=== PATIENT | female | born 1965 | race Caucasian/White ===

== ENCOUNTER 2020-08-03 21:13 | Inpatient (IN) | payer MEDICARE, OTHER, SELFPAY ==
[2020-08-03] VITALS (17 sets, daily range): BP systolic 102–139; BP diastolic 60–80; PULSE 59–75; RESP 12–20; TEMP 36.6; O2SAT 94–100
--- NOTE | ~2020-08-03 | XR_ITS ---
EXAMINATION: XR chest 2V DATE: 08/03/2020 21:33 INDICATION: Chest pain radiating to the left arm. TECHNIQUE: Frontal and lateral views of the chest were obtained. COMPARISON: Chest single view 01/17/2020 FINDINGS: There is mild atelectasis in left lower lung zone. No pleural effusion or pneumothorax. The heart size is normal. There are changes of anterior fusion procedure in cervical spine. IMPRESSION: 1. Mild atelectasis in left lower lung zone. Reviewed, dictated and finalized at location A. HEALTH SPEECH THERAPIST
--- NOTE | 2020-08-03 21:23 | ECG_ITS ---
Measurements Intervals [place] Rate: 73 P: 19 NV: 179 QRS: 40 QRSD: 111 T: 62 QT: 390 QTc: 433 Interpretive Statements SINUS RHYTHM INTRAVENTRICULAR CONDUCTION DELAY EARLY PRECORDIAL R/S TRANSITION NONSPECIFIC T-WAVE ABNORMALITY- ANTERIOR LEADS BASELINE ARTIFACT- I, II, III, AVL, V1, V3 BORDERLINE ECG Electronically Signed On 08-04-2020 12:38:08 FILBERT GROWER by Bon Cabrera D.O.
[2020-08-03 21:41] LABS: Basophils Absolute Auto 0.1 K/mm3 (0.0-0.1); Basophils Percent Auto 0.9 % (0.2-1.2); Eosinophils Absolute Auto 0.3 K/mm3 (0-0.3); Eosinophils Percent Auto 2.9 % (0-4.4); Hematocrit 38.2 % (37.0-47.0); Hemoglobin 12.8 g/dL (12.0-15.0); Immature Granulocyte Absolute 0.03 K/mm3 (0.00-0.031); Immature Granulocyte Percent A 0.3 % (0-0.5); Lymphocytes Absolute Auto 3.61 K/mm3 (0.9-3.2); Lymphocytes Percent Auto 34.3 % (18.3-44.2); Mean Corpuscular HGB Conc 33.5 g/dl (32-36); Mean Corpuscular Hemoglobin 30.1 pg (26-34); Mean Corpuscular Volume 89.9 fl (80-100); Mean Platelet Volume 9.9 fl (7.4-10.4); Monocytes Absolute Auto 0.8 K/mm3 (0.1-0.6); Monocytes Percent Auto 7.5 % (2.6-8.5); Neutrophils Absolute Auto 5.7 K/mm3 (1.3-6.7); Neutrophils Percent Auto 54.1 % (45.5-73.1); Platelet Count Result 279 k/mm3 (150-375); Red Blood Count 4.25 M/mm3 (4.2-5.4); Red Cell Distribution Width 12.7 % (11.5-14.5); White Blood Count 10.5 K/mm3 (4.5-10.0)
[2020-08-03] MEDS: ASPIRIN 81 MG CHEWABLE TABLET 324 MG PO (21:47)
--- NOTE | 2020-08-03 21:50 | ED.CHESTPAIN ---
HPI - Chest Pain General Chief Complaint: Chest Pain Stated Complaint: left arm pain, chest pain Time Seen by Provider: 08/03/20 21:19 History of Present Illness HPI narrative: Patient is a 55-year-old female who presents ER with chest pain. Symptoms began this afternoon at 2 PM. Reports she went out for a walk and she began getting central chest pressure that would go to her left arm and upper left neck. It is an ache. No muscle pain. She was short of breath. She did have to sit and rest until it would go away. Pain would last approximately 15 minutes. This is been reproducible with walking up stairs and other exertional activities throughout the day. No previous history of coronary disease. No family history of coronary disease. Related Data Allergies Allergy/AdvReac Type Severity Reaction Status Date / Time prochlorperazine Allergy Severe tongue and Verified 01/16/20 23:46 throat swelling Review of Systems Review of Systems: All systems reviewed & are unremarkable except as noted in HPI and below Constitutional: Constitutional: Denies chills, Denies fever(s) and Denies weakness ENT: Denies nasal congestion and Denies sore throat Cardiovascular: Cardiovascular: Reports chest pain, Denies rapid heart rate and Reports radiating jaw, neck or arm pain Respiratory: Respiratory: Denies cough, Reports dyspnea and Denies wheezing Gastrointestinal: Gastrointestinal: Denies abdominal pain, Denies diarrhea, Denies nausea and Denies vomiting Musculoskeletal: Musculoskeletal: Denies back pain and Denies muscle cramps Neurologic: Denies focal weakness and Denies numbness PMFSH Past Medical History Medical History (Updated 08/03/20 @ 23:45 by Hi Alexander MD) Bipolar disorder Hypercholesterolemia Surgical History Surgical History (Updated 08/03/20 @ 23:43 by Hi Alexander MD) History of Social History Social History (Updated 08/03/20 @ 23:43 by Hi Alexanedr MD) Smoking status: Never smoker Exam Narrative: Exam Narrative: GENERAL: Well-appearing, well-nourished, and in no acute distress. HEAD: Normocephalic, atraumatic. CHEST: Clear to auscultation. No respiratory distress. HEART: Regular rate and rhythm. No murmur heard. Normal peripheral pulses. ABDOMEN: Soft, nontender, nondistended. EXTREMITIES: Normal range of motion. No edema. SKIN: Warm, dry, no rash. NEURO: Alert and oriented x3. PSYCH: Normal mood and affect. Course Course Emergency Course: Discussed with cardiology. Okay to admit to their service. Patient chest pain-free at this time. Vital Signs Vital signs: Vital Signs Pulse Rate 75 08/03/20 21:18 Respiratory Rate 15 08/03/20 21:18 Blood Pressure 139/80 08/03/20 21:18 Pulse Oximetry 100 08/03/20 21:18 Pulse Rate 61 08/03/20 23:31 Respiratory Rate 14 08/03/20 23:31 Blood Pressure 107/66 08/03/20 23:31 Pulse Oximetry 100 08/03/20 23:31 MDM - Chest Pain Lab Data Result diagrams: 08/03/20 21:35 08/03/20 21:35 Labs: Lab Results 08/03/20 08/03/20 08/03/20 Range/Units 21:35 21:35 21:35 WBC 10.5 H (4.5-10.0) K/mm3 RBC 4.25 (4.2-5.4) M/mm3 Hgb 12.8 (12.0-15.0) g/dL Hct 38.2 (37.0-47.0) % MCV 89.9 (80-100) fl MCH 30.1 (26-34) pg MCHC 33.5 (32-36) g/dl RDW 12.7 (11.5-14.5) % Plt Count 279 (150-375) k/mm3 MPV 9.9 (7.4-10.4) fl Immature Gran % (Auto) 0.3 (0-0.5) % Neut % (Auto) 54.1 (45.5-73.1) % Lymph % (Auto) 34.3 (18.3-44.2) % Schleicher % (Auto) 7.5 (2.6-8.5) % Eos % (Auto) 2.9 (0-4.4) % Baso % (Auto) 0.9 (0.2-1.2) % Lymph # (Auto) 3.61 H (0.9-3.2) K/mm3 Schleicher # (Auto) 0.8 H (0.1-0.6) K/mm3 Eos # (Auto) 0.3 (0-0.3) K/mm3 Baso # (Auto) 0.1 (0.0-0.1) K/mm3 Abs Immat Gran (auto) 0.03 (0.00-0.031) K/mm3 Absolute Neuts (auto) 5.7 (1.3-6.7) K/mm3 Absolute Nucleated RBC 0.0 (
[2020-08-03 21:51] LABS: INR 0.9; Prothrombin Time 13.1 Seconds (11.1-14.7)
[2020-08-03 21:52] LABS: Partial Thromboplastin Time 29.1 SECONDS (22.3-36.8)
[2020-08-03 21:54] LABS: Anion Gap 9 mmol/L (8-16); Blood Urea Nitrogen 11 mg/dL (7-17); Calcium 9.6 mg/dL (8.4-10.2); Carbon Dioxide 28 mmol/L (22-30); Chloride 105 mmol/L (98-107); Estimated CRCL calculation 62 ml/min; Estimated Glomerular Filt Rate > 60; Glucose 104 mg/dL (65-105); Potassium 3.6 mmol/L (3.4-5.0); Sodium 142 mmol/L (137-145)
[2020-08-03 22:06] LABS: Troponin I < 0.012 ng/mL (0.000-0.034)
[2020-08-04] VITALS (10 sets, daily range): BP systolic 101–123; BP diastolic 54–71; PULSE 55–96; RESP 16; TEMP 36.2–36.6; O2SAT 100; BMI 32.4
--- NOTE | 2020-08-04 00:55 | ADMGEN ---
This patient, Prudence Ovalle, was admitted to IMU Room 213-01 on 08/04/20 at 0044. Patient/family oriented to hospital policies and general routines including ID bracelet, bed and alarms, visiting hours, pain management, procedures, bathroom and other care routines, personal items, smoking policy, room service/diet, and visiting hours. Information on how to activate the Rapid Response Team has been discussed. Patient/Family are encouraged to report perceived risks to care and to ask questions if they do not understand what they are told or what they should do.
[2020-08-04 01:02] LABS: Troponin I < 0.012 ng/mL (0.000-0.034)
[2020-08-04 01:18] LABS: Cholesterol 133 mg/dL (0-200); HDL Direct 50 mg/dL; Triglycerides 76 mg/dL (<150)
[2020-08-04 01:29] LABS: LDL Cholesterol Direct 64 mg/dL
[2020-08-04 04:11] LABS: Troponin I < 0.012 ng/mL (0.000-0.034)
[2020-08-04] MEDS: ACETAMINOPHEN 325 MG TABLET 650 MG PO (08:44)
[2020-08-04] MEDS: lamoTRIgine 100 MG TABLET 300 MG PO (08:45)
[2020-08-04] MEDS: ASPIRIN 325 MG TABLET PO (08:45)
[2020-08-04] MEDS: LEVOTHYROXINE SODIUM 50 MCG TABLET PO (08:45)
[2020-08-04] MEDS: LITHIUM CARBONATE 150 MG CAPSULE PO (08:46)
[2020-08-04] MEDS: LITHIUM CARBONATE 300 MG CAPSULE PO (08:46)
--- NOTE | 2020-08-04 08:53 | PM.IMHP ---
H&P: HPI History of Present Illness Date/Time: 08/04/20 08:53 Patient is a 55-year-old white woman with history dyslipidemia, hypothyroidism, bipolar disorder, status post anterior fusion procedure cervical spine (2017), family history of coronary artery disease, who is seen for a chief complaint of chest pain. Patient presented to the emergency department with complaints of chest pain which began on the day of presentation at approximately 1:00 p.m., lasting intermittent to the present time. Patient reports that most of her discomfort was not in the left central chest but actually in the left upper arm below the left shoulder. Patient was out for a walk when she began to get central chest pressure that went to her left arm and left upper neck. She said the discomfort was an ache with some associated dyspnea. Pain has been present on some intermittent level since then, although most of the discomfort is in her left upper arm with much less discomfort in her left chest. Discomfort was reproducible with walking upstairs and other exertional activities throughout the day. Patient denies any history of thromboembolism. She denies any active tobacco dependence. She reports orthopnea and paroxysmal nocturnal dyspnea in the last month, with arrangements having been made for home sleep study per her PCP recently. She denies edema. She denies palpitations, dizziness, or syncope. She denies exertional dyspnea climbing stairs, although reports that she might be mildly dyspneic if she was both talking on the phone and climbing stairs. Patient was previously seen in cardiac consultation at [facility] 11/24/2016 for chest pain. At that time she had a submaximal stress echo 11/25/2016 which was negative for ischemia by EKG and echo criteria although she did develop dizziness, chest pain, dyspnea, and mental fogginess with peak exercise. She has not been seen in the outpatient or inpatient setting since then. Previously, she had left heart catheterization at [facility] in December 2017 which demonstrated some plaque but no percutaneous coronary intervention was needed, per patient report. She reports having seen the survey research associate Dr. Jones Coyne at [facility], although she has not followed up with him for several years. This admission, white blood count was mildly elevated at 10,500 thousand five hundred. Hemoglobin is 12.8. Potassium is 3.6. Creatinine 0.9. LDL 64. Troponin I was negative for injury on 3 occasions. EKG demonstrated normal sinus rhythm, 73 beats per minute, moderate intraventricular conduction delay, nonspecific T-wave abnormality. Chest x-ray demonstrated mild atelectasis in the left lower lung zone, no pleural effusion, normal heart size. Patient was seen and examined, chart reviewed, and case discussed with nurse. Chief Complaint: chest pain Narrative: Prudence Ovalle is a 55 year old female Review of Systems Review of Systems: All systems reviewed & are unremarkable except as noted in HPI and below PMFSH Past Medical History Medical History Bipolar disorder Hypercholesterolemia Surgical History Surgical History History of Family History Family History Mother Coronary artery disease Abdominal aortic aneurysm Depression Diverticulitis Osteoarthritis FHx: coronary artery bypass surgery Chronic obstructive pulmonary disease Father Coronary artery disease Abdominal aortic aneurysm Alzheimer disease FHx: coronary artery bypass surgery Sibling Epilepsy Depression Thyroid goiter Bipolar 1 disorder, depressed Tonsil cancer Alcoholism and drug addiction in family Social History Social History (Updated 08/03/20 @ 23:43 by Hi Alexander MD) Smoking status: Never smoker Second hand tobacco smoke exposure: No Alcohol i
--- NOTE | 2020-08-04 08:56 | PM.DS ---
DS: Admitting Diagnosis Admitting Diagnosis Admitting Diagnosis: chest pain DS: Discharge Diagnosis Discharge Diagnosis (1) Chest pain: Code(s): R07.9 - Chest pain, unspecified Status: Acute Assessment and Plan: chest pain Patient is a 55-year-old white woman with history dyslipidemia, hypothyroidism, bipolar disorder, status post anterior fusion procedure cervical spine, family history of coronary artery disease, who is seen for a chief complaint of chest pain. -her atypical chest pain has improved somewhat, with most of the discomfort in her left upper arm below the left shoulder. On examination, she is tender to palpation of the left central chest, reproducing her presenting chest discomfort. Her left upper arm is also tender. She has a history of C-spine surgery in 2017. -troponin I was negative for injury on 3 occasions. -EKG without evidence of acute injury. -she is not tachycardic, tachypneic, or currently dyspneic, with normal oxygen saturation on room air. -previously, she had a submaximal stress echo 11/25/2016 which was negative for ischemia by EKG and echo criteria although she did develop dizziness, chest pain, dyspnea, and mental fogginess with peak exercise. -previously, she had left heart catheterization at [facility] in December 2017 which demonstrated some plaque but no percutaneous coronary intervention was needed, per patient report. -she will benefit from outpatient exercise nuclear stress testing in the next 1-2 days and is instructed to call the [facility] office 08/05/2020 8:00 a.m. to facilitate scheduling. -she may benefit from an outpatient echocardiogram to evaluate cardiac structure and function. -plans for home sleep study noted per her PCP. -patient appears stable for discharge from cardiac perspective with follow-up in the Cardiology Clinic in 1-2 days. (2) Hypercholesterolemia: Code(s): E78.00 - Pure hypercholesterolemia, unspecified Status: Inactive Assessment and Plan: -LDL 64 this admission. -continue atorvastatin. (3) Bipolar disorder: Code(s): F31.9 - Bipolar disorder, unspecified Status: Inactive Assessment and Plan: -outpatient follow-up needed with PCP and appropriate care team. -consider repeating lithium level as an outpatient. . (4) Hypothyroidism: Code(s): E03.9 - Hypothyroidism, unspecified Status: Acute Assessment and Plan: -consider outpatient reassessment of thyroid status as she is on thyroid hormone supplementation. DS: Summary Hospital Course Hospital Course: Patient is a 55-year-old white woman with history dyslipidemia, hypothyroidism, bipolar disorder, status post anterior fusion procedure cervical spine, family history of coronary artery disease, who is seen for a chief complaint of chest pain. -her atypical chest pain has improved somewhat, with most of the discomfort in her left upper arm below the left shoulder. On examination, she is tender to palpation of the left central chest, reproducing her presenting chest discomfort. Her left upper arm is also tender. She has a history of C-spine surgery in 2017. -troponin I was negative for injury on 3 occasions. -EKG without evidence of acute injury. -she is not tachycardic, tachypneic, or currently dyspneic, with normal oxygen saturation on room air. -previously, she had a submaximal stress echo 11/25/2016 which was negative for ischemia by EKG and echo criteria although she did develop dizziness, chest pain, dyspnea, and mental fogginess with peak exercise. -previously, she had left heart catheterization at [facility] in December 2017 which demonstrated some plaque but no percutaneous coronary intervention was needed, per patient report. -she will benefit from outpatient exercise nuclear stress testing in the next 1-2 days and is instructed to call the [facility] office 08/05/2020 8:00 a.m. to facilitate scheduling. -she may benefit fr
--- NOTE | 2020-08-04 11:16 | PC.NURSE ---
Pt discharged to home/self care on 08/04/20 at 1115. Discharge instructions given to patient. Verbalizes understanding
== END 2020-08-04 11:19 | disposition home or self-care (01) | DRG 313 ==
LOC: ANHED 21:47 → ANHIMU 23:45
PROVIDERS: Admitting Provider Specialist; Emergency Provider Emergency Medicine; PCP Internal Medicine; Visit Provider Internal Medicine Cardiovascular Disease
DX: R07.9 Chest pain, unspecified (principal); E78.00 Pure hypercholesterolemia, unspecified; F31.9 Bipolar disorder, unspecified; E03.9 Hypothyroidism, unspecified
CPT/HCPCS: 36415; 71046; 80048; 80061; 84484; 85025; 85610; 85730; 93005; 99285; A9270

== ENCOUNTER 2021-01-26 01:00 | Emergency (ER) | payer MEDICARE, OTHER, SELFPAY ==
[2021-01-26] VITALS (9 sets, daily range): BP systolic 100–110; BP diastolic 64–72; PULSE 58–80; RESP 15–18; TEMP 36.3; O2SAT 97–100
--- NOTE | ~2021-01-26 | XR_ITS ---
XR chest 2V DATE: 01/26/2021 01:23 INDICATION: Shortness of breath, sternal chest pain TECHNIQUE: PA and lateral views COMPARISON: August 03, 2020 2 view chest FINDINGS: Status post anterior cervical spine surgical fusion. Normal heart size. No hilar or mediastinal enlargement. No pulmonary infiltrate or consolidation, ple ural effusion or pulmonary vascular congestion or pneumothorax. Included skeletal structures are unremarkable. IMPRESSION: No active cardiopulmonary disease Reviewed, dictated and finalized at location A.
--- NOTE | 2021-01-26 01:15 | ECG_ITS ---
Measurements Intervals [place] Rate: 69 P: 9 CA: 162 QRS: 40 QRSD: 88 T: 62 QT: 367 QTc: 396 Interpretive Statements SINUS RHYTHM NONSPECIFIC T-WAVE ABNORMALITY- ANTERIOR LEADS BASELINE WANDER- I, AVR, AVL, AVF, V1-V6 BORDERLINE ECG Electronically Signed On 01-26-2021 6:40:15 CDT by Bon Cabrera D.O.
--- NOTE | 2021-01-26 01:20 | PC.NURSE ---
Patient in xray.
[2021-01-26 01:23] LABS: Basophils Absolute Auto 0.1 K/mm3 (0.0-0.1); Basophils Percent Auto 0.8 % (0.2-1.2); Eosinophils Absolute Auto 0.3 K/mm3 (0-0.3); Eosinophils Percent Auto 2.8 % (0-4.4); Hemoglobin 13.4 g/dL (12.0-15.0); Immature Granulocyte Absolute 0.02 K/mm3 (0.00-0.031); Immature Granulocyte Percent A 0.2 % (0-0.5); Lymphocytes Absolute Auto 3.54 K/mm3 (0.9-3.2); Lymphocytes Percent Auto 37.1 % (18.3-44.2); Mean Corpuscular HGB Conc 32.7 g/dl (32-36); Mean Corpuscular Hemoglobin 30.1 pg (26-34); Mean Corpuscular Volume 92.1 fl (80-100); Mean Platelet Volume 9.9 fl (7.4-10.4); Monocytes Absolute Auto 0.6 K/mm3 (0.1-0.6); Monocytes Percent Auto 5.9 % (2.6-8.5); Neutrophils Absolute Auto 5.1 K/mm3 (1.3-6.7); Neutrophils Percent Auto 53.2 % (45.5-73.1); Platelet Count Result 290 k/mm3 (150-375); Red Blood Count 4.45 M/mm3 (4.2-5.4); Red Cell Distribution Width 12.7 % (11.5-14.5); White Blood Count 9.5 K/mm3 (4.5-10.0)
[2021-01-26 01:33] LABS: Anion Gap 11 mmol/L (8-16); Blood Urea Nitrogen 15 mg/dL (7-17); Calcium 10.3 mg/dL (8.4-10.2); Carbon Dioxide 24 mmol/L (22-30); Chloride 104 mmol/L (98-107); Estimated CRCL calculation 61 ml/min; Estimated Glomerular Filt Rate > 60; Glucose 98 mg/dL (65-110); Potassium 3.9 mmol/L (3.4-5.0); Sodium 139 mmol/L (137-145)
--- NOTE | 2021-01-26 02:48 | ED.SOB ---
HPI - SOB/Dyspnea General Chief Complaint: Shortness of Breath/Dyspnea Stated Complaint: difficulty breathing, stomach pain, dizzy Time Seen by Provider: 01/26/21 01:09 History of Present Illness HPI Narrative: Patient is a 55-year-old female who presents ER with shortness of breath. Began 2 nights ago while wearing her CPAP. She feels like her breathing is out of sync. Occurred this evening as well. She tried increasing her pressure from 4 to 5. Chest pain or chest pressure. No fevers or chills or sweats. Denies orthopnea. Has not had similar issues. No runny nose or sore throat or productive cough. No chest pain or chest pressure. Occasionally feels like she is having issues with reflux. Related Data Home Medications Medication Instructions Recorded Confirmed atorvastatin 20 mg PO HS 08/04/20 08/04/20 lamotrigine 300 mg PO DAILY 08/04/20 08/04/20 levothyroxine 50 mcg PO DAILY 08/04/20 08/04/20 lithium carbonate 450 mg PO BID 08/04/20 08/04/20 quetiapine 300 mg PO HS 08/04/20 08/04/20 Allergies Allergy/AdvReac Type Severity Reaction Status Date / Time prochlorperazine Allergy Severe tongue and Verified 08/04/20 01:25 throat swelling Review of Systems Review of Systems: All systems reviewed & are unremarkable except as noted in HPI and below Constitutional: Constitutional: Denies chills, Denies fever(s) and Denies weakness ENT: Denies nasal congestion and Denies sore throat Respiratory: Respiratory: Denies cough, Reports dyspnea and Denies wheezing Gastrointestinal: Gastrointestinal: Denies abdominal pain, Reports heartburn, Denies nausea and Denies vomiting Musculoskeletal: Musculoskeletal: Denies back pain and Denies muscle cramps [facility] Past Medical History Medical History (Updated 01/26/21 @ 03:33 by Hi Alexander MD) Bipolar disorder Hypercholesterolemia Obstructive sleep apnea Surgical History Surgical History History of Family History Family History Mother Coronary artery disease Abdominal aortic aneurysm Depression Diverticulitis Osteoarthritis FHx: coronary artery bypass surgery Chronic obstructive pulmonary disease Father Coronary artery disease Abdominal aortic aneurysm Alzheimer disease FHx: coronary artery bypass surgery Sibling Epilepsy Depression Thyroid goiter Bipolar 1 disorder, depressed Tonsil cancer Alcoholism and drug addiction in family Social History Social History (Updated 08/03/20 @ 23:43 by Hi Alexander MD) Smoking status: Never smoker Second hand tobacco smoke exposure: No Alcohol intake: never Substance use: never Substance use type: does not use Gender identity (if verbalized by the patient): Female Spiritual care concerns: No Exam Narrative: GENERAL: Well-appearing, well-nourished, and in no acute distress. HEAD: Normocephalic, atraumatic. CHEST: Clear to auscultation. No respiratory distress. HEART: Regular rate and rhythm. Normal peripheral pulses. ABDOMEN: Soft, nontender, nondistended. EXTREMITIES: Normal range of motion. No edema. SKIN: Warm, dry, no rash. NEURO: Alert and oriented x3. PSYCH: Normal mood and affect. Course Course Emergency Course: Unremarkable evaluation. Discharge home. Follow-up with PCP. Vital Signs Vital signs: Vital Signs Temperature 97.4 F L 01/26/21 01:03 Pulse Rate 80 01/26/21 01:03 Respiratory Rate 16 01/26/21 01:03 Blood Pressure 110/64 01/26/21 01:03 Pulse Oximetry 100 01/26/21 01:03 Temperature 97.4 F L 01/26/21 01:03 Pulse Rate 58 L 01/26/21 03:02 Respiratory Rate 17 01/26/21 03:02 Blood Pressure 104/72 01/26/21 03:01 Pulse Oximetry 99 01/26/21 03:02 MDM - SOB/Dyspnea Lab Data Result diagrams: 01/26/21 01:18 01/26/21 01:18 Labs: Lab Results 01/26/21
[2021-01-26 02:59] LABS: NT Pro B Type Natriuretic Pept 33 pg/mL (5-100)
== END 2021-01-26 03:46 | disposition home or self-care (01) ==
PROVIDERS: Emergency Provider Emergency Medicine; PCP Internal Medicine
DX: R06.00 Dyspnea, unspecified (principal)
CPT/HCPCS: 36415; 71046; 80048; 83880; 85025; 93005; 99284

== ENCOUNTER 2021-05-26 17:15 | Emergency (ER) | payer MEDICARE, OTHER, SELFPAY ==
[2021-05-26 17:18] VITALS: BP 134/76; PULSE 67; RESP 17; TEMP 36.6; O2SAT 100
--- NOTE | 2021-05-26 19:05 | PC.NURSE ---
Patient states she is going to follow up with her PCP tomorrow morning and does not wish to be seen tonight. Patient educated to return to ED if symptoms worsen or continue.
== END 2021-05-27 04:12 | disposition left against medical advice (07) ==
PROVIDERS: PCP Internal Medicine
DX: R11.2 Nausea with vomiting, unspecified (principal)
CPT/HCPCS: 99199

== ENCOUNTER 2021-11-20 22:22 | Emergency (ER) | payer MEDICARE, OTHER, SELFPAY ==
--- NOTE | ~2021-11-20 | XR_ITS ---
XR chest 2V DATE: 11/20/2021 22:35 INDICATION: Shortness of breath, palpitations TECHNIQUE: PA and lateral views COMPARISON: 01/26/2021 2 view chest FINDINGS: Again noted is anterior spinal surgical fusion. Normal heart size. No hilar or mediastinal enlargement. No pulmonary infiltrate or consolidation, ple ural effusion or pulmonary vascular congestion or pneumothorax. IMPRESSION: No active cardiopulmonary disease or significant change since 01/26/2021 Reviewed, dictated and finalized at location A. IMPRESSION: No active cardiopulmonary disease or significant change since 2020
[2021-11-20 22:24] VITALS: BP 129/83; PULSE 63; RESP 18; TEMP 35.9; O2SAT 100
--- NOTE | 2021-11-20 22:54 | PC.NURSE ---
patient states that the chairs in the waiting room were too uncomfortable and that she is leaving
== END 2021-11-20 22:55 | disposition left against medical advice (07) ==
PROVIDERS: Emergency Provider Emergency Medicine; PCP Internal Medicine
DX: R00.2 Palpitations (principal)
CPT/HCPCS: 71046; 99199

== ENCOUNTER 2022-03-08 11:20 | Emergency (ER) | payer MEDICARE, SELFPAY ==
--- NOTE | ~2022-03-08 | XR_ITS ---
EXAMINATION: XR abdomen/kub 1V DATE: 03/08/2022 11:54 INDICATION: Months of bilateral flank pain TECHNIQUE: A supine view of the abdomen was obtained. COMPARISON: None. FINDINGS: There are some stool in the ascending and sigmoid colon. No dilated loops of gas-filled bowel to sugg est obstruction. No evident urolithiasis.. Bones are unremarkable. IMPRESSION: 1. Normal bowel gas pattern. Reviewed, dictated and finalized at location A.
--- NOTE | 2022-03-08 11:25 | ED.BACK ---
HPI - Back Pain/Injury General Chief Complaint: Back Pain/Injury Stated Complaint: BACK PAIN Time Seen by Provider: 03/08/22 11:35 Source: patient and RN notes reviewed Mode of arrival: ambulatory Limitations: no limitations History of Present Illness HPI Narrative: 56-year-old female presents concern for back pain. She reports mid back pain that has been intermittent for 4 to 5 months. Reports she was treated for urinary tract infection 1 month ago that did not improve her back pain. She reports the pain radiates on the left side to the abdomen. She reports nausea with the pain. She denies primary care vomiting or other abdominal pain or tenderness. She denies loss of bowel or bladder function, she reports she has occasional urine urgency and has a hard time making to the bathroom that started when this back pain started. She denies weakness in extremity. She reports pain is random and is also exacerbated with certain movements such as bending and twisting MD elicited complaint: back pain Related Data Home Medications Medication Instructions Recorded Confirmed atorvastatin 20 mg tablet 20 mg PO HS 08/04/20 08/04/20 lamotrigine 150 mg tablet 300 mg PO DAILY 08/04/20 08/04/20 levothyroxine 50 mcg tablet 50 mcg PO DAILY 08/04/20 08/04/20 lithium carbonate 450 mg 450 mg PO BID 08/04/20 08/04/20 tablet,extended release quetiapine 300 mg tablet,extended 300 mg PO HS 08/04/20 08/04/20 release 24 hr Allergies Allergy/AdvReac Type Severity Reaction Status Date / Time prochlorperazine Allergy Severe tongue and Verified 08/04/20 01:25 throat swelling Review of Systems Review of Systems: CONSTITUTIONAL: Bite reports. Denies malaise, chills, sweats, or fever. CARDIOVASCULAR: Denies chest pain, palpitations, or edema. RESPIRATORY: Denies cough or dyspnea. GASTROINTESTINAL: Reports left-sided abdominal pain radiating from the back likely Kim the urgent care. Denies nausea, vomiting, diarrhea, loss of bowel function GENITOURINARY: Denies dysuria, hematuria, frequency, loss of bladder function. Reports urinary urgency SKIN: Denies rash or itching. MUSCULOSKELETAL: Reports bilateral mid back pain worse on the left NEUROLOGIC: Denies numbness, weakness, or headache. All systems reviewed & are unremarkable except as noted in HPI and below PMFSH Past Medical History Medical History (Updated 03/08/22 @ 12:16 by Mary Maravilla NP) Bipolar disorder Hypercholesterolemia Obstructive sleep apnea Surgical History Surgical History History of Family History Family History Mother Coronary artery disease Abdominal aortic aneurysm Depression Diverticulitis Osteoarthritis FHx: coronary artery bypass surgery Chronic obstructive pulmonary disease Father Coronary artery disease Abdominal aortic aneurysm Alzheimer disease FHx: coronary artery bypass surgery Sibling Epilepsy Depression Thyroid goiter Bipolar 1 disorder, depressed Tonsil cancer Alcoholism and drug addiction in family Social History Social History (Updated 08/03/20 @ 23:43 by Hi Alexander MD) Smoking status: Never smoker Second hand tobacco smoke exposure: No Alcohol intake: never Substance use: never Substance use type: does not use Gender identity (if verbalized by the patient): Female Sexual Orientation (if Verbalized by the Patient): Straight or Heterosexual Spiritual care concerns: No Comments At time of signature, agree with nursing past medical, surgical, social and family history. There is no relevant family history pertinent to the presenting complaint Exam Narrative: GENERAL: Nontoxic appearing and in no acute distress. HEAD: Normocephalic, atraumatic. EYES: PERRLA and EOMI. NECK: Supple. No lymphadenopathy. CHEST: Clear to auscultation. No respiratory distress. HEART
[2022-03-08 11:29] VITALS: BP 113/70; PULSE 67; RESP 20; TEMP 37.1; O2SAT 100
== END 2022-03-08 12:23 | disposition short-term general hospital (02) ==
PROVIDERS: Emergency Provider Nurse Practitioner; PCP Internal Medicine
DX: M54.50 Low back pain, unspecified (principal); E78.00 Pure hypercholesterolemia, unspecified; G47.33 Obstructive sleep apnea (adult) (pediatric)
CPT/HCPCS: 74018; 81003; 99212; G0463

== ENCOUNTER 2022-03-08 12:33 | Emergency (ER) | payer MEDICARE, SELFPAY ==
--- NOTE | ~2022-03-08 | CT_ITS ---
EXAMINATION: CT abdomen pelvis wo con DATE: 03/08/2022 13:10 INDICATION: Left flank pain radiating to the left lower quadrant TECHNIQUE: Computed tomography (CT) of the abdomen and pelvis was performed without intravenous contr ast. Automated exposure control and iterative reconstruction technique were employed. The dose-length product was 438.79 mGy-cm. COMPARISON: None FINDINGS: Lung bases are clear. Heart size is normal. No pericardial or pleural effusion. Liver, gallbladder, p ancreas, spleen including a couple small splenules, and bilateral adrenal glands are normal. Kidneys and ureters are normal with no urolithiasis, hydroureteronephrosis or perinephric/ureteral stranding. Bladder, uterus and bilateral adnexa are normal. No free intraperitoneal gas or fluid. No pathologic ally enlarged abdominal or pelvic lymphadenopathy. Chronic appearing mild likely physiologic anterior wedging at T12 and L1. IMPRESSION: 1. No acute intra-abdominal/pelvic process. Reviewed, dictated and finalized at location A.
[2022-03-08 12:50] LABS: Appearance Urine Clear (Clear); Bilirubin Urine Negative (Negative); Blood Urine Negative (Negative); Color Urine Yellow (Yellow); Glucose Urine UA Negative (Negative); Ketones Urine Negative (Negative); Leukocyte Esterase Ur Negative LEU/UL (Negative); Nitrate Urine Negative (Negative); Protein Urine Negative (Negative); Urobilinogen Urine 0.2 mg/dL (<2.0)
[2022-03-08 12:51] LABS: Add Urine Microscopic? NO
[2022-03-08 12:54] VITALS: BP 124/70; PULSE 63; RESP 18; TEMP 36.3; O2SAT 95
--- NOTE | 2022-03-08 12:56 | ED.GENADULT ---
HPI - General Adult General Chief complaint: Abdominal Pain Stated complaint: flank pain Time Seen by Provider: 03/08/22 12:36 History of Present Illness HPI narrative: 56-year-old female presenting to the emergency department for evaluation of lower back pain. Patient states she has had minor aching lower back pain bilaterally for the last 4 months. Patient initially attributed this to her uncomfortable mattress but she states she got a new mattress and the mild backache persisted. Patient states this morning while she was at [employer] she had a change in her symptoms which involved left flank pain that radiates around to her left lower quadrant. Patient states the pain started approximately 1030 and was very intense. Patient states she did have some associated nausea with this but denies any vomiting. After arriving to the emergency department patient states that her pain has improved. On initial evaluation patient declined any meds for pain or nausea control. Patient is resting comfortably in the room. Patient denies any prior history of kidney stones. Patient does have a prior history of kidney infections. Patient also has prior surgical history of 3 sections. Patient has also had fusion of her cervical spine C4-C7. Related Data Home Medications Medication Instructions Recorded Confirmed atorvastatin 20 mg tablet 20 mg PO HS 08/04/20 08/04/20 lamotrigine 150 mg tablet 300 mg PO DAILY 08/04/20 08/04/20 levothyroxine 50 mcg tablet 50 mcg PO DAILY 08/04/20 08/04/20 lithium carbonate 450 mg 450 mg PO BID 08/04/20 08/04/20 tablet,extended release quetiapine 300 mg tablet,extended 300 mg PO HS 08/04/20 08/04/20 release 24 hr Allergies Allergy/AdvReac Type Severity Reaction Status Date / Time prochlorperazine Allergy Severe tongue and Verified 08/04/20 01:25 throat swelling Review of Systems Review of Systems: CONSTITUTIONAL: Denies fever, chills, or sweats. EYES: Denies visual changes, redness, or discharge. ENT: Denies rhinorrhea, congestion, sore throat, or otalgia. CARDIOVASCULAR: Denies chest pain, palpitations, or edema. RESPIRATORY: Denies cough or dyspnea. GASTROINTESTINAL: See HPI GENITOURINARY: Denies dysuria or hematuria. SKIN: Denies rash or itching. MUSCULOSKELETAL: See HPI NEUROLOGIC: Denies headache, numbness, or weakness.. PMFSH Past Medical History Medical History (Updated 03/08/22 @ 14:01 by Chris Clark MD) Bipolar disorder Hypercholesterolemia Obstructive sleep apnea Surgical History Surgical History History of Family History Family History Mother Coronary artery disease Abdominal aortic aneurysm Depression Diverticulitis Osteoarthritis FHx: coronary artery bypass surgery Chronic obstructive pulmonary disease Father Coronary artery disease Abdominal aortic aneurysm Alzheimer disease FHx: coronary artery bypass surgery Sibling Epilepsy Depression Thyroid goiter Bipolar 1 disorder, depressed Tonsil cancer Alcoholism and drug addiction in family Social History Social History (Updated 08/03/20 @ 23:43 by Hi Alexander MD) Smoking status: Never smoker Second hand tobacco smoke exposure: No Alcohol intake: never Substance use: never Substance use type: does not use Gender identity (if verbalized by the patient): Female Sexual Orientation (if Verbalized by the Patient): Straight or Heterosexual Spiritual care concerns: No Exam Narrative: APPEARANCE: Well appearing, no pain, no distress, well-nourished. HEAD: normocephalic, atraumatic. EYES: PERRLA/EOMI, conjunctivae clear. NOSE: Normal no drainage NECK: Supple. No adenopathy, no masses. RESPIRATORY: Airway patent, respirations nonlabored. Clear to auscultation bilaterally, no rales, rhonchi, wheezing. CARDIOVASCULAR: Regular rate and rhythm with
[2022-03-08 12:58] LABS: Basophils Absolute Auto 0.1 K/mm3 (0.0-0.1); Basophils Percent Auto 0.8 % (0.2-1.2); Eosinophils Absolute Auto 0.2 K/mm3 (0-0.3); Eosinophils Percent Auto 2.5 % (0-4.4); Hematocrit 38.8 % (37.0-47.0); Immature Granulocyte Absolute 0.03 K/mm3 (0.00-0.031); Immature Granulocyte Percent A 0.3 % (0-0.5); Lymphocytes Absolute Auto 1.92 K/mm3 (0.9-3.2); Lymphocytes Percent Auto 21.7 % (18.3-44.2); Mean Corpuscular HGB Conc 33.5 g/dl (32-36); Mean Corpuscular Hemoglobin 30.5 pg (26-34); Mean Corpuscular Volume 91.1 fl (80-100); Mean Platelet Volume 9.6 fl (7.4-10.4); Monocytes Absolute Auto 0.6 K/mm3 (0.1-0.6); Monocytes Percent Auto 6.5 % (2.6-8.5); Neutrophils Percent Auto 68.2 % (45.5-73.1); Platelet Count Result 247 k/mm3 (150-375); Red Blood Count 4.26 M/mm3 (4.2-5.4); White Blood Count 8.8 K/mm3 (4.5-10.0)
[2022-03-08 13:12] LABS: Alanine Aminotransferase 22 U/L (6-35); Albumin Level 4.9 g/dL (3.5-5.1); Alkaline Phosphatase 123 U/L (38-126); Anion Gap 10 mmol/L (8-16); Aspartate Amino Transferase 24 U/L (14-36); Bilirubin,Total 0.4 mg/dL (0.2-1.3); Blood Urea Nitrogen 11 mg/dL (7-17); Calcium 9.8 mg/dL (8.4-10.2); Carbon Dioxide 24 mmol/L (22-30); Chloride 106 mmol/L (98-107); Estimated CRCL calculation 59 ml/min; Estimated Glomerular Filt Rate > 60; Glucose 100 mg/dL (65-110); Sodium 140 mmol/L (137-145)
[2022-03-08 14:09] VITALS: BP 114/63; PULSE 68; RESP 16; O2SAT 99
== END 2022-03-08 14:10 | disposition home or self-care (01) ==
PROVIDERS: Emergency Provider Emergency Medicine; PCP Internal Medicine
DX: M54.50 Low back pain, unspecified (principal); R10.32 Left lower quadrant pain; F31.9 Bipolar disorder, unspecified; E78.00 Pure hypercholesterolemia, unspecified; G47.33 Obstructive sleep apnea (adult) (pediatric)
CPT/HCPCS: 36415; 74018; 74176; 80053; 81003; 81025; 85025; 99284

== ENCOUNTER → 2022-05-14 12:04 | Outpatient (CLI) | payer MEDICARE, SELFPAY ==
--- NOTE | ~2022-05-14 | MR_ITS ---
EXAMINATION: MR cervical spine wo/w con DATE: 05/14/2022 13:07 INDICATION: Cervical radiculopathy. TECHNIQUE: Magnetic resonance imaging (MRI) of the cervical spine was performed without and with 16 m L MultiHance intravenous contrast. COMPARISON: None FINDINGS: There is 12 degrees levoscoliosis in upper thoracic spine. There is a compression fracture of T1 with less than 1/5 loss of height and edema-like marrow signal intensity. There are changes of anterior fusion procedure from C4 to C7 with anterior plate and screws. There is healed interbody bon e graft at C4-C5 and C5-C6. There is mildly decreased disc height at C3-C4 and severely decreased dis c height at C7-T1. The spinal cord signal intensity is normal. The following disc levels are specific ally discussed: C2-C3: The disc does not extend beyond the endplate margin. There is mild right uncovertebral joint o steoarthritis. There is severe bilateral facet joint osteoarthritis. There is mild bilateral neural f oraminal stenosis. There is no central canal stenosis. C3-C4: The disc is bulging. There is moderate right and mild left uncovertebral joint osteoarthritis. There is moderate and severe left facet joint osteoarthritis. There is mild bilateral neural foramin al stenosis. There is no central canal stenosis. C4-C5: There is no uncovertebral joint hypertrophy. There is there is ankylosis of left facet joint w ith mild hypertrophy. There is mild left neural foraminal stenosis. There is no central canal stenosi s. C5-C6: There is mild right uncovertebral joint hypertrophy. There is mild right facet joint osteoarth ritis. There is ankylosis of left facet joint with mild hypertrophy. There is mild right neural cody inal stenosis. There is no central canal stenosis. C6-C7: There is moderate uncovertebral joint hypertrophy. There is severe bilateral facet joint osteo arthritis. There is mild bilateral neural foraminal stenosis. There is no central canal stenosis. C7-T1: There is a central extrusion. There is moderate bilateral uncovertebral joint hypertrophy. The re is severe bilateral facet joint osteoarthritis. There is mild right neural foraminal stenosis. The re is mild central canal stenosis. IMPRESSION: 1. T1 compression fracture with less than 1/5 loss of height, likely acute or subacute. 2. Moderate cervical spondylosis. 3. Anterior fusion procedure from C4 to C7. Reviewed, dictated and finalized at location E. [employer] IMPRESSION: 1. T1 compression fracture with less than 1/5 loss of height, likely acute or s ubacute. 2. Moderate cervical spondylosis. 3. Anterior fusion procedure from C4 to C7.
== END ==
PROVIDERS: PCP Internal Medicine
DX: M54.12 Radiculopathy, cervical region (principal); M48.54XA Collapsed vertebra, not elsewhere classified, thoracic region, initial encounter for fracture; M43.02 Spondylolysis, cervical region; Z98.1 Arthrodesis status
CPT/HCPCS: 72156; A9577

== ENCOUNTER 2022-11-23 15:11 | Emergency (ER) | payer MEDICARE, SELFPAY ==
--- NOTE | ~2022-11-23 | XR_ITS ---
EXAMINATION: XR chest 2V Exam Date/Time: 11/23/2022 15:45 CDT HISTORY: SHARP chest pain, LEFT SIDE SINCE 11 THIS AM. Comparison: 11/20/2021. RESULT: Lines, tubes, and devices: ACDF hardware. Lungs and pleura: Clear. Cardiomediastinal silhouette: Stable. Other: No acute osseous or upper abdominal finding. IMPRESSION: No acute cardiopulmonary process. Reviewed, dictated and finalized at location K.
[2022-11-23 15:12] VITALS: BP 104/56; PULSE 53; RESP 16; TEMP 36.8; O2SAT 96
--- NOTE | 2022-11-23 15:17 | ECG_ITS ---
Measurements Intervals [place] Rate: 50 P: 51 ID: [id number] QRS: 32 QRSD: 90 T: 46 QT: 451 QTc: 413 Interpretive Statements SINUS BRADYCARDIA OTHERWISE NORMAL ECG COMPARED TO ECG 01/26/2021 01:07:02 HEART RATE REDUCED NO OTHER SIGNIFICANT CHANGE Electronically Signed On 11-23-2022 16:11:52 CDT by Armando Cisneros M.D.
[2022-11-23 15:55] LABS: Basophils Absolute Auto 0.1 K/mm3 (0.0-0.1); Basophils Percent Auto 0.8 % (0.2-1.2); Eosinophils Absolute Auto 0.1 K/mm3 (0-0.3); Eosinophils Percent Auto 1.5 % (0-4.4); Hematocrit 34.1 % (37.0-47.0); Hemoglobin 11.5 g/dL (12.0-15.0); Immature Granulocyte Absolute 0.03 K/mm3 (0.00-0.031); Immature Granulocyte Percent A 0.3 % (0-0.5); Lymphocytes Absolute Auto 1.99 K/mm3 (0.9-3.2); Lymphocytes Percent Auto 21.4 % (18.3-44.2); Mean Corpuscular HGB Conc 33.7 g/dl (32-36); Mean Corpuscular Hemoglobin 29.6 pg (26-34); Mean Corpuscular Volume 87.7 fl (80-100); Mean Platelet Volume 9.1 fl (7.4-10.4); Monocytes Absolute Auto 0.5 K/mm3 (0.1-0.6); Monocytes Percent Auto 5.6 % (2.6-8.5); Neutrophils Absolute Auto 6.6 K/mm3 (1.3-6.7); Neutrophils Percent Auto 70.4 % (45.5-73.1); Platelet Count Result 262 k/mm3 (150-375); Red Blood Count 3.89 M/mm3 (4.2-5.4); Red Cell Distribution Width 12.6 % (11.5-14.5); White Blood Count 9.3 K/mm3 (4.5-10.0)
[2022-11-23 16:05] LABS: Alanine Aminotransferase 17 U/L (6-35); Albumin Level 4.5 g/dL (3.5-5.1); Alkaline Phosphatase 100 U/L (38-126); Anion Gap 6 mmol/L (8-16); Aspartate Amino Transferase 24 U/L (14-36); Bilirubin,Total 0.4 mg/dL (0.2-1.3); Blood Urea Nitrogen 16 mg/dL (7-17); Calcium 9.4 mg/dL (8.4-10.2); Carbon Dioxide 26 mmol/L (22-30); Chloride 106 mmol/L (98-107); Estimated CRCL calculation 54 ml/min; Estimated Glomerular Filt Rate 57; Glucose 101 mg/dL (65-110); Lipase 92 U/L (23-300); Potassium 3.7 mmol/L (3.4-5.0); Sodium 138 mmol/L (137-145)
[2022-11-23 16:06] LABS: Prothrombin Time 13.7 Seconds (11.1-14.7)
[2022-11-23 16:07] LABS: Partial Thromboplastin Time 30.2 SECONDS (22.3-36.8)
[2022-11-23 16:17] LABS: Troponin I < 0.012 ng/mL (0.000-0.034)
--- NOTE | 2022-11-23 16:24 | ED.CHESTPAIN ---
HPI - Chest Pain General Chief Complaint: Chest Pain Stated Complaint: chest pain, abd pain Time Seen by Provider: 11/23/22 15:33 History of Present Illness HPI narrative: 57-year-old female with no prior history of coronary disease but does have a history of high cholesterol presented the emergency department for evaluation of some left-sided chest pain. Patient states she often has the left-sided chest pain but today had some associated diaphoresis with this. Patient states she was working in the heat and reports that she does have a prior history of heat sensitivity due to her psychiatric medications. Patient states she had approximate 1 hour of symptoms that resolved and then she had a recurrence of the symptoms. Patient called EMS and was treated with nitro and aspirin by EMS. Patient states that the nitro did help with some of the chest pain that she was having. Upon arrival to the ED patient states she is having no chest pain but does states she is having some of her chronic intermittent left shoulder pain. Patient denies any diaphoresis or lightheadedness or shortness of breath. Patient states that she did have a plane flight from [place] just last week Related Data Home Medications Medication Instructions Recorded Confirmed atorvastatin 20 mg tablet 20 mg PO HS 08/04/20 08/04/20 lamotrigine 150 mg tablet 300 mg PO DAILY 08/04/20 08/04/20 levothyroxine 50 mcg tablet 50 mcg PO DAILY 08/04/20 08/04/20 lithium carbonate 450 mg 450 mg PO BID 08/04/20 08/04/20 tablet,extended release quetiapine 300 mg tablet,extended 300 mg PO HS 08/04/20 08/04/20 release 24 hr Allergies Allergy/AdvReac Type Severity Reaction Status Date / Time prochlorperazine Allergy Severe tongue and Verified 11/23/22 15:18 throat swelling Review of Systems Review of Systems: All systems reviewed & are unremarkable except as noted in HPI and below PMFSH Past Medical History Medical History (Updated 11/23/22 @ 19:14 by Chris Clark MD) Bipolar disorder Hypercholesterolemia Obstructive sleep apnea Surgical History Surgical History History of Family History Family History Mother Coronary artery disease Abdominal aortic aneurysm Depression Diverticulitis Osteoarthritis FHx: coronary artery bypass surgery Chronic obstructive pulmonary disease Father Coronary artery disease Abdominal aortic aneurysm Alzheimer disease FHx: coronary artery bypass surgery Sibling Epilepsy Depression Thyroid goiter Bipolar 1 disorder, depressed Tonsil cancer Alcoholism and drug addiction in family Social History Social History (Updated 08/03/20 @ 23:43 by Hi Alexander MD) Smoking status: Never smoker Second hand tobacco smoke exposure: No Alcohol intake: never Substance use: never Substance use type: does not use Gender identity (if verbalized by the patient): Female Sexual Orientation (if Verbalized by the Patient): Straight or Heterosexual Spiritual care concerns: No Exam Narrative: APPEARANCE: Well appearing, no pain, no distress, well-nourished. HEAD: normocephalic, atraumatic. EYES: PERRLA/EOMI, conjunctivae clear. NOSE: Normal no drainage NECK: Supple. No adenopathy, no masses. RESPIRATORY: Airway patent, respirations nonlabored. Clear to auscultation bilaterally, no rales, rhonchi, wheezing. CARDIOVASCULAR: Regular rate and rhythm without murmurs rubs or gallops. ABDOMINAL: Soft, nontender, nondistended, normal bowel sounds MUSCULOSKELETAL: Moves all extremities. Strength/ROM intact, No edema, No calf tenderness. NEURO: Alert. Cranial nerves II through XII intact. Grossly intact SKIN: Warm, dry. Normal Color Course Course Emergency Course: 49-year-old female presented the emergency department for evaluation of intermittent chest pain that she attr
[2022-11-23 16:50] LABS: D Dimer 0.33 ug/mL (<0.48)
[2022-11-23 18:58] LABS: Troponin I < 0.012 ng/mL (0.000-0.034)
[2022-11-23 19:25] VITALS: BP 132/82; PULSE 90; RESP 15; O2SAT 100
== END 2022-11-23 19:27 | disposition home or self-care (01) ==
PROVIDERS: Emergency Medicine; Emergency Provider Emergency Medicine; PCP Internal Medicine
DX: R07.9 Chest pain, unspecified (principal); E78.00 Pure hypercholesterolemia, unspecified; G47.33 Obstructive sleep apnea (adult) (pediatric); F31.9 Bipolar disorder, unspecified; R00.1 Bradycardia, unspecified
CPT/HCPCS: 36415; 71046; 80053; 83690; 84443; 84484; 85025; 85380; 85610; 85730; 93005; 99284

== ENCOUNTER → 2023-01-21 14:45 | Outpatient (CLI) | payer MEDICARE, SELFPAY ==
--- NOTE | ~2023-01-21 | MR_ITS ---
EXAMINATION: MR brain/brain stem wo/w con DATE: 01/21/2023 16:04 INDICATION: Headache TECHNIQUE: Magnetic resonance imaging (MRI) of the brain and brainstem was performed without intraven ous contrast. Sequences included sagittal and axial T1-weighted SE, axial diffusion-weighted FS SE, a xial 3D SWAN, axial T2-weighted FLAIR, and axial T2-weighted FSE. Postcontrast axial and coronal T1-w eighted SE was obtained. Apparent diffusion coefficient (ADC) maps were created. COMPARISON: None. FINDINGS: There are no areas of restricted diffusion to suggest acute infarction. No intracranial hemorrhage or abnormal intracranial mass lesion. There are no intraparenchymal signal abnormalities seen on the ot her pulse sequences. The ventricles are symmetric and normal in size. There are no abnormal extra-axi al fluid collections. Flow voids are seen in the cerebral arteries on the T2-weighted sequences consi stent with their expected patency. Visualized orbits and soft tissues are unremarkable. There are no areas of abnormal enhancement on the post contrast images. IMPRESSION: 1. Normal aging brain. No acute intracranial process. Reviewed, dictated and finalized at location A.
== END ==
PROVIDERS: PCP Internal Medicine; Visit Provider Internal Medicine
DX: R51.9 Headache, unspecified (principal)
CPT/HCPCS: 70553; A9577

== ENCOUNTER → 2023-01-22 14:55 | Outpatient (CLI) | payer MEDICARE, SELFPAY ==
--- NOTE | ~2023-01-22 | MR_ITS ---
EXAMINATION: MR cervical spine wo con DATE: 01/22/2023 15:27 INDICATION: Radiculopathy, cervical thoracic region. TECHNIQUE: Magnetic resonance imaging (MRI) of the cervical spine was performed without intravenous c ontrast. Sequences included sagittal T2-weighted FSE, sagittal T2-weighted FS FSE, sagittal T1-weight ed FSE, axial MERGE, and axial T2-weighted FSE. COMPARISON: Cervical spine MRI 05/14/2022 FINDINGS: Bone alignment is normal. There are changes of anterior fusion procedure from C4 to C7 with interbody bone graft and anterior plate and screws. There is mild chronic anterior wedging of T1 samantha tebral body. There is mildly decreased disc height at C3-C4 and severely decreased disc height at C7- T1. There is likely interbody fusion at C7-T1. The spinal cord signal intensity is normal. The follow ing disc levels are specifically discussed: C2-C3: The disc does not extend beyond the endplate margin. There is no uncovertebral joint osteoarth ritis. There is severe bilateral facet joint osteoarthritis. There is mild left neural foraminal sten osis. There is no central canal stenosis. C3-C4: The disc is bulging. There is moderate right and mild left uncovertebral joint osteoarthritis. There is moderate right and severe left facet joint osteoarthritis. There is mild bilateral neural f oraminal stenosis. There is no central canal stenosis. C4-C5: There is no uncovertebral joint hypertrophy. There is no facet joint hypertrophy. There is no neural foraminal stenosis. There is no central canal stenosis. C5-C6: There is no uncovertebral joint osteoarthritis. There is mild bilateral facet joint hypertroph y. There is mild right neural foraminal stenosis. There is no central canal stenosis. C6-C7: There is mild bilateral uncovertebral joint hypertrophy. There is mild bilateral facet joint h ypertrophy. There is mild bilateral neural foraminal stenosis. There is no central canal stenosis. C7-T1: There is a central protrusion. There is mild bilateral uncovertebral joint hypertrophy. There is moderate bilateral facet joint osteoarthritis. There is mild right neural foraminal stenosis. Ther e is no central canal stenosis. IMPRESSION: 1. Moderate cervical spondylosis, stable from 05/14/2022. 2. Anterior fusion procedure from C4 to C7. Reviewed, dictated and finalized at location A.
== END ==
PROVIDERS: PCP Internal Medicine; Visit Provider Internal Medicine
DX: M47.23 Other spondylosis with radiculopathy, cervicothoracic region (principal); Z98.1 Arthrodesis status
CPT/HCPCS: 72141

== ENCOUNTER → 2023-04-20 15:12 | Outpatient (CLI) | payer MEDICARE, SELFPAY ==
--- NOTE | ~2023-04-20 | US_ITS ---
EXAMINATION: US soft tissue head and neck DATE: 04/20/2023 15:32 INDICATION: Neck pain. Dysphagia. TECHNIQUE: Multiple grayscale and Doppler ultrasound images of the head and neck were obtained. COMPARISON: Cervical spine MRI 01/22/2023 FINDINGS: There is no abnormal mass or lymphadenopathy in the patient's area of concern in left neck. The left parotid gland and submandibular gland are normal. IMPRESSION: 1. No abnormal mass or lymphadenopathy in the patient's area of concern in left neck. Reviewed, dictated and finalized at location A. [employer]
== END ==
DX: M54.2 Cervicalgia (principal); R13.10 Dysphagia, unspecified
CPT/HCPCS: 76536

== ENCOUNTER 2023-06-05 10:04 | Emergency (ER) | payer MEDICARE, SELFPAY ==
--- NOTE | ~2023-06-05 | XR_ITS ---
EXAMINATION: XR chest 2V DATE: 06/05/2023 10:34 INDICATION: Cough. Shortness of breath. TECHNIQUE: Frontal and lateral views of the chest were obtained. COMPARISON: Chest 2 views 11/23/2022 FINDINGS: There is no pneumonia, pleural effusion, or pneumothorax. The heart size is normal. There a re changes of anterior fusion procedure in cervical spine. IMPRESSION: 1. No acute cardiopulmonary disease. Reviewed, dictated and finalized at location A. [employer]
--- NOTE | 2023-06-05 10:11 | ED.URI ---
HPI - URI/Sore Throat General Chief Complaint: Upper Respiratory Infection Stated Complaint: extreme fatigue,randolph,couch,muscle pain Time Seen by Provider: 06/05/23 10:11 Source: patient Mode of arrival: ambulatory Limitations: no limitations History of Present Illness HPI Narrative: Prudence is a 58-year-old female patient presenting to clinic today with complaints of fatigue, cough, congestion, sore throat, and body aches times 8 days. She reports she had COVID around . Did see her PCP on May 07 or had blood work completed at that time and they told her she was anemic. Reports 8 days ago she developed extreme fatigue, cough, congestion, and body aches. She denies any known fever or chills. Temperature is 37.2? C in the clinic today. Cough is nonproductive. Does report some mild shortness of breath. MD elicited complaint: sore throat and nasal congestion Related Data Home Medications Medication Instructions Recorded Confirmed atorvastatin 20 mg tablet 20 mg PO HS 08/04/20 06/05/23 lamotrigine 150 mg tablet 300 mg PO DAILY 08/04/20 06/05/23 levothyroxine 50 mcg tablet 50 mcg PO DAILY 08/04/20 06/05/23 lithium carbonate 450 mg 450 mg PO BID 08/04/20 06/05/23 tablet,extended release quetiapine 300 mg tablet,extended 300 mg PO HS 08/04/20 06/05/23 release 24 hr lumateperone 42 mg capsule 42 mg PO DAILY 06/05/23 06/05/23 (Caplyta) Allergies Allergy/AdvReac Type Severity Reaction Status Date / Time prochlorperazine Allergy Severe tongue and Verified 06/05/23 10:16 throat swelling Review of Systems Review of Systems: Pertinent positives per HPI. Patient denies any fever, chills, rash, headache, visual changes, dizziness,shortness of breath, chest pain, palpitations, nausea, vomiting, diarrhea, constipation, abdominal pain, or any urinary issues. [facility] Past Medical History Medical History Bipolar disorder Hypercholesterolemia Obstructive sleep apnea Surgical History Surgical History History of Family History Family History Mother Coronary artery disease Abdominal aortic aneurysm Depression Diverticulitis Osteoarthritis FHx: coronary artery bypass surgery Chronic obstructive pulmonary disease Father Coronary artery disease Abdominal aortic aneurysm Alzheimer disease FHx: coronary artery bypass surgery Sibling Epilepsy Depression Thyroid goiter Bipolar 1 disorder, depressed Tonsil cancer Alcoholism and drug addiction in family Social History Social History Smoking status: Never smoker Second hand tobacco smoke exposure: No Alcohol intake: never Substance use: never Substance use type: does not use Gender identity (if verbalized by the patient): Female Sexual Orientation (if Verbalized by the Patient): Straight or Heterosexual Spiritual care concerns: No Comments At the time of my signature, I reviewed and agree with the nursing past medical, surgical, social, and family history. There is no relevant family history pertinent to the patient complaint. Exam Narrative: General: Well-developed, well nourished, in no apparent distress Head: Normocephalic, atraumatic Eyes: Pupils equally round and reactive to light bilaterally, EOM intact, sclera and conjunctive clear, no discharge, lids normal Ears: TMs intact and clear, ear canals clear, no drainage, grossly hearing normal. Nose: Nares patent, clear nasal discharge, no inflammation, no sinus tenderness. Mouth: Oral pharynx red without lesions or masses, good dentition, MMM. Neck: Supple, trachea midline, no enlargement of anterior or posterior cervical nodes, no thyroid masses or goiter palpable. Cardio: Regular rate and rhythm, s1
[2023-06-05 10:16] VITALS: BP 111/62; PULSE 67; RESP 16; TEMP 37.2; O2SAT 100
[2023-06-05 10:18] VITALS: BP 111/62; PULSE 67; RESP 16; TEMP 37.2; O2SAT 100
== END 2023-06-05 10:48 | disposition home or self-care (01) ==
PROVIDERS: Emergency Provider Nurse Practitioner Family; PCP Internal Medicine
DX: J40 Bronchitis, not specified as acute or chronic (principal); U09.9 Post COVID-19 condition, unspecified; E78.00 Pure hypercholesterolemia, unspecified; G47.33 Obstructive sleep apnea (adult) (pediatric); F31.9 Bipolar disorder, unspecified
CPT/HCPCS: 71046; 87081; 87880; 99213; G0463

== ENCOUNTER 2024-03-28 19:11 | Emergency (ER) | payer MEDICARE, SELFPAY ==
--- NOTE | ~2024-03-28 | XR_ITS ---
CHEST RADIOGRAPH, PA AND LATERAL CLINICAL HISTORY: chest pain . COMPARISON: 06/05/2023 TECHNIQUE: PA and lateral views of the chest. FINDINGS The cardiomediastinal silhouette is unremarkable. The lungs are clear. Fixation hardware within the cervical spine. Remaining visualized osseous structures and soft tissues are otherwise unremarkable. IMPRESSION: No focal infiltrate or effusion. Reviewed, dictated and finalized at location A.
--- NOTE | 2024-03-28 19:15 | ECG_ITS ---
Test Date: 2024-03-28 19:21:54 Measurements Intervals [place] [facility] Rate: 51 P: 24 NC: 162 QRS: 38 QRSD: 89 T: 44 QT: 448 QTc: 414 Interpretive Statements SINUS BRADYCARDIA OTHERWISE NORMAL ECG No previous ECG available for comparison Electronically Signed On 03-29-2024 10:17:58 CDT by Stanford Hopson M.D.
[2024-03-28 19:29] VITALS: BP 130/68; PULSE 57; RESP 14; TEMP 36.2; O2SAT 98
[2024-03-28 19:45] LABS: Basophils Absolute Auto 0.1 K/mm3 (0.0-0.1); Basophils Percent Auto 0.7 % (0.2-1.2); Eosinophils Absolute Auto 0.2 K/mm3 (0-0.3); Hematocrit 34.1 % (37.0-47.0); Hemoglobin 11.5 g/dL (12.0-15.0); Immature Granulocyte Absolute 0.03 K/mm3 (0.00-0.031); Immature Granulocyte Percent A 0.3 % (0-0.5); Lymphocytes Absolute Auto 3.09 K/mm3 (0.9-3.2); Lymphocytes Percent Auto 33.5 % (18.3-44.2); Mean Corpuscular HGB Conc 33.7 g/dl (32-36); Mean Corpuscular Hemoglobin 30.6 pg (26-34); Mean Corpuscular Volume 90.7 fl (80-100); Mean Platelet Volume 9.7 fl (7.4-10.4); Monocytes Absolute Auto 0.5 K/mm3 (0.1-0.6); Monocytes Percent Auto 5.7 % (2.6-8.5); Neutrophils Absolute Auto 5.3 K/mm3 (1.3-6.7); Neutrophils Percent Auto 57.8 % (45.5-73.1); Platelet Count Result 249 k/mm3 (150-375); Red Blood Count 3.76 M/mm3 (4.2-5.4); White Blood Count 9.2 K/mm3 (4.5-10.0)
[2024-03-28 19:56] LABS: INR 0.9
[2024-03-28 20:03] VITALS: PULSE 47
[2024-03-28 20:04] VITALS: BP 124/67; PULSE 46; RESP 12; O2SAT 100
[2024-03-28 20:06] LABS: Alanine Aminotransferase 19 U/L (6-35); Albumin Level 4.6 g/dL (3.5-5.1); Alkaline Phosphatase 104 U/L (38-126); Anion Gap 9 mmol/L (4-12); Aspartate Amino Transferase 22 U/L (14-36); Bilirubin,Total 0.4 mg/dL (0.2-1.3); Blood Urea Nitrogen 18 mg/dL (7-17); Calcium 9.8 mg/dL (8.4-10.2); Carbon Dioxide 23 mmol/L (22-30); Chloride 105 mmol/L (98-107); Estimated CRCL calculation 59 ml/min; Estimated Glomerular Filt Rate > 60; Glucose 94 mg/dL (65-110); Lipase 149 U/L (23-300); Potassium 3.8 mmol/L (3.4-5.0); Sodium 137 mmol/L (137-145)
[2024-03-28 20:17] LABS: Troponin I < 0.012 ng/mL (0.000-0.034)
--- NOTE | 2024-03-28 21:01 | ED.CHESTPAIN ---
HPI - Chest Pain General Chief Complaint: Chest Pain Stated Complaint: chest pain Time Seen by Provider: 03/28/24 20:08 History of Present Illness HPI narrative: Patient is 58-year-old female who presents to the emergency department this evening complaining of chest pain for the past 10 days. Patient states that the pain is intermittent and comes and goes and initially she thought it was due to her anxiety as she does suffer from severe anxiety. Patient states that she took an extra anxiety pill today and felt as though it did not help with her pain so she called EMS. Upon their arrival they did fully evaluate the patient and inform her that they do not believe that her symptoms are cardiac in nature in patient felt as though hearing that would help, her but states that even after that she still was concerned so she decided to come in for further evaluation. Patient denies any history of cardiovascular disease and denies any family history of cardiovascular disease, denies any smoking history, denies any history of diabetes, hypertension, or hyperlipidemia. Patient admits that she used to be on a statin bed after losing 30 lb her PCP took her off of the statin as she no longer needed. She denies any nausea, vomiting or abdominal pain, denies any dysuria or hematuria, any constipation, melena, fevers, chills, headaches, dizziness, blurry vision, focal weakness, numbness and tingling. There are no other modifying, alleviating, or precipitating factors at this time. Related Data Home Medications Medication Instructions Recorded Confirmed atorvastatin 20 mg tablet 20 mg PO HS 08/04/20 06/05/23 lamotrigine 150 mg tablet 300 mg PO DAILY 08/04/20 06/05/23 levothyroxine 50 mcg tablet 50 mcg PO DAILY 08/04/20 06/05/23 lithium carbonate 450 mg 450 mg PO BID 08/04/20 06/05/23 tablet,extended release quetiapine 300 mg tablet,extended 300 mg PO HS 08/04/20 06/05/23 release 24 hr lumateperone 42 mg capsule 42 mg PO DAILY 06/05/23 06/05/23 (Caplyta) Allergies Allergy/AdvReac Type Severity Reaction Status Date / Time prochlorperazine Allergy Severe tongue and Verified 03/28/24 20:05 throat swelling Review of Systems Review of Systems: All systems are reviewed and are negative unless stated otherwise in the [facility]. [facility] Past Medical History Medical History Bipolar disorder Hypercholesterolemia Obstructive sleep apnea Surgical History Surgical History History of Family History Family History Mother Coronary artery disease Abdominal aortic aneurysm Depression Diverticulitis Osteoarthritis FHx: coronary artery bypass surgery Chronic obstructive pulmonary disease Father Coronary artery disease Abdominal aortic aneurysm Alzheimer disease FHx: coronary artery bypass surgery Sibling Epilepsy Depression Thyroid goiter Bipolar 1 disorder, depressed Tonsil cancer Alcoholism and drug addiction in family Social History Social History Smoking status: Never smoker Second hand tobacco smoke exposure: No Alcohol intake: never Substance use: never Substance use type: does not use Gender identity (if verbalized by the patient): Female Sexual Orientation (if Verbalized by the Patient): Straight or Heterosexual Spiritual care concerns: No Exam Narrative: General: Alert, awake, afebrile, in no acute distress. HEENT: PERRL, no rhinorrhea, no post nasal drip, oropharynx clear. Neck: Trachea midline, no JVD, no lymphadenopathy. Cardiovascular: Bradycardic with regular rhythm, no murmurs, rubs or gallops, no peripheral edema. Respiratory: Clear to auscultation bilaterally, no tachypnea, no wheezing, no rhonchi, no rubs, no respiratory distress. Abdomen: Sof
== END 2024-03-28 22:05 | disposition home or self-care (01) ==
LOC: ANHED 21:26
PROVIDERS: Emergency Provider Emergency Medicine
DX: R07.9 Chest pain, unspecified (principal); F41.9 Anxiety disorder, unspecified; E78.00 Pure hypercholesterolemia, unspecified; G47.33 Obstructive sleep apnea (adult) (pediatric); F31.9 Bipolar disorder, unspecified; R00.1 Bradycardia, unspecified; Z79.899 Other long term (current) drug therapy
CPT/HCPCS: 36415; 71046; 80053; 83690; 84484; 85025; 85610; 85730; 93005; 99284

== ENCOUNTER 2024-11-26 02:41 | Inpatient (IN) | payer MEDICARE, SELFPAY ==
[2024-11-26] VITALS (34 sets, daily range): BP systolic 65–115; BP diastolic 26–72; PULSE 39–68; RESP 12–22; TEMP 36.4–36.8; O2SAT 94–100; BMI 28.8
--- NOTE | ~2024-11-26 | CT_ITS ---
Clinical Indication: Chest pain, hypotension CT Scan of the Chest, Abdomen, and Pelvis with Contrast: Technique: Contiguous sections were acquired throughout the chest, abdomen, and pelvis after intraven ous administration of 100 cc of Omnipaque 350. Dose reduction technique was used on this scan by uti marleneing automated exposure control and iterative reconstruction technique. The dose-length product (DL P) was 840.14 mGy-cm. Comparison: 03/08/2022 Findings: There is no evidence of any significant mediastinal, hilar or axillary lymphadenopathy. Main pulmonar y artery is dilated to 4.1 cm. No aortic aneurysm or dissection seen. No pulmonary embolus identified .. There is no evidence of pleural or pericardial effusion. The lungs are clear, aside from mild dependent atelectatic changes. The liver, spleen, pancreas, gallbladder, adrenals and kidneys are within normal limits. No evidence of aortic aneurysm or dissection. No lymphadenopathy. No bowel obstruction or bowel wall thickening. There is no evidence to suggest acute appendicitis. Urinary bladder is unremarkable. No pelvic mass seen. No ascites. Impression: Dilated main pulmonary artery suggests pulmonary artery hypertension. No other significant findings. Reviewed, dictated and finalized at [facility]. Impression: Dilated main pulmonary artery suggests pulmonary artery hypertension. No other significant findings.
--- NOTE | ~2024-11-26 | XR_ITS ---
Portable chest x-ray Comparison: 03/28/2024 Clinical History: Dizziness Findings: Lungs are clear, without focal consolidation or pleural effusion. Cardiomediastinal silho uette is stable. Stable cervical spine fixation hardware. Impression: Clear lungs. Reviewed, dictated and finalized at location . Impression: Clear lungs.
--- NOTE | ~2024-11-26 | XR_ITS ---
EXAMINATION: XR chest 1V portable DATE: 11/28/2024 13:24 INDICATION: Congestion and chest discomfort TECHNIQUE: frontal view of the chest was obtained. COMPARISON: Chest radiograph and CT dated 11/26/2024 FINDINGS: The lungs are clear with no focal airspace opacities, pulmonary edema, pleural effusion or pneumothor ax. The cardiomediastinal silhouette is normal. Incompletely visualized multilevel mid to lower cervi jewels anterior spinal fusion with anterior plate and screw fixation IMPRESSION: 1. No acute cardiopulmonary disease. Reviewed, dictated and finalized at location A.
--- NOTE | 2024-11-26 02:47 | ECG_ITS ---
Test Date: 2024-11-26 02:52:02 Measurements Intervals [place] Rate: 39 P: 76 NH: 159 QRS: 65 QRSD: 85 T: 63 QT: 479 QTc: 387 Interpretive Statements SLOW SINUS BRADYCARDIA POSSIBLE RIGHT VENTRICULAR CONDUCTION DELAY MINIMAL Q WAVES- HIGH LATERAL LEADS ABNORMAL ECG Compared to ECG 03/28/2024 19:21:54 HEART RATE HAS DECREASED Electronically Signed On 11-26-2024 07:10:04 CDT by Bon Cabrera D.O.
[2024-11-26] MEDS: SODIUM CHLORIDE 0.9% IV 1,000 ML 999 ML IV CONT ×2 (03:08→03:10)
[2024-11-26 03:10] LABS: Basophils Percent Auto 0.4 % (0.2-1.2); Eosinophils Absolute Auto 0.1 K/mm3 (0-0.3); Eosinophils Percent Auto 1.3 % (0-4.4); Hematocrit 30.9 % (37.0-47.0); Immature Granulocyte Absolute 0.03 K/mm3 (0.00-0.031); Immature Granulocyte Percent A 0.3 % (0-0.5); Lymphocytes Absolute Auto 2.06 K/mm3 (0.9-3.2); Lymphocytes Percent Auto 19.8 % (18.3-44.2); Mean Corpuscular HGB Conc 32.4 g/dl (32-36); Mean Corpuscular Hemoglobin 28.8 pg (26-34); Mean Platelet Volume 8.8 fl (7.4-10.4); Monocytes Absolute Auto 0.6 K/mm3 (0.1-0.6); Neutrophils Absolute Auto 7.5 K/mm3 (1.3-6.7); Neutrophils Percent Auto 72.2 % (45.5-73.1); Platelet Count Result 278 k/mm3 (150-375); Red Blood Count 3.47 M/mm3 (4.2-5.4); Red Cell Distribution Width 13.2 % (11.5-14.5); White Blood Count 10.4 K/mm3 (4.5-10.0)
[2024-11-26] MEDS: fentaNYL CITRATE INJ (*CRX) 100 MCG/2 ML VIAL 50 MCG IV PUSH (03:10)
[2024-11-26 03:21] LABS: INR 1.1; Prothrombin Time 13.9 Seconds (11.1-14.7)
[2024-11-26 03:22] LABS: Partial Thromboplastin Time 25.3 Seconds (22.3-36.8)
[2024-11-26 03:24] LABS: Lactic Acid Reflex 1.1 mmol/L (0.7-2.0)
[2024-11-26 03:25] LABS: Alanine Aminotransferase 13 U/L (6-35); Albumin Level 4.1 g/dL (3.5-5.1); Alkaline Phosphatase 84 U/L (38-126); Anion Gap 10 mmol/L (4-12); Aspartate Amino Transferase 19 U/L (14-36); Bilirubin,Total 0.4 mg/dL (0.2-1.3); Blood Urea Nitrogen 13 mg/dL (7-17); Calcium 9.9 mg/dL (8.4-10.2); Carbon Dioxide 22 mmol/L (22-30); Chloride 106 mmol/L (98-107); Estimated CRCL calculation 44 ml/min; Estimated Glomerular Filt Rate 51; Glucose 161 mg/dL (65-110); Lipase 102 U/L (23-300); Magnesium 2.2 mg/dL (1.6-2.3); Potassium 3.7 mmol/L (3.4-5.0); Sodium 138 mmol/L (137-145); Total Protein 7.1 g/dL (6.3-8.2)
[2024-11-26 03:26] LABS: Ethanol < 10 mg/dL (<10)
--- NOTE | 2024-11-26 03:32 | PC.NURSE ---
Patient taken to CT via stretcher while on transport monitor.
[2024-11-26 03:37] LABS: NT Pro B Type Natriuretic Pept 70 pg/mL (19.9-100); Troponin I < 0.012 ng/mL (0.000-0.034)
[2024-11-26 03:42] LABS: Procalcitonin. 0.1 ng/mL
[2024-11-26 03:47] LABS: Influenza A QL RT-PCR Negative (Negative); Influenza B QL RT-PCR Negative (Negative); RSV RNA, RT-PCR. Negative (Negative); SARS-CoV-2 RNA PCR Positive (Negative)
--- NOTE | 2024-11-26 04:05 | ED_ITS ---
HPI - General Adult General Chief complaint: Dizziness Stated complaint: shoulder pain, dizzy Time Seen by Provider: 11/26/24 02:58 History of Present Illness HPI narrative: Patient is 59-year-old female who presents emergency department with chief complaint of chest pain dizziness and left shoulder pain. The patient states that she has prior history of sleep apnea bipolar and hypercholesterolemia and reports that she takes lithium the patient states that she feels lightheaded and reports that she did a 15 hour [address] ride today. Related Data Home Medications ?Medication ?Instructions ?Recorded ?Confirmed ?Last Taken ?Type atorvastatin 20 mg tablet 20 mg PO HS 08/04/20 11/26/24 07/20/20 21:00 History lamotrigine 150 mg tablet 300 mg PO DAILY 08/04/20 11/26/24 08/03/20 09:00 History levothyroxine 50 mcg tablet 50 mcg PO DAILY 08/04/20 11/26/24 08/03/20 09:00 History lithium carbonate 450 mg 450 mg PO BID 08/04/20 11/26/24 08/03/20 21:00 History tablet,extended release quetiapine 300 mg tablet,extended 300 mg PO HS 08/04/20 11/26/24 08/03/20 21:00 History release 24 hr lumateperone 42 mg capsule 42 mg PO DAILY 06/05/23 11/26/24 Unknown History (Caplyta) Allergies Allergy/AdvReac Type Severity Reaction Status Date / Time prochlorperazine Allergy Severe tongue and Verified 11/26/24 02:59 throat swelling Review of Systems 2 Review of Systems: A 10 system review of systems was completed on the patient and is negative except for what is stated in the HPI. Nursing and ancillary documentation was reviewed. [facility] Past Medical History Medical History Obstructive sleep apnea Hypercholesterolemia Bipolar disorder Surgical History Surgical History History of Family History Family History Mother Coronary artery disease Abdominal aortic aneurysm Depression Diverticulitis Osteoarthritis FHx: coronary artery bypass surgery Chronic obstructive pulmonary disease Father Coronary artery disease Abdominal aortic aneurysm Alzheimer disease FHx: coronary artery bypass surgery Sibling Epilepsy Depression Thyroid goiter Bipolar 1 disorder, depressed Tonsil cancer Alcoholism and drug addiction in family Social History Social History Smoking status: Never smoker Second hand tobacco smoke exposure: No Alcohol intake: never Substance use: never Substance use type: does not use Gender identity (if verbalized by the patient): Female Sexual Orientation (if Verbalized by the Patient): Straight or Heterosexual Spiritual care concerns: No Exam 2 Narrative: GENERAL: Well-appearing, well-nourished, and in no acute distress. HEAD: Normocephalic, atraumatic. EYES: PERRLA and EOMI. ENT: Nares clear, no rhinorrhea or epistaxis. Mucous membranes moist. NECK: Supple. CHEST: Clear to auscultation. No respiratory distress. HEART: Regular rate and rhythm. No murmur heard. Normal peripheral pulses. ABDOMEN: Soft, nontender, nondistended, normal active bowel sounds. EXTREMITIES: Normal range of motion. No edema. SKIN: Warm, dry, no rash. NEURO: No focal deficits. Alert and oriented x3. PSYCH: Normal mood and affect. Course Vital Signs Vital signs: Vital Signs Temperature 36.8 C 11/26/24 02:51 Pulse Rate 39 L 11/26/24 02:51 Respiratory Rate 13 11/26/24 02:51 Blood Pressure 102/50 L 11/26/24 02:51 Pulse Oximetry 100 11/26/24 02:51 Temperature 36.8 C 11/26/24 02:51 Pulse Rate 55 L 11/26/24 04:30 Respiratory Rate 17 11/26/24 04:30 Blood Pressure 115/69 11/26/24 04:30 Pulse Oximetry 100 11/26/24 04:30 Medical Decision Making Vital Signs Vital Signs: Vital Signs Temperature 36.8 C 11/26/24 02:51 Pulse Rate 39 L 11/26/24 02:51 Respiratory Rate 13 11/26/24 02:51 Blood Pressure 102/50 L 11/26/24 02:51 Pulse Oximetry 100 11/26/24 02:51 Temperature 36.8 C 11/26/24 02:51 Pulse Rate 55 L 11/26/24 04:30 Respiratory Rate 17 11/26/24 04:30 Blood Pressure 115/69 11/26/24 04:30 Pulse Oximetry 100 11/26/24 04:30 Lab Data 11/26/24 03:01 11/26/24 03:01 Labs: Lab Results 11/26/24 11/26/24 Range/Units 03:01 04:29 WBC 10.4 H (4.5-10.0) K/mm3 RBC 3.47 L (4.2-5.4) M/mm3 Hgb 10.0 L (12.0-15.0) g/dL Hct 30.9 L (37.0-47.0) % MCV 89.0 (80-100) fl MCH 28.8 (26-34) pg MCHC 32.4 (32-36) g/dl RDW 13.2 (11.5-14.5) % Plt Count 278 (150-375) k/mm3 MPV 8.8 (7.4-10.4) fl Immature Gran % (Auto) 0.3 (0-0.5) % Neut % (Auto) 72.2 (45.5-73.1) % Lymph % (Auto) 19.8 (18.3-44.2) % [place] % (Auto) 6.0 (2.6-8.5) % Eos % (Auto) 1.3 (0-4.4) % Baso % (Auto) 0.4 (0.2-1.2) % Lymph # (Auto) 2.06 (0.9-3.2) K/mm3 [place] # (Auto) 0.6 (0.1-0.6) K/mm3 Eos # (Auto) 0.1 (0-0.3) K/mm3 Baso # (Auto) 0.0 (0.0-0.1) K/mm3 Abs Immat Gran (auto) 0.03 (0.00-0.031) K/mm3 Absolute Neuts (auto) 7.5 H (1.3-6.7) K/mm3 Absolute Nucleated RBC 0.000 (0.0-0.012) K/mm3 Nucleated RBC % 0.0 (0.0-0.2) % PT 13.9 (11.1-14.7) Seconds INR 1.1 APTT 25.3 (22.3-36.8) Seconds Sodium 138 (137-145) mmol/L Potassium 3.7 (3.4-5.0) mmol/L Chloride 106 (98-107) mmol/L Carbon Dioxide 22 (22-30) mmol/L Anion Gap 10 (4-12) mmol/L BUN 13 D (7-17) mg/dL Creatinine 1.09 H (0.7-1.0) mg/dL Estim Creat Clear Calc 44 ml/min Estimated GFR 51 L (59 - ) Glucose 161 H (65-110) mg/dL Lactic Acid 1.1 (0.7-2.0) mmol/L Calcium 9.9 (8.4-10.2) mg/dL Magnesium 2.2 (1.6-2.3) mg/dL Total Bilirubin 0.4 (0.2-1.3) mg/dL AST 19 (14-36) U/L ALT 13 (6-35) U/L Alkaline Phosphatase 84 (38-126) U/L Troponin I < 0.012 (0.000-0.034) ng/mL NT-Pro-B Natriuret Pep 70 (19.9-100) pg/mL Total Protein 7.1 (6.3-8.2) g/dL Albumin 4.1 (3.5-5.1) g/dL Lipase 102 (23-300) U/L Procalcitonin 0.1 ng/mL TSH (Reflex) 3.210 (0.465-4.68) uIU/mL Urine Color Yellow (Yellow) Urine Appearance Clear (Clear) Urine pH 7.0 (5.0-9.0) Ur Specific [place] 1.024 (1.001-1.035) Urine Protein Trace (Negative) mg/dL Urine Glucose (UA) Negative (Negative) mg/dL Urine Ketones Negative (Negative) mg/dL Ur Blood (Man) Negative (Negative) Urine Nitrate Negative (Negative) Urine Bilirubin Negative (Negative) Urine Urobilinogen 0.2 (<2.0) mg/dL Leukocyte Esterase Rfl Negative (Negative) CASEY/UL Urine RBC 0-2 (0-2) /hpf Urine WBC 0-5 (0-3) /hpf Ur Squamous Epith Cells None seen (Few) /hpf Urine Bacteria None seen /hpf Urine Casts 0-2 Urine Opiates Screen Negative (Negative) Urine Methadone Screen Negative (Negative) Ur Barbiturates Screen Negative (Negative) Ur Phencyclidine Scrn Negative (Negative) Ur Amphetamine Screen Negative (Negative) U Benzodiazepines Scrn Negative (Negative) [place] 2.0 H* (0.6-1.2) mmol/L Urine Cocaine Screen Negative (Negative) U Cannabinoids Screen Negative (Negative) Ethyl Alcohol < 10 (<10) mg/dL Influenza A (RT-PCR) Negative (Negative) Influenza B (RT-PCR) Negative (Negative) RSV (RT-PCR) Negative (Negative) SARS-CoV-2 RNA (RT-PCR) Positive A (Negative) Discharge Plan Discharge Clinical Impression: COVID-19, Elevated lithium level, Acute dehydration Patient Disposition: Still a Patient Condition: Stable Patient Language: Arabic Prescriptions: No Action Caplyta 42 mg capsule 42 mg PO DAILY albuterol sulfate 90 mcg/actuation HFA aerosol inhaler 2 puff inhalation Q4-6H PRN (Reason: shortness of breath or wheezing) 30 Days Qty: 8.5 0RF atorvastatin 20 mg tablet 20 mg PO HS lamotrigine 150 mg tablet 300 mg PO DAILY levothyroxine 50 mcg tablet 50 mcg PO DAILY lithium carbonate 450 mg tablet extended release 450 mg PO BID quetiapine 300 mg tablet extended release 24 hr 300 mg PO HS Follow-up/Referrals: UNKNOWN,DOCTOR [Primary Care Provider] - Time of Disposition: 04:57
[2024-11-26 04:41] LABS: Add Urine Microscopic? YES; Appearance Urine Clear (Clear); Bacteria Urine None Seen /hpf; Bilirubin Urine Negative (Negative); Blood Urine Negative (Negative); Color Urine Yellow (Yellow); Glucose Urine UA Negative (Negative); Ketones Urine Negative (Negative); Leukocyte Esterase Ur Negative LEU/UL (Negative); Nitrate Urine Negative (Negative); Non Pathogenic Casts 0-2; Protein Urine Trace mg/dL (Negative); RBC Urine 0-2 /hpf (0-2); Specific Grav Ur 1.024 (1.001-1.035); Squamous Epithelial Cell Urine None Seen /hpf (Few); Urobilinogen Urine 0.2 mg/dL (<2.0); WBC Urine 0-5 /hpf (0-3)
[2024-11-26 04:51] LABS: Amphetamine Screen Urine Negative (Negative); Barbiturate Screen Urine Negative (Negative); Benzodiazepines Screen Urine Negative (Negative); Cannabinoid Screen Urine Negative (Negative); Cocaine Screen Urine Negative (Negative); Methadone Screen Urine Negative (Negative); Opiate Screen Urine Negative (Negative); Phencyclidine Screen Urine Negative (Negative)
[2024-11-26] MEDS: SODIUM CHLORIDE 0.9% IV 1,000 ML 125 ML IV CONT ×3 (06:39→20:37)
[2024-11-26] MEDS: ACETAMINOPHEN 325 MG TABLET 650 MG PO ×3 (06:40→17:23)
--- NOTE | 2024-11-26 07:25 | ADMGEN ---
This patient, Prudence Ovalle, was admitted to 3 Med Surg Room 326-01 at 0620. Patient/family oriented to hospital policies and general routines including ID bracelet, bed and alarms, visiting hours, pain management, procedures, bathroom and other care routines, personal items, smoking policy, room service/diet, and visiting hours. Information on how to activate the Rapid Response Team has been discussed. Patient/Family are encouraged to report perceived risks to care and to ask questions if they do not understand what they are told or what they should do.
--- NOTE | 2024-11-26 11:17 | PM.IMHP ---
H&P: HPI History of Present Illness Date/Time: 11/26/24 11:17 Chief Complaint: lightheadedness Narrative: 59-year-old female past medical history of bipolar disorder presented to the ER on account of lightheadedness. Patient reported she has been having upper respiratory tract symptoms including coughing nasal congestion sore throat and fever for about a days, symptoms have improved markedly however yesterday about 11:30 p.m. she started having lightheadedness which prompted her to present to the ER for proper evaluation and care Patient suspects this is might be related to her psych medication and she has been noticing lower heart rates recently. Denies any chest pain, no vomiting, no diarrhea, no abdominal pain no chest pain no loss of consciousness no dysuria no focal symptoms. ER evaluation notable forVitals signs Pulse rate 89, blood pressure 102/50, labs notable for hemoglobin 10.0, lithium level 2.[address] chest abdomen and pelvis showed dilated main pulmonary artery suggests pulmonary artery hypertension. Review of Systems Review of Systems: All other systems were reviewed and negative except as noted in the HPI above [facility] Past Medical History Medical History Obstructive sleep apnea Hypercholesterolemia Bipolar disorder Surgical History Surgical History History of Family History Family History Mother Coronary artery disease Abdominal aortic aneurysm Depression Diverticulitis Osteoarthritis FHx: coronary artery bypass surgery Chronic obstructive pulmonary disease Father Coronary artery disease Abdominal aortic aneurysm Alzheimer disease FHx: coronary artery bypass surgery Sibling Epilepsy Depression Thyroid goiter Bipolar 1 disorder, depressed Tonsil cancer Alcoholism and drug addiction in family Social History Social History Smoking status: Never smoker Second hand tobacco smoke exposure: No Alcohol intake: never Substance use: never Substance use type: does not use Do You Feel Safe in your Home?: Yes Lack of Transportation: No Lack of Food: Never True Current Housing: I Have Housing Concerned About Future Housing: No Difficulty Paying Gas/Electric Bills: No Difficulty Paying for Meds: No Currently Unemployed: No Education: Decline to Answer Difficulty w/ Childcare or Family Care: No Gender identity (if verbalized by the patient): Female Sexual Orientation (if Verbalized by the Patient): Straight or Heterosexual Spiritual care concerns: No Meds Home Medications and Allergies Home Medications ?Medication ?Instructions ?Recorded ?Confirmed ?Type atorvastatin 20 mg tablet 20 mg PO HS 08/04/20 11/26/24 History lamotrigine 150 mg tablet 300 mg PO DAILY 08/04/20 11/26/24 History levothyroxine 50 mcg tablet 50 mcg PO DAILY 08/04/20 11/26/24 History lithium carbonate 450 mg 450 mg PO BID 08/04/20 11/26/24 History tablet,extended release quetiapine 300 mg tablet,extended 300 mg PO HS 08/04/20 11/26/24 History release 24 hr albuterol sulfate 90 mcg/actuation 2 puff inhalation Q4-6H PRN 06/05/23 11/26/24 Rx aerosol inhaler shortness of breath or wheezing 30 days #8.5 grams lumateperone 42 mg capsule 42 mg PO DAILY 06/05/23 11/26/24 History (Caplyta) hydroxyzine pamoate 25 mg capsule 25 mg PO QHS 11/26/24 11/26/24 History melatonin 10 mg capsule 10 mg PO QHS 11/26/24 11/26/24 History trazodone 100 mg tablet 200 mg PO QHS 11/26/24 11/26/24 History Allergies Allergy/AdvReac Type Severity Reaction Status Date / Time prochlorperazine Allergy Severe tongue and Verified 11/26/24 07:23 throat swelling Vital Signs Vital Signs - 24 hr 11/26/24 02:51 11/26/24 02:57 11/26/24 02:58 Temperature 98.2 F Pulse Rate 39 L 41 L 44 L Respiratory Rate 13 22 H Blood Pressure 102/50 L Pulse Oximetry 100 100 11/26/24 02:59 11/26/24 03:00 11/26/24 03:01 Temperature Pulse Rate 47 L 44 L 41 L Respiratory Rate 15 12 14 Blood Pressure 87/72 L 72/62 L Pulse Oximetry 100 98 100 11/26/24 03:05 11/26/24 03:07 11/26/24 03:12 Temperature Pulse Rate 43 L 46 L 47 L Respiratory Rate 14 13 13 Blood Pressure 65/45 L 79/26 L 94/52 L Pulse Oximetry 100 99 100 11/26/24 03:15 11/26/24 03:30 11/26/24 03:48 Temperature Pulse Rate 45 L 50 L 58 L Respiratory Rate 17 19 18 Blood Pressure Pulse Oximetry 95 97 11/26/24 03:49 11/26/24 03:51 11/26/24 04:00 Temperature Pulse Rate 54 L 56 L 60 Respiratory Rate 15 16 16 Blood Pressure 107/58 L 103/58 L Pulse Oximetry 96 97 98 11/26/24 04:01 11/26/24 04:02 11/26/24 04:11 Temperature Pulse Rate 58 L 57 L 55 L Respiratory Rate 19 20 18 Blood Pressure 99/49 L 99/50 L Pulse Oximetry 96 96 97 11/26/24 04:15 11/26/24 04:24 11/26/24 04:30 Temperature Pulse Rate 52 L 61 55 L Respiratory Rate 17 18 17 Blood Pressure 115/69 115/69 Pulse Oximetry 100 99 100 11/26/24 04:30 11/26/24 04:32 11/26/24 04:45 Temperature Pulse Rate 57 L 56 L 55 L Respiratory Rate 18 16 19 Blood Pressure 115/64 Pulse Oximetry 98 96 11/26/24 04:51 11/26/24 05:01 11/26/24 05:02 Temperature Pulse Rate 61 68 66 Respiratory Rate 19 19 22 H Blood Pressure 98/52 L 99/53 L Pulse Oximetry 97 95 94 11/26/24 05:45 Temperature Pulse Rate 57 L Respiratory Rate 17 Blood Pressure 99/57 L Pulse Oximetry 97 Exam Narrative: General: alert and comfortable Eyes: EOMI, PERRLA ENNT External ears normal, Neck is supple, no masses, Respiratory systems: Clear to auscultation Cardiovascular S1, S2, normal rhythm, no murmur, rub, or gallop; no thrill or palpable murmurs on palpation. Gastrointestinal: soft, non-tender, and non-distended abdomen with no masses; BS present Skin: no rash, lesions, ulcerations, subcutaneous nodules or induration Musculoskeletal: no abnormality and no tenderness, normal ROM Neurologic: Alert and oriented x3, non focal Mental Status Exam: normal affect H&P: Results Labs Labs: Short CBC 11/26/24 Range/Units 03:01 WBC 10.4 H (4.5-10.0) K/mm3 Hgb 10.0 L (12.0-15.0) g/dL Hct 30.9 L (37.0-47.0) % Plt Count 278 (150-375) k/mm3 BMP 11/26/24 03:01 Sodium 138 Potassium 3.7 Chloride 106 Carbon Dioxide 22 BUN 13 D Creatinine 1.09 H Glucose 161 H Calcium 9.9 Cardiac Enzymes 11/26/24 Range/Units 03:01 Troponin I < 0.012 (0.000-0.034) ng/mL Liver Function 11/26/24 Range/Units 03:01 Total Bilirubin 0.4 (0.2-1.3) mg/dL AST 19 (14-36) U/L ALT 13 (6-35) U/L Alkaline Phosphatase 84 (38-126) U/L Albumin 4.1 (3.5-5.1) g/dL Urine 11/26/24 Range/Units 04:29 Urine Color Yellow (Yellow) Urine Appearance Clear (Clear) Urine pH 7.0 (5.0-9.0) Ur Specific [place] 1.024 (1.001-1.035) Urine Protein Trace (Negative) mg/dL Urine Glucose (UA) Negative (Negative) mg/dL Assessment and Plan Assessment and plan (1) Elevated lithium level: Code(s): R79.89 - Other specified abnormal findings of blood chemistry Status: Acute (2) COVID-19: Code(s): U07.1 - COVID-19 Status: Acute (3) Bradycardia: Code(s): R00.1 - Bradycardia, unspecified Status: Acute Plan Symptomatic Bradycardia likely from [place] toxicity TSH wnl, ECHO pending, [place] on hold Psychiatry consulted for meds adjustment Monitor [place] toxicity [place] 2.0 Continue above care monitor daily lithium level Covid infection Chest imaging no acute changes Noted sore throat is resolving monitor Hypothyroidism TSH wnl Levothyroxine DVT prophylaxis on Sq Lovenox FUll code SDM David Ovalle [place] [facility] Advance Care Plan I have confirmed that the patient's Advanced Care Plan is present, code status is documented, or surrogate decision maker is listed in patient medical record.: Yes Medication Reconciliation I have utilized all available resources to obtain, update and review the patients current medications (includes all prescriptions, OTC, herbals, cannabis, and nutritional supplements).: Yes
[2024-11-26] MEDS: HYDROcodone/acetaminophen (*CRX) 5-325 MG TABLET 1 TAB PO ×2 (13:19→20:34)
--- NOTE | 2024-11-26 15:59 | P.PSYCH_ITS ---
Assessment and Plan Assessment and plan (1) Elevated lithium level: Code(s): R79.89 - Other specified abnormal findings of blood chemistry Status: Acute Assessment and Plan: Assessment: Patient presented with lithium level of 2.0, indicating toxicity. This is likely contributing to the patient's presenting symptoms of lightheadedness. The patient's current lithium dose is 450 mg twice daily. [place] toxicity is a serious condition that requires immediate management to prevent further complications. Plan: - Discontinue lithium- do not restart. patient will need to follow up with primary psychiatric care provider before restarting this medication. - Continue normal saline - Monitor kidney function - Repeat lithium levels Q4 hours until below 1.0 - Follow up with primary psychiatric care provider after discharge for further management of bipolar disorder - Discontinue lithium lab work once lithium reaches therapeutic levels below 1.0 (2) Bradycardia: Code(s): R00.1 - Bradycardia, unspecified Status: Acute Assessment and Plan: Bradycardia Assessment: Patient's EKG shows slow sinus bradycardia with a current heart rate of 53 bpm. This bradycardia may be related to lithium toxicity and/or other medications. There is also a possible right ventricular conduction delay noted on EKG. Plan: - Hold quetiapine, hydroxyzine, and trazodone to prevent further bradycardia until stabilized - Monitor for worsening bradycardia - Provide continuous supportive care - if bradycardia worsens may need to be transferred to higher level of care. (3) Bipolar disorder: Code(s): F31.9 - Bipolar disorder, unspecified Status: Inactive Assessment and Plan: Bradycardia Assessment: Patient's EKG shows slow sinus bradycardia with a current heart rate of 53 bpm. This bradycardia may be related to lithium toxicity and/or other medications. There is also a possible right ventricular conduction delay noted on EKG. Plan: - Hold quetiapine, hydroxyzine, and trazodone to prevent further bradycardia until stabilized - Monitor for worsening bradycardia - Provide continuous supportive care - if bradycardia worsens may need to be transferred to higher level of care. Plan - stop lithium (until patient follows up with Thuy) - continue Lamictal 300 mg daily - continue supportive care - hold trazodone, hydroxyzine, quetiapine until bradycardia resolved - once bradycardia resolved restart quetiapine at 150 mg po HS - follow up with [facility] after discharge. - monitor [place] levels Q4H until lithium level is <1.0 HPI Data of Consult Date/Time: 11/26/24 15:59 Requesting Physician: Daniella Wells DO Primary Care Provider: UNKNOWN,DOCTOR Consult Narrative Narrative: Prudence Ovalle is a 59 year old female with bipolar disorder, presented to the ED with lightheadedness and upper respiratory symptoms. She tested positive for COVID-19 and had lithium toxicity (level 2.0) with bradycardia. Her psyhiatric medications included lamotrigine, lithium, quetiapine, hydroxyzine, and trazodone. Management included discontinuing lithium, holding quetiapine, hydroxyzine, and trazodone due to bradycardia, continuing lamotrigine 300mg daily, administering normal saline, and monitoring lithium levels until below 1.0. Follow-up with her psychiatric provider recommended after discharge. History of Present Illness Prudence, a 59-year-old female with a history of bipolar disorder, presented to the Emergency Department with lightheadedness and upper respiratory tract symptoms. She tested positive for COVID-19 and was found to have lithium toxicity with a level of 2.0. The patient's current presentation is complicated by slow sinus bradycardia, with a heart rate of 53 beats per minute. She has been experiencing lightheadedness with position changes. Prudence's medical history is significant for bipolar disorder, for which she has been taking multiple psychiatric medications. Her current regimen includes lamotrigine 300 mg daily, lithium 450 mg twice daily, quetiapine 300 mg at night, hydroxyzine 25 mg as needed, and trazodone 200 mg at bedtime. The patient's family history is notable for Alzheimer's disease in her father, depression and bipolar I disorder in a sibling, and alcohol and drug addiction in the family. Prudence is a nonsmoker. Medications and Supplements - Lamotrigine 300 mg daily - [place] 450 mg twice a day - Level: 2.0 - Discontinued due to toxicity - Quetiapine 300 mg at night - patient non-compliant - Held due to bradycardia - restart at 150 mg HS once bradycardia resolved - Hydroxyzine 25 mg PO HS PRN - Held due to bradycardia - can restart once bradycardia resolved - Trazodone 200 mg HS - Held due to bradycardia - can restart once bradycardia resolved Review of Systems 2 Constitutional: Constitutional: Reports daytime sleepiness Comments: patient reports she feels, absolutely exhausted Psychiatric: Psychiatric: Reports no additional psychiatric complaints PMFSH Past Medical History Medical History (Updated 11/26/24 @ 16:12 by Jeanmarie Willis APRN) Bipolar 1 disorder Obstructive sleep apnea Hypercholesterolemia Bipolar disorder Surgical History Surgical History History of Family History Family History Mother Coronary artery disease Abdominal aortic aneurysm Depression Diverticulitis Osteoarthritis FHx: coronary artery bypass surgery Chronic obstructive pulmonary disease Father Coronary artery disease Abdominal aortic aneurysm Alzheimer disease FHx: coronary artery bypass surgery Sibling Epilepsy Depression Thyroid goiter Bipolar 1 disorder, depressed Tonsil cancer Alcoholism and drug addiction in family Social History Social History Smoking status: Never smoker Second hand tobacco smoke exposure: No Alcohol intake: never Substance use: never Substance use type: does not use Do You Feel Safe in your Home?: Yes Lack of Transportation: No Lack of Food: Never True Current Housing: I Have Housing Concerned About Future Housing: No Difficulty Paying Gas/Electric Bills: No Difficulty Paying for Meds: No Currently Unemployed: No Education: Decline to Answer Difficulty w/ Childcare or Family Care: No Gender identity (if verbalized by the patient): Female Sexual Orientation (if Verbalized by the Patient): Straight or Heterosexual Spiritual care concerns: No Meds Home Medications and Allergies Home Medications ?Medication ?Instructions ?Recorded ?Confirmed ?Type atorvastatin 20 mg tablet 20 mg PO HS 08/04/20 11/26/24 History lamotrigine 150 mg tablet 300 mg PO DAILY 08/04/20 11/26/24 History levothyroxine 50 mcg tablet 50 mcg PO DAILY 08/04/20 11/26/24 History lithium carbonate 450 mg 450 mg PO BID 08/04/20 11/26/24 History tablet,extended release quetiapine 300 mg tablet,extended 300 mg PO HS 08/04/20 11/26/24 History release 24 hr albuterol sulfate 90 mcg/actuation 2 puff inhalation Q4-6H PRN 06/05/23 11/26/24 Rx aerosol inhaler shortness of breath or wheezing 30 days #8.5 grams lumateperone 42 mg capsule 42 mg PO DAILY 06/05/23 11/26/24 History (Caplyta) hydroxyzine pamoate 25 mg capsule 25 mg PO QHS 11/26/24 11/26/24 History melatonin 10 mg capsule 10 mg PO QHS 11/26/24 11/26/24 History trazodone 100 mg tablet 200 mg PO QHS 11/26/24 11/26/24 History Allergies Allergy/AdvReac Type Severity Reaction Status Date / Time prochlorperazine Allergy Severe tongue and Verified 11/26/24 07:23 throat swelling Vital Signs Vital Signs - 24 hr 11/26/24 02:51 11/26/24 02:57 11/26/24 02:58 Temperature 98.2 F Pulse Rate 39 L 41 L 44 L Respiratory Rate 13 22 H Blood Pressure 102/50 L Pulse Oximetry 100 100 Oxygen Delivery 11/26/24 02:59 11/26/24 03:00 11/26/24 03:01 Temperature Pulse Rate 47 L 44 L 41 L Respiratory Rate 15 12 14 Blood Pressure 87/72 L 72/62 L Pulse Oximetry 100 98 100 Oxygen Delivery 11/26/24 03:05 11/26/24 03:07 11/26/24 03:12 Temperature Pulse Rate 43 L 46 L 47 L Respiratory Rate 14 13 13 Blood Pressure 65/45 L 79/26 L 94/52 L Pulse Oximetry 100 99 100 Oxygen Delivery 11/26/24 03:15 11/26/24 03:30 11/26/24 03:48 Temperature Pulse Rate 45 L 50 L 58 L Respiratory Rate 17 19 18 Blood Pressure Pulse Oximetry 95 97 Oxygen Delivery 11/26/24 03:49 11/26/24 03:51 11/26/24 04:00 Temperature Pulse Rate 54 L 56 L 60 Respiratory Rate 15 16 16 Blood Pressure 107/58 L 103/58 L Pulse Oximetry 96 97 98 Oxygen Delivery 11/26/24 04:01 11/26/24 04:02 11/26/24 04:11 Temperature Pulse Rate 58 L 57 L 55 L Respiratory Rate 19 20 18 Blood Pressure 99/49 L 99/50 L Pulse Oximetry 96 96 97 Oxygen Delivery 11/26/24 04:15 11/26/24 04:24 11/26/24 04:30 Temperature Pulse Rate 52 L 61 55 L Respiratory Rate 17 18 17 Blood Pressure 115/69 115/69 Pulse Oximetry 100 99 100 Oxygen Delivery 11/26/24 04:30 11/26/24 04:32 11/26/24 04:45 Temperature Pulse Rate 57 L 56 L 55 L Respiratory Rate 18 16 19 Blood Pressure 115/64 Pulse Oximetry 98 96 Oxygen Delivery 11/26/24 04:51 11/26/24 05:01 11/26/24 05:02 Temperature Pulse Rate 61 68 66 Respiratory Rate 19 19 22 H Blood Pressure 98/52 L 99/53 L Pulse Oximetry 97 95 94 Oxygen Delivery 11/26/24 05:45 11/26/24 08:00 11/26/24 08:00 Temperature Pulse Rate 57 L 45 L Respiratory Rate 17 Blood Pressure 99/57 L Pulse Oximetry 97 97 Oxygen Delivery Room Air 11/26/24 12:00 11/26/24 14:00 Temperature 98.2 F Pulse Rate 52 L 54 L Respiratory Rate 16 Blood Pressure 104/60 Pulse Oximetry 98 Oxygen Delivery Exam 2 Cardio: Rate: bradycardic Psych: Appearance: grossly normal and well kempt Mental Status: mental status grossly normal Speech and movement: Normal speech and movement present Affect: normal affect Attitude: cooperative Thought process: Normal thought process present Thought content: Yes Normal thought content present Insight: Good insight present (Psych) Judgement: Good judgement present (Psych) Results Labs 11/26/24 03:01 11/26/24 03:01 Labs: Short CBC 11/26/24 Range/Units 03:01 WBC 10.4 H (4.5-10.0) K/mm3 Hgb 10.0 L (12.0-15.0) g/dL Hct 30.9 L (37.0-47.0) % Plt Count 278 (150-375) k/mm3 BMP 11/26/24 03:01 Sodium 138 Potassium 3.7 Chloride 106 Carbon Dioxide 22 BUN 13 D Creatinine 1.09 H Glucose 161 H Calcium 9.9 Cardiac Enzymes 11/26/24 Range/Units 03:01 Troponin I < 0.012 (0.000-0.034) ng/mL Liver Function 11/26/24 Range/Units 03:01 Total Bilirubin 0.4 (0.2-1.3) mg/dL AST 19 (14-36) U/L ALT 13 (6-35) U/L Alkaline Phosphatase 84 (38-126) U/L Albumin 4.1 (3.5-5.1) g/dL Urine 11/26/24 Range/Units 04:29 Urine Color Yellow (Yellow) Urine Appearance Clear (Clear) Urine pH 7.0 (5.0-9.0) Ur Specific [place] 1.024 (1.001-1.035) Urine Protein Trace (Negative) mg/dL Urine Glucose (UA) Negative (Negative) mg/dL
[2024-11-26 16:31] LABS: Lithium 0.6 mmol/L (0.6-1.2)
[2024-11-26] MEDS: ONDANSETRON INJ 4 MG/2 ML VIAL IV PUSH (18:19)
[2024-11-26] MEDS: ATORVASTATIN 20 MG TABLET PO (20:35)
[2024-11-27] VITALS (10 sets, daily range): BP systolic 114–149; BP diastolic 63–66; PULSE 38–86; RESP 16–20; TEMP 36–37.4; O2SAT 99–100
--- NOTE | 2024-11-27 | ECHO_ITS ---
Patient Info Name: Prudence Ovalle Age: 59 years : 1965 Gender: Female Ht: 62 in Wt: 157 lbs BSA: 1.79 m2 HR: 51 bpm BP: 149 / 66 mmHg Heart Rhythm: Sinus Rhythm, Bradycardia Technical Quality: Good Exam Date: 11/27/2024 2:01 PM Patient Status: I Admit Date: 11/27/2024 Exam Type: CA echo doppler color flow Complete two-dimensional, color flow and Doppler transthoracic echocardiogram is performed. Staff Referring Physician: Marky Christie MD Claims Counsel: Stephanie Hawkins Attending Provider: Daniella Wells DO Summary 1. Left ventricular chamber dimension is normal. 2. Left ventricular systolic function is normal, estimated at 60-65. 3. The left ventricular diastolic function is grade I diastolic dysfunction. 4. Right ventricular systolic function is normal. 5. There is mild mitral valve regurgitation. 6. There is mild to moderate tricuspid valve regurgitation. 7. There is mild pulmonic regurgitation. Left Ventricle Left ventricular chamber dimension is normal. Left ventricular systolic function is normal, estimated at 60-65. There is no increased left ventricular wall thickness. The left ventricular diastolic function is grade I diastolic dysfunction. Right Ventricle Right ventricular chamber dimension is normal. Right ventricular systolic function is normal. Left Atria Left atrial chamber dimension is normal. Right Atria Right atrial chamber dimension is normal. Atrial Septum Intact interatrial septum visualized by color flow imaging. Aortic Valve The aortic valve is trileaflet. There is no aortic valve stenosis. There is no aortic valve regurgitation. Pulmonic Valve The pulmonic valve is not well visualized. There is mild pulmonic regurgitation. Mitral Valve There is mild mitral valve regurgitation. Tricuspid Valve There is mild to moderate tricuspid valve regurgitation. Pericardium/Pleural There is no pericardial effusion. Inferior Vena Cava Dilated inferior vena cava with >50% collapse upon inspiration consistent with elevated right atrial pressure, 8 mmHg. Aorta The aortic root size at the sinus of Valsalva is normal. Left Ventricular Outflow Tract Name Value Normal LVOT 2D LVOT Diameter 1.8 cm LVOT Doppler LVOT Peak Velocity 129 cm/s LVOT Peak Gradient 7 mmHg LVOT Mean Gradient 4 mmHg LVOT VTI 34 cm LVOT VTI/AV VTI Ratio 0.7 LVOT Stroke Volume 86 ml LVOT CO 4.1 l/min LVOT CI 2.3 l/min/m2 Pulmonic Valve Name Value Normal PV Doppler PV Peak Velocity 181 cm/s PV Peak Gradient 13 mmHg Mitral Valve Name Value Normal MV Regurgitation Doppler MR Peak Gradient 128 mmHg MV Diastolic Function MV E Peak Velocity 113 cm/s MV A Peak Velocity 101 cm/s MV E/A 1.1 MV Decel Time (PW) 227 ms MV Annular TDI MV E/e' (Septal) 10.3 MV E/e' (Lateral) 10.9 MV E/e' (Average) 10.6 Tricuspid Valve Name Value Normal TV Regurgitation Doppler TR Peak Velocity 333 cm/s TR Peak Gradient 41 mmHg Estimated PAP/RSVP RA Pressure 8 mmHg <=5 PA Systolic Pressure 52 mmHg <36 RV Systolic Pressure 52 mmHg <36 TV Annular TDI TV Lateral Rosa s' Velocity 12.3 cm/s >=9.5 Aortic Valve Name Value Normal AV Doppler AV Peak Velocity 191 cm/s AV Peak Gradient 15 mmHg AV Mean Gradient 8 mmHg AV VTI 46 cm AV Area (Cont Eq VTI) 1.9 cm2 >=3.0 AV Area (Cont Eq Channing) 1.7 cm2 AV DI (Channing) 0.68 AV Regurgitation 2D LVOT Area 2.5 cm2 Ventricles Name Value Normal LV Dimensions 2D/MM IVS Diastolic Thickness (2D) 0.7 cm 0.6-1.0 LVID Diastole (2D) 5.0 cm 3.8-5.2 LVIW Diastolic Thickness (2D) 0.7 cm 0.6-0.9 LVID Systole (2D) 3.2 cm 2.2-3.5 LVOT Diameter 1.8 cm LV Mass (2D Cubed) 111.45 g 67.00-162.00 LV Mass Index (2D Cubed) 62 g/m2 43-95 Relative Wall Thickness (2D) 0.28 <=0.42 LV Fractional Shortening/Ejection Fraction 2D/MM LV Fractional Shortening (2D) 36 % 27-45 LV EF (2D Teichholz) 65 % LV Diastolic Volume (4C MOD) 99 ml LV EF (4C MOD) 67 % LV Diastolic Volume (2C MOD) 92 ml LV EF (2C MOD) 61 % LV Diastolic Volume (BP MOD) 97 ml 46-106 LV Diastolic Volume Index (BP MOD) 54 ml/m2 29-61 LV Systolic Volume (BP MOD) 34 ml 14-42 LV Systolic Volume Index (BP MOD) 19 ml/m2 8-24 LV EF (BP MOD) 65 % 54-74 LV Diastolic Length (4C) 8.6 cm LV Systolic Length (4C) 6.9 cm LV Stroke Volume (4C MOD) 67 ml Atria Name Value Normal LA Dimensions LA Volume (4C A-L) 55 ml LA Volume (BP A-L) 54 ml RA Dimensions RA Systolic Major Seltzer Length (4C) 4.9 cm 2.2-2.8 RA Area (4C) 17.2 cm2 <=18.0 Report Signatures
[2024-11-27] MEDS: ACETAMINOPHEN 325 MG TABLET 650 MG PO ×2 (00:46→08:49)
[2024-11-27] MEDS: HYDROcodone/acetaminophen (*CRX) 5-325 MG TABLET 1 TAB PO ×3 (04:33→20:44)
[2024-11-27] MEDS: LEVOTHYROXINE SODIUM 50 MCG TABLET PO (06:20)
[2024-11-27 06:23] LABS: Basophils Percent Auto 0.4 % (0.2-1.2); Eosinophils Absolute Auto 0.1 K/mm3 (0-0.3); Eosinophils Percent Auto 1.4 % (0-4.4); Hematocrit 29.8 % (37.0-47.0); Hemoglobin 9.4 g/dL (12.0-15.0); Immature Granulocyte Absolute 0.04 K/mm3 (0.00-0.031); Immature Granulocyte Percent A 0.5 % (0-0.5); Lymphocytes Absolute Auto 1.83 K/mm3 (0.9-3.2); Lymphocytes Percent Auto 21.6 % (18.3-44.2); Mean Corpuscular HGB Conc 31.5 g/dl (32-36); Mean Corpuscular Hemoglobin 28.5 pg (26-34); Mean Corpuscular Volume 90.3 fl (80-100); Monocytes Absolute Auto 0.7 K/mm3 (0.1-0.6); Monocytes Percent Auto 7.8 % (2.6-8.5); Neutrophils Absolute Auto 5.8 K/mm3 (1.3-6.7); Neutrophils Percent Auto 68.3 % (45.5-73.1); Platelet Count Result 220 k/mm3 (150-375); Red Cell Distribution Width 13.2 % (11.5-14.5); White Blood Count 8.5 K/mm3 (4.5-10.0)
[2024-11-27 06:35] LABS: Alanine Aminotransferase 25 U/L (6-35); Albumin Level 3.6 g/dL (3.5-5.1); Alkaline Phosphatase 82 U/L (38-126); Anion Gap 6 mmol/L (4-12); Aspartate Amino Transferase 26 U/L (14-36); Bilirubin,Total 0.5 mg/dL (0.2-1.3); Blood Urea Nitrogen 9 mg/dL (7-17); Calcium 9.5 mg/dL (8.4-10.2); Carbon Dioxide 21 mmol/L (22-30); Chloride 112 mmol/L (98-107); Estimated CRCL calculation 64 ml/min; Estimated Glomerular Filt Rate > 60; Glucose 98 mg/dL (65-110); Potassium 4.2 mmol/L (3.4-5.0); Sodium 139 mmol/L (137-145); Total Protein 6.4 g/dL (6.3-8.2)
[2024-11-27 06:41] LABS: Lactic Acid Reflex < 0.5 mmol/L (0.7-2.0)
[2024-11-27] MEDS: lamoTRIgine 100 MG TABLET 300 MG PO (08:49)
[2024-11-27] MEDS: ONDANSETRON INJ 4 MG/2 ML VIAL IV PUSH ×2 (09:39→15:24)
--- NOTE | 2024-11-27 12:26 | PM.IMPN ---
Progress Note: A&P Assessment and Plan (1) Elevated lithium level: Code(s): R79.89 - Other specified abnormal findings of blood chemistry Status: Acute (2) COVID-19: Code(s): U07.1 - COVID-19 Status: Acute (3) Bradycardia: Code(s): R00.1 - Bradycardia, unspecified Status: Acute Plan Symptomatic Bradycardia likely from [place] toxicity Psychiatry consulted for meds adjustment hold lithium and several psych medications seroquel trazadone watch on tele await ECHO Cardiology on board mg and bmp is nl in the room updated about pt continue NS at 75cc per hour [place] toxicity [place] 2.0 Continue above care monitor daily lithium level Covid infection add steroids tessalon perles Inhaler for chest congestion Hypothyroidism TSH wnl conbtinue Levothyroxine Subjective Date/time seen: 11/27/24 12:26 Interval history: 59-year-old female past medical history of bipolar disorder presented to the ER on account of lightheadedness. Patient reported she has been having upper respiratory tract symptoms including coughing nasal congestion sore throat and fever for about a days, symptoms have improved markedly however yesterday about 11:30 p.m. she started having lightheadedness which prompted her to present to the ER for proper evaluation and care Patient suspects this is might be related to her psych medication and she has been noticing lower heart rates recently. Denies any chest pain, no vomiting, no diarrhea, no abdominal pain no chest pain no loss of consciousness no dysuria no focal symptoms. ER evaluation notable forVitals signs Pulse rate 89, blood pressure 102/50, labs notable for hemoglobin 10.0, lithium level 2.[address] chest abdomen and pelvis showed dilated main pulmonary artery suggests pulmonary artery hypertension. Pt admitted for COVID infection, elevated lithium level and bradycardia Pt having heart rates of 40s today and strip shows beats of [place] Cardiology consulted Review of Systems Review of Systems: asymptomatic no chest pain or SOB Exam Narrative: General: alert and comfortable pleasant lady thin appears resting in bed Respiratory systems: Clear to auscultation Cardiovascular sinus ramesh , no murmur, rub, or gallop; no thrill or palpable murmurs on palpation. Gastrointestinal: soft, non-tender, and non-distended abdomen with no masses; BS present Skin: no rash, lesions, ulcerations, subcutaneous nodules or induration Musculoskeletal: no abnormality and no tenderness, normal ROM Neurologic: Alert and oriented x3, non focal Mental Status Exam: normal affect Objective Data Vital Signs Vital Signs: Vital Signs - 24 hr 11/26/24 14:00 11/26/24 16:00 11/26/24 20:00 Temperature 36.8 C Pulse Rate 54 L 43 L 40 L Respiratory Rate 16 Blood Pressure 104/60 Pulse Oximetry 98 Oxygen Delivery 11/26/24 22:00 11/26/24 23:41 11/27/24 03:23 Temperature 36.4 C Pulse Rate 52 L 45 L 38 L Respiratory Rate 18 Blood Pressure 110/56 L Pulse Oximetry 97 Oxygen Delivery 11/27/24 05:53 11/27/24 08:00 11/27/24 08:00 Temperature 36.0 C L Pulse Rate 51 L 51 L Respiratory Rate 18 Blood Pressure 149/66 H Pulse Oximetry 100 100 Oxygen Delivery Room Air Intake/Output Intake/Output: Intake & Output 11/24/24 11/25/24 11/26/24 11/27/24 23:59 23:59 23:59 23:59 Intake Total 4127.9 Output Total 300 Balance 3827.9 Meds/Results Medications: Active Medications Generic Name Dose Route Start Last Admin Trade Name Freq PRN Reason Stop Dose Admin Acetaminophen 650 mg 11/26/24 04:57 11/27/24 08:49 Acetaminophen 325 Mg Tablet PO 650 mg Q4H PRN Administration Mild Pain (1-3) or Fever Hydrocodone Bitart/Acetaminophen 1 tab 11/26/24 13:05 11/27/24 04:33 Hydrocodone/Acetaminophen (*Crx) 5-325 Mg Tablet PO 1 tab Q6H PRN Administration Pain Rated 4-6 Atorvastatin Calcium 20 mg 11/26/24 21:00 11/26/24 20:35 Atorvastatin 20 Mg Tablet PO 20 mg QHS LEVI Administration Home Med 1 each 11/27/24 10:05 11/27/24 10:08 Home Medication-Caplyta 42 Mg PO 12/27/24 10:04 1 each DAILY LEVI Administration Hydroxyzine Pamoate 25 mg 11/26/24 21:00 Hydroxyzine Pamoate 25 Mg Capsule PO QHS LEVI Sodium Chloride 1,000 mls @ 75 mls/hr 11/26/24 05:00 11/26/24 20:38 Normal Saline Iv IV CONT 75 mls/hr .[id number] LEVI Infusion Lamotrigine 300 mg 11/27/24 09:00 11/27/24 08:49 Lamotrigine 100 Mg Tablet PO 300 mg DAILY LEVI Administration Levothyroxine Sodium 50 mcg 11/27/24 06:30 11/27/24 06:20 Levothyroxine Sodium 50 Mcg Tablet PO 50 mcg DAILY@0630 LEVI Administration Ondansetron HCl 4 mg 11/26/24 04:57 11/27/24 09:39 Ondansetron Inj 4 Mg/2 Ml Vial IV PUSH 4 mg Q4H PRN Administration Nausea Perflutren Lipid Microsphere 0 ml 11/26/24 11:17 Perflutren Lipid Microspheres 1.5 Ml Vial Diluted To 10 Ml Total Volume IV PUSH 11/29/24 11:17 ONCE PRN adequate visualization Protocol Quetiapine Fumarate 150 mg 11/26/24 21:00 Quetiapine Fumarate Xr 50 Mg Tab.Er.24h PO HS LEVI Trazodone HCl 100 mg 11/26/24 21:00 Trazodone Hcl 50 Mg Tablet PO HS [facility] Radiology Results: ITS Impressions Chest X-Ray 11/26/24 06:23 Impression: Clear lungs. Chest/Abdomen/Pelvis CTA 11/26/24 06:23 Impression: Dilated main pulmonary artery suggests pulmonary artery hypertension. No other significant findings. Labs Labs: Laboratory Results - last 24 hr 11/26/24 11/27/24 15:59 06:13 WBC 8.5 RBC 3.30 L Hgb 9.4 L Hct 29.8 L MCV 90.3 MCH 28.5 MCHC 31.5 L RDW 13.2 Plt Count 220 MPV 9.0 Immature Gran % (Auto) 0.5 Neut % (Auto) 68.3 Lymph % (Auto) 21.6 [place] % (Auto) 7.8 Eos % (Auto) 1.4 Baso % (Auto) 0.4 Lymph # (Auto) 1.83 [place] # (Auto) 0.7 H Eos # (Auto) 0.1 Baso # (Auto) 0.0 Abs Immat Gran (auto) 0.04 H Absolute Neuts (auto) 5.8 Absolute Nucleated RBC 0.000 Nucleated RBC % 0.0 Sodium 139 Potassium 4.2 Chloride 112 H Carbon Dioxide 21 L Anion Gap 6 BUN 9 Creatinine 0.75 Estim Creat Clear Calc 64 Estimated GFR > 60 Glucose 98 Lactic Acid < 0.5 L Calcium 9.5 Magnesium 2.0 Total Bilirubin 0.5 AST 26 ALT 25 Alkaline Phosphatase 82 Total Protein 6.4 Albumin 3.6 [place] 0.6
[2024-11-27 13:35] LABS: Anion Gap 10 mmol/L (4-12); Blood Urea Nitrogen 9 mg/dL (7-17); Calcium 9.5 mg/dL (8.4-10.2); Carbon Dioxide 18 mmol/L (22-30); Chloride 112 mmol/L (98-107); Estimated CRCL calculation 66 ml/min; Estimated Glomerular Filt Rate > 60; Glucose 110 mg/dL (65-110); Potassium 4.1 mmol/L (3.4-5.0); Sodium 140 mmol/L (137-145)
[2024-11-27] MEDS: SODIUM CHLORIDE 0.9% IV 1,000 ML 75 ML IV CONT (15:31)
--- NOTE | 2024-11-27 15:41 | P.CONCA_ITS ---
Assessment and Plan Assessment and plan (1) Chest pain: Code(s): R07.9 - Chest pain, unspecified Status: Acute Assessment and Plan: Atypical chest pain that comes on off and on without any relation to activity; she denies chest pain with exertion Troponin negative EKG shows sinus bradycardia Aspirin 81 mg daily Atorvastatin TTE (2) Bradycardia: Code(s): R00.1 - Bradycardia, unspecified Status: Acute Assessment and Plan: She is normally very active at baseline and her heart rates are in the 40s range. However she is now lightheaded since 2 days. She also has some runs of nonsustained VT and 1 run long run of VT. She will need workup for tachy-ramesh syndrome It is possible that the elevated lithium is causing the bradycardia. The team levels have now normalized and will monitor to see if her heart rates improve or not Monitor on telemetry Check TSH, free T4 TTE Suggest ischemia evaluation. A stress test may not be an ideal choice given nonsustained VT at rest. A cardiac catheterization would be better suited in this situation Unable to add beta-pierce or amiodarone given the bradycardia due to risk of worsening She will need EP consult to evaluate need for pacemaker and origin of VT. Thus I recommend transfer to a facility with EP service if she continues to have episodes of VT 30 day event monitor at discharge (3) Elevated lithium level: Code(s): R79.89 - Other specified abnormal findings of blood chemistry Status: Acute Assessment and Plan: Discussed with psychiatry day regarding dosing of lithium to avoid lithium toxicity (4) Hypothyroidism: Code(s): E03.9 - Hypothyroidism, unspecified Status: Acute Assessment and Plan: Continue home medication History of Present Illness History of Present Illness Consult date/time: 11/27/24 15:41 Reason For Visit: COVID-19, Bradycardia, Elevated lithium level Narrative: 59-year-old female with hyperlipidemia, bipolar disorder, obstructive sleep apnea presented with chief complaints of fever, cough, nasal congestion, sore throat for few days, and lightheadedness since yesterday. Her respiratory symptoms improved after the initial 2 days but add the night before admission she started having lightheadedness due to which he presented to the ER. She was noted to be bradycardic with heart rates in the 30s and 40s (lowest heart rate was 38). She states that she is very active at baseline and a bicycle 7 miles every day along with walking about 3 miles daily. Her baseline heart rates are in the 40s and sometimes dip into the 30s. She denies any chest pain with exercise or exertion. She however reports off and on chest pain unrelated to exertion. She denies any shortness of breath, presyncope, syncope, leg swelling, recent weight gain, diarrhea, constipation, heat or cold intolerance, headache, abdominal pain, nausea, emesis, weakness of any part of the body. Workup here showed elevated lithium level of 2, hemoglobin of 10, COVID test was positive. Telemetry showed multiple runs of nonsustained VT and 1 run of VT which subsided spontaneously. Patient denies feeling this. Cardiology is consulted for further recommendations given bradycardia. Workup: Hemoglobin: 9.4 NT proBNP: 70 Troponin: <0.012 EKG: Sinus bradycardia with rate of 39, possible right ventricular conduction delay, minimal Q-wave in high lateral leads Chest x-ray: Clear lungs CT chest: No PE. Dilated pulmonary artery suggestive of pulmonary artery hypertension. Review of Systems 2 Review of Systems: A complete review of systems was performed and negative other those mentioned in HPI. [facility] Past Medical History Medical History (Updated 11/26/24 @ 16:12 by Jeanmarie Willis, VETO) Bipolar 1 disorder Obstructive sleep apnea Hypercholesterolemia Bipolar disorder Surgical History Surgical History History of Family History Family History Mother Coronary artery disease Abdominal aortic aneurysm Depression Diverticulitis Osteoarthritis FHx: coronary artery bypass surgery Chronic obstructive pulmonary disease Father Coronary artery disease Abdominal aortic aneurysm Alzheimer disease FHx: coronary artery bypass surgery Sibling Epilepsy Depression Thyroid goiter Bipolar 1 disorder, depressed Tonsil cancer Alcoholism and drug addiction in family Social History Social History Smoking status: Never smoker Second hand tobacco smoke exposure: No Alcohol intake: never Substance use: never Substance use type: does not use Do You Feel Safe in your Home?: Yes Lack of Transportation: No Lack of Food: Never True Current Housing: I Have Housing Concerned About Future Housing: No Difficulty Paying Gas/Electric Bills: No Difficulty Paying for Meds: No Currently Unemployed: No Education: Decline to Answer Difficulty w/ Childcare or Family Care: No Gender identity (if verbalized by the patient): Female Sexual Orientation (if Verbalized by the Patient): Straight or Heterosexual Spiritual care concerns: No Meds Home Medications and Allergies Home Medications ?Medication ?Instructions ?Recorded ?Confirmed ?Type atorvastatin 20 mg tablet 20 mg PO HS 08/04/20 11/26/24 History lamotrigine 150 mg tablet 300 mg PO DAILY 08/04/20 11/26/24 History levothyroxine 50 mcg tablet 50 mcg PO DAILY 08/04/20 11/26/24 History lithium carbonate 450 mg 450 mg PO BID 08/04/20 11/26/24 History tablet,extended release quetiapine 300 mg tablet,extended 300 mg PO HS 08/04/20 11/26/24 History release 24 hr albuterol sulfate 90 mcg/actuation 2 puff inhalation Q4-6H PRN 06/05/23 11/26/24 Rx aerosol inhaler shortness of breath or wheezing 30 days #8.5 grams lumateperone 42 mg capsule 42 mg PO DAILY 06/05/23 11/26/24 History (Caplyta) hydroxyzine pamoate 25 mg capsule 25 mg PO QHS 11/26/24 11/26/24 History melatonin 10 mg capsule 10 mg PO QHS 11/26/24 11/26/24 History trazodone 100 mg tablet 200 mg PO QHS 11/26/24 11/26/24 History Allergies Allergy/AdvReac Type Severity Reaction Status Date / Time prochlorperazine Allergy Severe tongue and Verified 11/26/24 07:23 throat swelling Vital Signs Vital Signs - 24 hr 11/26/24 16:00 11/26/24 20:00 11/26/24 22:00 Temperature 36.4 C Pulse Rate 43 L 40 L 52 L Respiratory Rate 18 Blood Pressure 110/56 L Pulse Oximetry 97 Oxygen Delivery 11/26/24 23:41 11/27/24 03:23 11/27/24 05:53 Temperature 36.0 C L Pulse Rate 45 L 38 L 51 L Respiratory Rate 18 Blood Pressure 149/66 H Pulse Oximetry 100 Oxygen Delivery 11/27/24 08:00 11/27/24 08:00 11/27/24 13:55 Temperature 37.4 C Pulse Rate 51 L 46 L Respiratory Rate 16 Blood Pressure 114/65 Pulse Oximetry 100 99 Oxygen Delivery Room Air Exam 2 Narrative: General: Alert oriented x3, no acute distress Neck: Supple, no JVD Chest: Bilaterally clear to auscultation, no rales or rhonchi Cardiac: S1, S2 +, regular rate, regular rhythm, no murmurs or rubs Extremities: No pedal edema, no skin rash Neurologic: Alert and oriented x3, no focal neurological deficits Results Labs and Meds 11/27/24 06:13 11/27/24 13:09 Lab results: Cardiac Enzymes 11/27/24 Range/Units 06:13 AST 26 (14-36) U/L CBC 11/27/24 Range/Units 06:13 WBC 8.5 (4.5-10.0) K/mm3 RBC 3.30 L (4.2-5.4) M/mm3 Hgb 9.4 L (12.0-15.0) g/dL Hct 29.8 L (37.0-47.0) % Plt Count 220 (150-375) k/mm3 Lymph # (Auto) 1.83 (0.9-3.2) K/mm3 [place] # (Auto) 0.7 H (0.1-0.6) K/mm3 Eos # (Auto) 0.1 (0-0.3) K/mm3 Baso # (Auto) 0.0 (0.0-0.1) K/mm3 Comprehensive Metabolic Panel 11/27/24 11/27/24 Range/Units 06:13 13:09 Sodium 139 140 (137-145) mmol/L Potassium 4.2 4.1 (3.4-5.0) mmol/L Chloride 112 H 112 H (98-107) mmol/L Carbon Dioxide 21 L 18 L (22-30) mmol/L BUN 9 9 (7-17) mg/dL Creatinine 0.75 0.72 (0.7-1.0) mg/dL Glucose 98 110 (65-110) mg/dL Calcium 9.5 9.5 (8.4-10.2) mg/dL AST 26 (14-36) U/L ALT 25 (6-35) U/L Alkaline Phosphatase 82 (38-126) U/L Total Protein 6.4 (6.3-8.2) g/dL Albumin 3.6 (3.5-5.1) g/dL Intake and Output 11/26/24 11/27/24 11/27/24 23:59 07:59 15:59 Intake Total 1342.5 997.9 Balance 1342.5 997.9 Intake: IV 962.5 997.9 Sodium Chloride 0.9% IV 1,000 962.5 997.9 ml @ 75 mls/hr IV CONT .[id number] [facility] Rx#:[id number] Oral 380 0 Other: # Unmeasured Voids 3 1 Number of Bowel Movements Today 1
[2024-11-27] MEDS: ATORVASTATIN 20 MG TABLET PO (20:45)
[2024-11-28] MEDS: ACETAMINOPHEN 325 MG TABLET 650 MG PO ×3 (02:12→15:10)
[2024-11-28 04:00] VITALS: PULSE 46
[2024-11-28] MEDS: LEVOTHYROXINE SODIUM 50 MCG TABLET PO (05:49)
[2024-11-28] MEDS: SODIUM CHLORIDE 0.9% IV 1,000 ML 75 ML IV CONT (05:49)
[2024-11-28 06:00] VITALS: BP 133/71; PULSE 66; RESP 18; TEMP 36.4; O2SAT 98
[2024-11-28 08:00] VITALS: PULSE 64; O2SAT 98
[2024-11-28] MEDS: lamoTRIgine 100 MG TABLET 300 MG PO (08:16)
--- NOTE | 2024-11-28 09:45 | PM.PNCARD ---
Progress Note: A&P Assessment and Plan (1) Bradycardia: Code(s): R00.1 - Bradycardia, unspecified Status: Acute Assessment and Plan: She is normally very active at baseline and her heart rates are in the 40s range. It is possible that the elevated lithium is contributing to the bradycardia. Echocardiogram with normal LVEF. Given baseline bradycardia, would avoid AV lake blocking agents. Telemetry since normalization of lithium levels show stable sinus bradycardia during sleeping hours, no other significant arrhythmias noted. Telemetry personally reviewed of the possible VT. This is all artifact. No true VT noted. 30 day event monitor at discharge. 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 Has follow up appointment with them on December. Okay to discharge home from a cardiac standpoint. Cardiology will sign off at this time. Please call us back if needed. (2) COVID-19: Code(s): U07.1 - COVID-19 Status: Acute Assessment and Plan: Management as per Hospitalist. (3) Elevated lithium level: Code(s): R79.89 - Other specified abnormal findings of blood chemistry Status: Acute Assessment and Plan: Management per Psychiatry (4) Chest pain: Code(s): R07.9 - Chest pain, unspecified Status: Acute Assessment and Plan: Atypical. Cardiac catheterization in 2017 showed normal coronary arteries with slow flow. Per primary cardiology notes, has endothelial dysfunction +/- microvascular dysfunction. No additional cardiac workup in the hospital at this time. Subjective Date/time seen: 11/28/24 09:45 Interval history: Reason for visit: Possible VT HPI: 59-year-old female with hyperlipidemia, bipolar disorder, obstructive sleep apnea presented with chief complaints of fever, cough, nasal congestion, sore throat for few days, and lightheadedness since yesterday. Her respiratory symptoms improved after the initial 2 days but add the night before admission she started having lightheadedness due to which he presented to the ER. She was noted to be bradycardic with heart rates in the 30s and 40s (lowest heart rate was 38). She states that she is very active at baseline and a bicycle 7 miles every day along with walking about 3 miles daily. Her baseline heart rates are in the 40s and sometimes dip into the 30s. She denies any chest pain with exercise or exertion. She however reports off and on chest pain unrelated to exertion. She denies any shortness of breath, presyncope, syncope, leg swelling, recent weight gain, diarrhea, constipation, heat or cold intolerance, headache, abdominal pain, nausea, emesis, weakness of any part of the body. Workup here showed elevated lithium level of 2, hemoglobin of 10, COVID test was positive. Telemetry showed multiple runs of nonsustained VT and 1 run of VT which subsided spontaneously. Patient denies feeling this. Cardiology is consulted for further recommendations given bradycardia. Date of service 11/28: Patient reports she is feeling better today. Has a little bit more appetite. Tele stable. Sinus bradycardia noted overnight during sleeping hours. No other significant arrhythmias. Telemetry personally reviewed of the possible VT. This is all artifact. No true VT noted. Review of Systems Cardiovascular: Cardiovascular: Reports as per HPI Exam Const: General: no acute distress HENMT: Mouth: Yes moist mucous membranes Eyes: General: appearance normal, both eyes and all related structures Sclera: sclerae normal Resp: Effort & Inspection: normal respiratory effort Cardio: Rate: regular rate Rhythm: regular rhythm Skin: General skin exam: normal color Neuro: Speech: normal speech Psych: Mental Status: mental status grossly normal Affect: normal affect Objective Data Vital Signs Vital Signs: Vital Signs - 24 hr 11/27/24 12:00 11/27/24 13:55 11/27/24 16:00 Temperature 37.4 C Pulse Rate 39 L 46 L 57 L Respiratory Rate 16 Blood Pressure 114/65 Pulse Oximetry 99 Oxygen Delivery Fraction of Inspired Oxygen 11/27/24 20:00 11/27/24 21:30 11/27/24 22:00 Temperature 36.3 C L Pulse Rate 62 86 65 Respiratory Rate 20 18 Blood Pressure 136/63 Pulse Oximetry 99 99 Oxygen Delivery Room Air Fraction of Inspired Oxygen 21 11/27/24 23:40 11/28/24 04:00 11/28/24 06:00 Temperature 36.4 C Pulse Rate 59 L 46 L 66 Respiratory Rate 18 Blood Pressure 133/71 Pulse Oximetry 98 Oxygen Delivery Fraction of Inspired Oxygen Intake/Output Intake/Output: Intake & Output 11/25/24 11/26/24 11/27/24 11/28/24 23:59 23:59 23:59 23:59 Intake Total 4127.9 1237.9 1000 Output Total 300 Balance 3827.9 1237.9 1000 Meds/Results Medications: Active Medications Generic Name Dose Route Start Last Admin Trade Name Freq PRN Reason Stop Dose Admin Acetaminophen 650 mg 11/26/24 04:57 11/28/24 08:17 Acetaminophen 325 Mg Tablet PO 650 mg Q4H PRN Administration Mild Pain (1-3) or Fever Hydrocodone Bitart/Acetaminophen 1 tab 11/26/24 13:05 11/27/24 20:44 Hydrocodone/Acetaminophen (*Crx) 5-325 Mg Tablet PO 1 tab Q6H PRN Administration Pain Rated 4-6 Albuterol 2 puff 11/27/24 12:40 Albuterol Sulfate (*Sp) Aerosol 1 Puff INHALATION Q4-6H PRN shortness of breath or wheezing Atorvastatin Calcium 20 mg 11/27/24 21:00 11/27/24 20:45 Atorvastatin 20 Mg Tablet PO 20 mg HS LEVI Administration Home Med 1 each 11/27/24 10:05 11/28/24 08:16 Home Medication-Caplyta 42 Mg PO 12/27/24 10:04 1 each DAILY LVEI Administration Hydroxyzine Pamoate 25 mg 11/26/24 21:00 Hydroxyzine Pamoate 25 Mg Capsule PO QHS LEVI Sodium Chloride 1,000 mls @ 75 mls/hr 11/26/24 05:00 11/28/24 05:49 Normal Saline Iv IV CONT 75 mls/hr .[id number] LEVI Administration Lamotrigine 300 mg 11/27/24 09:00 11/28/24 08:16 Lamotrigine 100 Mg Tablet PO 300 mg DAILY LEVI Administration Levothyroxine Sodium 50 mcg 11/28/24 06:30 11/28/24 05:49 Levothyroxine Sodium 50 Mcg Tablet PO 50 mcg DAILY@0630 LEVI Administration Ondansetron HCl 4 mg 11/26/24 04:57 11/27/24 15:24 Ondansetron Inj 4 Mg/2 Ml Vial IV PUSH 4 mg Q4H PRN Administration Nausea Perflutren Lipid Microsphere 0 ml 11/26/24 11:17 Perflutren Lipid Microspheres 1.5 Ml Vial Diluted To 10 Ml Total Volume IV PUSH 11/29/24 11:17 ONCE PRN adequate visualization Protocol Quetiapine Fumarate 150 mg 11/26/24 21:00 Quetiapine Fumarate Xr 50 Mg Tab.Er.24h PO HS LEVI Trazodone HCl 100 mg 11/26/24 21:00 Trazodone Hcl 50 Mg Tablet PO HS PENDING SALE TO [facility] Radiology Results: ITS Impressions Chest X-Ray 11/26/24 06:23 Impression: Clear lungs. Chest/Abdomen/Pelvis CTA 11/26/24 06:23 Impression: Dilated main pulmonary artery suggests pulmonary artery hypertension. No other significant findings. Labs Labs: Laboratory Results - last 24 hr 11/27/24 13:09 Sodium 140 Potassium 4.1 Chloride 112 H Carbon Dioxide 18 L Anion Gap 10 BUN 9 Creatinine 0.72 Estim Creat Clear Calc 66 Estimated GFR > 60 Glucose 110 Calcium 9.5 Magnesium 2.0
[2024-11-28 12:00] VITALS: PULSE 59
[2024-11-28] MEDS: polyethylene glycoL 3350 17 GM POWD.PACK PO (12:09)
[2024-11-28 13:55] VITALS: BP 116/56; PULSE 58; RESP 16; TEMP 36.2; O2SAT 100
--- NOTE | 2024-11-28 14:14 | PM.DS ---
DS: Admitting Diagnosis Discharge Date 11/28/24 Admitting Diagnosis lightheadedness DS: Discharge Diagnosis Discharge Diagnosis (1) Elevated lithium level: Code(s): R79.89 - Other specified abnormal findings of blood chemistry Status: Acute (2) Bradycardia: Code(s): R00.1 - Bradycardia, unspecified Status: Acute DS: Summary Hospital Course Hospital Course: 59-year-old female past medical history of bipolar disorder presented to the ER on account of lightheadedness. Patient reported she has been having upper respiratory tract symptoms including coughing nasal congestion sore throat and fever for about a days, symptoms have improved markedly however yesterday about 11:30 p.m. she started having lightheadedness which prompted her to present to the ER for proper evaluation and care Patient suspects this is might be related to her psych medication and she has been noticing lower heart rates recently. Denies any chest pain, no vomiting, no diarrhea, no abdominal pain no chest pain no loss of consciousness no dysuria no focal symptoms. ER evaluation notable forVitals signs Pulse rate 89, blood pressure 102/50, labs notable for hemoglobin 10.0, lithium level 2.[address] chest abdomen and pelvis showed dilated main pulmonary artery suggests pulmonary artery hypertension. Patient was managed for lithium toxicity with lithium level of 2.0 whcih is why she has bradycardia. She wa ssymptomatic too. Psych as consutld adn patient [place] was discontinued, monitored and lithium level returned to normal. Psych recommended discontinueing Trazodone, hydroxyzine, to decreased Quetiapine to 150mg from 300mg qhs. contineu lamictal as is per psych. cardiology was consultd and followed patinet and recommended 30 day event monitor. patient will conitnue with cardiology as instructed F/u with PCP in 3-5 days F/u with psych adn cardiology as instructed Time Spent with Patient Time attestation: Total time spent providing and/or coordinating discharge services: Discharge Plan Discharge Attending physician on discharge: Hillary Engle Consulting providers: Nessa Pulido; Norm Hair Discharging Clinician: Hillary Engle Anticipated Discharge Date/Time: 11/28/24 14:02 Patient Disposition: Home Activity: as tolerated Diet: as tolerated and heart healthy Patient Instructions: Antibiotic Form Patient Language: Japanese Stand Alone Forms: General Discharge Information Follow-up/Referrals: Nessa Pulido APN-C [Advanced Practice Nurse] - (F/u with Cardiology as instructed ) Norm Hair MD [Physician] - (F/u with Psych as instructed ) UNKNOWN,DOCTOR [Primary Care Provider] - (F/u with PCP in 3-5 days ) Discharge Medications: New hydrocodone-acetaminophen 5-325 mg Tablet 1 tablet PO Q6H PRN (Reason: Pain Rated 4-6) 5 Days Qty: 10 0RF senna 8.6 mg capsule 8.6 mg PO DAILY Qty: 10 0RF Continued Caplyta 42 mg capsule 42 mg PO DAILY albuterol sulfate 90 mcg/actuation HFA aerosol inhaler 2 puff inhalation Q4-6H PRN (Reason: shortness of breath or wheezing) 30 Days Qty: 8.5 0RF atorvastatin 20 mg tablet 20 mg PO HS lamotrigine 150 mg tablet 300 mg PO DAILY levothyroxine 50 mcg tablet 50 mcg PO DAILY melatonin 10 mg capsule 10 mg PO QHS Changed quetiapine 300 mg tablet extended release 24 hr 150 mg PO HS 30 Days Qty: 30 0RF Discontinued lithium carbonate 450 mg tablet extended release 450 mg PO BID trazodone 100 mg tablet 200 mg PO QHS hydroxyzine pamoate 25 mg capsule 25 mg PO QHS Date of admission: 11/27/24 10:38 Primary Care Provider: UNKNOWN,DOCTOR Admitting Provider: Daniella Wells Attending physician on admission: Daniella Wells Condition: Stable
[2024-11-28 16:00] VITALS: PULSE 58
== END 2024-11-28 16:45 | disposition home or self-care (01) | DRG 308 ==
LOC: ANHED 04:57 → ANH3MEDSUR 05:22
PROVIDERS: Family Medicine; Registered Nurse; Admitting Provider Internal Medicine; Emergency Provider Emergency Medicine; Visit Provider Internal Medicine
DX: R00.1 Bradycardia, unspecified (principal); U07.1 COVID-19; T43.595A Adverse effect of other antipsychotics and neuroleptics, initial encounter; E86.0 Dehydration; G47.33 Obstructive sleep apnea (adult) (pediatric); E78.00 Pure hypercholesterolemia, unspecified; F31.9 Bipolar disorder, unspecified; E03.9 Hypothyroidism, unspecified
CPT/HCPCS: 36415; 71045; 71275; 74174; 80048; 80053; 80178; 80307; 81001; 82077; 83605; 83690; 83735; 83880; 84145; 84443; 84484; 85025; 85610; 85730; 87637; 93005; 93306; 96361; 96374; 96375; 96376; 99285; A9270; G0378; J2405; J3010; J7030; Q9967

== ENCOUNTER 2024-12-07 16:54 | Emergency (ER) | payer MEDICARE, SELFPAY ==
[2024-12-07] VITALS (7 sets, daily range): BP systolic 141–168; BP diastolic 74–90; PULSE 47–56; RESP 10–19; TEMP 36.8; O2SAT 99–100
--- NOTE | ~2024-12-07 | XR_ITS ---
XR chest 2V Ordering provider: Pratibha Schwartz MD History: 59 years Female with . chest pain . Comparison: None. FINDINGS: MEDIASTINUM: The cardiac silhouette is not enlarged. LUNGS: No infiltrates, effusions or pneumothorax. OTHER: No free air under the diaphragm. IMPRESSION: No acute cardiopulmonary pathology. Reviewed, dictated and finalized at location A.
--- NOTE | 2024-12-07 17:10 | ECG_ITS ---
Test Date: 2024-12-07 17:16:11 Measurements Intervals [place] Rate: 56 P: 26 CO: 183 QRS: 45 QRSD: 92 T: 41 QT: 462 QTc: 446 Interpretive Statements SINUS BRADYCARDIA WITH SINUS ARRHYTHMIA Compared to ECG 11/26/2024 02:52:02 No significant changes Electronically Signed On 12-08-2024 12:42:59 CDT by Vishnu Tomlinson M.D.
[2024-12-07 17:49] LABS: Hematocrit 36.2 % (37.0-47.0); Hemoglobin 11.9 g/dL (12.0-15.0); Immature Granulocyte Percent A 0.3 % (0-0.5); Lymphocytes Absolute Auto 2.22 K/mm3 (0.9-3.2); Mean Corpuscular HGB Conc 32.9 g/dl (32-36); Mean Corpuscular Hemoglobin 28.6 pg (26-34); Mean Corpuscular Volume 87.0 fl (80-100); Nucleated Red Blood Cells Absolute Auto 0.000 K/mm3 (0.0-0.012); Nucleated Red Blood Cells Perc 0.0 % (0.0-0.2); Platelet Count Result 428 k/mm3 (150-375); Red Blood Count 4.16 M/mm3 (4.2-5.4); White Blood Count 9.6 K/mm3 (4.5-10.0)
[2024-12-07 17:59] LABS: Alanine Aminotransferase 21 U/L (6-35); Albumin Level 4.5 g/dL (3.5-5.1); Alkaline Phosphatase 128 U/L (38-126); Anion Gap 15 mmol/L (4-12); Aspartate Amino Transferase 27 U/L (14-36); Bilirubin,Total 0.5 mg/dL (0.2-1.3); Blood Urea Nitrogen 12 mg/dL (7-17); Calcium 10.8 mg/dL (8.4-10.2); Carbon Dioxide 21 mmol/L (22-30); Chloride 109 mmol/L (98-107); Estimated CRCL calculation 46 ml/min; Estimated Glomerular Filt Rate 55; Glucose 101 mg/dL (65-110); Lipase 111 U/L (23-300); Potassium 3.1 mmol/L (3.4-5.0); Sodium 145 mmol/L (137-145); Total Protein 8.6 g/dL (6.3-8.2)
[2024-12-07 18:11] LABS: Troponin I < 0.012 ng/mL (0.000-0.034)
[2024-12-07 18:22] LABS: INR 1.0; Prothrombin Time 13.6 Seconds (11.1-14.7)
[2024-12-07 18:23] LABS: Partial Thromboplastin Time 28.2 Seconds (22.3-36.8)
[2024-12-07 20:47] LABS: Troponin I < 0.012 ng/mL (0.000-0.034)
--- OUTSIDE RECORDS SUMMARY | 2024-12-07 21:13 | XMS_ITS | Patient Health Record ---
Author Organization [facility] Address [address] [place] [place] [address] Care Team Providers [employer] Consultant Name Role Phone Steve Zhou Unavailable [phone] Allergies No Known Allergies Reason For Referral No Information Medications Medication SIG (Take, Route, Frequency, Duration) Notes Start Date End Date Status Levothyroxine Sodium 50 MCG TAKE 1 TABLE T BY MOUTH EVERY DAY Oral; Duration: 90 Active Atorvastatin Calcium 20 MG TAKE 1 TABLET BY MOUTH DAILY Oral; Duration: 90 Active Gabapentin 300 MG Oral; Duration: 14 Active Cyclobenzaprine HCl 5 MG TAKE 1 TABLET B Y MOUTH THREE TIMES DAILY Oral; Duration: 14 Active lamoTRIgine 150 MG Oral; Duration: 30 Active QUEtiapine Fumarate 100 MG TAKE 1 TABLET BY MOUTH AT BEDTIME Oral; Duration: 30 Active Caplyta 42 MG Oral; Duration: 30 Active traZODone HCl 50 MG TAKE 1/2 TABLET BY M OUTH THREE TIMES DAILY NEEDED Diagnosis Unavailable Oral; Duration: 30 Active Delphi Carbonate ER 450 MG Oral; Duration: 30 Active Social History Tobacco Use: Social History Observation Description Date Details (start date - stop date) Never Smoker NA - NA Tobacco Use/Smoking Question Answer Notes Are you a nonsmoker Alcohol Screen (Audit-C) Question Answer Notes Did you have a drink containing alcohol in the p ast year? No Points 0 Interpretation Negative Problems Problem Type SNOMED Code ICD Code Onset Dates Problem Status W/U Status Risk Notes Problem Cervical spondylosis without myelopathy (705388377) Spondylosis without myelopathy or radiculopathy, cervical region (M47.812) Active confirmed Problem Cervical radiculopathy (71668830) Cervical radiculopathy (M54.12) Active confirmed Problem Lumbosacral spondylosis without myelopathy (89180994) Facet arthritis of lumbosacral region (M47.817) Active confirmed Problem Cervical post-laminectomy syndrome (893264940) Cervical postlaminectomy syndrome (M96.1) Active confirmed Problem Displacement of cervical intervertebral disc without myelopathy (28381084) Bulging of cervical intervertebral disc (M50.20) Active confirmed Problem Cervical spondylosis without myelopathy (497115665) Spondylosis of cervicothoracic region w/o myelopathy or radiculopathy (M47.813) Active confirmed Plan Of Treatment Pending Test Test Name Order Date MRI : Cervical with and without Contrast 05/12/2022 Insurance Providers Payer Name Payer Address Payer Phone Subscriber Number Group Number Insured Name Patient Relationship to Insured Coverage Start Date Coverage End Date MEDICARE SERVICES [address] [address] [place], [place] [id number] null, null Self - patient is the insured Medications Administered Medication Instructions Date of Administration Dosage Notes Bilateral C7, T1, T2 Medial Branch Block 06/09/2022 Medical (General) History Medical History History ICD Code urinary incontinence esophageal reflux depression anxiety Surgical History Surgery Date(Month/Year) section x3 cervical fusion
--- OUTSIDE RECORDS SUMMARY | 2024-12-07 21:13 | XMS_ITS | Clinical Summary ---
Author Organization [facility] Address [address] [place] [address] Care Team Providers Care Customer Retention Representative Name Role Phone Claudy Vickers MD Primary Care Provider [phone] Source Comments [facility] [employer],non-owned Affiliates and Associated Physician Practices is amultiple site organization consisting of ambulatory clinics and hospital sitesin [place], [place], [place] and [place]. This disclosure is being madepursuant to the Care Everywhere program and may not contain all information available regarding this patient. Last updated 18.[facility] [employer] Allergies Active Allergy Reactions Criticality Noted Date Comments Codeine Nausea and/or Vomiting,Rash,Other,Vom iting Medium 10/20/2021 Reaction: GI UPSET, , Reaction: Nausea, Vomiting, , Hydromorphone Other,Rash Medium 02/26/2017 Tachy, felt like on fire Tachy, felt like on fire Lorazepam Other,Rash,Unknown Medium 02/26/2017 difficulty with vision and couldn't walk Reaction: MUSCLE WEAKNESS, difficulty with vision and couldn't walk Morphine Rash,Unknown Medium 02/26/2017 Reaction: RASH, Reaction: Rash, , Penicillins Rash Medium 02/26/2017 Reaction: RASH, Reaction: Rash, , Prochlorperazine Anaphylaxis,Swelling High 7 Reaction: SWELLING, , , , Medications * Be aware that medications may not be up to date on this document. Alwaysverify current medications with the patient. atorvastatin (Lipitor) 20 MG tablet Take 1 (one) tablet by mouth once daily Active LITHIUM CITRATE PO Take 300 mg by mouth 2 times daily Active lumateperone (Caplyta) 42 MG capsule Take 1 (one) capsule by mouth once daily Active lamoTRIgine (LaMICtal) 150 MG tablet Take 2 (two) tablets by mouth once daily Active traZODone (Desyrel) 100 MG tablet Take 1 (one) tablet by mouth at bedtime 12/25/2022 Active QUEtiapine (SEROquel) 100 MG tablet Take 1.5 (one and one-half) tablets by mouth at bedtime 02/12/2022 Active levothyroxine (Synthroid) 50 MCG tablet Take 1 (one) tablet by mouth once daily Active vitamin D3 (Cholecaciferol ) 125 MCG (5000 UT) Take 1 (one) tablet by mouth once daily Active melatonin 3 MG tablet Take 1 (one) tablet by mouth at bedtime Active hydrOXYzine pamoate (Vistaril) 25 MG capsule TAKE 1 CAPSULE BY MOUTH EVERY DAY NEEDED 02/18/2023 Active lithium CR (Lithobid) 300 MG tablet Take 1 (one) tablet by mouth 2 times daily 03/24/2023 Active Social History Tobacco Use Types Packs/Day Years Used Date Smoking Tobacco: Never Assessed Comments No Sex and Gender Information Value Date Recorded Sex Assigned at Not on file Legal Sex Female 6:02 AM [employer] Gender Identity Not on file Sexual Orientation Not on file Last Filed Vital Signs Vital Sign Reading Time Taken Comments Blood Pressure 144/79 04/05/2023 8:33 AM CDT Pulse 58 04/05/2023 8:33 AM CDT Temperature - - Respiratory Rate - - Oxygen Saturation - - Inhaled Oxygen Concentration - - Weight 79.4 kg (175 lb) 04/05/2023 8:33 AM CDT Height 158.8 cm (5' 2.5) 04/05/2023 8:33 AM CDT Body Mass Index 31.5 04/05/2023 8:33 AM CDT Plan of Treatment Health Maintenance Due Date Last Done Comments COLOGUARD (AGES 45-75) - COLON CA SCREENING 1964 COLON MONITORING 1964 COLONOSCOPY - COLON CA SCREENING 1964 CT COLONOGRAPHY - COLON CA SCREENING 1964 Colorectal Cancer Screening 1964 FIT - COLON CA SCREENING 1964 FLEX SIG - COLON CA SCREENING 1964 MAMMOGRAM 1964 HIV SCREENING 1979 HEPATITIS C SCREENING 05/03/1982 DTAP/TDAP/TD VACCINES (1 - Tdap) 1983 PAP SMEAR 1985 PNEUMOCOCCAL VACCINE 50+ (1 of 1 - PCV) 2014 ZOSTER VACCINE (1 of 2) 2014 SCREENING FOR DIABETES 02/16/2023 COVID-19 VACCINE ( season) 2024 03/20/2022, 09/16/2021, 09/16/2021, Additional history exists DEPRESSION SCREENING 06/07/2024 MEDICARE AWV CALENDAR YEAR 2024 INFLUENZA VACCINE (Season Ended) 2025 04/04/2020, 03/20/2018 Respiratory Syncytial Virus (RSV) Vaccine Pt: or over 60 yrs (1 - 1-dose 75+ series) 2039 HEPATITIS B VACCINE Aged Out No longe r eligible based on patient's age to complete this topic HIB VACCINE Aged Out No longer eligi ble based on patient's age to complete this topic HPV VACCINE Aged Out No longer eligi ble based on patient's age to complete this topic MENINGOCOCCAL (Group B) VACCINE SHARED DECISION-MAKING Aged Out No longer eligible based on patient's age to complete this topic MENINGOCOCCAL GROUPS A/C/Y/W VACCINE Aged Out No longer eligible based on patient's age to complete this topic Insurance [employer] MEDICARE ADV Care Teams Customer Retention Representative Relationship Specialty Start Date End Date Claudy Vickers MD [address] [place] [id number] PCP - General Internal Medicine 01/15/23
--- OUTSIDE RECORDS SUMMARY | 2024-12-07 21:13 | XMS_ITS | Continuity of Care Document ---
Author Organization [facility] Address [address] [place] [phone] Care Team Providers Care Biometric Fingerprinting Technician Name Role Phone Gabriela Pinon Primary Care Physician Encounter [facility] Financial Number [id number] Date(s): 12/05/24 - 12/06/[address] [id number] Encounter Diagnosis Headache(Discharge Diagnosis) - 12/06/24 Nausea(Discharge Diagnosis) - 12/06/24 Anemia(Discharge Diagnosis) - 12/06/24 Headache, unspecified(Final) - Nausea(Final) - Weakness(Final) - Anemia, unspecified(Final) - Personal history of COVID-19(Final) - Personal history of other diseases of the circulatory system(Final) - Discharge Disposition: Home with Physician Follow-up Attending Physician: Brenden Ma MD Referring Physician: Self, Referred Encounter Type: Emergency Allergies, Adverse Reactions, Alerts Substance Criticality Severity Reaction Reaction Severity Status Compazine Unable to assess criticality Severe Anaphylaxis Active Assessment and Plan Future Appointments Appointment Date:12/22/2024 12:45:00 PM Scheduled Provider:Kailash Cleary MD Location:[facility] Appointment Type:[facility] EP Established Patient Appointment Date:02/07/2025 02:30:00 PM Scheduled Provider:Kailash Cleary MD Location:[facility] Appointment Type:[facility] EP Established Patient Functional Status Medications atorvastatin 20 mg oral tablet 20 mg, 1 tablet(s), Oral, daily, Tablet(s), 0 Start Date: 07/17/24 Status: Ordered Repeat number: 1 Caplyta 42 mg oral capsule 42 mg, 1 capsule(s), Oral, qhs, 0 Start Date: 07/17/24 Status: Ordered Repeat number: 1 hydrOXYzine pamoate 25 mg oral capsule 25 mg, 1 capsule(s), Oral, qid, PRN, Capsule(s), for anxiety Start Date: 11/30/24 Status: Ordered Repeat number: 1 lamoTRIgine 200 mg oral tablet 200 mg, 1 tablet(s), Oral, bid, Tablet(s), 0 Start Date: 07/17/24 Status: Ordered Repeat number: 1 levothyroxine 50 mcg (0.05 mg) oral tablet 50 mcg, 1 tablet(s), Oral, daily before breakfast, Tablet(s), 0 Start Date: 07/17/24 Status: Ordered Repeat number: 1 magnesium glycinate 1 tablet(s), Oral, qhs, 0 Start Date: 07/17/24 Status: Ordered Repeat number: 1 melatonin 10 mg oral tablet 10 mg, 1 tablet(s), Oral, qhs Start Date: 11/30/24 Status: Ordered Repeat number: 1 nitroglycerin 0.4 mg sublingual tablet 0.4 mg, 1 tablet(s), Sublingual, as needed, PRN, 0, chest pain Start Date: 07/17/24 Status: Ordered Repeat number: 1 pantoprazole 40 mg oral delayed release tablet 40 mg, 1 tablet(s), Oral, daily before breakfast Start Date: 11/30/24 Status: Ordered Repeat number: 1 Tylenol 325 mg oral tablet 650 mg, 2 tablet(s), Oral, [id number], PRN, Tablet(s), 0, pain, mild Start Date: 11/30/24 Status: Ordered Repeat number: 1 Vitamin D3 5000 intl units oral capsule 125 mcg, 1 capsule(s), Oral, daily, Capsule(s), 0 Start Date: 02/12/22 Status: Ordered Repeat number: 1 Zofran 4 mg oral tablet 4 mg, 1 tablet(s), Oral, [id number], PRN, 20 tablet(s), Tablet(s), 0, 0, nausea, Print Requisition Start Date: 12/06/24 Status: Ordered Quantity: 20.0 Unit: Repeat number: 1 Problem List Condition Confirmation Course Effective Dates Status Health St atus Informant Angina at rest Confirmed Active Anxiety Confirmed Active Bradycardia Confirmed Active 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 Bulging lumbar disc Confirmed Active Family history of heart disease Confirmed Active HLD (hyperlipidemia) Confirmed Active Hypothyroid Confirmed Active Depression Confirmed Active Obstructive sleep apnea Confirmed Active COVID-19 CONFIRMED 1 Confirmed Active Episode of syncope Confirmed Active 4plex COVID-19+ Procedures Procedure Date Related Diagnosis Body Site Status section Complete d Spinal fusion Completed Results Laboratory List Name Date Drug Screen Abuse 12/06/24 Urinalysis w/ Reflex to Culture 12/06/24 TSH with Reflex (ADD ON - TSH w/ Reflex) 12/06/24 CBC with Differential 12/05/24 Comprehensive Metabolic Profile 12/05/24 Differential, Automated 12/05/24 Troponin-I 12/05/24 Most recent to oldest [Reference Range]: 1 Albumin [3.5-5.0 g/dL] 4.0 g/dL (12/05/24 10:19 PM) Alk Phos [38-126 U/L] 88 U/L (12/05/24 10:19 PM) BUN [7-17 mg/dL] 15 mg/dL (12/05/24 10:19 PM) Calcium [8.4-10.2 mg/dL] 9.3 mg/dL (12/05/24 10:19 PM) Chloride [98-107 mmol/L] 104 mmol/L (12/05/24 10:19 PM) CO2 [22-30 mmol/L] 24 mmol/L (12/05/24 10:19 PM) Glucose [74-106 mg/dL] 101 mg/dL (12/05/24 10:19 PM) Potassium [3.4-5.1 mmol/L] 3.5 mmol/L (12/05/24 10:19 PM) Sodium [137-145 mmol/L] 137 mmol/L (12/05/24 10:19 PM) Protein, Total [6.5-8.6 g/dL] 7.0 g/dL (12/05/24 10:19 PM) Troponin I <0.01 ng/mL 1 (12/05/24 10:19 PM) TSH, Highly Sensitive [0.47-4.68 uIU/mL] 2.01 uIU/mL (12/06/24 12:06 AM) Baso # [0.0-0.2 K/uL] 0.1 K/uL (12/05/24 10:19 PM) Eos # [0.0-0.7 K/uL] 0.2 K/uL (12/05/24 10:19 PM) Hematocrit [35.5-44.0 %] 29.4 % *L* (12/05/24 10:19 PM) Lymph % 28 % (12/05/24 10:19 PM) Lymph # [0.7-4.5 K/uL] 2.9 K/uL (12/05/24 10:19 PM) MCHC [31.5-35.5 g/dL] 32.3 g/dL (12/05/24 10:19 PM) MCH [27.2-32.6 pg] 29.1 pg (12/05/24 10:19 PM) MCV [82.0-99.0 fL] 90.2 fL (12/05/24 10:19 PM) [place] # [0.1-1.3 K/uL] 0.8 K/uL (12/05/24 10:19 PM) MPV [9.3-12.4 fL] 8.9 fL *L* (12/05/24 10:19 PM) Neutro # [1.9-7.0 K/uL] 6.2 K/uL (12/05/24 10:19 PM) Platelet [140-350 K/uL] 368 K/uL *H* (12/05/24 10:19 PM) RBC [3.90-4.90 M/uL] 3.26 M/uL *L* (12/05/24 10:19 PM) RDW [11.5-14.5 %] 12.8 % (12/05/24 10:19 PM) WBC [4.3-10.0 K/uL] 10.3 K/uL *H* (12/05/24 10:19 PM) Neutro % 60 % (12/05/24 10:19 PM) [place] % 8 % (12/05/24 10:19 PM) Eos % 2 % (12/05/24 10:19 PM) Baso % 1 % (12/05/24 10:19 PM) Nucleated RBCs [0-0 %] 0 % (12/05/24 10:19 PM) UA Blood [Negative] Negative (12/06/24 12:37 AM) AST [14-42 U/L] 28 U/L (12/05/24 10:19 PM) Bilirubin, Total [0.2-1.3 mg/dL] 0.3 mg/ dL (12/05/24 10:19 PM) Methamphetamines, Urine [Negative] Negat tatum (12/06/24 12:37 AM) Creatinine [0.50-1.00 mg/dL] 0.96 mg/dL (12/05/24 10:19 PM) Amphetamines, Urine [Negative] Negative (12/06/24 12:37 AM) Hemoglobin [11.8-14.8 g/dL] 9.5 g/dL *L* (12/05/24 10:19 PM) eGFR(CKD-EPI) [>=90 mL/min/1.73m2] 68 mL /min/1.73m2 2 *L* (12/05/24 10:19 PM) eCrCl(C-Gault) 1.0 mL/min/kg 3 (12/05/24 10:19 PM) Immature Gran % [0.0-0.5 %] 0.5 % (12/05/24 10:19 PM) Barbiturates, Urine [Negative] Negative (12/06/24 12:37 AM) UA Bilirubin [Negative] Negative (12/06/24 12:37 AM) Cannabinoids (THC), Urine [Negative] Neg ative (12/06/24 12:37 AM) UA Clarity [Clear] Clear (12/06/24 12:37 AM) Cocaine, Urine [Negative] Negative (12/06/24 12:37 AM) UA Color [Straw] Colorless *(A)* (12/06/24 12:37 AM) Differential Type Automated (12/05/24 10: PM) UA Glucose (Qual) [Negative] Negative (12/06/24 12:37 AM) UA Ketones [Negative] Negative (12/06/24 12:37 AM) UA Leukocyte Esterase [Negative] Negativ e (12/06/24 12:37 AM) UA Nitrite [Negative] Negative (12/06/24 12:37 AM) Phencyclidine (PCP), Urine [Negative] Ne gative (12/06/24 12:37 AM) UA Specific [place] [1.005-1.030] 1.003 *L* (12/06/24 12:37 AM) Urine Tox Comment THIS IS A SCREENING TEST ONLY. Positive results may be confirmed by an alternative method at physician's request. Specimens retained 1 week. Specimen was received without Chain of Custody. Results should be used for medical purposes only and not for any legal or employment evaluation purposes. Please contact the chemistry lab for the thresholds at which the compounds are detected. (12/06/24 12:37 AM) Opiates, Urine [Negative] Negative (12/06/24 12:37 AM) UA pH [5.0-8.0] 6.0 (12/06/24 12:37 AM) UA Protein (Qual) [Negative] Negative (12/06/24 12:37 AM) UA Urobilinogen [Negative] Negative (12/06/24 12:37 AM) Tricyclics, Urine [Negative] Negative (12/06/24 12:37 AM) Methadone, Urine [Negative] Negative (12/06/24 12:37 AM) Oxycodone, Urine [Negative] Negative (12/06/24 12:37 AM) Anion Gap [7-16 mmol/L] 9 mmol/L (12/05/24 10:19 PM) ALT [<=35 U/L] 19 U/L (12/05/24 10:19 PM) Benzodiazepines, Urine [Negative] Negati ve (12/06/24 12:37 AM) 1Interpretive Data: Negative: <0.03 ng/mL Indeterminate: 0.03 - 0.12 ng/mL Positive: >0.12 ng/mL This troponin result is from the main lab Ortho analyzer. Numeric results should not be trended or quantitatively compared to results from any other methodology. Troponin results should be interpreted in the context of other clinical findings. Serial time points are more informative than a single result. Misleading results - and in particular, false positive results - are known to occur; positiveresults may be repeated on the same specimen, if specifically requested. 2Interpretive Data: eGFR (CKD-EPI) is an estimate of the glomerular filtration rate using the race-free 2020 Chronic Kidney Disease Epidemiology Collaboration equation. The calculation utilizes the patient???s recorded sex and age and the measured serum creatinine. Ggr-EFO-xhzstor factors that may affect serum creatinine include altered generation (muscle wasting, amputees, body builders, vegan diet), drugs affecting tubular secretion (cimetidine and many others), and extra-renal elimination (gastrointestinal and ???third-space?? losses). Interpretive guidelines are based on steady-state renal function. 3Interpretive Data: When multiplied by the patient's body weight (in kg), eCrCl(C-Gault) is an estimate of the creatinine clearance using the Cockroft- Gault formula. It is widely used for adjusting drug dosages. Since the result is shown per kg, there is no established reference range. Radiology Reports * Exam Date Time Procedure Performing Provider Status 12/06/24 12:[address] HEAD W/O CONTRAST Eugene fied Notes: (CT HEAD W/O CONTRAST) Reason For Exam: Headache CT HEAD W/O CONTRAST PROCEDURE INFORMATION: Exam: CT Head Without Contrast Exam date and time: 12/06/2024 12:23 AM Age: 59 years old Clinical indication: Pain; Headache; Additional info: Headache, weakness, and fatigue. Recently treated for dehydration TECHNIQUE: Imaging protocol: Computed tomography of the head without contrast. Radiation optimization: All CT scans at this facility use at least one of these dose optimization techniques: automated exposure control; mA and/or kV adjustment per patient size (includes targeted exams where dose is matched to clinical indication); or iterative reconstruction. COMPARISON: No relevant prior studies available. FINDINGS: Brain: The visualized basilar cisterns are patent. The cortical/white matter interfaces are preserved throughout the brain. There is no evidence of mass, mass effect or midline shift. There is no evidence of acute hemorrhage within the brain parenchyma or the subarachnoid space. The craniocervical junction is within range of normal. No significant white matter lucencies. Cerebral ventricles: The ventricular system is normal in size and distribution. Paranasal sinuses: There is mild mucoperiosteal thickening involving the left maxillary sinus. The visualized portions of the sinuses are normal. Mastoid air cells: The mastoid sinuses are normal. Orbital cavities: The orbits are normal. Bones: There is no evidence of acute fracture. Soft tissues: No soft tissue swelling is identified. IMPRESSION: No acute intracranial abnormality. Dictating Provider: Kristin Liz DO (Jennifer) Releasing Physician: Kristin Liz DO (Jennifer) Signature Electronically Authorized Authorized Date/Time: 06-DEC-2024 01:26 am * Exam Date Time Procedure Performing Provider Status 12/05/24 11:55 PM CHEST SINGLE VIEW Auth (V erified) Notes: (CHEST SINGLE VIEW) Reason For Exam: Weakness CHEST SINGLE VIEW EXAMINATION: AP PORTABLE CHEST RADIOGRAPH Date: 12/05/2024 History: Weakness Comparison: Comparison is made to the radiographic examination dated 11/29/2024. Findings: The lungs are free of acute peripheral opacities. There is no pneumothorax or pleural effusion. The heart size is normal. The visualized osseous structures appear intact. Cervicothoracic spinal fusion hardware is noted. IMPRESSION: No acute cardiopulmonary abnormality. Dictating Provider: Suki Christine MD Releasing Physician: Suki Christine MD Signature Electronically Authorized Authorized Date/Time: 06-DEC-2024 07:26 am Vital Signs Most recent to oldest [Reference Range]: 1 2 3 Temperature Temporal Artery [35.8-38 DegC] 35.9 DegC (12/05/24 10:10 PM) Peripheral Pulse Rate [60-100 bpm] 50 bpm *L* (12/05/24 11:15 PM) 50 bpm *L* (12/05/24 10:10 PM) Respiratory Rate [14-22 br/min] 15 br/min (12/06/24 1:30 AM) 12 br/min *L* (12/06/24 1:00 AM) 19 br/min (12/06/24 12:15 AM) Blood Pressure [89-139/60-90 mm Hg] 120/66mm Hg (12/06/24 1:30 AM) 121/62mm Hg (12/06/24 1:00 AM) 119/59mm Hg (12/06/24 12:15 AM) Height 158 cm (12/05/24 10:10 PM) Weight 69.5 kg (12/05/24 10:10 PM) Social History Social History Type Response Alcohol Never alcohol user Substance Abuse Never drug user Smoking Status Never smoker;Never; Tobacco Cessation Counseling Requested N/A entered on: 03/30/23 Sex Sex Representation Female (finding) Status N/A Hospital Discharge Instructions Patient Education 12/06/2024 01:52:19 WEAKNESS, Unknown Cause Weakness or Fatigue with Uncertain Cause Weakness and fatigue are different conditions. Sometimes, people think they're weak, when in reality, they are fatigued. It's important to understand the difference between weakness and fatigue, so that you can get the right help for how you're feeling. ???Weakness. This is when your muscles aren't as strong as they should be. It can develop quickly or slowly over time. It may affect all of the muscles in the body (generalized weakness) or only one part of the body. Some causes of generalized weakness include a decrease in physical fitness, loss of muscle tissue from long periods of inactivity, abnormal electrolyte levels, and use of certain medicines, such as corticosteroids. Some causes of weakness in specific muscles include strokes, nerve damage, an injured disk in the spine, and neurological disorders, such as multiple sclerosis. Symptoms of weakness depend on which muscles are affected. ???Fatigue. This is when you feel really tired, worn out, or low on energy. It's when you feel a strong need to rest or have so little energy that doing any activity is difficult. It can happen if you're too active or not active enough, stressed, don't get enough good quality sleep, or have an unhealthy diet. Other causes of fatigue include viral infections, emotional problems, especially depression, and severe illnesses, such as heart failure and cancer. Side effects from medicine may also cause fatigue. Fatigue is usually a sign that something else might be going on. Based on your exam today, the exact cause of your symptoms is not clear. But your symptoms do not seem to be a sign of a serious illness at this time. Keep an eye on your symptoms and get medical advice as directed below. Home care ???Rest at home today. Don't overexert yourself. ???Take any medicine as prescribed. ???For the??next few days, drink extra fluids unless your healthcare provider wants you to restrictfluids for other reasons. Don't skip meals. ???Unless otherwise directed, continue to take any prescription medicines. ???Contact your healthcare provider if you have any questions or concerns. Follow-up care Follow up with your healthcare provider, or as advised. When to get medical advice Call your healthcare provider right away??if any of the following occur: ???Symptoms get worse or new symptoms develop ???Symptoms don't start getting better within 2 days ???You have night sweats ???You have swollen lymph nodes ???You have pain ???Fever of 100.4?? F (38?? C) or higher, or as directed by your healthcare provider Call 911 Call 911 if any of the following occur: ???Pain in the chest, arm, neck, jaw, or upper back ???Trouble breathing ???Numbness or weakness of the face, one arm, or one leg ???Slurred speech, confusion, or??trouble speaking, walking, or seeing ???Blood in vomit or stool (black or red color) ???Severe headache ???Loss of consciousness, such as fainting ???Loss of the ability to walk ???Weakness that becomes severe over a few days or less ???Difficulty raising the head while lying down ?? [id number] [employer]. All rights reserved. This information is not intended as a substitute for professional medical care. Always follow your healthcare professional's instructions. 12/06/2024 01:52:19 Headache, Unspecified Headache, Unspecified A number of things can cause headaches. The cause of your headache isn???t clear. But it doesn???t seem to be a sign of any serious illness. Headache affects almost everyone at some time. It's the most common reason people miss days from work or school. A physical and nervous system exam can help rule out any serious causes of headache. Sometimes you may need more testing. This could include blood work or imaging tests of the head, such as a CAT scan or MRI. You could have a tension headache or a migraine headache. Stress can cause a tension headache. This can happen if you tense the muscles of your shoulders, neck, and scalp without knowing it. If this stress lasts long enough, you may develop a tension headache. It's not clear why migraines occur, but certain things called triggers can raise the risk of havinga migraine attack. Migraine triggers may include emotional stress or depression, or by hormone changes during the menstrual cycle. Other triggers include control pills and other medicines, alcohol or caffeine, foods with tyramine, such as aged cheese or wine, eyestrain, weather changes, missed meals, and lack of sleep or oversleeping. Other causes of headache include: ???Viral illness with high fever ???Head injury with concussion ???Sinus, ear, or throat infection ???Dental pain and jaw joint (TMJ) pain More serious but less common causes of headache include stroke, brain hemorrhage, brain tumor, meningitis, and encephalitis. Home care Follow these tips when taking care of yourself at home: ???Don???t drive yourself home if you were given pain medicine for your headache. Instead, have someone else drive you home. Try to sleep when you get home. You should feel much better when you wake up. ???Apply heat to the back of your neck to ease a neck muscle spasm. Take care of a migraine headache by putting an ice pack on your forehead or at the base of your skull. ???If you have nausea or vomiting, eat a light diet until your headache eases. ???If you have a migraine headache, use sunglasses when in the daylight or around bright indoor lighting until your symptoms get better. Bright glaring light can make this type of headache worse. Follow-up care Follow up with your healthcare provider, or as advised. Talk with your provider if you have frequent headaches. They can help figure out a treatment plan. By knowing the earliest signs of headache, and starting treatment right away, you may be able to stop the pain yourself. When to get medical advice Call your healthcare provider right away??if any of the following occur: ???Your head pain suddenly gets worse after sexual intercourse or strenuous activity ???Your head pain doesn???t get better within 24 hours ???You have new symptoms ???You aren???t able to keep liquids down (repeated vomiting) ???Fever of 100.4??F (38??C) or higher, or as directed by your healthcare provider ???Stiff neck ???Extreme drowsiness, confusion, or fainting ???Dizziness or dizziness with spinning sensation (vertigo) ???Weakness in an arm or leg or one side of your face ???You have trouble talking or seeing ?? [id number] [employer]. All rights reserved. This information is not intended as a substitute for professional medical care. Always follow your healthcare professional's instructions. Note * Event Display: Coding Summary CODING SUMMARY Coding Date: 12/06/2024 Coding Status: Final Patient Name: Date: Age: Sex: Patient Type: BALTAZAR TORRES 1965 59 Years Female Emergency Physician Name: FIN: MRN: Payer: Brenden Ma MD [id number] Managed Medicare Facility: Discharge Disposition: Admit Date: Discharge Date: [facility] Home with Physician Follow-up 12/05/2024 12/06/2024 ?? GROUPER APC Description 5024 Level 4 Type A ED Visits 5025 Level 5 Type A ED Visits 5521 Level 1 Imaging without Contrast 5693 Level 3 Drug Administration 5522 Level 2 Imaging without Contrast ?? DIAGNOSIS Code POA Description Admitting R51.9 Headache, unspecified Reason for Visit R51.9 Headache, unspecified R11.0 Nausea R53.1 Weakness Principal R51.9 Headache, unspecified Secondary R11.0 Nausea R53.1 Weakness D64.9 Anemia, unspecified Z86.16 Personal history of COVID-19 Z86.79 Personal history of other diseases of the circulatory system ?? PROCEDURE Code APC Payment Status Description Physician Date 5023 V EMERGENCY DEPARTMENT VISIT MODERATE [facility] Brenden Ma MD 12/05/2024 26 Professional Component 19851 5025 V EMERGENCY DEPARTMENT VISIT HIGH [facility] Brenden Ma MD 12/05/2024 TC Technical component 25 Significant, Separately Identifiable Evaluation and Management Service by the Same Physician or Other Qualified Health Route Sales Trainee on the Same Day of the Procedure or Other Service 73914 5693 S THER PROPH/DX NJX IV PUSH SINGLE/1ST SBST/DRUG Brenden Ma MD 12/06/2024 TC Technical component ?? NOTE: The code number assigned matches the documented diagnosis and/or procedure in the patient's chart. However, the narrative phrase printed from the coding software may appear abbreviated, or result in slightly different terminology. ?? Coded By: Lizette Moss Hand Former II Date Saved: 12/06/2024 09:49 am ?? * Katelin Mccoy RN: PERFORM Event Display: Health History/Procedures - Text Authored Date: [id number] ED Health History/Procedures Entered On: 12/05/2024 23:37 CDT Performed On: 12/05/2024 23:37 CDT by Katelin Mccoy RN Problem List Adult (As Of: 12/05/2024 23:37 CDT) Problems(Active) Angina at rest (SNOMED CT :642643436 ) Name of Problem: Angina at rest ; Recorder: Sheridan Cameron; Confirmation: Confirmed ; Classification: Medical ; Code: [id number] ; Contributor System: PowerChart ; Last Updated: 04/12/2023 16:52 [facility] ; Life Cycle Date: 04/12/2023 ; Life Cycle Status: Active ; Responsible Provider: Dakota Cameron; Vocabulary: SNOMED CT Anxiety (SNOMED CT :5551058057 ) Name of Problem: Anxiety ; Recorder: Katelin Saavedra RN; Confirmation: Confirmed ; Classification: Medical ; Code: [id number] ; Contributor System: PowerChart ; Last Updated: 11/25/2016 14:56 CDT ; Life Cycle Date: 11/25/2016 ; Life Cycle Status: Active ; Vocabulary: SNOMED CT Bipolar disorder (SNOMED CT :24491455 ) Name of Problem: Bipolar disorder ; Recorder: Karen Cordero; Confirmation: Confirmed ; Classification: Patient Stated ; Code: [id number] ; Contributor System: PowerChart ; Last Updated: 08/08/2020 14:39 SILVER [facility]ER ; Life Cycle Date: 08/08/2020 ; Life Cycle Status: Active ; Vocabulary: SNOMED CT Bradycardia (SNOMED CT :65812305 ) Name of Problem: Bradycardia ; Recorder: Marleny Santos MD; Confirmation: Confirmed ; Classification: Medical ; Code: [id number] ; Contributor System: PowerChart ; Last Updated: 07/17/2024 18:06 [facility]; Life Cycle Status: Active ; Responsible Provider: Marleny Santos MD; Vocabulary: SNOMED CT Bulging lumbar disc (SNOMED CT :0760191818 ) Name of Problem: Bulging lumbar disc ; Recorder: Katelin Saavedra RN; Confirmation: Confirmed ; Classification: Medical ; Code: [id number] ; Contributor System: PowerChart ; Last Updated: 11/25/2016 14:57 CDT ; Life Cycle Date: 11/25/2016 ; Life Cycle Status: Active ; Vocabulary: SNOMED CT COVID-19 CONFIRMED (SNOMED CT :977851477 ) Name of Problem: COVID-19 CONFIRMED ; Recorder: Lorenza Penn Spare Person; Confirmation: Confirmed ; Classification: Medical ; Code: [id number] ; Contributor System: PowerChart ; Last Updated: 11/30/2024 09:59 CDT ; Life Cycle Date: 11/30/2024 ; Life Cycle Status: Active ; Vocabulary: SNOMED CT ; Comments: 11/30/2024 09:59 - Lorenza Penn Spare Person 11/30/2024 4plex COVID-19+ Depression (SNOMED CT :9382394653 ) Name of Problem: Depression ; Recorder: Katelin Saavedra RN; Confirmation: Confirmed ; Classification: Medical ; Code: [id number] ; Contributor System: PowerChart ; Last Updated: 11/25/2016 14:55 CDT ; Life Cycle Date: 11/25/2016 ; Life Cycle Status: Active ; Vocabulary: SNOMED CT Endothelial dysfunction of coronary artery (SNOMED CT :7306200769 ) Name of Problem: Endothelial dysfunction of coronary artery ; Recorder: Sheridan Cameron; Confirmation: Confirmed ; Classification: Medical ; Code: [id number] ; Contributor System: PowerChart ;Last Updated: 08/10/2024 13:39 SILVER BRAZER ; Life Cycle Date: 08/10/2024 ; Life Cycle Status: Active ; Responsible Provider: Sheridan Cameron; Vocabulary: SNOMED CT Episode of syncope (SNOMED CT :479177235 ) Name of Problem: Episode of syncope ; Recorder: Marleny Santos MD; Confirmation: Confirmed ; Classification: Medical ; Code: [id number] ; Contributor System: PowerChart ; Last Updated: 07/17/2024 18:06 SILVER BRAZER ; Life Cycle Status: Active ; Responsible Provider: Marleny Santos MD; Vocabulary: SNOMED CT Family history of heart disease (SNOMED CT :0351203068 ) Name of Problem: Family history of heart disease ; Recorder: Sheridan Cameron; Confirmation: Confirmed ; Classification: Medical ; Code: [id number] ; Contributor System: ZappyLabChart ; Last Updated: 04/12/2023 16:52 SILVER BRAZER ; Life Cycle Date: 04/12/2023 ; Life Cycle Status: Active ; Responsible Provider: Sheridan Cameron; Vocabulary: SNOMED CT HLD (hyperlipidemia) (SNOMED CT :47035554 ) Name of Problem: HLD (hyperlipidemia) ; Recorder: Katelin Saavedra RN; Confirmation: Confirmed ;Classification: Medical ; Code: [id number] ; Contributor System: ZappyLabChart ; Last Updated: 11/25/201614:56 CDT ; Life Cycle Date: 11/25/2016 ; Life Cycle Status: Active ; Vocabulary: SNOMED CT Hypothyroid (SNOMED CT :641935182 ) Name of Problem: Hypothyroid ; Recorder: Katelin Saavedra RN; Confirmation: Confirmed ; Classification: Medical ; Code: [id number] ; Contributor System: ZappyLabChart ; Last Updated: 11/25/2016 14:56 CDT ; Life Cycle Date: 11/25/2016 ; Life Cycle Status: Active ; Vocabulary: SNOMED CT Obstructive sleep apnea (SNOMED CT :190008248 ) Name of Problem: Obstructive sleep apnea ; Recorder: Brett Stinson MD; Confirmation: Confirmed ; Classification: Medical ; Code: [id number] ; Contributor System: ZappyLabChart ; Last Updated: 09/30/2020 14:53 CDT ; Life Cycle Date: 09/30/2020 ; Life Cycle Status: Active ; Responsible Provider: Brett Stinson MD; Vocabulary: SNOMED CT Diagnoses(Active) Weakness or fatigue Date: 12/05/2024 ; Diagnosis Type: Reason For Visit ; Confirmation: Confirmed ; Clinical Dx: Weaknessor fatigue ; Classification: Medical ; Clinical Service: Emergency medicine ; Code: PNED ; Probability: 0 ; Diagnosis Code: [id number] Family Health History Family History Reviewed : Yes Katelin Mccoy RN - 12/05/2024 23:37 CDT Family History (As Of: 12/05/2024 23:37 CDT) Mother: Relation: Mother ; Gender: Female ; Nomenclature: Snoring ; Value: Positive Nomenclature: Insomnia ; Value: Positive Nomenclature: Mental illness ; Value: Positive Father: Relation: Father ; Gender: Male ; Nomenclature: Snoring ; Value: Positive Daughter: Relation: Daughter ; Gender: Female ; Nomenclature: Snoring ; Value: Positive Son: Relation: Son ; Gender: Male ; Nomenclature: Snoring ; Value: Positive Procedure History Procedure History Reviewed : Yes Katelin Mccoy Marline RN - 12/05/2024 23:37 CDT - Procedure History (As Of: 12/05/2024 23:37 CDT) Anesthesia Minutes: 0 ; Procedure Name: section ; Procedure Minutes: 0 Anesthesia Minutes: 0 ; Procedure Name: Spinal fusion ; Procedure Minutes: 0 Social Habits Flu Vaccine This Season? : Not Flu Season Novel Coronavirus Current Fever : No Novel Coronavirus Exposed COVID 14 days : No Darius Katelin Horan RN - 12/05/2024 23:37 CDT Social History (As Of: 12/05/2024 23:37 CDT) Tobacco: Never smoker, Smokeless Tobacco use: Never. N/A Cessation Counseling. (Last Updated: 03/30/2023 20:55 CDT by Monisha Storm RN) Alcohol: Never alcohol user (Last Updated: 03/30/2023 20:55 CDT by Monisha Storm RN) Substance Abuse: Never drug user (Last Updated: 03/30/2023 20:55 CDT by Monisha Storm RN) Medical Devices Medical Devices : None Radiology Testing Barriers/Precautions : Metal plates, pins, rods or screws Darius Katelin Horan RN - 12/05/2024 23:37 CDT * Event Display: Authorization to Treat Authored Date: * Event Display: Authorization to Treat Authored Date: * Event Display: ROI_Correspondence Authored Date: * [facility] Delivery Driver: PERFORM Event Display: ROI_Correspondence Authored Date: [id number] * HPF, Image_Migration: VERIFY, PERFORM Event Display: ROI_Correspondence Authored Date: Physician Emergency department Note * Brenden Ma MD: MODIFY, SIGN, VERIFY, MODIFY, PERFORM Event Display: ED Note-Physician Authored Date: Patient: BALTAZAR TORRES Age: 59 years Sex: Female : 1965 Associated Diagnoses: None Author: Brenden Ma MD Vital Signs Height: 158 cm Height Source: Actual Weight: 69.5 kg Weight Source: Actual Body Mass Index: 27.84 kg/m2 Temperature Temporal Artery: 35.9 DegC Systolic Blood Pressure: 120 mm Hg Diastolic Blood Pressure: 66 mm Hg Peripheral Pulse Rate: 50 bpm Low Heart Rate Monitored: 59 bpm Low Respiratory Rate: 15 br/min Oxygen Saturation: 99 % Outside Record Review: Recent DC summary: Abnormal EKG/Acute Chest Pain probably secondary to unstable angina versus pericarditis versus muscular versus GERD - patient began experiencing upper chest pressure earlier today, no radiation - EKG sinus ramesh, T wave inversions V2, V3 not present on previous - HEART score 4 - Initial and delta troponin negative, CXR no acute findings, no electrolyte imbalance - patient recently inpatient, [facility] diagnosed with lithium toxicity, COVID 19 and dehydration - monitor telemetry - serial troponin were negative ESR was elevated - cardiology consulted, Dr. Cleary Cardiac CT showed mild obstructive disease Echocardiogram Complete Study 11/30/24 15:10:04 CONCLUSIONS: 1. The left ventricular ejection fraction is measured by Simpsons biplane method at 63 %. Normal geometry. 2. There are no regional wall motion abnormalities. 3. Diastolic function is normal. 4. Normal right ventricular size. Normal right ventricular systolic function. 5. The left atrium is normal in size. 6. Mild mitral regurgitation. No mitral stenosis. 7. Normal appearance of the tricuspid valve. There is mild tricuspid regurgitation. The estimated Peak RVSP is 32 mmHg. 8. Normal aortic root. Normal ascending aorta size. 9. Pulmonary artery is not well visualized although qualitatively appears enlarged. There is a possible PDA. Consider additional, dedicated imaging if clinically indicated. 10. Compared with prior study of 07/18/24, an enlarged PA and possible PDA are appreciated. Patient was told to get a sleep study or use a different CPAP for her probable pulmonary hypertension mild in nature She also was recommended to use ibuprofen 200 to 400 mg p.o. 3 times daily for possible pericarditis versus pleurisy as her ESR was elevated to [address] Nagel and his team Patient is stable to be discharged to home with follow-up with Dr. Mundo SEVILLA 19 - patient diagnosed with COVID 19 11/19/24 recent inpatient stay for COVID, lithium toxicity, dehydration - patient denies cough, fever - isolation precautions Anemia - hemoglobin 10.2 - most likely secondary to medications - monitor H&H Bipolar Disorder - recent history of lithium toxicity, patient has been taken off this medication - continue lamotrigine, hydroxyzine, Cap[place] Hyperlipidemia - continue statin Hypothyroid - continue levothyroxine ROXANNE - states unable to tolerate CPAP Basic Information Time seen: Date & time 12/05/2024 23:51:00. History source: Patient, significant other. Additional information:: Chief Complaint from Nursing Triage Note : Chief Complaint Description 12/05/2024 22:10 CDT Chief Complaint Description seen recently dx dehydration and feels similiar to that+headache/nausea/aweakness in arms\legs/lightheaded denies CP/SOB/thinners took 4 baby [employer] . History of Present Illness: This is a very pleasant 59-year-old female with medical history as summarized above who presents with weakness, headache, nausea. Patient has recent notable medical history of initial admission with COVID infection and dehydration causing lithium toxicity at [facility]. Subsequently had chest pain and pressure and was admitted at [facility] more recently had negative cardiac workup including reassuring coronary CT angiogram with only mild obstructive disease at that time. Discharged from this admission on Wednesday. Patient says since discharge she was feeling relatively better but still somewhat fatigued, intermittent headache, intermittent nausea and weakness however this evening starting around 5 or 6 PM all of the symptoms have gradually worsened over several hours. She has a headache throughout her whole head. She feels nauseous but has not vomited. She feels like her arms and legs are weak. She denies fevers, chills, chest pain, shortness of breath, abdominal pain. 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 Her call to arrange this is scheduled for this . Physical Exam: Vitals reviewed. Constitutional: Appearance: Normal appearance HENT: Head: Normocephalic and atraumatic. Nose: Nose normal. Mouth/Throat: Mouth: Mucous membranes are moist. Eyes: Conjunctiva/sclera: Conjunctivae normal. Cardiovascular: Rate and Rhythm: Normal rate and regular rhythm. Heart sounds: No murmur heard. Pulmonary: Effort: Pulmonary effort is normal. Breath sounds: Normal breath sounds. Abdominal: Palpations: Abdomen is soft. Tenderness: There is no abdominal tenderness. Musculoskeletal: Right lower leg: No edema. Left lower leg: No edema. Neurological: General: No focal deficit present. Mental Status: Alert. Except as otherwise noted above neurological exam revealed the following: The patient was alert and oriented Visual Veronica were full to confrontation Cranial nerves 2, 3, 4, 5, 6, 7, 8, 11, and 12 were intact to gross testing Strength was 5/5 in all extremities Sensation was intact to light touch in all extremities No ataxia on [id number]-[id number]-rjealb testing Normal Gait Psychiatric: Mood and Affect: Mood normal EKG: EKG shows sinus bradycardia with a rate of 48 normal axes normal intervals no significant ST-Tchanges possible minimal right ventricular conduction delay that may be just artifact of the rate borderline EKG. Initial Assessment: This is a very pleasant 59-year-old female who is presenting with nonspecific symptoms after multiple recent hospitalizations for both chest pain rule out that was ultimately negative as well as moderately severe lithium toxicity necessity. Here her exam is overall reassuring. She does have marked bradycardia during our interview. Otherwise her vitals are reasonable low normal blood pressure. I reviewed her med list I do not see any beta-blockers or other agents that would be responsible for this. Certainly I want to check her thyroid function given the prolonged lithium use and the symptoms. I think basic labs looking for ischemia, electrolyte abnormality all reasonable. Given her recurrent headache I think a CT scan is reasonable. If this is all reassuring I really think with her recent extensive cardiac workup and follow-up coordinated and in process there is no emergent indication for admission today. Right now we will provide a fluid bolus some symptomatic treatment for her nausea and initiate this workup and likely home with close follow-up if this is reassuring. Medical Decision Making Rationale Patient's evaluation overall reassuring. Moderate anemia slightly decreased from recent prior patient aware of need for close follow-up with PCP for anemia workup as this may be contributing to her symptoms. Her thyroid function is within normal limits. Her head CT is within normal limits. Notably I did consider subarachnoid hemorrhage in this patient with a headache but given that the headache was gradual onset not maximal at onset not a thunderclap headache no neurodeficits no history of aneurysms and head CT was performed very nearly within 6 hours of headache onset I do not feela CTA was warranted. No evidence of UTI. Patient with mild improvement with symptoms nausea significantly improved. Planning for discharge at this point with close PCP, cardiology, [facility] surgery follow-up.. Orders Encounter Orders CBC with Differential Comprehensive Metabolic Profile ADD ON - TSH w/ Reflex Troponin-I Differential, Automated Drug Screen Abuse Urinalysis w/ Reflex to Culture Benadryl Zofran ondansetron Zofran 4 mg oral tablet Compazine NS (BOLUS DOSE) CT HEAD W/O CONTRAST CHEST SINGLE VIEW . Results review: ED Labs Labs Albumin: 4 g/dL [3.5 g/dL - 5 g/dL] (12/05/24 22:19:00) Alk Phos: 88 U/L [38 U/L - 126 U/L] (12/05/24 22:19:00) ALT: 19 U/L (12/05/24 22:19:00) Amphetamines, Urine: Negative (12/06/24 00:37:00) Anion Gap: 9 mmol/L [7 mmol/L - 16 mmol/L] (12/05/24 22:19:00) AST: 28 U/L [14 U/L - 42 U/L] (12/05/24 22:19:00) Barbiturates, Urine: Negative (12/06/24 00:37:00) Baso #: 0.1 K/uL [0 K/uL - 0.2 K/uL] (12/05/24 22:19:00) Baso %: 1 % (12/05/24 22:19:00) Benzodiazepines, Urine: Negative (12/06/24 00:37:00) Bilirubin, Total: 0.3 mg/dL [0.2 mg/dL - 1.3 mg/dL] (12/05/24 22:19:00) BUN: 15 mg/dL [7 mg/dL - 17 mg/dL] (12/05/24 22:19:00) Calcium: 9.3 mg/dL [8.4 mg/dL - 10.2 mg/dL] (12/05/24 22:19:00) Cannabinoids (THC), Urine: Negative (12/06/24 00:37:00) Chloride: 104 mmol/L [98 mmol/L - 107 mmol/L] (12/05/24:19:00) CO2: 24 mmol/L [22 mmol/L - 30 mmol/L] (12/05/24 22:19:00) Cocaine, Urine: Negative (12/06/24 00:37:00) Creatinine: 0.96 mg/dL [0.5 mg/dL - 1 mg/dL] (12/05/24:19:00) Differential Type: Automated (12/05/24::) eCrCl(C-Gault): 1 mL/min/kg (12/05/24::) eGFR(CKD-EPI): 68 mL/min/1.73m2 Low (12/05/24:19:) Eos #: 0.2 K/uL [0 K/uL - 0.7 K/uL] (12/05/24:19:) Eos %: 2 % (12/05/24::) Glucose: 101 mg/dL [74 mg/dL - 106 mg/dL] (12/05/24::) Hematocrit: 29.4 % Low [35.5 % - 44 %] (12/05/24::00) Hemoglobin: 9.5 g/dL Low [11.8 g/dL - 14.8 g/dL] (12/05/24:19:) Immature Gran %: 0.5 % [0 % - 0.5 %] (12/05/24::) Lymph #: 2.9 K/uL [0.7 K/uL - 4.5 K/uL] (12/05/24:19:) Lymph %: 28 % (12/05/24:19:) MCH: 29.1 pg [27.2 pg - 32.6 pg] (12/05/24:19:00) MCHC: 32.3 g/dL [31.5 g/dL - 35.5 g/dL] (07/01/25 22:19:00) MCV: 90.2 fL [82 fL - 99 fL] (12/05/24 22:19:00) Methadone, Urine: Negative (12/06/24 00:37:00) Methamphetamines, Urine: Negative (12/06/24 00:37:00) Liberty #: 0.8 K/uL [0.1 K/uL - 1.3 K/uL] (12/05/24 22:19:00) Liberty %: 8 % (12/05/24 22:19:) MPV: 8.9 fL Low [9.3 fL - 12.4 fL] (12/05/24 22:19:00) Neutro #: 6.2 K/uL [1.9 K/uL - 7 K/uL] (12/05/24:19:) Neutro %: 60 % (12/05/24:19:) Nucleated RBCs: 0 % [0 % - 0 %] (12/05/24 22:19:) Opiates, Urine: Negative (12/06/24 00:37:00) Oxycodone, Urine: Negative (12/06/24 00:37:00) Phencyclidine (PCP), Urine: Negative (12/06/24 00:37:00) Platelet: 368 K/uL High [140 K/uL - 350 K/uL] (12/05/24 22:19:00) Potassium: 3.5 mmol/L [3.4 mmol/L - 5.1 mmol/L] (12/05/24 22:19:00) Protein, Total: 7 g/dL [6.5 g/dL - 8.6 g/dL] (12/05/24 22:19:00) RBC: 3.26 M/uL Low [3.9 M/uL - 4.9 M/uL] (12/05/24 22:19:00) RDW: 12.8 % [11.5 % - 14.5 %] (12/05/24 22:19:00) Sodium: 137 mmol/L [137 mmol/L - 145 mmol/L] (12/05/24 22:19:00) Tricyclics, Urine: Negative (12/06/24 00:37:00) Troponin I: <0.01 (12/05/24 22:19:00) TSH, Highly Sensitive: 2.01 uIU/mL [0.47 uIU/mL - 4.68 uIU/mL] (12/06/24 00:06:00) UA Bilirubin: NEG (12/06/24 00:37:00) UA Blood: NEG (12/06/24 00:37:00) UA Clarity: Clear (12/06/24 00:37:00) UA Color: Colorless Abnormal (12/06/24 00:37:00) UA Glucose (Qual): NEG (12/06/24 00:37:00) UA Ketones: NEG (12/06/24 00:37:00) UA Leukocyte Esterase: NEG (12/06/24 00:37:00) UA Nitrite: NEG (12/06/24 00:37:00) UA pH: 6 [5 - 8] (12/06/24 00:37:00) UA Protein (Qual): NEG (12/06/24 00:37:00) UA Specific [place]: 1.003 Low [1.005 - 1.03] (12/06/24 00:37:00) UA Urobilinogen: NEG (12/06/24 00:37:00) Urine Tox Comment: Urine Tox Comment (12/06/24 00:37:00) WBC: 10.3 K/uL High [4.3 K/uL - 10 K/uL] (12/05/24 22:19:00) . Radiology results: Completed Radiology Imaging Studies: ?? CT HEAD W/O CONTRAST ?? 12/06/24 01:14:53 PROCEDURE INFORMATION: Exam: CT Head Without Contrast Exam date and time: 12/06/2024 12:23 AM Age: 59 years old Clinical indication: Pain; Headache; Additional info: Headache, weakness, and fatigue. Recently treated for dehydration TECHNIQUE: Imaging protocol: Computed tomography of the head without contrast. Radiation optimization: All CT scans at this facility use at least one of these dose optimization techniques: automated exposure control; mA and/or kV adjustment per patient size (includes targeted exams where dose is matched to clinical indication); or iterative reconstruction. COMPARISON: No relevant prior studies available. FINDINGS: Brain: The visualized basilar cisterns are patent. The cortical/white matter interfaces are preserved throughout the brain. There is no evidence of mass, mass effect or midline shift. There is no evidence of acute hemorrhage within the brain parenchyma or the subarachnoid space. The craniocervical junction is within range of normal. No significant white matter lucencies. Cerebral ventricles: The ventricular system is normal in size and distribution. Paranasal sinuses: There is mild mucoperiosteal thickening involving the left maxillary sinus. The visualized portions of the sinuses are normal. Mastoid air cells: The mastoid sinuses are normal. Orbital cavities: The orbits are normal. Bones: There is no evidence of acute fracture. Soft tissues: No soft tissue swelling is identified. IMPRESSION: No acute intracranial abnormality. ?? Signed By: Kristin Liz DO ([employer]) . Procedure Critical care services delivered? No Procedure notes: Impression and Plan Diagnosis Weakness or fatigue : PNED [id number], Reason For Visit, Emergency medicine, Medical Nausea : RNY81-GH R11.0, Discharge, Emergency medicine, Medical Headache : ZRD23-OS R51.9, Discharge, Emergency medicine, Medical Anemia : KUM89-BG D64.9, Discharge, Emergency medicine, Medical Discharge plan Dispositioned: Time 12/06/2024 01:50:00. Prescriptions: Discharge Medications Pharmacy: Zofran 4 mg oral tablet (Prescribe): 4 mg, 1 tablet(s), Oral, [id number], PRN: nausea, 20 tablet(s), 0Refill(s). Patient was given the following educational materials: Headache, Unspecified, WEAKNESS, Unknown Cause, WEAKNESS, Unknown Cause, Headache, Unspecified. Follow up with: Gabriela Pinon Within 5 to 7 days Overall, your evaluation in the emergency department was reassuring. It does look like you have chronic anemia which is slightly worse than the last time it was checked so I will need to discuss this with your primary care doctor and see what can be done to improve it because it certainly may be part what is causing your symptoms. For anyrecurrent nausea you can take the Zofran I prescribed. If at any point, you feel you are going to pass out, develop new chest pain or difficulty breathing, develop severe abdominal pain, or have severe worsening of your current symptoms I would want you to return to the nearest emergency department immediately for reevaluation.. Counseled: Patient. Condition Limitations Past Medical/ Family/ Social History Medical history Problem List from Nurse's Notes All Problems Angina at rest / [id number] / Confirmed Anxiety / 4526449015 / Confirmed Bipolar disorder / 95698548 / Confirmed Bradycardia / 86545462 / Confirmed Endothelial dysfunction of coronary artery / 7180334133 / Confirmed Bulging lumbar disc / 1125936286 / Confirmed Family history of heart disease / 1447194571 / Confirmed HLD (hyperlipidemia) / 30775365 / Confirmed Hypothyroid / 913820719 / Confirmed Depression / 6822286758 / Confirmed Obstructive sleep apnea / 407937851 / Confirmed COVID-19 CONFIRMED / 277688577 / Confirmed Episode of syncope / 544663178 / Confirmed. Surgical history: Procedure History from Nurses Notes section (01698557). Spinal fusion (24749746).. Family history: Family History from Nurse's Notes Insomnia Mother Mental illness Mother Snoring Mother Father Son Daughter . Social history: Social History from Nurses Notes Alcohol Details: Never alcohol user Substance Abuse Details: Never drug user Tobacco Details: Never smoker, Smokeless Tobacco use: Never. N/A Cessation Counseling. . Health Status Allergies: Allergic Reactions (Selected) Severe Compazine- Anaphylaxis.. Review of Systems Additional review of systems information: See history of present illness (HPI) above for full review of systems if able to be performed. [Electronically Signed on 12/06/2024 06:36 AM CDT] Brenden Ma MD Nurse Emergency department Note * Katelin Mccoy RN: PERFORM Event Display: ED Note-Nursing Authored Date: [id number] patient declined wheelchair assistance to vehicle. * Katelin Mccoy RN: PERFORM Event Display: ED Note-Nursing Authored Date: [id number] ED Patient Rounds Entered On: 12/06/2024 01:26 CDT Performed On: 12/06/2024 01:26 CDT by Katelin Mccoy RN Visual Check Visual Check Performed : Yes Interventions Offered : Other: updated on wait for CT Katelin Mccoy RN - 12/06/2024 01:26 CDT * Katelin Mccoy RN: PERFORM Event Display: ED Note-Nursing Authored Date: [id number] ED Patient Rounds Entered On: 12/06/2024 00:56 CDT Performed On: 12/06/2024 00:55 CDT by Katelin Mccoy RN Visual Check Visual Check Performed : Yes Interventions Offered : Other: call light in reach, denies needs Katelin Mccoy RN - 12/06/2024 00:55 CDT Emergency department Discharge summary * Katelin Mccoy RN: PERFORM Event Display: ED Patient Summary Authored Date: [id number] BALTAZAR TORRES :1965 Visit Date:12/05/2024 [facility] Emergency Department Discharge Instructions Patient Information Name:BALTAZAR TORRES Address: [address] [place] [address] [phone] Sex:Female Date of :1965 Emergency Contact:KYRIE TORRES Location:[facility] Registration Date and Time:12/05/2024 22:07 CDT Primary Care Physician: Gabriela Pinon MD, Attending Physician: Brenden Ma MD, Location Information ?[address] ?[facility] Emergency Department ([place])?[address] ?? Your Diagnosis Diagnosis ?Anemia?Discharge ?Headache?Discharge ?Nausea?Discharge ?? Your Care Team Attending Physician - Brenden Ma MD Primary Care Physician - Gabriela Pinon MD Referring Physician - Self, Referred Discharge Vitals Vital Signs Height: 158 cm Height Source: Actual Weight: 69.5 kg Weight Source: Actual Body Mass Index: 27.84 kg/m2 Temperature Temporal Artery: 35.9 DegC Systolic Blood Pressure: 121 mm Hg Systolic Blood Pressure: 119 mm Hg Systolic Blood Pressure: 99 mm Hg Diastolic Blood Pressure: 62 mm Hg Diastolic Blood Pressure:??59 mm Hg??Low Diastolic Blood Pressure: 69 mm Hg Peripheral Pulse Rate:??50 bpm??Low Peripheral Pulse Rate:??50 bpm??Low Heart Rate Monitored:??56 bpm??Low Heart Rate Monitored:??54 bpm??Low Respiratory Rate:??12 br/min??Low Respiratory Rate: 19 br/min Respiratory Rate: 18 br/min Oxygen Saturation: 99 % Oxygen Saturation: 100 % Oxygen Saturation: 100 % What to do next Scheduled Follow-Up Appointments Wednesday 12:45 PM CDT ?? With: Kailash Cleary MD Where: [facility] [address] [phone] Wednesday 2:30 PM CDT ?? With: Kailash Cleary MD Where: [facility] [address] [phone] You Need to Schedule the Following Appointments Follow Up with??Gabriela Pinon When??Within 5 to 7 days Why: Overall, your evaluation in the emergency department was reassuring. ??It does look like you have chronic anemia which is slightly worse than the last time it was checked so I will need to discuss this with your primary care doctor and see what can be done to improve it because it certainly may be part what is causing your symptoms. ??For any recurrent nausea you can take the Zofran I prescribed. ?? If at any point, you feel you are going to pass out, develop new chest pain or difficulty breathing, develop severe abdominal pain, or have severe worsening of your current symptoms I would want you to return to the nearest emergency department immediately for reevaluation. Where: [address] [place] [phone] (1) Medications [facility] has provided you with a complete list of medications post discharge, if you have been instructed to stop taking a medication please ensure you also follow up with this information to your Primary Care Physician. Unless otherwise noted, patient will continue to take medications as prescribed prior to the Emergency Department visit. Any specific questions regardingyour chronic medications and dosages should be discussed with your physician(s) and pharmacist. What How Much When Instructions New ondansetron (Zofran 4 mg oral tablet) 1 tablet(s) By mouth Every 6 hours as needed for nausea Printed Prescription Unchanged acetaminophen (Tylenol 325 mg oral tablet) 2 tablet(s) By mouth Every 6 hours as needed for pain, mild Unchanged atorvastatin (atorvastatin 20 mg oral tablet) 1 tablet(s) By mouth Daily Unchanged cholecalciferol (Vitamin D3 5000 intl units oral capsule) 1 capsule(s) By mouth Daily Unchanged hydrOXYzine (hydrOXYzine pamoate 25 mg oral capsule) 1 capsule(s) By mouth 4 times a day as needed for for anxiety Unchanged lamoTRIgine (lamoTRIgine 200 mg oral tablet) 1 tablet(s) By mouth 2 times a day Unchanged levothyroxine (levothyroxine 50 mcg (0.05 mg) oral tablet) 1 tablet(s) By mouth Daily before breakfast Unchanged lumateperone (Caplyta 42 mg oral capsule) 1 capsule(s) By mouth Every evening at bedtime Unchanged magnesium glycinate 1 tablet(s) By mouth Every evening at bedtime Unchanged melatonin (melatonin 10 mg oral tablet) 1 tablet(s) By mouth Every evening at bedtime Unchanged nitroglycerin (nitroglycerin 0.4 mg sublingual tablet) 1 tablet(s) Sublingual As needed as needed for chest pain Unchanged pantoprazole (pantoprazole 40 mg oral delayed release tablet) 1 tablet(s) By mouth Daily before breakfast Medications and Immunizations Administered Medication Administrations ?12/06/24?Benadryl?25?mg?IV SLOW Push?Administered ?12/06/24?Zofran?4?mg?IV SLOW Push?Administered ?12/06/24?NS (BOLUS DOSE)?500?mL?IV Piggyback?Left Arm??Administered ?? Allergies Compazine??(Anaphylaxis) Labs Test Name Test Result Date/TimeWBC 10.3 K/uL (High) 12/05/2024 22:19 CDT Nucleated RBCs 0 % 12/05/2024 22:19 CDT RBC 3.26 M/uL (Low) 12/05/2024 22:19 CDT Hemoglobin 9.5 g/dL (Low) 12/05/2024 22:19 CDT Hematocrit 29.4 % (Low) 12/05/2024 22:19 CDT MCV 90.2 fL 12/05/2024 22:19 CDT MCH 29.1 pg 12/05/2024 22:19 CDT MCHC 32.3 g/dL 12/05/2024 22:19 CDT RDW 12.8 % 12/05/2024 22:19 CDT MPV 8.9 fL (Low) 12/05/2024 22:19 CDT Platelet 368 K/uL (High) 12/05/2024 22:19 CDT Differential Type Automated 12/05/2024 22:19 CDT Immature Gran % 0.5 % 12/05/2024 22:19 CDT Neutro % 60 % 12/05/2024 22:19 CDT Lymph % 28 % 12/05/2024 22:19 CDT Liberty % 8 % 12/05/2024 22:19 CDT Eos % 2 % 12/05/2024 22:19 CDT Baso % 1 % 12/05/2024 22:19 CDT Neutro # 6.2 K/uL 12/05/2024 22:19 CDT Lymph # 2.9 K/uL 12/05/2024 22:19 CDT Liberty # 0.8 K/uL 12/05/2024 22:19 CDT Eos # 0.2 K/uL 12/05/2024 22:19 CDT Baso # 0.1 K/uL 12/05/2024 22:19 CDT Sodium 137 mmol/L 12/05/2024 22:19 CDT Potassium 3.5 mmol/L 12/05/2024 22:19 CDT Chloride 104 mmol/L 12/05/2024 22:19 CDT CO2 24 mmol/L 12/05/2024 22:19 CDT Anion Gap 9 mmol/L 12/05/2024 22:19 CDT BUN 15 mg/dL 12/05/2024 22:19 CDT Creatinine 0.96 mg/dL 12/05/2024 22:19 CDT Glucose 101 mg/dL 12/05/2024 22:19 CDT Calcium 9.3 mg/dL 12/05/2024 22:19 CDT Protein, Total 7.0 g/dL 12/05/2024 22:19 CDT Albumin 4.0 g/dL 12/05/2024 22:19 CDT ALT 19 U/L 12/05/2024 22:19 CDT AST 28 U/L 12/05/2024 22:19 CDT Alk Phos 88 U/L 12/05/2024 22:19 CDT Bilirubin, Total 0.3 mg/dL 12/05/2024 22:19 CDT eGFR(CKD-EPI) 68 mL/min/1.73m2 (Low) 12/05/2024 22:19 CDT eCrCl(C-Gault) 1.0 mL/min/kg 12/05/2024 22:19 CDT Troponin I <0.01 ng/mL 12/05/2024 22:19 CDT TSH, Highly Sensitive 2.01 uIU/mL 12/06/2024 00:06 CDT UA Color Colorless (Abnormal) 12/06/2024 00:37 CDT UA Clarity Clear 12/06/2024 00:37 CDT UA Specific [place] 1.003 (Low) 12/06/2024 00:37 CDT UA pH 6.0 12/06/2024 00:37 CDT UA Leukocyte Esterase NEG 12/06/2024 00:37 CDT UA Nitrite NEG 12/06/2024 00:37 CDT UA Protein (Qual) NEG 12/06/2024 00:37 CDT UA Glucose (Qual) NEG 12/06/2024 00:37 CDT UA Ketones NEG 12/06/2024 00:37 CDT UA Urobilinogen NEG 12/06/2024 00:37 CDT UA Bilirubin NEG 12/06/2024 00:37 CDT UA Blood NEG 12/06/2024 00:37 CDT Urine Tox Comment THIS IS A SCREENING TEST ONLY. Positive results may be confirmed by an alternative method at physician's request. Specimens retained 1 week. ?? Specimen was received without Chain of Custody. Results should be used for medical purposes only and not for any legal or employment evaluation purposes. ?? Please contact the chemistry lab for the thresholds at which the compounds are detected. 12/06/2024 00:37 CDT Amphetamines, Urine Negative 12/06/2024 00:37 CDT Barbiturates, Urine Negative 12/06/2024 00:37 CDT Benzodiazepines, Urine Negative 12/06/2024 00:37 CDT Cannabinoids (THC), Urine Negative 12/06/2024 00:37 CDT Cocaine, Urine Negative 12/06/2024 00:37 CDT Methamphetamines, Urine Negative 12/06/2024 00:37 CDT Methadone, Urine Negative 12/06/2024 00:37 CDT Opiates, Urine Negative 12/06/2024 00:37 CDT Oxycodone, Urine Negative 12/06/2024 00:37 CDT Phencyclidine (PCP), Urine Negative 12/06/2024 00:37 CDT Tricyclics, Urine Negative 12/06/2024 00:[address] HEAD W/O CONTRAST 12/06/2024 01:27 CDT ? COMPLETED RADIOLOGY IMAGING STUDIES: ? CT HEAD W/O CONTRAST [Auth (Verified)] (12/06 125): FINAL IMPRESSION: No acute intracranial abnormality. Education Materials Weakness or Fatigue with Uncertain Cause Weakness and fatigue are different conditions. Sometimes, people think they're weak, when in reality, they are fatigued. It's important to understand the difference between weakness and fatigue, so that you can get the right help for how you're feeling. ???Weakness. This is when your muscles aren't as strong as they should be. It can develop quickly or slowly over time. It may affect all of the muscles in the body (generalized weakness) or only one part of the body. Some causes of generalized weakness include a decrease in physical fitness, loss of muscle tissue from long periods of inactivity, abnormal electrolyte levels, and use of certain medicines, such as corticosteroids. Some causes of weakness in specific muscles include strokes, nerve damage, an injured disk in the spine, and neurological disorders, such as multiple sclerosis. Symptoms of weakness depend on which muscles are affected. ???Fatigue. This is when you feel really tired, worn out, or low on energy. It's when you feel a strong need to rest or have so little energy that doing any activity is difficult. It can happen if you're too active or not active enough, stressed, don't get enough good quality sleep, or have an unhealthy diet. Other causes of fatigue include viral infections, emotional problems, especially depression, and severe illnesses, such as heart failure and cancer. Side effects from medicine may also cause fatigue. Fatigue is usually a sign that something else might be going on. Based on your exam today, the exact cause of your symptoms is not clear. But your symptoms do not seem to be a sign of a serious illness at this time. Keep an eye on your symptoms and get medical advice as directed below. Home care ???Rest at home today. Don't overexert yourself. ???Take any medicine as prescribed. ???For the??next few days, drink extra fluids unless your healthcare provider wants you to restrictfluids for other reasons. Don't skip meals. ???Unless otherwise directed, continue to take any prescription medicines. ???Contact your healthcare provider if you have any questions or concerns. Follow-up care Follow up with your healthcare provider, or as advised. When to get medical advice Call your healthcare provider right away??if any of the following occur: ???Symptoms get worse or new symptoms develop ???Symptoms don't start getting better within 2 days ???You have night sweats ???You have swollen lymph nodes ???You have pain ???Fever of 100.4?? F (38?? C) or higher, or as directed by your healthcare provider Call 911 Call 911 if any of the following occur: ???Pain in the chest, arm, neck, jaw, or upper back ???Trouble breathing ???Numbness or weakness of the face, one arm, or one leg ???Slurred speech, confusion, or??trouble speaking, walking, or seeing ???Blood in vomit or stool (black or red color) ???Severe headache ???Loss of consciousness, such as fainting ???Loss of the ability to walk ???Weakness that becomes severe over a few days or less ???Difficulty raising the head while lying down ? [employer] All rights reserved. This information is not intended as a substitute for professional medical care. Always follow your healthcare professional's instructions. Headache, Unspecified ?? A number of things can cause headaches. The cause of your headache isn???t clear. But it doesn???t seem to be a sign of any serious illness. Headache affects almost everyone at some time. It's the most common reason people miss days from work or school. A physical and nervous system exam can help rule out any serious causes of headache. Sometimes you may need more testing. This could include blood work or imaging tests of the head, such as a CAT scan or MRI. You could have a tension headache or a migraine headache. Stress can cause a tension headache. This can happen if you tense the muscles of your shoulders, neck, and scalp without knowing it. If this stress lasts long enough, you may develop a tension headache. It's not clear why migraines occur, but certain things called triggers can raise the risk of havinga migraine attack. Migraine triggers may include emotional stress or depression, or by hormone changes during the menstrual cycle. Other triggers include control pills and other medicines, alcohol or caffeine, foods with tyramine, such as aged cheese or wine, eyestrain, weather changes, missed meals, and lack of sleep or oversleeping. Other causes of headache include: ???Viral illness with high fever ???Head injury with concussion ???Sinus, ear, or throat infection ???Dental pain and jaw joint (TMJ) pain More serious but less common causes of headache include stroke, brain hemorrhage, brain tumor, meningitis, and encephalitis. Home care Follow these tips when taking care of yourself at home: ???Don???t drive yourself home if you were given pain medicine for your headache. Instead, have someone else drive you home. Try to sleep when you get home. You should feel much better when you wake up. ???Apply heat to the back of your neck to ease a neck muscle spasm. Take care of a migraine headache by putting an ice pack on your forehead or at the base of your skull. ???If you have nausea or vomiting, eat a light diet until your headache eases. ???If you have a migraine headache, use sunglasses when in the daylight or around bright indoor lighting until your symptoms get better. Bright glaring light can make this type of headache worse. Follow-up care Follow up with your healthcare provider, or as advised. Talk with your provider if you have frequent headaches. They can help figure out a treatment plan. By knowing the earliest signs of headache, and starting treatment right away, you may be able to stop the pain yourself. When to get medical advice Call your healthcare provider right away??if any of the following occur: ???Your head pain suddenly gets worse after sexual intercourse or strenuous activity ???Your head pain doesn???t get better within 24 hours ???You have new symptoms ???You aren???t able to keep liquids down (repeated vomiting) ???Fever of 100.4??F (38??C) or higher, or as directed by your healthcare provider ???Stiff neck ???Extreme drowsiness, confusion, or fainting ???Dizziness or dizziness with spinning sensation (vertigo) ???Weakness in an arm or leg or one side of your face ???You have trouble talking or seeing ? 3512-9547 [employer] All rights reserved. This information is not intended as a substitute for professional medical care. Always follow your healthcare professional's instructions. In need of a Physician? Call [facility] [phone]. Thank you for choosing [facility] Emergency Department for your care. The examination and treatment you have received in the Emergency Department today have been rendered on an emergency basis onlyand is not intended to be a substitute for complete medical care. You should contact your follow-upphysician as it is important that he or she exam you for any new or remaining problems. If your problem worsens or new symptoms appear and you are unable to arrange prompt follow-up care, call or return to this emergency department. Patient Information Name:BALTAZAR TORRES Address: [address] [place] [phone] Sex:Female Date of :1965 Emergency Contact:KYRIE TORRES Location:[facility] Registration Date and Time:12/05/2024 22:07 CDT Primary Care Physician: Gabriela Pinon MD, Attending Physician: Brenden Ma MD, I have been given the following list of patient education materials, prescriptions, and follow up instructions and have verbalized understanding. Provider Signature: Patient/Resolution Agent Signature: Relationship to Patient: Date/Time:12/06/2024 01:53:02 EKG study * Event Display: EKG-ED * Event Display: EKG-ED Authored Date: Vent Rate: 48 bpm RR Interval: 1247 msec CO Interval: 177 msec QRS Duration: 82 msec QT Interval: 434 msec QTC Interval: 399 msec P-R-T [place]: 15 - 57 - 50 degrees IMPRESSION: SINUS BRADYCARDIA POSSIBLE RIGHT VENTRICULAR CONDUCTION DELAY No significant change. 11/30/2024 Electronically Signed By: Tayo Flanagan MD FACC * Event Display: EKG Report Patient Care team information Care Team Personnel Name: Gabriela Pinon MD Position: [facility] FAX ONLY - MD NOT ON STAFF Member Role: Primary Care Physician Address: [address] [facility] [address] [place] [address] Telecom: Name: Brett Stinson MD Position: Physician - Sleep Medicine Member Role: Specialist Physician Address: [address] [facility] [place] [address] [place] Telecom: Name: Kailash Cleary MD Position: Physician - Cardiology Member Role: Specialist Physician Address: [address] [facility] [address] Telecom: Name: Kiley Acevedo ROBOTICS TECHNICIAN Position: AMB ROBOTICS TECHNICIAN/PA Member Role: Nurse Practitioner Address: [address] [facility] [facility] [address] [place] [address] [place] Telecom: Name: Keila Garcia MD Position: Physician - Cardiology Member Role: Secure Software Assessor Address: [address] [place] [address] Telecom: Name: Kathryn Arias CNP Position: AMB ROBOTICS TECHNICIAN/PA Member Role: Nurse Practitioner Address: [address] [facility] [address] [place] [address] [place] Telecom: Care Team Related Persons Name: KYRIE TORRES Name: KYRIE TORRES Insurance Providers Guarantor name: BALTAZAR Tejeda BRIAN [employer] Plan Information #: 1 Payer: [employer] Payer Identifier: [id number] Member Number: [id number] Group Number: [id number] Subscriber Identifier: [id number] Relationship to Subscriber: self Coverage Type: Medicare Managed Care (Includes Medicare Advantage Plans) Coverage Verification Date: 24 Telecom: Address: [facility] [id number] [place] [phone]
--- OUTSIDE RECORDS SUMMARY | 2024-12-07 21:13 | XMS_ITS | Patient Health Record ---
Author Organization [facility] Address [address] [place] [address] Care Team Providers Care Road Supervisor Of Engines Name Role Phone Gabriela Pinon Primary Care Provider U Paulo Watts Unavailable [phone] Miesha Bryant Unavailable [phone] Allergies Allergen (clinical drug ingredient) Drug/Non Drug Allergy documented on EMR Reaction Allergy Type Onset Date Status Compazine Unknown Drug Allergy Active codeine Codeine Unknown Drug Allergy Active lorazepam Lorazepam Unknown Drug Allergy Active morphine Morphine Unknown Drug Allergy Active Penicillin anaphylaxis Drug Allergy inac tive Reason For Referral No Information Medications Medication SIG (Take, Route, Frequency, Duration) Notes Start Date End Date Status OTC/Vitamins Melatonin, Vit D Active Atorvastatin Calcium Active Synthroid Active Loami Citrate Acti ve lamoTRIgine Active Caplyta Active traZODone HCl Active Pepcid AC Active Pantoprazole Sodium 40 MG 1 tablet 1/2 to 1 hour before morning meal Orally Once a day for 30 day(s) 11/10/2024 Active Immunizations Vaccine Route Administration Date Status Comme nts Influenza Vaccination Unknown 05/11/2022 Administered Influenza Vaccination Unknown 09/20/2023 Administered Social History Tobacco Use: Social History Observation Description Date Details (start date - stop date) Never Smoker NA - NA Tobacco Use/Smoking Question Answer Notes Are you a nonsmoker Problems Problem Type SNOMED Code ICD Code Onset Dates Problem Status W/U Status Risk Notes Problem 33202774 Slow transit constipation (K59.01) Active confirmed Prudence reports more constipation and gas, along with left sided pain. It has been more than 5 years since her last exam. Repeat colonoscopy would indeed be reasonable to evalute. She has also complained of vaginal prolapse from straining during defecation. Problem 03354357 Epigastric pain (R10.13) Active confirmed Two episodes o f abdominal pain with the last episode occurred lasting for 10 days with associated nausea. Certainly a gastroenteritis is a possibility however given her family history of gallbladder disease, would like to evaluate for cholelithiasis and biliary dyskinesia. Other considerations include food intolerances, SIBO, and other. Problem Heartburn (62052978) Heartburn (R12) Active confirmed Prudence is experiencing heartburn a couple times per week. Upper endoscopy performed in May 2022 revealed a normal esophagus with erythema in the gastric antrum and normal duodenum. She has taken a PPI in the past. Problem Reflux esophagitis (904421966) Reflux esophagitis (K21.0) Active confirmed All of her symptoms have resolved. Problem 78526936 Dysphagia (R13.10) Active confirmed No abnormality was seen at the time of her upper endoscopy of the esophagus. Differential diagnosis includes cricopharyngeal web, Zenker's diverticulum, globus sensation, esophageal motility abnormality, or other. Problem 65525318 Constipation (K59.00) Active confirmed Chronic constipation which is likely secondary to irritable bowel syndrome. Colonoscopy performed in November 2021 was normal however she was noted to have a long redundant colon. Problem Chronic cough (68657259) Chronic cough (R05.3) Active confirmed Problem Chronic throat clearing (R09.89) Active confirmed Vital Signs Height 62 in 11/10/2024 Weight 153 lbs 11/10/2024 BMI 27.98 kg/m2 11/10/2024 Encounters Encounter Location Date Provider Diagnosis [facility], [address] [place] [address] 11/10/2024 Miesha Bryant Dysphagia R13.10 ; Chronic throat clearing R09.89 ; Chronic cough R05.3 ; Heartburn R12 and Constipation K59.00 [facility], [address] [place] [address] 11/09/2024 Paulo Ceron Assessments Encounter Date Diagnosis (ICD Code) Assessment Notes Treatment Notes Treatment Clinical Notes Section Notes 11/10/2024 Dysphagia (ICD-10 - R13.10) DYSPHAGIA: Chronic dysphagia that started in 2017 after undergoing neck surgery. Upper endoscopy in 2021 was normal. She also had a barium swallow in 2022, which was only notable for prominent cricopharyngeus muscle. She was evaluated by the ENT a year ago, which according to her was unremarkable. Differential diagnosis includes association with cricopharyngeal hypertrophy, adhesions, transfer dysphagia, or others. CHRONIC THROAT CLEARING/COUGH/HEA RTBURN: Over the last 4 months she has had increased throat clearing and cough. She is taking Pepcid 20 mg at bedtime. I question whether her symptoms are related to silent reflux. CONSTIPATION: Chronic constipation which is likely secondary to irritable bowel syndrome. Using MiraLAX as needed. Colonoscopy performed in November 2021 was normal however she was noted to have a long redundant colon. 11/10/2024 Chronic throat clearing (ICD-10 - R09.89) DYSPHAGIA: Chronic dysphagia that started in 2017 after undergoing neck surgery. Upper endoscopy in 2021 was normal. She also had a barium swallow in 2022, which was only notable for prominent cricopharyngeus muscle. She was evaluated by the ENT a year ago, which according to her was unremarkable. Differential diagnosis includes association with cricopharyngeal hypertrophy, adhesions, transfer dysphagia, or others. CHRONIC THROAT CLEARING/COUGH/HEA RTBURN: Over the last 4 months she has had increased throat clearing and cough. She is taking Pepcid 20 mg at bedtime. I question whether her symptoms are related to silent reflux. CONSTIPATION: Chronic constipation which is likely secondary to irritable bowel syndrome. Using MiraLAX as needed. Colonoscopy performed in November 2021 was normal however she was noted to have a long redundant colon. 11/10/2024 Chronic cough (ICD-10 - R05.3) DYSPHAGIA: Chronic dysphagia that started in 2017 after undergoing neck surgery. Upper endoscopy in 2021 was normal. She also had a barium swallow in 2022, which was only notable for prominent cricopharyngeus muscle. She was evaluated by the ENT a year ago, which according to her was unremarkable. Differential diagnosis includes association with cricopharyngeal hypertrophy, adhesions, transfer dysphagia, or others. CHRONIC THROAT CLEARING/COUGH/HEA RTBURN: Over the last 4 months she has had increased throat clearing and cough. She is taking Pepcid 20 mg at bedtime. I question whether her symptoms are related to silent reflux. CONSTIPATION: Chronic constipation which is likely secondary to irritable bowel syndrome. Using MiraLAX as needed. Colonoscopy performed in November 2021 was normal however she was noted to have a long redundant colon. 11/10/2024 Heartburn (ICD-10 - R12) DYSPHAGIA: Chronic dysphagia that started in 2016 after undergoing neck surgery. Upper endoscopy in 2021 was normal. She also had a barium swallow in 2022, which was only notable for prominent cricopharyngeus muscle. She was evaluated by the ENT a year ago, which according to her was unremarkable. Differential diagnosis includes association with cricopharyngeal hypertrophy, adhesions, transfer dysphagia, or others. CHRONIC THROAT CLEARING/COUGH/HEA RTBURN: Over the last 4 months she has had increased throat clearing and cough. She is taking Pepcid 20 mg at bedtime. I question whether her symptoms are related to silent reflux. CONSTIPATION: Chronic constipation which is likely secondary to irritable bowel syndrome. Using MiraLAX as needed. Colonoscopy performed in November 2021 was normal however she was noted to have a long redundant colon. 11/10/2024 Constipation (ICD-10 - K59.00) DYSPHAGIA: Chronic dysphagia that started in 2017 after undergoing neck surgery. Upper endoscopy in 2021 was normal. She also had a barium swallow in 2022, which was only notable for prominent cricopharyngeus muscle. She was evaluated by the ENT a year ago, which according to her was unremarkable. Differential diagnosis includes association with cricopharyngeal hypertrophy, adhesions, transfer dysphagia, or others. CHRONIC THROAT CLEARING/COUGH/HEA RTBURN: Over the last 4 months she has had increased throat clearing and cough. She is taking Pepcid 20 mg at bedtime. I question whether her symptoms are related to silent reflux. CONSTIPATION: Chronic constipation which is likely secondary to irritable bowel syndrome. Using MiraLAX as needed. Colonoscopy performed in November 2021 was normal however she was noted to have a long redundant colon. 11/10/2024 Other After my visit with Ms. Ovalle, I recommend the followin. She will begin taking pantoprazole 40 mg daily for 8 weeks for suspicions of silent reflux. She may continue to supplement with Pepcid at bedtime. 2. She will sign a release form to have a copy of her cookie function study/esophagra m and recent neck CT sent for my review. 3. Pending review of records, we will determine if she may benefit from another upper endoscopy. 4. She will continue MiraLAX as needed for constipation. 5. Further thoughts to follow. DYSPHAGIA: Chronic dysphagia that started in 2016 after undergoing neck surgery. Upper endoscopy in 2021 was normal. She also had a barium swallow in 2022, which was only notable for prominent cricopharyngeus muscle. She was evaluated by the ENT a year ago, which according to her was unremarkable. Differential diagnosis includes association with cricopharyngeal hypertrophy, adhesions, transfer dysphagia, or others. CHRONIC THROAT CLEARING/COUGH/HEA RTBURN: Over the last 4 months she has had increased throat clearing and cough. She is taking Pepcid 20 mg at bedtime. I question whether her symptoms are related to silent reflux. CONSTIPATION: Chronic constipation which is likely secondary to irritable bowel syndrome. Using MiraLAX as needed. Colonoscopy performed in November 2021 was normal however she was noted to have a long redundant colon. Plan Of Treatment Pending Test Test Name Order Date Colonoscopy 10/21/2021 Insurance Providers Payer Name Payer Address Payer Phone Subscriber Number Group Number Insured Name Patient Relationship to Insured Coverage Start Date Coverage End Date [employer] [place] PPO [address] [place] [address] [id number] Prudence Ovalle Self - patient is the insured Medical (General) History Medical History History ICD Code GERD Hemorrhoids Hypothyroidism Bipolar Disorder Sleep Apnea Surgical History Surgery Date(Month/Year) Upper Endoscopy: Normal esop hagus. Erythematous mucosa in the antrum. Normal examined duodenum. 05/2022 Colonoscopy: Normal examined ileum. Redu ndant colon. Hemorrhoids. 11/2021 C Section x3 Uterine Ablation Cervical Fusion C5-C6 x2 Breast Biopsy Tubal Ligation Joint Replacement Hospitalization History Reason Date(Month/Year) [facility]: Anxiety/Depressi on
--- OUTSIDE RECORDS SUMMARY | 2024-12-07 21:13 | XMS_ITS | Clinical Summary ---
Author Organization [facility] Address [address] [facility] [place] [address] Phone Care Team Providers Care End Worker Name Role Phone Claudy Vickers MD Primary Care Provider [phone] Allergies Active Allergy Reactions Criticality Noted Date Comments Hydromorphone (Bulk) Other (See Comments) 02/26 Tachy, felt like on fire Lorazepam Other (See Comments) 02/26/2017 difficulty with vision and couldn't walk Morphine Rash Low 02/26/2017 Penicillins Rash Low 02/26/2017 Prochlorperazine Edisylate Anaphylaxis High 02/26/2017 Medications desvenlafaxine (PRISTIQ) 100 mg Extended Release 24 hour tablet Take by mouth daily with breakfast. Active lurasidone (LATUDA) 80 mg Tablet tablet Take by mouth daily after lunch . Active traZODone (DESYREL) 300 mg tablet Take 100 mg by mouth daily at bedtime. Active levothyroxine 50 mcg tablet Take 50 mcg by mouth daily dial painter. Active OXcarbazepine (TRILEPTAL) 300 mg tablet Take 300 mg by mouth 2 times daily 1 tab in a.m., 2 tabs at bedtime . Active lamoTRIgine (LaMICtal) 200 mg tablet Take 150 mg by mouth 2 times daily. Active acetaminophen (TYLENOL) 500 mg tablet Take 500 mg by mouth every 6 hours as needed. Active rizatriptan (MAXALT) 5 mg Tablet Take 5 mg by mouth every 2 hours as needed for Migraine may repeat in 2 hours; max dose 30mg in 24 hours . Active oxyCODONE (ROXICODONE) 5 mg tablet Take 1-2 Tablets (5-10 mg) by mouth every 4 hours as needed for Pain. Max Daily Amount: 60 mg 60 Tablet 03/03/2017 Active diazePAM (VALIUM) 5 mg tablet Take 1 Tablet (5 mg) by mouth 3 times daily as needed for Anxiety. 60 Tablet 03/03/2017 Active mupirocin (BACTROBAN) 2 % Ointment Apply to affected area daily. 5 Gram None 03/13/2017 Active aspirin (ECOTRIN EC) 81 mg Tablet, Delayed Release (E.C.) 81 mg. 02/12/2022 Active atorvastatin (LIPITOR) 20 mg tablet Take 20 mg by mouth daily. Active cholecalciferol , vitamin D3, 5,000 unit Take 5,000 Units by mouth daily. Active hydrOXYzine pamoate (VISTARIL) 25 mg capsule Take 25 mg by mouth every 6 hours as needed. 02/18/2023 Active lithium carbonate (ESKALITH IR) 300 mg Capsule Take 300 mg by mouth 2 times daily. 02/18/2023 Active Caplyta 42 mg Capsule Take 42 mg by mouth daily. 02/12/2022 Active melatonin 3 mg Tablet Take 3 mg by mouth daily at bedtime. 08/08/2020 Active QUEtiapine (SEROquel) 100 mg tablet Take 50 mg by mouth daily at bedtime. 02/12/2022 Active Active Problems Problem Noted Date Diagnosed Date Neck pain 04/22/2023 DDD (degenerative disc disease), cervical 2022 Hx of fusion of cervical spine 04/22/2023 Encounters Date Type Department Care Team Description 11/28/2024 External Device Data [facility] ABSTRACTION Provider, Abstract 10/31/2024 External Device Data [facility] ABSTRACTION Provider, Abstract 10/26/2024 External Device Data [facility] ABSTRACTION Provider, Abstract 10/25/2024 External Device Data [facility] ABSTRACTION Provider, Abstract from Last 3 Months Family History Medical History Relation Name Comments Heart Disease Father High Cholesterol Father Breast Cancer Maternal Aunt Heart Disease Maternal Grandfather Heart Disease Maternal Grandmother Cancer Maternal Uncle Heart Disease Mother Heart Disease Paternal Grandfather Cancer Sister High Cholesterol Sister Relation Name Status Comments Father Maternal Aunt Alive Maternal Grandfather Maternal Grandmother Maternal Uncle Alive Mother Paternal Grandfather Sister Social History Tobacco Use Types Packs/Day Years Used Date Smoking Tobacco: Never Smokeless Tobacco: Never Tobacco Cessation:Counseling Given: Not Answered Alcohol Use Standard Drinks/Week Comments Yes 0 (1 standard drink = 0.6 oz pur e alcohol) rarely Comments No Sex and Gender Information Value Date Recorded Sex Assigned at Not on file Legal Sex Female 3:44 AM BUSINESS SERVICES INTERN Gender Identity Not on file Sexual Orientation Not on file Last Filed Vital Signs Vital Sign Reading Time Taken Comments Blood Pressure 138/82 04/22/2023 1:08 PM BUSINESS SERVICES INTERN Pulse 55 04/22/2023 1:08 PM BUSINESS SERVICES INTERN Temperature 36.9 C (98.4 F) 04/22/2023 1:08 PM BUSINESS SERVICES INTERN Respiratory Rate 16 03/13/2017 11:00 PM CDT Oxygen Saturation 99% 03/13/2017 11:00 PM CDT Inhaled Oxygen Concentration - - Weight 79.8 kg (176 lb) 04/22/2023 1:08 PM BUSINESS SERVICES INTERN Height 157.5 cm (5' 2) 04/22/2023 1:08 PM BUSINESS SERVICES INTERN Body Mass Index 32.19 04/22/2023 1:08 PM BUSINESS SERVICES INTERN Plan of Treatment Health Maintenance Due Date Last Done Comments Pre-Diabetes and Diabetes Screening 1964 HPV/Cotest (21-29) 1985 HPV/Cotest (30-65) 1994 FIT-DNA Q 3 years 2009 FIT/FOBT Q 1 year 2009 Flex Sig/CT Colonography Q 5 years 2009 ZOSTER VACCINE (1 of 2) 2014 DTAP/TDAP/TD VACCINES (2 - Td or Tdap) 07/12/2019 07/12/2009 INFLUENZA VACCINE (#1) 2024 4, 04/04/2020, 03/21/2018, Additional history exists CERVICAL CANCER SCREENING 04/09/2024 PAP SMEAR 04/09/2024 04/09/2021 COLORECTAL SCREENING 07/04/2024 07/04/2014, 07/04/19 15 Colorectal Cancer Screening 07/04/2024 BREAST CANCER SCREENING 08/10/2024 08/11/19 24, 08/11/2023, 04/13/2022, Additional history exists RSV VACCINE (60+ or ) (1 - 1-dose 75+ series) 2039 HEPATITIS B VACCINES Aged Out No long er eligible based on patient's age to complete this topic Medical Devices Implanted Type Area Distribution Collection Operator Device Identifier Shelf Expiration Date Model / Serial / Lot Allgrft Triad Cr [id number] - [id number] Implanted:Qty : 1 on 03/02/2017 by Dontae Huerta MD at [facility] N/A: Spine Cervical Anterior [employer] 07/01/2021 [id number] / [id number] / Description:ALL 3 TRIAD CRISTINA TS PROCESSED ON REQ# [id number] Allgrft Triad Cr [id number] - [id number] Implanted:Qty : 1 on 03/02/2017 by Dontae Huerta MD at [facility] N/A: Spine Cervical Anterior [employer] 03/09/2021 [id number] / [id number] / Allgrft Triad Cr [id number] - [id number] Implanted:Qty : 1 on 03/02/2017 by Dontae Huerta MD at [facility] N/A: Spine Cervical Anterior [employer] 03/01/2021 [id number] / [id number] / Screw [address] 4.0x17mm [id number] - Sload 38, Sterilize 03/01/17 Implanted:Qty : 6 on 03/02/2017 by Dontae Huerta MD at [facility] Screw N/A: Spine Cervical Anterior [employer] [id number] / LOAD 38, STERILIZE 03/01/17 / Sealant Floseal 10ml [id number] - [id number] Implanted:Qty : 1 on 03/02/2017 by Dontae Huerta MD at [facility] Sealant N/A: Spine Cervical Anterior [employer] [id number] 04/16/2018 [id number] / / [id number] Attrax Putty Implanted:Qty : 2 on 03/02/2017 by Dontae Huerta MD at [facility] N/A: Spine Cervical Anterior [employer] 08/10/2020 [id number] / / [id number] Archon Plate 56mm 3 Level [id number] Implanted:Qty : 1 on 03/02/2017 by Dontae Huerta MD at [facility] N/A: Spine Cervical Anterior [employer] [id number] / / LOAD 38 STERILIZED 03/01/17 Archon Screw , 4.0x17mm Self-Tap Fixed [id number] Implanted:Qty : 2 on 03/02/2017 by Dontae Huerta MD at [facility] N/A: Spine Cervical Anterior [employer] [id number] / / LOAD 38 STERILIZED 03/01/17 Description:All Nuv[employer] spi nal components are processed on requisition,[id number] Explanted Type Area Distribution Collection Operator Device Identifier Shelf Expiration Date Model / Serial / Lot Cervical Plate Screws Explanted:Qty: 1 on 03/02/2017 by Dontae Huerta MD at [facility] Description:1 plate 4 screws 2 set screws [address] [address] [place] [address] Advance Directives For more information, please contact: [phone] * Full Code (Latest Code Status on File) Date Activated Date Inactivated Comments 03/02/2017 8:47 PM 03/03/2017 8:12 PM * Full Code Date Activated Date Inactivated Comments 03/02/2017 6:17 PM 03/02/2017 8:47 PM * Full Code Date Activated Date Inactivated Comments 03/02/2017 11:48 AM 03/02/2017 6:17 PM Care Teams End Worker Relationship Specialty Start Date End Date Claudy Vickers MD PCP - General Internal Medicine 02/22/17
--- OUTSIDE RECORDS SUMMARY | 2024-12-07 21:14 | XMS_ITS | Encounter Summary ---
Author Organization [facility] Address [address] [place] [address] Care Team Providers Care Psychiatric Rn Name Role Phone Claudy Vickers MD Primary Care Provider [phone] Encounter Details Date Type Department Care Team (Late st Contact Info) Description 07/12/2004 Outpatient Historical [facility] [address] [place] [address] Lauri Richardson MD Social History Tobacco Use Types Packs/Day Years Used Date Smoking Tobacco: Never Assessed Comments Unknown Sex and Gender Information Value Date Recorded Sex Assigned at Not on file Legal Sex Female 3:44 AM PUBLIC ACCOUNTANT Gender Identity Not on file Sexual Orientation Not on file documented as of this encounter Plan of Treatment Not on file documented as of this encounter Visit Diagnoses Not on filedocumented in this encounter Care Teams Psychiatric Rn Relationship Specialty Start Date End Date Claudy Vickers MD PCP - General Internal Medicine 02/22/17 documented as of this encounter
--- OUTSIDE RECORDS SUMMARY | 2024-12-07 21:14 | XMS_ITS | Encounter Summary ---
Author Organization [facility] Healthcare Address [address] [place] [address] Care Team Providers Care Real Estate Listing Consultant Name Role Phone Gabriela Pinon MD Primary Care Provide r Roxy Dave POULTRY VACCINATOR Unavailable [phone] Dontae Huerta MD Unavailable [phone] Araceli White JAPANESE TUTOR Unavailable Reason for Visit * Reason Onset Date Comments Diarrhea 09/26/2024 Neck Pain 09/26/2024 Encounter Details Date Type Department Care Team (Late st Contact Info) Description 09/26/2024 Nurse Triage [facility] Primary Care at [address] [address] Gabriela Pinon MD [address] [place] [address] Social History Tobacco Use Types Packs/Day Years Used Date Smoking Tobacco: Never Passive Smoke Exposure: Never Smokeless Tobacco: Never Alcohol Use Standard Drinks/Week Comments No 0 (1 standard drink = 0.6 oz pur e alcohol) Humiliation, Afraid, Rape, and Kick questionnair e Answer Date Recorded Fear of Current or Ex-Partner No Emotionally Abused No 02/26/2020 Physically Abused No 02/26/2020 Sexually Abused No 02/26/2020 AUDIT-C Answer Date Recorded Q1: How often do you have a drink containing alcohol? Never 07/27/2024 Q2: How many drinks containi ng alcohol do you have on a typical day when you are drinking? Patient does not drink Q3: How often do you have si x or more drinks on one occasion? 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 Above and below clavicle hurting couple of months and nowgetting worse. Details: pain shoots into arms at times. Left side of neck swelling in one area. Swelling below left ear and tender to touch. Moderate sore throat, red. Diarrhea and nausea since 09/21/24 has had howie in past 24 hours. Intermittent pain in above navel in center. Describes pain as moderate dull and achy with nausea. Hearing a lot of gurgling. Stools are watery brown. Denies H/A, difficulty breathing, chest pain, vomiting, fever, antibiotics in past 2 months, OR blood in stool. Nurse Triage Protocol Disposition: See Today in Office. No appointment availability today or tomorrow. Offered for plan of care. Prudence Ovalle verbalizes understanding and knows one to go to. FYI Home care reviewed. Advised Prudence Ovalle to call back if symptoms worsen or with any other concerns/questions. Prudence Ovalle verbalized understanding. Reason for Disposition Lymph node in the neck is swollen or painful to the touch Sore throat is main symptom and has swollen node in the neck that is < 1 inch (2.5 cm) in size Patient wants to be seen Protocols used: Neck Pain or [id number], Lymph Nodes - Ijminqn-Kjiuu-PI, Sore Pmevph-Ihykl-AL * Telephone Encounter - Caty Chapin RN - 09/26/2024 2:32 PM CDT Regarding: Diarrhea and nausea.Mild pain in side of neck, shoulders and upper back ----- Message from Marleny Glynn sent at 09/26/2024 2:32 PM CDT ----- Symptom Based Call Chief Complaint(s): Diarrhea and nausea.Mild pain in side of neck, shoulders and upper back Duration: Diarhhea and nausea since last ; other symptoms a couple of months. What type of symptom(s) is the patient experiencing? Non-Emergent. Is this a new or reoccurring symptom(s)? New for nausea and diarrhea, others are reoccurring. What have you tried to help your symptom(s)? No, patient stated she has issues typically with constipation. Why was appointment not scheduled? Appointment availability did not meet the patient's need. Additional Comments: None. Does message need to be routed? Yes-Action Needed documented in this encounter Plan of Treatment Not on file documented as of this encounter Visit Diagnoses Not on filedocumented in this encounter Care Teams Real Estate Listing Consultant Relationship Specialty Start Date End Date Gabriela Pinon MD [address] [place] [address] [address] [place] [address] PCP - General Family Medicine 07/15/23 Roxy Dave NP [address] [facility] [facility] [address] [place] [phone] Nurse Practitioner Obstetrics and Gynecology 10/08/23 Dontae Huerta MD [address] [facility] [address] [place] [address] Referring Physician Neurology 10/08/23 Araceli White LPN [address] [place] [address] [address] [place] [address] ACO Care Patient Accounts Specialist 11/30/24 12/03/24 documented as of this encounter
--- OUTSIDE RECORDS SUMMARY | 2024-12-07 21:14 | XMS_ITS | Encounter Summary ---
Author Organization [facility] Healthcare Address [address] [place] [address] Care Team Providers Care Legal Activity Adjudicator Name Role Phone Gabriela Pinon MD Primary Care Provide r Roxy Dave GROUTMAN Unavailable [phone] Dontae Huerta MD Unavailable [phone] Reason for Visit * Reason Onset Date Comments Elevated Blood Pressure 12/07/2024 Encounter Details Date Type Department Care Team (Late st Contact Info) Description 12/07/[address] [facility] Primary Care at [address] [place] [address] Gabriela Pinon MD [address] [place] [address] [address] [place] [address] Social History Tobacco Use Types Packs/Day [...] you have a drink containing alcohol? Never 10/10/2024 Q2: How many drinks containi ng alcohol do you have on a typical day when you are drinking? Patient does not drink Q3: How often do you have si x or more drinks on one occasion? 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 Patient doesn't have a history of high blood pressure and had and anxiety attack. Hx of Covid, lithium toxicity, and a panic attack.Back pain, where bra strap is and also chest pain. Call became disconnected when pt attempted to check her blood pressure. Called back. Denied sob, headache, dizziness, or vision problems. Pt stated she is caller 911 as her blood pressure is up to 181. Routed FYI to PCP's clinical group. * Telephone Encounter - Caron Lizama RN - 12/07/2024 3:56 PM CDT Regarding: mild lightheadedness, chest pain, elevated blood pressure, anxiety attack ----- Message from Yasmin Alvarez sent at 12/07/2024 3:55 PM CDT ----- Symptom Based Call Chief Complaint(s): mild lightheadedness, chest pain, elevated blood pressure, anxiety attack Duration: started today What type of symptom(s) is the patient experiencing? Red Flag. Is the patient concerned they are experiencing a medical emergency requiring an ambulance? No Additional Comments: BP readings 150/85, 170/90, 162/90. Patient doesn't have a history of high blood pressure. No previous heart attacks Does message need to be routed? Yes-Action Needed documented in this encounter Plan of Treatment Not on file documented as of this encounter Visit Diagnoses Not on filedocumented in this encounter Care Teams Legal Activity Adjudicator Relationship Specialty Start Date End Date Gabriela Pinon MD [address] [facility] [address] [place] [address] PCP - General Family Medicine 07/15/23 Roxy Dave NP [address] [place] [address] Nurse Practitioner Obstetrics and Gynecology 10/08/23 Dontae Huerta MD [address] [place] [address] Referring Physician Neurology 10/08/23 documented as of this encounter
--- OUTSIDE RECORDS SUMMARY | 2024-12-07 21:14 | XMS_ITS | Encounter Summary ---
Author Organization [facility] Address 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
--- OUTSIDE RECORDS SUMMARY | 2024-12-07 21:14 | XMS_ITS | Patient Health Record ---
Author Organization [facility] As [employer] Address [address] [place] [address] Care Team Providers Care Cnc Lathe Machinist Name Role Phone Kathrin GILBERT, [facility] Primary Care Provide r Unavailable Thuy Mora Unavailable [phone] Norm Hair Unavailable [phone] Jeanmarie Willis Unavailable [phone] Allergies Allergen (clinical drug ingredient) Drug/Non Drug Allergy documented on EMR Reaction Allergy Type Onset Date Status Compazine anaphylaxis Drug Allergy Activ e Results Component Value Reference Range Notes LITHIUM (613) Reviewed date:09/27/2024 01:48:29 PM Interpretation: Performing Lab:Long KNOTT-Bmudeo98603Nikkie HigginbothamaKS[address] Dion Galo MD Notes/Report: NON-FASTING; NON-FASTING; NON-FASTING; NON-FASTING; NON-FAST FASTING:NO FASTING: NO LITHIUM 0.8 0.6-1.2 mmol/L VITAMIN D,25-OH,TOTAL,IA (17 306) Reviewed date:09/27/2024 01:48:29 PM Interpretation: Performing Lab:Long KNOTT-Qokimu33126Nikkie HigginbothamaKS[address] Dion Galo MD Notes/Report: NON-FASTING; NON-FASTING; NON-FASTING; NON-FASTING; NON-FAST FASTING:NO FASTING: NO VITAMIN D,25-OH,TOTAL,IA 80 30-100 ng/mL Vitamin D Status 25-OH Vitamin D: Deficiency: <20 ng/mL Insufficiency: 20 - 29 ng/mL Optimal: > or = 30 ng/mL For 25-OH Vitamin D testing on patients on D2-supplementation and patients for whom quantitation of D2 and D3 fractions is required, the QuestAssureD(TM) 25-OH VIT D, (D2,D3), LC/MS/MS is recommended: order code 42175 (patients >2yrs). See Note 1 Note 1 For additional information, please refer to http://education.ConnectSolutions.[employer]/faq/XNH137 (This link is being provided for informational/ educational purposes only.) TSH W/REFLEX TO FT4 (49604) Reviewed date:09/27/2024 01:48:29 PM Interpretation: Performing Lab:EZEQUIEL Hua[employer] Information Digital[place] [address] [address] NuhpfnbHW[address] Dion Galo Notes/Report: NON-FASTING; NON-FASTING; NON-FASTING; NON-FASTING; NON-FAST FASTING:NO FASTING: NO TSH W/REFLEX TO FT4 2.46 0.40-4.50 mIU/L VITAMIN B12/FOLATE, SERUM MD OTONIEL (7065) Reviewed date:09/27/2024 01:48:29 PM Interpretation: Performing Lab:HEDY INFUSD Corbin-Zinafc77919 Tracy Terrazas, HmpimoNL[address] Dion Galo MD Notes/Report: NON-FASTING; NON-FASTING; NON-FASTING; NON-FASTING; NON-FAST FASTING:NO FASTING: NO VITAMIN B12 [phone] pg/mL Please Note: Although the reference range for vitamin B12 is 200-1100 pg/mL, it has been reported that between 5 and 10% of patients with values between 200 and 400 pg/mL may experience neuropsychiatric and hematologic abnormalities due to occult B12 deficiency; less than 1% of patients with values above 400 pg/mL will have symptoms. FOLATE, SERUM 4.8 Reference Range Low: <3.4 Borderline: 3.4-5.4 Normal: >5.4 CBC (H/H, RBC, INDICES, WBC, PLT) (2057) Reviewed date:09/27/2024 01:48:29 PM Interpretation: Performing Lab:Long NIEVES [facility]Fort [facility] Vcbeb36079 Administration Rudy Charlton YniztzlMD[address] Dion Galo Notes/Report: NON-FASTING; NON-FASTING; NON-FASTING; NON-FASTING; NON-FAST FASTING:NO FASTING: NO WHITE BLOOD CELL COUNT 7.2 3.8-10.8 Thousand/ uL RED BLOOD CELL COUNT 3.73 3.80-5.10 Million/uL HEMOGLOBIN 11.3 11.7-15.5 g/dL HEMATOCRIT 33.9 35.0-45.0 % MCV 90.9 80.0-100.0 fL MCH 30.3 27.0-33.0 pg MCHC 33.3 32.0-36.0 g/dL For adults, a slight decrease in the calculated MCHC value (in the range of 30 to 32 g/dL) is most likely not clinically significant; however, it should be interpreted with caution in correlation with other red cell parameters and the patient's clinical condition. RDW 11.9 11.0-15.0 % PLATELET COUNT 325 140-400 Thousand/uL MPV 9.6 7.5-12.5 fL COMPREHENSIVE METABOLIC PANE L (73119) Reviewed date:09/27/2024 01:48:29 PM Interpretation: Performing Lab:EZEQUIEL, Huaqi Information DigitalSaint Mary'S Health CenterBcasw[address] [place] [address] [facility] Notes/Report: NON-FASTING; NON-FASTING; NON-FASTING; NON-FASTING; NON-FAST FASTING:NO FASTING: NO GLUCOSE 84 65-139 mg/dL Non-fasting reference interval UREA NITROGEN (BUN) 10 7-25 mg/dL CREATININE 1.17 0.50-1.05 mg/dL EGFR 53 > OR = 60 mL/min/1.73m2 BUN/CREATININE RATIO 9 6-22 (calc) SODIUM 136 135-146 mmol/L POTASSIUM 4.0 3.5-5.3 mmol/L CHLORIDE 104 98-110 mmol/L CARBON DIOXIDE 25 20-32 mmol/L CALCIUM 10.0 8.6-10.4 mg/dL PROTEIN, TOTAL 6.9 6.1-8.1 g/dL ALBUMIN 4.4 3.6-5.1 g/dL GLOBULIN 2.5 1.9-3.7 g/dL (calc) ALBUMIN/GLOBULIN RATIO 1.8 1.0-2.5 (calc) BILIRUBIN, TOTAL 0.5 0.2-1.2 mg/dL ALKALINE PHOSPHATASE 77 37-153 U/L AST 15 10-35 U/L ALT 9 6-29 U/L LITHIUM (613) Reviewed date:07/14/2024 10:28:41 AM Interpretation: Performing Lab:Long KNOTTa10101 Nikkie MonzonaKS[address] Dion Galo MD Notes/Report: NON-FASTING LITHIUM 0.6 0.6-1.2 mmol/L LITHIUM (613) Reviewed date:03/29/2024 10:22:37 AM Interpretation: Performing Lab:Long KNOTTa1Nikkie PereaaKS[address] Dion Galo MD Notes/Report: NON-FASTING; NON-FASTING; NON-FASTING; NON-FASTING; NON-FAST FASTING:NO FASTING: NO LITHIUM 0.3 0.6-1.2 mmol/L VITAMIN D,25-OH,TOTAL,IA (17 306) Reviewed date:03/29/2024 10:22:37 AM Interpretation: Performing Lab:Long KNOTTa101Nikkie HigginbothamaKS[address] Dion Galo MD Notes/Report: NON-FASTING; NON-FASTING; NON-FASTING; NON-FASTING; NON-FAST FASTING:NO FASTING: NO VITAMIN D,25-OH,TOTAL,IA 77 30-100 ng/mL Vitamin D Status 25-OH Vitamin D: Deficiency: <20 ng/mL Insufficiency: 20 - 29 ng/mL Optimal: > or = 30 ng/mL For 25-OH Vitamin D testing on patients on D2-supplementation and patients for whom quantitation of D2 and D3 fractions is required, the QuestAssureD(TM) 25-OH VIT D, (D2,D3), LC/MS/MS is recommended: order code 40638 (patients >2yrs). See Note 1 Note 1 For additional information, please refer to http://education.ConnectSolutions.com/faq/CDL678 (This link is being provided for informational/ educational purposes only.) TSH (899) Reviewed date:03/29/2024 10:22:37 AM Interpretation: Performing Lab:Long NIEVESSaint Mary'S Health CenterSgkwb[address] Dion Galo Notes/Report: NON-FASTING; NON-FASTING; NON-FASTING; NON-FASTING; NON-FAST FASTING:NO FASTING: NO TSH 1.56 0.40-4.50 mIU/L VITAMIN B12/FOLATE, SERUM PA OTONIEL (7065) Reviewed date:03/29/2024 10:22:37 AM Interpretation: Performing Lab:Long KNOTT-Ztaklx19882 Tracy Goncalves, YdraryDZ[address] Dion Galo MD Notes/Report: NON-FASTING; NON-FASTING; NON-FASTING; NON-FASTING; NON-FAST FASTING:NO FASTING: NO VITAMIN B12 [phone] pg/mL Please Note: Although the reference range for vitamin B12 is 200-1100 pg/mL, it has been reported that between 5 and 10% of patients with values between 200 and 400 pg/mL may experience neuropsychiatric and hematologic abnormalities due to occult B12 deficiency; less than 1% of patients with values above 400 pg/mL will have symptoms. FOLATE, SERUM 7.5 Reference Range Low: <3.4 Borderline: 3.4-5.4 Normal: >5.4 HEMOGLOBIN A1c (496) Reviewed date:03/29/2024 10:22:37 AM Interpretation: Performing Lab:Long NIEVES-[facility] HospitalYqxep26267 Administration Rudy Charlton VefpzopOS[address] Dion Galo Notes/Report: NON-FASTING; NON-FASTING; NON-FASTING; NON-FASTING; NON-FAST FASTING:NO FASTING: NO HEMOGLOBIN A1c 5.0 <5.7 % of total Hgb For the purpose of screening for the presence of diabetes: <5.7% Consistent with the absence of diabetes 5.7-6.4% Consistent with increased risk for diabetes (prediabetes) > or =6.5% Consistent with diabetes This assay result is consistent with a decreased risk of diabetes. Currently, no consensus exists regarding use of hemoglobin A1c for diagnosis of diabetes in children. According to [place] Diabetes Association (ADA) guidelines, hemoglobin A1c <7.0% represents optimal control in non- diabetic patients. Different metrics may apply to specific patient populations. Standards of Medical Care in Diabetes(ADA). CBC (INCLUDES DIFF/PLT) (639 9) Reviewed date:03/29/2024 10:22:37 AM Interpretation: Performing Lab:Long NIEVESSaint Mary'S Health CenterMqjcv23511 Administration Rudy Charlton VulsuzxBU[address] [facility] Notes/Report: NON-FASTING; NON-FASTING; NON-FASTING; NON-FASTING; NON-FAST FASTING:NO FASTING: NO WHITE BLOOD CELL COUNT 7.1 3.8-10.8 Thousand/ uL RED BLOOD CELL COUNT 3.79 3.80-5.10 Million/uL HEMOGLOBIN 11.4 11.7-15.5 g/dL HEMATOCRIT 35.8 35.0-45.0 % MCV 94.5 80.0-100.0 fL MCH 30.1 27.0-33.0 pg MCHC 31.8 32.0-36.0 g/dL For adults, a slight decrease in the calculated MCHC value (in the range of 30 to 32 g/dL) is most likely not clinically significant; however, it should be interpreted with caution in correlation with other red cell parameters and the patient's clinical condition. RDW 13.2 11.0-15.0 % PLATELET COUNT 255 140-400 Thousand/uL MPV 10.3 7.5-12.5 fL ABSOLUTE NEUTROPHILS 4679 6519-7447 cells/uL ABSOLUTE LYMPHOCYTES 7552 275-5634 cells/uL ABSOLUTE MONOCYTES 426 200-950 cells/uL ABSOLUTE EOSINOPHILS 107 15-500 cells/uL ABSOLUTE BASOPHILS 78 0-200 cells/uL NEUTROPHILS 65.9 LYMPHOCYTES 25.5 MONOCYTES 6.0 EOSINOPHILS 1.5 BASOPHILS 1.1 COMPREHENSIVE METABOLIC PANE L (23844) Reviewed date:03/29/2024 10:22:37 AM Interpretation: Performing Lab:EZEQUIEL Huaqi Information DigitalSaint Mary'S Health CenterTokmh03826 Administration Rudy Charlton OmknbeaBM[address] [facility] Notes/Report: NON-FASTING; NON-FASTING; NON-FASTING; NON-FASTING; NON-FAST FASTING:NO FASTING: NO GLUCOSE 88 65-139 mg/dL Non-fasting reference interval UREA NITROGEN (BUN) 17 7-25 mg/dL CREATININE 0.98 0.50-1.03 mg/dL EGFR 66 > OR = 60 mL/min/1.73m2 BUN/CREATININE RATIO SEE NOTE: 6-22 (calc) Not Reported: BUN and Creatinine are within reference range. SODIUM 141 135-146 mmol/L POTASSIUM 4.4 3.5-5.3 mmol/L CHLORIDE 107 98-110 mmol/L CARBON DIOXIDE 25 20-32 mmol/L CALCIUM 9.3 8.6-10.4 mg/dL PROTEIN, TOTAL 6.7 6.1-8.1 g/dL ALBUMIN 4.3 3.6-5.1 g/dL GLOBULIN 2.4 1.9-3.7 g/dL (calc) ALBUMIN/GLOBULIN RATIO 1.8 1.0-2.5 (calc) BILIRUBIN, TOTAL 0.3 0.2-1.2 mg/dL ALKALINE PHOSPHATASE 87 37-153 U/L AST 14 10-35 U/L ALT 16 6-29 U/L Reason For Referral No Information Medications Medication SIG (Take, Route, Frequency, Duration) Notes Start Date End Date Status hydrOXYzine Pamoate 25 MG 1 capsule at bedtime as needed Oral 3 times a day; Duration: 90 days As needed Active busPIRone HCl 5 MG 1 tablet Oral Twice a day; Duration: 30 days 12/01/2024 12/31/2024 Active Caplyta 42 MG 1 capsule Oral Once a day; Duration: 90 days Active lamoTRIgine 200 MG 1 tablet Oral twice a day; Duration: 90 days Active Social History Tobacco Use: Social History Observation Description Date Details (start date - stop date) Never Smoker NA - NA Sex Assigned At : Social History Observation Description Sex Assigned At Female Tobacco Control (Standard) Question Answer Notes Tobacco use: Nonsmoker AUDIT-C (Standard) Question Answer Notes Did you have a drink containing alcohol in the p ast year? No Problems Problem Type SNOMED Code ICD Code Onset Dates Problem Status W/U Status Risk Notes Problem Primary insomnia (8202364) Primary insomnia (F51.01) Active confirmed Problem Patent ductus arteriosus (06494573) Patent ductus arteriosus (Q25.0) Active confirmed Problem Generalized anxiety disorder (42947185) DENISE (generalized anxiety disorder) (F41.1) Active confirmed Problem Vitamin D deficiency (54783419) Vitamin D deficiency (E55.9) 2013 Active confirmed Problem Hypercholesterolemia (43480115) Hypercholesterolemia (E78.00) 2013 Active confirmed Problem Depressed bipolar I disorder in remission (12027936) Bipolar 1 disorder, depressed, partial remission (F31.75) Active confirmed Problem AJ - Nonalcoholic steatohepatitis (474662413) Nonalcoholic steatohepatitis (AJ) (K75.81) 2015 Active confirmed Problem Obstructive sleep apnea (09744202) Obstructive sleep apnea (G47.33) 2022 Active confirmed Problem Hypothyroidism (95981635) Hypothyroidism (E03.9) 2015 Active confirmed Problem Lumbosacral spondylosis without myelopathy (70939829) Lumbosacral spondylosis without myelopathy (M47.817) 2022 Active confirmed Problem Cervical post-laminectomy syndrome (801433778) Cervical post-laminectomy syndrome (M96.1) 2022 Active confirmed Vital Signs Heart Rate 66 /min 12/01/2024 Height-cm 157.48 cm 12/01/2024 Blood pressure diastolic 57 mm Hg 12/01/2024 Weight-kg 72.58 kg 12/01/2024 Height 62 in 12/01/2024 Blood pressure systolic 85 mm Hg 12/01/2024 Weight 160 lbs 12/01/2024 BMI 29.26 kg/m2 12/01/2024 Encounters Encounter Location Date Provider Diagnosis [facility] [employer] [address] [address] 12/22/2023 Thuyjaelyn Mora Bipolar 1 disorder, depressed, partial remission F31.75 and DENISE (generalized anxiety disorder) F41.1 [facility] [employer] [place] [address] [facility] [address] [address] 03/23/2024 Thuyjaelyn Mora Bipolar 1 disorder, depressed, partial remission F31.75 ; DENISE (generalized anxiety disorder) F41.1 and Other press tender long goods (current) drug therapy Z79.899 [facility] [employer] [place] [address] [facility] [address] [address] 05/12/2024 Normanastasiya Quintanaam Bipolar 1 disorder, depressed, partial remission F31.75 ; DENISE (generalized anxiety disorder) F41.1 ; Other press tender long goods (current) drug therapy Z79.899 and Primary insomnia F51.01 [facility] [employer] [place] [address] [facility] [address] [address] 05/16/2024 Thuy Kurilla Bipolar 1 disorder, depressed, partial remission F31.75 ; DENISE (generalized anxiety disorder) F41.1 and Other assisted (current) drug therapy Z79.899 [facility] [address] [place] [address] 05/24/2024 Thuy Mora Bipolar 1 disorder, depressed, partial remission F31.75 ; DENISE (generalized anxiety disorder) F41.1 and Other press tender long goods (current) drug therapy Z79.899 [facility] [address] [place] [address] 06/23/2024 Thuy Mora Bipolar 1 disorder, depressed, partial remission F31.75 ; DENISE (generalized anxiety disorder) F41.1 and Other assisted (current) drug therapy Z79.899 [facility] [address] [place] [address] 07/06/2024 Jeanmarierickey Marquezb Bipolar 1 disorder, depressed, partial remission F31.75 and DENISE (generalized anxiety disorder) F41.1 [facility] [address] [place] [address] 09/15/2024 Thuy Mora Encounter for screen ing for depression Z13.31 ; Bipolar 1 disorder, depressed, partial remission F31.75 ; DENISE (generalized anxiety disorder) F41.1 and Other assisted (current) drug therapy Z79.899 [facility] [address] [place] [address] 12/01/2024 Norm Reginaldo Bipolar 1 disorder, depressed, partial remission F31.75 ; DENISE (generalized anxiety disorder) F41.1 ; Encounter for screening for cardiovascular disorders Z13.6 ; Encounter for screening for depression Z13.31 ; Hannah toxicity, accidental or unintentional, subsequent encounter T56.891D ; Patent ductus arteriosus Q25.0 and Primary insomnia F51.01 [facility] [address] [place] [address] 12/22/2023 Thuy Mora [facility], [facility] [address] [place] [address] 12/22/2023 Thuy Mora [facility], [facility] [address] [place] [address] 01/04/2024 Thuy Mora [facility], [facility] [address] [place] [address] 03/23/2024 Thuyjaelyn Mora Bipolar 1 disorder, depressed, partial remission F31.75 and DENISE (generalized anxiety disorder) F41.1 [facility], [facility] [address] [place] [address] 03/23/2024 Thuy Mora [facility] [address] [place] [address] 07/06/2024 Thuy Mora [facility], [facility] [address] [place] [address] 11/26/2024 Thuyjaelyn Mora [facility], [facility] [address] [place] [address] 12/07/2024 Thuy Mora [facility], [facility] [address] [place] [address] 06/08/2024 Thuy Mora [facility], [facility] [address] [place] [address] 06/09/2024 Thuy Mora [facility], [facility] [address] [place] [address] 06/10/2024 Thuy Mora [facility], [facility] [address] [place] [address] 06/12/2024 Thuy Mora [facility], [facility] [address] [place] [address] 06/12/2024 Thuy Mora [facility], [facility] [address] [place] [address] 06/12/2024 Thuy Mora [facility], [facility] [address] [place] [address] 07/06/2024 Thuyjaelyn Mora [facility], [facility] [address] [place] [address] 07/06/2024 Thuy Mora [facility], [facility] [address] [place] [address] 07/26/2024 Thuy Mora [facility], [facility] [address] [place] [address] 07/27/2024 Thuy Mora [facility], [facility] [address] [place] [address] 08/24/2024 Thuy Mora Bipolar 1 disorder, depressed, partial remission F31.75 and DENISE (generalized anxiety disorder) F41.1 [place] [address] [facility] [address] [place] [address] 08/24/2024 Thuy Mora [facility], [place] [address] [place] [address] 08/24/2024 Thuy Mora Bipolar 1 disorder, depressed, partial remission F31.75 [place] [address] [facility] [address] [place] [address] 08/24/2024 Thuyjaelyn Mora [facility], [place] [address] [facility] [address] [place] [address] 09/27/2024 Thuy Mora Other press tender long goods (current) drug therapy Z79.899 [place] [address] [facility] [address] [place] [address] 10/04/2024 Thuy Mora [facility], [place] [address] [facility] [address] [place] [address] 10/04/2024 Thuy Mora [place] [address] [facility] [address] [place] [address] 10/04/2024 Thuy Mora [facility], [place] [address] [facility] [address] [place] [address] 11/29/2024 Thuy Mora [facility], [place] [address] [address] 12/04/2024 Thuy Mora [facility], [place] [address] [facility] [address] [place] [address] 12/04/2024 Thuy Mora [facility], [place] [address] [facility] [address] [place] [address] 12/04/2024 Thuy Mora Assessments Encounter Date Diagnosis (ICD Code) Assessment Notes Treatment Notes Treatment Clinical Notes Section Notes 09/27/2024 Other press tender long goods (current) drug therapy (ICD-10 - Z79.899) 08/24/2024 Bipolar 1 disorder, depressed, partial remission (ICD-10 - F31.75) 09/15/2024 Encounter for screening for depression (ICD-10 - Z13.31) LABS 03/202412/01/2024 DENISE (generalized anxiety disorder) (ICD-10 - F41.1) Patient reports significant anxiety related to health concerns. Considering Buspar for anxiety management. - Start Buspar 5 mg twice a day for anxiety management. - Monitor for any side effects or worsening of symptoms. LABS 03/202412/01/2024 Bipolar 1 disorder, depressed, partial remission (ICD-10 - F31.75) History of bipolar disorder with episodes of depression and macario. Currently in partial remission with therapy. - Continue therapy with Gloria Aly at [facility]. - Monitor mood symptoms and adjust medications as needed. LABS 03/202408/24/2024 Bipolar 1 disorder, depressed, partial remission (ICD-10 - F31.75) 05/24/2024 Bipolar 1 disorder, depressed, partial remission (ICD-10 - F31.75) LABS 03/202412/22/2023 DENISE (generalized anxiety disorder) (ICD-10 - F41.1) 12/22/2023 Bipolar 1 disorder, depressed, partial remission (ICD-10 - F31.75) 03/23/2024 Bipolar 1 disorder, depressed, partial remission (ICD-10 - F31.75) 05/12/2024 Bipolar 1 disorder, depressed, partial remission (ICD-10 - F31.75) Emotional Well-being and Family Dynamics - Assessment: Patient recently turned 59 and experienced disappointment and anger due to her 's lack of celebration, leading to an uncharacteristic rage episode. Patient has been seeing Thuy (therapist) since December, which is relatively recent. Patient has a good relationship with her son but strained relationships with her two daughters. - Plan: - Continue therapy sessions with Thuy to address family dynamics and emotional responses. - Explore strategies for improving communication with and daughters. Mental Health History - Assessment: Patient has a history of hospitalizations, with the most recent one in 2021. Patient has previously received treatment from Dr. Poncho Morgan and Stanford Cuello. Patient expresses frustration with previous care providers due to lack of availability and support during crises. - Plan: - Review past treatment history to identify effective strategies and areas for improvement. - Ensure current treatment plan addresses patient's concerns about provider availability and crisis support. Coping Mechanisms - Assessment: Patient attends spiritism, listens to audio Bible, and uses prayer as coping mechanisms. - Plan: - Encourage continued use of these positive coping strategies. - Explore additional coping mechanisms that align with patient's values and beliefs. Treatment Facilities - Assessment: Patient mentions [facility] as focusing more on addiction than mental illness. - Plan: - Discuss patient's experiences with different treatment facilities. - Consider alternative options for mental health-focused care if needed. FOR DENISE and depression add Vilazodone 10 mg po qd with food and take hydroxyzine 25 mg 1/12 tab in evening and 1/2 tab before bed time. can take up to 1 tab po bid a rx for qid was send by mistake, it was canceled and new rx send for hydroxyzine. 05/16/2024 Bipolar 1 disorder, depressed, partial remission (ICD-10 - F31.75) LABS 03/202406/23/2024 Bipolar 1 disorder, depressed, partial remission (ICD-10 - F31.75) LABS 03/202407/06/2024 Bipolar 1 disorder, depressed, partial remission (ICD-10 - F31.75) If an overdose occurs call your doctor or 911. You may need urgent medical care. You may also contact the poison control center at . A specific treatment to reverse the effects of lithium does not exist, but there are treatments to decrease the effects of the medication. Only a doctor can determine if you require treatment. Avoid drinking alcohol or using illegal drugs while you are taking lithium. They may decrease the benefits (e.g., worsen your condition) and increase adverse effects (e.g., sedation) of the medication. Avoid low sodium diets and dehydration because this can increase the risk of lithium toxicity. Avoid over the counter and prescription pain medications that contain nonsteroidal anti-inflammato ry medications (NSAIDS) such as ibuprofen (Motrin, Advil) or naproxen (Aleve, Naprosyn) because these medications can increase the risk of toxicity from lithium. Avoid excessive intake of caffeinated beverages, such as coffee, tea, cola or energy drinks, since these may decrease levels of lithium and decrease effectiveness of the medication. Discontinuing caffeine use may increase lithium levels. Consult your health care provider before reducing or stopping caffeine use. What are the possible side effects of lithium? Common side effects Headache Nausea or vomiting Diarrhea Dizziness or drowsiness Changes in appetite Hand tremors Dry mouth Increased thirst Increased urination Thinning of hair or hair loss Acne-like rash Rare/Serious side effects Signs of lithium toxicity include severe nausea and vomiting, severe hand tremors, confusion, vision changes, and unsteadiness while standing or walking. These symptoms need to be addressed immediately with a medical doctor to ensure your lithium level is not dangerously high. In rare cases, lithium may lead to a reversible condition known as diabetes insipidus. If this occurs you would notice a significant increase in thirst and how much fluid you drink and how much you urinate. Talk to your doctor if you notice you are urinating more frequently than usual. Are There Any Risks For Taking Hannah For Long Periods Of Time? Hypothyroidism (low levels of thyroid hormone) may occur with long-term lithium use. Rare kidney problems have been associated with long-term use of lithium. The risk increases with high levels of lithium. Your doctor will monitor your kidney function at routine check-ups to ensure this does not occur. Summary of Black Box Warnings Hannah Toxicity Hannah toxicity is closely related to lithium blood levels and can occur at doses close to therapeutic levels; lithium levels should be monitored closely when starting the medication or if individuals experience side effects of the medication. Lamotrigine may cause rashes, including serious rashes that may need to be treated in a hospital or cause permanent disability or . Tell your doctor if you are taking valproic acid (Depakene) or divalproex (Depakote) because taking these medications with lamotrigine may increase your risk of developing a serious rash. Also tell your doctor if you have ever developed a rash after taking lamotrigine or any other medication for epilepsy or if you are allergic to any medications for epilepsy. Your doctor will start you on low dose of lamotrigine and gradually increase your dose, not more than once every 1 to 2 weeks. You may be more likely to develop a serious rash if you take a higher starting dose or increase your dose faster than your doctor tells you that you should. Your first doses of medication may be packaged in a starter kit that will clearly show you the right amount of medication to take each day during the first 5 weeks of your treatment. This will help you to follow your doctor's instructions as your dose is slowly increased. Be sure to take lamotrigine exactly as directed. Do not take more or less of it or take it more often than prescribed by your doctor. Serious rashes usually develop during the first 2 to 8 weeks of treatment with lamotrigine, but can develop at any time during treatment. If you develop any of the following symptoms while you are taking lamotrigine, call your doctor immediately: rash; blistering or peeling of the skin; hives; itching; or painful sores in your mouth or around your eyes. Talk to your doctor about the risks of taking lamotrigine or of giving lamotrigine to your child. Children 2-17 years of age who take lamotrigine are more likely to develop serious rashes than adults who take the medication. Your doctor or pharmacist will give you the cooler servicer's patient information sheet (Medication Guide) when you begin treatment with lamotrigine and each time you refill your prescription. Read the information carefully and ask your doctor or pharmacist if you have any questions. You can also visit the Food and Drug Administration (FDA) website (https://www.fd a.gov/Drugs/Gautam gSafety/eqa4610 29.htm) or the cooler servicer's website to obtain the Medication Guide. LABS 03/2024 lithium 0.3- subtherapeutic 03/23/2024 Bipolar 1 disorder, depressed, partial remission (ICD-10 - F31.75) 05/24/2024 DENISE (generalized anxiety disorder) (ICD-10 - F41.1) LABS 03/202408/24/2024 DENISE (generalized anxiety disorder) (ICD-10 - F41.1) 07/06/2024 DENISE (generalized anxiety disorder) (ICD-10 - F41.1) LABS 03/2024 lithium 0.3- subtherapeutic 05/16/2024 DENISE (generalized anxiety disorder) (ICD-10 - F41.1) LABS 03/202406/23/2024 DENISE (generalized anxiety disorder) (ICD-10 - F41.1) LABS 03/202405/12/2024 DENISE (generalized anxiety disorder) (ICD-10 - F41.1) Emotional Well-being and Family Dynamics - Assessment: Patient recently turned 59 and experienced disappointment and anger due to her 's lack of celebration, leading to an uncharacteristic rage episode. Patient has been seeing Thuy (therapist) since December, which is relatively recent. Patient has a good relationship with her son but strained relationships with her two daughters. - Plan: - Continue therapy sessions with Thuy to address family dynamics and emotional responses. - Explore strategies for improving communication with and daughters. Mental Health History - Assessment: Patient has a history of hospitalizations, with the most recent one in 2021. Patient has previously received treatment from Dr. Poncho Morgan and [facility] Cuello. Patient expresses frustration with previous care providers due to lack of availability and support during crises. - Plan: - Review past treatment history to identify effective strategies and areas for improvement. - Ensure current treatment plan addresses patient's concerns about provider availability and crisis support. Coping Mechanisms - Assessment: Patient attends spiritism, listens to audio Bible, and uses prayer as coping mechanisms. - Plan: - Encourage continued use of these positive coping strategies. - Explore additional coping mechanisms that align with patient's values and beliefs. Treatment Facilities - Assessment: Patient mentions [facility] as focusing more on addiction than mental illness. - Plan: - Discuss patient's experiences with different treatment facilities. - Consider alternative options for mental health-focused care if needed. FOR DENISE and depression add Vilazodone 10 mg po qd with food and take hydroxyzine 25 mg 1/12 tab in evening and 1/2 tab before bed time. can take up to 1 tab po bid a rx for qid was send by mistake, it was canceled and new rx send for hydroxyzine. 03/23/2024 DENISE (generalized anxiety disorder) (ICD-10 - F41.1) 03/23/2024 Other press tender long goods (current) drug therapy (ICD-10 - Z79.899) 03/23/2024 DENISE (generalized anxiety disorder) (ICD-10 - F41.1) 12/01/2024 Encounter for screening for cardiovascular disorders (ICD-10 - Z13.6) LABS 03/202409/15/2024 Bipolar 1 disorder, depressed, partial remission (ICD-10 - F31.75) LABS 03/202409/15/2024 DENISE (generalized anxiety disorder) (ICD-10 - F41.1) LABS 03/202412/01/2024 Encounter for screening for depression (ICD-10 - Z13.31) LABS 03/202405/24/2024 Other press tender long goods (current) drug therapy (ICD-10 - Z79.899) LABS 03/202405/12/2024 Other press tender long goods (current) drug therapy (ICD-10 - Z79.899) Emotional Well-being and Family Dynamics - Assessment: Patient recently turned 59 and experienced disappointment and anger due to her 's lack of celebration, leading to an uncharacteristic rage episode. Patient has been seeing Thuy (therapist) since December, which is relatively recent. Patient has a good relationship with her son but strained relationships with her two daughters. - Plan: - Continue therapy sessions with Thuy to address family dynamics and emotional responses. - Explore strategies for improving communication with and daughters. Mental Health History - Assessment: Patient has a history of hospitalizations, with the most recent one in 2021. Patient has previously received treatment from Dr. Poncho Morgan and [facility] Cuello. Patient expresses frustration with previous care providers due to lack of availability and support during crises. - Plan: - Review past treatment history to identify effective strategies and areas for improvement. - Ensure current treatment plan addresses patient's concerns about provider availability and crisis support. Coping Mechanisms - Assessment: Patient attends spiritism, listens to audio Bible, and uses prayer as coping mechanisms. - Plan: - Encourage continued use of these positive coping strategies. - Explore additional coping mechanisms that align with patient's values and beliefs. Treatment Facilities - Assessment: Patient mentions [facility] as focusing more on addiction than mental illness. - Plan: - Discuss patient's experiences with different treatment facilities. - Consider alternative options for mental health-focused care if needed. FOR DENISE and depression add Vilazodone 10 mg po qd with food and take hydroxyzine 25 mg 1/12 tab in evening and 1/2 tab before bed time. can take up to 1 tab po bid a rx for qid was send by mistake, it was canceled and new rx send for hydroxyzine. 05/16/2024 Other assisted (current) drug therapy (ICD-10 - Z79.899) LABS 03/202406/23/2024 Other assisted (current) drug therapy (ICD-10 - Z79.899) LABS 03/202412/01/2024 Hannah toxicity, accidental or unintentional, subsequent encounter (ICD-10 - T56.891D) Patient experienced lithium toxicity due to dehydration. Treated with IV fluids at [facility]. - Monitor for any residual symptoms of lithium toxicity. - Ensure adequate hydration to prevent recurrence. LABS 03/202409/15/2024 Other press tender long goods (current) drug therapy (ICD-10 - Z79.899) LABS 03/202412/01/2024 Patent ductus arteriosus (ICD-10 - Q25.0) Diagnosed via echocardiogram at [facility]. Awaiting evaluation by cardiothoracic surgeon. - Await cardiothoracic surgeon's evaluation for potential intervention. LABS 03/202405/12/2024 Primary insomnia (ICD-10 - F51.01) Emotional Well-being and Family Dynamics - Assessment: Patient recently turned 59 and experienced disappointment and anger due to her 's lack of celebration, leading to an uncharacteristic rage episode. Patient has been seeing Thuy (therapist) since December, which is relatively recent. Patient has a good relationship with her son but strained relationships with her two daughters. - Plan: - Continue therapy sessions with Thuy to address family dynamics and emotional responses. - Explore strategies for improving communication with and daughters. Mental Health History - Assessment: Patient has a history of hospitalizations, with the most recent one in 2021. Patient has previously received treatment from Dr. Poncho Morgan and [facility] Cuello. Patient expresses frustration with previous care providers due to lack of availability and support during crises. - Plan: - Review past treatment history to identify effective strategies and areas for improvement. - Ensure current treatment plan addresses patient's concerns about provider availability and crisis support. Coping Mechanisms - Assessment: Patient attends spiritism, listens to audio Bible, and uses prayer as coping mechanisms. - Plan: - Encourage continued use of these positive coping strategies. - Explore additional coping mechanisms that align with patient's values and beliefs. Treatment Facilities - Assessment: Patient mentions [facility] as focusing more on addiction than mental illness. - Plan: - Discuss patient's experiences with different treatment facilities. - Consider alternative options for mental health-focused care if needed. FOR DENISE and depression add Vilazodone 10 mg po qd with food and take hydroxyzine 25 mg 1/12 tab in evening and 1/2 tab before bed time. can take up to 1 tab po bid a rx for qid was send by mistake, it was canceled and new rx send for hydroxyzine. 12/01/2024 Primary insomnia (ICD-10 - F51.01) Patient reports insomnia as a symptom of bipolar disorder. Previously managed with Trazodone, currently off medication. - Monitor sleep patterns and consider reintroducing sleep aids if necessary. LABS 03/202412/22/2023 Other Stable on current medications, continue as is. Most recent blood work 3 months ago, will recheck next apt. Referred to counseling. Request records from previous psychiatrist. 03/23/2024 Other Stable, continue current medications. Refills sent in today. Patient educated on all medications including potential benefits, side effects, risks. Educated on proper dosing schedule and importance of compliance. Labs ordered today. 05/16/2024 Other Increase Lamictal to 200mg BID for mood, irritability. Continue vilazodone 10mg daily for now Could consider switching to quetiapine next for if needed for sleep, mood Patient educated on all medications including potential benefits, side effects, risks. Educated on proper dosing schedule and importance of compliance. Discussed sleep hygiene, continue melatonin as needed; recommended magnesium glycinate for sleep support. Labs reviewed, WNL LABS 03/202405/24/2024 Other Responding well to vilazodone, increase to 20mg daily today. Patient educated on all medications including potential benefits, side effects, risks. Educated on proper dosing schedule and importance of compliance. -Assessment and treatment plan reviewed with patient. -Compliance with treatment plan importance discussed. -Discussed the risks/benefits of this medication -Discussed medication side effects. -Contact office if symptoms worsen. -Discussed that it can take up to 6-8 weeks to see full therapeutic effects of psychotropic medications. -Crisis prevention hotline 988. LABS 03/202406/23/2024 Other Stop vilazodone Continue all other medications, stable. Patient educated on all medications including potential benefits, side effects, risks. Educated on proper dosing schedule and importance of compliance. -Assessment and treatment plan reviewed with patient. -Compliance with treatment plan importance discussed. -Discussed the risks/benefits of this medication -Discussed medication side effects. -Contact office if symptoms worsen. -Discussed that it can take up to 6-8 weeks to see full therapeutic effects of psychotropic medications. -Crisis prevention hotline 988. LABS 03/202407/06/2024 Other 1. Bipolar Disorder, currently in manic phase - Increase Hannah dose to 300mg twice daily (morning and night). - Monitor Hannah levels: Blood work 5-7 days after increase, holding morning dose until after blood draw. - Consider tapering off Lamotrigine once Hannah reaches therapeutic levels. - Current Hannah level is 0.3, not therapeutic (target range 0.6-1.2). 2. Anxiety - Continue Hydroxyzine 25mg twice daily as needed for anxiety. - May increase to 50mg if 25mg is insufficient 3. Medication compliance and education - Reinforce importance of medication compliance. - Encourage patient to ask questions and discuss concerns. - Educated patient on Lamotrigine tapering protocol and risks of Jaspal-Abiel syndrome. - encouraged the use of aspirin instead of ibuprofen (ibuprofen can increase concentration of lithium) 4. Inflammation and pain management - Advise using Tylenol or aspirin for pain relief instead of ibuprofen. - Monitor Hannah levels regularly. - Discussed occasional use of ibuprofen with close monitoring of Hannah levels. 5. Prescriptions - Hannah 300mg, 90 tablets, take one tablet twice daily. - Hydroxyzine 25mg, 90 tablets, take one tablet twice daily as needed for anxiety. 6. Labs - Send lab order for Hannah level to [facility] and provide printed copy for patient. - review lithium level once resulted and adjust accordingly 7. Follow-up - Schedule follow-up appointment with Thuy on September 15. - Encourage patient to contact clinic for adverse effects or medication concerns. LABS 03/2024 lithium 0.3- subtherapeutic 09/15/2024 Other Stable, cont current medications. -refills sent in today Patient educated on all medications including potential benefits, side effects, risks. Educated on proper dosing schedule and importance of compliance. Order labs -Assessment and treatment plan reviewed with patient. -Compliance with treatment plan importance discussed. -Discussed the risks/benefits of this medication -Discussed medication side effects. -Contact office if symptoms worsen. -Discussed that it can take up to 6-8 weeks to see full therapeutic effects of psychotropic medications. -Crisis prevention hotline 988. LABS 03/202412/01/2024 Other Patient contracted COVID-19 and feels she has not fully recovered. Symptoms include fatigue and chest pressure. - Monitor recovery from COVID-19 and address any lingering symptoms. LABS 03/2024 Plan Of Treatment Next Appt Details Provider Name:Norm Hair , 12/14/2024 01:00:00 PM, [address], [address], [place], [address], Provider Name:Thuy Lilian watkins, 12/15/2024 01:00:00 PM, [address], [address], [place], [address], Insurance Providers Payer Name Payer Address Payer Phone Subscriber Number Group Number Insured Name Patient Relationship to Insured Coverage Start Date Coverage End Date [employer] [address] [place] [phone] [id number] BALTAZAR TORRES Self - patient is the insured Medical (General) History Medical History History ICD Code Past Psychiatric History: Major Depressi ve Episode,Bipolar Disorder Surgical History Surgery Date(Month/Year) hx two neck surgeries Hospitalization History Reason Date(Month/Year) history of about 10 [facility] admissions- [facility] t one 2021
--- OUTSIDE RECORDS SUMMARY | 2024-12-07 21:14 | XMS_ITS | Encounter Summary ---
Author Organization [facility] Address [address] [place] [address] Phone Care Team Providers Care Supervisor [employer] Name Role Phone Su Hager MD Unavailable [phone] Unknown, Notinfile Primary Care Provider Unavail able Claudy Vickers MD Primary Care Provider + Gabriela Pinon MD Primary Care Provide r Roxy Dave CONTROLS ENGINEER Unavailable [phone] Dontae Huerta MD Unavailable [phone] Araceli White FINISHER SCREWDOWN Unavailable [phone] Encounter Details Date Type Department Care Team (Late st Contact Info) Description 08/11/2017 Orders Only [facility] ProviderEmelia MD [address] [place] [id number] Social History Tobacco Use Types Packs/Day Years Used Date Smoking Tobacco: Never Smokeless Tobacco: Never Alcohol Use Standard Drinks/Week Comments No 0 (1 standard drink = 0.6 oz pur e alcohol) Comments No Sex and Gender Information Value Date Recorded Sex Assigned at Not on file Legal Sex Female 2:45 PM DIRECTOR EMERGENCY DEPARTMENT Gender Identity Not on file Sexual Orientation Not on file documented as of this encounter Plan of Treatment Not on file documented as of this encounter Procedures Procedure Name Priority Date/Time Associated Diagnosis Comments CYTOLOGY 08/11/2017 12:00 AM DIRECTOR EMERGENCY DEPARTMENT documented in this encounter Results * CYTOLOGY (08/11/2017 12:00 AM DIRECTOR EMERGENCY DEPARTMENT) Narrative 08/11/2017 12:00 AM DIRECTOR EMERGENCY DEPARTMENT Ordered by an unspecified provider. us Historical Provider MD LAB CYTOLOGY ORDERABLES F inal Result documented in this encounter Visit Diagnoses Not on filedocumented in this encounter Additional Health Concerns Infection Onset Date Last Indicated Resolved Time COVID: Suspected 11/25/2023 11/25/2023 11/26/2023 3:05 AM CDT COVID: Suspected 02/09/2024 02/09/2024 02/09/2024 10:52 AM CDT COVID: Suspected 08/12/2024 08/12/2024 08/12/2024 2:35 PM DIRECTOR EMERGENCY DEPARTMENT Exposure, COVID-19 Comment:Added automatically based on COVID19 lab answers indicating exposure risk 08/12/2024 08/12/2024 08/22/2024 3:05 AM C DT COVID: Suspected 08/12/2024 08/12/2024 08/12/2024 8:36 PM DIRECTOR EMERGENCY DEPARTMENT documented as of this encounter Care Teams Supervisor [employer] Relationship Specialty Start Date End Date Unknown, Notinfile PCP - General 11/23/17 08/29/18 Claudy Vickers MD [address] [place] [address] PCP - General 08/30/18 07/14/23 Gabriela Pinon MD [address] [place] [address] [facility] [address] [place] [address] PCP - General Family Medicine 07/15/23 Su Hager MD [address] [facility] [address] [place] [address] Consulting Physician Obstetrics and Gynecology 09/15/17 11/22/17 Roxy Dave, CONTROLS ENGINEER [address] [place] [address] Nurse Practitioner Obstetrics and Gynecology 10/08/23 Dontae Huerta MD [address] [place], [place] [id number] Referring Physician Neurology 10/08/23 Araceli White LPN [address] [place] [address] [address] [place] [address] [employer] Structural Steel Worker Helper 11/30/24 12/03/24 documented as of this encounter
--- OUTSIDE RECORDS SUMMARY | 2024-12-07 21:14 | XMS_ITS ---
Author Organization [facility] Address [address] [place] [address] [address] [place] [address] Care Team Providers Care Senior Speech Pathologist Name Role Phone Gabriela Pinon Primary Care Provider U Paulo Watts Unavailable [phone] Patricia Horn Unavailable [phone] REASON FOR VISIT trouble swallowing Encounters Encounter Location Date Provider Diagnosis [facility], [address] [place] [address] 11/15/2023 Patricia Horn Plan Of Treatment No Information Progress Notes * BRIAN Prudence JDOB:1964 (59 yo F)Acc No.[id number]:11/15/2023 Patient: Prudence CARTER Provider: Ravi Horn R.N., BJessika, A.N.P. :1965 A ge:58 Y S ex:Female Date:11/15/2023 Address:[address] [place], [place] [id number] Pcp:Gabriela Pinon Subjective: * Chief Complaints: * 1 . Trouble swallowing. * Medical History: Objective: * Vitals: Assessment: Plan: * Treatment: * Images: * Electronic signature of ASHUTOSH Hoskins i on 12/07/2024 at 09:14 PM CDT Sign off status: Pending * Provider: Ravi Horn R.N., B.C., A.N.P. Date: 0 11/15/2023 Generated for Joao garnica/Roxana/Rubi on: 0 12/07/2024 09:14 PM CDT
--- OUTSIDE RECORDS SUMMARY | 2024-12-07 21:14 | XMS_ITS | Encounter Summary ---
Author Organization [facility] Healthcare Address [address] [place] [address] Care Team Providers Care Pot Room Supervisor Name Role Phone Gabriela Pinon MD Primary Care Provide r Roxy Dave CARD HAND Unavailable Dontae Huerta MD Unavailable [phone] Encounter Details Date Type Department Care Team (Late st Contact Info) Description 12/04/2024 Orders Only [facility] Cardiology [address] [place] [address] Reba Santillan MD [address] [place] [address] Social History Tobacco Use Types Packs/Day Years [...] on file Legal Sex Female 2:45 PM [employer] Gender Identity Not on file Sexual Orientation Not on file documented as of this encounter Plan of Treatment Not on file documented as of this encounter Procedures Procedure Name Priority Date/Time Associated Diagnosis Comments CARDIOLOGY DOCUMENT SCAN Routine 11/28/2024 3:25 PM CDT CARDIOLOGY DOCUMENT SCAN Routine 11/27/2024 3:13 PM CDT documented in this encounter Results * Cardiology Document Scan (11/28/2024 3:25 PM CDT) Anatomical Region Laterality Modality Other us Ripa Savanna Hager MD [facility] PRO CEDURES Final Result * Cardiology Document Scan (11/27/2024 3:13 PM CDT) Anatomical Region Laterality Modality Other us Reba Santillan MD [facility] PROCEDU RES Final Result documented in this encounter Visit Diagnoses Not on filedocumented in this encounter Care Teams Pot Room Supervisor Relationship Specialty Start Date End Date Gabriela Pinon MD [address] [place] [address] [address] [place] [address] PCP - General Family Medicine 07/15/23 Roxy Dave NP [address] [place] [address] Nurse Practitioner Obstetrics and Gynecology 10/08/23 Dontae Huerta MD [address] [place] [address] Referring Physician Neurology 10/08/23 documented as of this encounter
--- OUTSIDE RECORDS SUMMARY | 2024-12-07 21:14 | XMS_ITS | Referral Summary ---
Author Organization [facility] Address [address] [place] [address] Care Team Providers Care Explosives Worker Name Role Phone Gabriela Pinon MD Primary Care Provide r Roxy Dave PHYSICIAN ASSISTANT SURGERY Unavailable [phone] Dontae Huerta MD Unavailable [phone] Encounters Date Type Department Care Team Description 12/07/2024 Nurse Triage [facility] Primary Care at [address] [place] [address] Gabriela Pinon MD 12/04/2024 JAZZMINE IP Outreach [facility] Accountable Care Organization [address] [place] [address] Araceli White LPN 12/04/2024 Orders Only [facility] Cardiology [address] [facility] [address] [place] [address] Reba Santillan MD 12/01/2024 JAZZMINE IP Outreach [facility] Accountable Care [address] [address] Araceli White LPN 11/30/2024 JAZZMINE IP Outreach [facility] Care [address] [address] Araceli White LPN 11/27/2024 Orders Only [facility] Primary Care at [address] [place] [address] Gabriela Pinon MD Swollen lymph nodes (Primary Dx) 11/27/2024 Results Follow-Up [facility] Primary Care at [address] [place] [address] Neck Soft Tissue WO Contrast 11/08/2024 3:24 PM CDT - 11/08/2024 11:59 PM CDT Hospital Encounter [address] [address] Swollen lymph nodes Discharge Disposition: Discharge to home or self care 11/07/[address] [address] Lexis Soto 10/26/2024 Orders Only [facility] Primary Care at [address] [address] Gabriela Pinon MD Dysphagia, unspecified type (Primary Dx); Iron deficiency anemia, unspecified iron deficiency anemia type 10/26/2024 Orders Only [facility] Primary Care at [address] [address] Gabriela Pinon MD Swollen lymph nodes (Primary Dx) 10/26/2024 4:30 PM CDT Office Visit [facility] Primary Care at [address] [address] Gabriela Pinon MD Dysphagia, unspecified type (Primary Dx); Swollen lymph nodes; Iron deficiency anemia, unspecified iron deficiency anemia type 10/26/2024 Nurse Triage [facility] Primary Care at [address] [address] Gabriela Pinon MD 10/20/2024 Telephone [facility] Primary Care at [address] [address] Gabriela Pinon MD 10/12/2024 Results Follow-Up [facility] Primary Care at [address] [place] [address] Gabriela Pinon MD CBC with auto differential, Comprehensive metabolic panel, Lipid panel, Additional followed-up results: 13 10/10/2024 2:57 PM CDT - 10/10/2024 11:59 PM CDT Hospital Encounter [facility] [address] [place] [address] Well woman exam with routine gynecological exam Discharge Disposition: Discharge to home or self care 10/10/2024 9:30 AM CDT Office Visit [facility] [address] [place] [address] [address] [place] [address] Su Hager MD Well woman exam with routine gynecological exam (Primary Dx) 09/26/2024 Nurse Triage [facility] Primary Care at [address] [place] [address] Gabriela Pinon MD 09/08/2024 Orders Only [facility] Primary Care at [address] [place] [address] Gabriela Pinon MD Screening mammogram for breast cancer (Primary Dx) from Last 3 Months Allergies Active Allergy Reactions Criticality Noted Date Comments Hydromorphone Rash Medium 12/15/2022 Hydromorphone (Bulk) Rash Medium 02/26/2017 Tachy, felt like on fire Prochlorperazine Anaphylaxis,Swelling High 2 Reaction: SWELLING, , , , Medications melatonin tablet Take 1 tablet (3 mg total) by mouth nightly Active Caplyta 42 mg capsule Take 1 capsule (42 mg total) by mouth daily 2 Active cholecalcifero l, vitamin D3, (VITAMIN D3 ORAL) Take 1 capsule by mouth daily Vitamin D 3,000 international units daily Active traZODone (DESYREL) 100 mg tablet Take 1 tablet (100 mg total) by mouth nightly at bedtime. 3 Active famotidine (PEPCID) 20 mg tablet Take 1 tablet (20 mg total) by mouth 2 (two) times a day as needed for heartburn Active lithium ER (LITHOBID) 300 mg CR tablet Take 1 tablet (300 mg total) by mouth 2 (two) times a day at bedtime. 4 Active levothyroxine (SYNTHROID) 50 mcg tablet Take 1 tablet (50 mcg total) by mouth every morning 90 tablet 3 4 12/27/19 25 Active atorvastatin (LIPITOR) 20 mg tablet TAKE 1 TABLET BY MOUTH DAILY 90 tablet 4 Active hydrOXYzine (ATARAX) 25 mg tablet Take 1 tablet (25 mg total) by mouth 2 (two) times a day as needed 4 Active lamoTRIgine (LaMICtal) 200 mg tablet Take 1 tablet (200 mg total) by mouth 2 (two) times a day [address] (PROTONIX) 40 mg EC tablet Take 1 tablet (40 mg total) by mouth daily 5 Active Active Problems Problem Noted Date Diagnosed Date Fall 07/27/2024 Assessment & Plan (07/27/2024 8:58 AM JOURNEYMAN LEVEL ACOUSTIC ANALYST): New concern Echo was unremarkable Has holter monitor on Follow up with cardiology 3/ Chronic cough 07/27/2024 Assessment & Plan (08/30/2024 1:28 PM CDT): Chronic improved Cont flonase and zyrtec prn Chest xray was unremarkable in the hospital F/u prn Assessment & Plan (07/27/2024 9:11 AM JOURNEYMAN LEVEL ACOUSTIC ANALYST): New concern Not at goal Likely post nasal drip ddx acid reflux Start flonase and zyrtec Chest xray was unremarkable in the hospital F/u in 1 month, if no improvement will refer to pulmonary Fatigue 11/25/2023 Assessment & Plan (11/25/2023 9:54 AM CDT): New concern Not at goal Covid and flu negative Cbc at the ER unremarkable Possible viral etiology Continue to monitor and follow up in 2 weeks Difficulty swallowing 08/17/2023 Assessment & Plan (10/26/2024 9:34 PM CDT): Assessment & Plan (08/17/2023 2:22 PM CDT): Chronic Worsening Will get barium swallow and refer to GI Neck pain 08/17/2023 Assessment & Plan (10/11/2023 8:25 AM CDT): Chronic improved No mass palpable on exam F/u prn Assessment & Plan (08/17/2023 2:24 PM CDT): Chronic Worsening Possibly referred pain from the neck given her hx of neck surgeries No mass palpable on exam Will get ct soft tissue of the neck F/u pending results, if negative recommend going back to neck surgeon Bipolar 1 disorder 07/15/2023 Assessment & Plan (07/15/2023 6:58 AM JOURNEYMAN LEVEL ACOUSTIC ANALYST): Chronic Stable Continue with psychiatry for management Encounter for wellness examination 07/15/2023 Assessment & Plan (07/15/2023 8:34 AM JOURNEYMAN LEVEL ACOUSTIC ANALYST): Ordered CBC, cmp, lipid, hgb a1c, TSH w/ reflex to t4 She had hiv screening done when she got her marriage license Flu given today Pcv20 declines Colonoscopy due in 2024 Pap smear follows with ob Mammo scheduled Zoster vaccine-declines F/u in 1 year for annual Anxiety 12/15/2022 Bulging lumbar disc 12/15/2022 Assessment & Plan (12/21/2023 11:08 AM CDT): Worsening Will get MRI of the lumbar spine Referral to neurosurgery F/u at next appointment Cervical post-laminectomy syndrome 12/15/2022 Assessment & Plan (12/21/2023 11:08 AM CDT): Chronic worsening Has been to pain management and physical therapy Will continue to monitor Will get an MRI of the cervical spine Tired of taking medications Will refer to neurosurgery F/u at next appointment in April Assessment & Plan (11/24/2023 12:32 PM CDT): Chronic Has been to pain management and physical therapy Will continue to monitor F/u in 1 month Explained that I do not do standing orders of muscle relaxers and she verbalized understanding Assessment & Plan (07/15/2023 9:07 AM JOURNEYMAN LEVEL ACOUSTIC ANALYST): Chronic Has been to pain management and physical therapy Will continue to monitor F/u in 1 month Explained that I do not do standing orders of muscle relaxers and she verbalized understanding Lumbosacral spondylosis without myelopathy 12/15 Obstructive sleep apnea 12/15/2022 Depression 12/15/2022 Reflux esophagitis 04/13/2022 Slow transit constipation 04/13/2022 Osteoarthritis of cervical spine with myelopathy 12/04/2016 Hypothyroidism 07/30/2015 Overview (09/11/2016): Hypothyroid Assessment & Plan (07/15/2023 6:57 AM JOURNEYMAN LEVEL ACOUSTIC ANALYST): chronic Tsh ordered Continue levothyroxine 50 mcg daily Assessment & Plan (12/04/2016 10:49 AM CDT): euthyroid Nonalcoholic steatohepatitis (AJ) 07/30/2015 Overview (09/11/2016): AJ - Nonalcoholic steatohepatitis Vitamin D deficiency 09/26/2012 Overview (09/09/2016): VITAMIN D DEFICIENCY NOS Hypercholesterolemia 06/07/1992 Overview (09/11/2016): Hypercholesterolemia Assessment & Plan (07/15/2023 6:56 AM JOURNEYMAN LEVEL ACOUSTIC ANALYST): Lipid panel ordered Continiue atorvastatin 20mg daily Assessment & Plan (12/04/2016 10:50 AM CDT): Dc statin and check labs in 1 month Resolved Problems Problem Noted Date Diagnosed Date Resolved Date BMI 29.0-29.9,adult 08/30/2024 10/11/19 25 Hospital discharge follow-up 07/24/2024 10/10/2024 Assessment & Plan (07/27/2024 9:13 AM JOURNEYMAN LEVEL ACOUSTIC ANALYST): Discharge reviewed, will scan into chart Med list reviewed Dizziness 11/25/2023 10/10/2024 Assessment & Plan (11/25/2023 9:54 AM CDT): New concern Not at goal Likely related to the headache See headache A/P Nausea 11/25/2023 10/10/2024 Headache 11/24/2023 10/10/2024 Assessment & Plan (11/25/2023 9:52 AM CDT): Worsening Will get ct scan of the head Low suspicion for meningitis but instructed pt to go to the ED should she develop any associated fevers or worse headache of her life F/u in 2 weeks for monitoring If no improvement will consider medication at that time Heartburn 04/13/2022 12/15/2022 Breast mass, right 09/15/2017 Healthcare maintenance 12/04/201604/13 Medication management 12/04/20162021 Fibrocystic breast changes 02/25/2016 1 06/13/2021 Overview (09/11/2016): Fibrocystic disease of breast Bipolar affective disorder 06/07/1992 0 12/15/2022 Overview (09/11/2016): Bipolar disorder Immunizations Immunization Administration Dates Next Due Influenza, Quadrivalent, Spl it, Preservative Free, Intramuscular 07/15/2023,04/04/2020,03/21/2018,03/20 Influenza, Unspecified 07/27/2024(Deferr ed: Patient Refused),04/13/2024(Deferred: Patient decision),03/20/2024 Karlo (J&J) SARS-CoV-2 Vaccination 08/12/2020 Pfizer SARS-CoV-2 Monovalent Vaccination (12+ Yrs) PURPLE 09/16/2021,03/31/2021 Tdap 07/12/2009 Social History Tobacco Use Types Packs/Day Years Used Date Smoking Tobacco: Never Passive Smoke Exposure: Never Smokeless Tobacco: Never Tobacco Cessation:Counseling Given: Not Answered Alcohol Use Standard Drinks/Week Comments No 0 [...] on file Legal Sex Female 2:45 PM JOURNEYMAN LEVEL ACOUSTIC ANALYST Gender Identity Not on file Sexual Orientation Not on file Last Filed Vital Signs Vital Sign Reading Time Taken Comments Blood Pressure 104/70 10/26/2024 4:29 PM CDT Pulse 58 10/26/2024 4:29 PM CDT Temperature 36.9 C (98.5 F) 08/30/2024 1:07 PM CDT Respiratory Rate 16 10/26/2024 4:29 PM CDT Oxygen Saturation 97% 10/26/2024 4:29 PM CDT Inhaled Oxygen Concentration - - Weight 70 kg (154 lb 6.4 oz) 10/26/2024 4:29 PM CDT Height 154.9 cm (5' 0.98) 10/26/2024 4:29 PM CD T Body Mass Index 29.19 10/26/2024 4:29 PM CDT Plan of Treatment Not on file Procedures Procedure Name Priority Date/Time Associated Diagnosis Comments CARDIOLOGY DOCUMENT SCAN Routine 11/28/2024 3:25 PM CDT CARDIOLOGY DOCUMENT SCAN Routine 11/27/2024 3:[address] SOFT TISSUE NECK WO CONTRAST Schedule Routine, Read Routine (OP Routine) 11/08/2024 3:58 PM CDT Swollen lymph nodes URINALYSIS AND REFLEX TO MICROSCOPIC Routine 10/23/2024 9:32 AM CDT Function kidney decreased OSMOLALITY, URINE Routine 10/23/2024 9:3 2 AM CDT Function kidney decreased ALBUMIN, RANDOM URINE WITHOUT CREATININE Routine 10/23/2024 9:32 AM CDT Function kidney decreased FOLATE Routine 10/23/2024 9:11 AM CDT Anemia, unspecified type FERRITIN Routine 10/23/2024 9:11 AM CDT Anemia, unspecified type VITAMIN B12 Routine 10/23/2024 9:11 AM CDT Anemia, unspecified type IRON PROFILE W/ IBC Routine 10/23/2024 9 :11 AM CDT Anemia, unspecified type CBC WITH AUTO DIFFERENTIAL Routine 10/23/2024 9:11 AM CDT Anemia, unspecified type THINPREP PROCESSING (MOLECULAR COMPONENT) Routine 10/10/2024 12:00 PM CDT Well woman exam with routine gynecological exam HIGH RISK HPV DNA DETECTION WITH GENOTYPING Routine 10/10/2024 12:00 PM CDT Well woman exam with routine gynecological exam PAP AND HIGH RISK HPV, REFLEX TO GENOTYPING Routine 10/10/2024 9:48 AM CDT Well woman exam with routine gynecological exam HEMOGLOBIN A1C Routine 10/09/2024 7:42 AM CDT Routine health maintenance THYROID FUNCTION CASCADE Routine 10/09/2024 7:42 AM CDT Routine health maintenance LIPID PANEL Routine 10/09/2024 7:42 AM CDT Routine health maintenance COMPREHENSIVE METABOLIC PANEL Routine 10/09/2024 7:42 AM CDT Routine health maintenance CBC WITH AUTO DIFFERENTIAL Routine 10/09/2024 7:42 AM CDT Routine health maintenance HEPATITIS B SURFACE ANTIBODY (IMMUNE STATUS) Routine 10/09/2024 7:42 AM CDT Need for hepatitis B screening test HEPATITIS B CORE ANTIBODY, TOTAL Routine 10/09/2024 7:42 AM CDT Need for hepatitis B screening test HEPATITIS B SURFACE ANTIGEN Routine 10/09/2024 7:42 AM CDT Need for hepatitis B screening test DIAGNOSTIC MAMMOGRAM BILATERAL W ERIN Schedule Routine, Read Routine (OP Routine) 09/06/2024 7:27 AM CDT Breast lump on left side at 9 o'clock position Breast pain, left SERUM HEPATITIS PANEL Routine 07/19/2015 3:24 AM JOURNEYMAN LEVEL ACOUSTIC ANALYST COLONOSCOPY 07/04/2014 12:00 AM JOURNEYMAN LEVEL ACOUSTIC ANALYST HM DEXA SCAN Routine 06/26/2014 Intractable migraine, unspecified migraine type from Last 3 Months or Most Recently Relevant to Health Maintenance Results * Cardiology Document Scan (11/28/2024 3:25 PM CDT) Anatomical Region Laterality Modality Other us Marisol Hager MD [facility] PRO CEDURES Final Result * Cardiology Document Scan (11/27/2024 3:13 PM CDT) Anatomical Region Laterality Modality Other us Reba Santillan MD [facility] PROCEDU RES Final Result * CT Neck Soft Tissue WO Contrast (11/08/2024 3:58 PM CDT) Anatomical Region Laterality Modality Head and Neck N/A Computed Tomogra phy 11/26/2024 6:44 AM CDT Narrative 11/26/2024 6:55 AM CDT EXAM DESCRIPTION: CT SOFT TISSUE NECK WO CONTRAST REASON FOR STUDY: Swollen lymph nodule on right side of neck Trouble swallowing that has increased in the last 3 months, history of cervical surgery TECHNIQUE: Axial images from skull base through lung apices. Reconstructed MPR images reviewed. All images stored on PACS. The sensitivity for detection of abnormalities is reduced without the use of intravenous contrast. Automated exposure control was used as a dose optimization technique for this examination. COMPARISON: Soft tissue neck CT dated 11/06/2023. FINDINGS: Please note this evaluation is limited without intravenous contrast. The bilateral globes are symmetric. Mucosal thickening in the bilateral ethmoid air cells and maxillary sinus floors, [id number]-teaf-right. Chronic nasal bone deformity. Nasal septal deviation to the right with a spur abutting the inferior turbinate. The bilateral cande bullosa are predominantly clear. Partially opacified occasional right mastoid air cell. Right external auditory canal soft tissue debris is interpreted as cerumen. Temporomandibular joint degenerative changes. The zygomatic arches are intact. The bilateral parotid and submandibular glands have a grossly homogeneous unenhanced CT appearance. The dental amalgam related streak artifact limits the assessment of the adjacent structures including the oral cavity and oropharynx. The evaluation is further limited by gross patient movement during imaging and lack of intravenous contrast. Left maxillary last remaining molar periapical lucency. The vocal cords are adducted obscuring assessment of the supraglottic larynx and glottic region. Portions of the C4-C7 ACDF instrumentation impresses upon the adjacent posterior margin of the aerodigestive tract. No gross parapharyngeal fluid collection within the confines of the unenhanced technique. Calcified plaque in the left carotid vasculature. By history patient has a swollen lymph node on the right side of the neck however, a skin marker is not placed in the region of patient's clinical concern. The few scattered right-sided cervical chain lymph nodes are grossly similar in size when compared to the previous soft tissue neck CT dated 09/06/2023. Index right level 2-3 0.8 x 0.9 cm, right level 2 B 0.5 x 0.9 cm and right supraclavicular 0.6 x 0.5 cm are stable in size. There are similar appearing contralateral, left neck subcentimeter lymph nodes. There is no thyroid nodule greater than 1 cm in size. The lung apices are without focal pneumonic consolidation. The C4-C7 ACDF and non operative level degenerative changes are grossly similar when compared to the previous soft tissue neck CT dated 09/06/2023. IMPRESSION: 1. By history patient has a swollen lymph node in the right neck however, skin marker is not placed in the region of the patient's clinical concern. The scattered nonspecific subcentimeter lymph nodes in the right neck are grossly similar in size when compared to the previous soft tissue neck CT dated 09/06/2023. The need for repeat contrast-enhanced CT after placement of a skin marker in the area of concern or dedicated ultrasound as clinically indicated. 2. The evaluation of the aerodigestive tract is limited without intravenous contrast and vocal cords being adducted. With a history of difficulty swallowing in a patient of this age recommend endoscopy. 3. Additional findings as above. THIS IS AN ELECTRONICALLY VERIFIED FINAL REPORT 11/26/2024 6:55 AM - Electronically signed by Tio Hager D.O. AP: AP Report ID: [id number] Reading Location: [id number] Procedure Note Tio Hager, DO - 11/26/2024 EXAM DESCRIPTION: CT SOFT TISSUE NECK WO CONTRAST REASON FOR STUDY: Swollen lymph nodule on right side of neck Trouble swallowing that has increased in the last 3 months, history of cervical surgery TECHNIQUE: Axial images from skull base through lung apices.Reconstructed MPR images reviewed. All images stored on PACS. The sensitivity fordetection of abnormalities is reduced without the use of intravenous contrast. Automated exposure control was used as a dose optimization technique forthis examination. COMPARISON: Soft tissue neck CT dated 11/06/2023. FINDINGS: Please note this evaluation is limited without intravenous contrast. The bilateral globes are symmetric. Mucosal thickening in the bilateral ethmoid air cells and maxillary sinus floors, lgey-[id number]-skpt-right. Chronic nasal bone deformity. Nasal septal deviation to the right with aspur abutting the inferior turbinate. The bilateral cande bullosa are predominantly clear. Partially opacified occasional right mastoid air cell. Right external auditory canal soft tissue debris is interpreted as cerumen. Temporomandibular joint degenerative changes. The zygomatic arches are intact. The bilateral parotid and submandibular glands have a grossly homogeneous unenhanced CT appearance. The dental amalgam related streak artifact limits the assessment of the adjacent structures including the oral cavity and oropharynx. Theevaluation is further limited by gross patient movement during imaging and lack of intravenous contrast. Left maxillary last remaining molar periapicallucency. The vocal cords are adducted obscuring assessment of the supraglotticlarynx and glottic region. Portions of the C4-C7 ACDF instrumentation impressesupon the adjacent posterior margin of the aerodigestive tract. No gross parapharyngeal fluid collection within the confines of theunenhanced technique. Calcified plaque in the left carotid vasculature. By history patient has a swollen lymph node on the right side of the neck however, a skin marker is not placed in the region of patient's clinical concern. The few scattered right-sided cervical chain lymph nodes aregrossly similar in size when compared to the previous soft tissue neck CT dated 09/06/2023. Index right level 2-3 0.8 x 0.9 cm, right level 2 B 0.5 x 0.9cm and right supraclavicular 0.6 x 0.5 cm are stable in size. There aresimilar appearing contralateral, left neck subcentimeter lymph nodes. There is no thyroid nodule greater than 1 cm in size. The lung apices are without focal pneumonic consolidation. The C4-C7 ACDF and non operative level degenerative changes are grossly similar when compared to the previous soft tissue neck CT dated09/06/2023. IMPRESSION: 1. By history patient has a swollen lymph node in the right neckhowever, skin marker is not placed in the region of the patient's clinical concern. The scattered nonspecific subcentimeter lymph nodes in the right neck are grossly similar in size when compared to the previous soft tissue neck CT dated 09/06/2023. The need for repeat contrast-enhanced CT afterplacement of a skin marker in the area of concern or dedicated ultrasound as clinically indicated. 2. The evaluation of the aerodigestive tract is limited withoutintravenous contrast and vocal cords being adducted. With a history of difficulty swallowing in a patient of this age recommend endoscopy. 3. Additional findings as above. THIS IS AN ELECTRONICALLY VERIFIED FINAL REPORT 11/26/2024 6:55 AM - Electronically signed by Tio Hager D.O. AP: RUPERT Report ID: [id number] Reading Location: [place] [address] Gabriela Pinon MD IMG CT PROCEDURES Fin al Result * Urinalysis reflex to microscopic (10/23/2024 9:32 AM CDT) Color, ur YELLOW YELLOW [facility] Appearance, ur CLEAR CLEAR [facility] Specific gravity 1.006 1.001 - 1.035 [facility] pH, ur 7.5 5.0 - 8.0 [facility] Glucose, ur NEGATIVE NEGATIVE [facility] Bilirubin, ur NEGATIVE NEGATIVE [facility] Ketones, ur NEGATIVE NEGATIVE [facility] Blood, ur NEGATIVE NEGATIVE [facility] Protein, ur, quant NEGATIVE NEGATIVE [facility] Nitrites, ur NEGATIVE NEGATIVE [facility] Leukocyte esterase, ur NEGATIVE NEGATIVE [facility] Urine 10/23/2024 9:32 AM CDT 10/23/2024 9:32 AM CDT Narrative [facility] - 10/24/2024 12:32 PM CDT SPLIT 10/23/2024 FROM [id number] FASTING:YES FASTING: YES Gabriela Pinon MD LAB URINE ORDERABLES Final Result [facility] [id number] [place] [address] * Albumin, Random Urine without Creatinine (10/23/2024 9:32 AM CDT) Microalbumin, ur 0.3 See Note: mg/dL [facility] Comment: Reference Range: Reference Range Not established IMTIAZ [facility] Comment: The ADA defines abnormalities in albumin excretion as follows: Albuminuria Category Result (mg/g creatinine) Normal to Mildly increased <30 Moderately increased 30-299 Severely increased > OR = 300 The ADA recommends that at least two of three specimens collected within a 3-6 month period be abnormal before considering a patient to be within a diagnostic category. Urine 10/23/2024 9:32 AM CDT 10/23/2024 9:32 AM CDT Narrative [facility] - 10/24/2024 12:32 PM CDT SPLIT 10/23/2024 FROM [id number] FASTING:YES FASTING: YES Gabriela Pinon MD LAB URINE ORDERABLES Final Result Performing Organization Address City/[facility] Co de Phone Number [facility] [address] [place] [address] * Osmolality, urine (10/23/2024 9:32 AM CDT) Osmolality (u) 183 50 - 1,200 mOsm/kg [facility] Urine 10/23/2024 9:32 AM CDT 10/23/2024 9:32 AM CDT Narrative [facility] - 10/24/2024 12:32 PM CDT SPLIT 10/23/2024 FROM [id number] FASTING:YES FASTING: YES Gabriela Pinon MD LAB URINE ORDERABLES Final Result Performing Organization Address [facility]/Rehabilitation [facility] de Phone Number [facility] [address] [place] [address] * (ABNORMAL) Iron profile w/ IBC (10/23/2024 9:11 AM CDT) Iron 38(L) 45 - 160 mcg/dL [facility] TIBC 288 250 - 450 mcg/dL (calc) [facility] Iron saturation 13(L) 16 - 45 % (calc) [facility] Blood 10/23/2024 9:11 AM CDT 10/23/2024 9:11 AM CDT Narrative QUEST - 10/24/2024 2:22 AM CDT FASTING:YES PATIENT UNABLE TO VOID; ADVISED TO RETURN FOR COLLECTION. FASTING: YES Gabreila Pinon MD LAB BLOOD ORDERABLES Final Result [facility] [address] [facility] [place] [address] * (ABNORMAL) CBC with auto differential (10/23/2024 9:11 AM CDT) [facility] WBC 7.2 3.8 - 10.8 Thousand/u L [facility] RBC, POC 3.71(L) 3.80 - 5.10 Million/uL [facility] Hgb 11.2(L) 11.7 - 15.5 g/dL [facility] Hct 34.2(L) 35.0 - 45.0 % [facility] MCV 92.2 80.0 - 100.0 fL [facility] MCH 30.2 27.0 - 33.0 pg [facility] MCHC 32.7 32.0 - 36.0 g/dL [facility] Comment: For adults, a slight decrease in the calculated MCHC value (in the range of 30 to 32 g/dL) is most likely not clinically significant; however, it should be interpreted with caution in correlation with other red cell parameters and the patient's clinical condition. Rdw 12.3 11.0 - 15.0 % [facility] Platelets 320 140 - 400 Thousand/u L [facility] MPV 9.7 7.5 - 12.5 fL [facility] Neutrophils, abs 4,738 1,500 - 7,800 cells/uL [facility] Lymphocytes, abs 1,699 850 - 3,900 cells/uL [facility] Monocyte abs 439 200 - 950 cells/uL [facility] Eosinophils, abs 238 15 - 500 cells/uL [facility] Basophils, abs 86 0 - 200 cells/uL [facility] Neutrophils 65.8 % [facility] Lymphocyte pct 23.6 % [facility] Monocytes 6.1 % [facility] Eosinophils 3.3 % [facility] Basophils 1.2 % [facility] Blood 10/23/2024 9:11 AM CDT 10/23/2024 9:11 AM CDT Narrative [facility] - 10/24/2024 2:22 AM CDT FASTING:YES PATIENT UNABLE TO VOID; ADVISED TO RETURN FOR COLLECTION. FASTING: YES Gabriela Pinon MD LAB BLOOD ORDERABLES Final Result [facility] [address] [place] [address] * Folate (10/23/2024 9:11 AM CDT) Folate, Serum 6.1 ng/mL [facility] Comment: Reference Range Low: <3.4 Borderline: 3.4-5.4 Normal: >5.4 Blood 10/23/2024 9:11 AM CDT 10/23/2024 9:11 AM CDT Narrative [facility] - 10/24/2024 2:22 AM CDT FASTING:YES PATIENT UNABLE TO VOID; ADVISED TO RETURN FOR COLLECTION. FASTING: YES Gabriela Pinon MD LAB BLOOD ORDERABLES Final Result [facility] [address] [place] [address] * Ferritin (10/23/2024 9:11 AM CDT) Ferritin 24 16 - 232 ng/mL [facility] Blood 10/23/2024 9:11 AM CDT 10/23/2024 9:11 AM CDT Narrative [facility] - 10/24/2024 2:22 AM CDT FASTING:YES PATIENT UNABLE TO VOID; ADVISED TO RETURN FOR COLLECTION. FASTING: YES Gabriela Pinon MD LAB BLOOD ORDERABLES Final Result Performing Organization Address [facility]/ZIP Co de Phone Number [facility] [address] [place] [address] * Vitamin B12 (10/23/2024 9:11 AM CDT) [facility] Vitamin B12 359 200 - 1,100 pg/mL [facility] Comment: Please Note: Although the reference range for vitamin B12 is 200-1100 pg/mL, it has been reported that between 5 and 10% of patients with values between 200 and 400 pg/mL may experience neuropsychiatric and hematologic abnormalities due to occult B12 deficiency; less than 1% of patients with values above 400 pg/mL will have symptoms. Blood 10/23/2024 9:11 AM CDT 10/23/2024 9:11 AM CDT [facility] - 10/24/2024 2:22 AM CDT FASTING:YES PATIENT UNABLE TO VOID; ADVISED TO RETURN FOR COLLECTION. FASTING: YES us Gabriela Pinon MD LAB BLOOD ORDERABLES Final Result Performing Organization Address [facility] Co de Phone Number [facility] [address] [place] [address] * ThinPrep processing (Molecular component) (10/10/2024 12:00 PM CDT) [facility] ThinPrep processing (Molecular component) Specimen received for processing. Endocervical 10/10/2024 12:0 0 PM CDT 10/10/2024 3:56 PM CDT us Su Hagre MD LAB BODY FLUIDS AND STOOLS ORD ERABLES Final Result Performing Organization Address City/[facility]/ZIP Co de Phone Number ANILA [facility] [address] Department [place] [address] * High Risk HPV DNA Detection with Genotyping (Molecular component) (10/10/2024 12:00 PM CDT) HPV HR 16 Not Detected Not Detected HPV HR 18 Not Detected Not Detected [facility] HPV HR Non 16/18 Not Detected Not Detected [facility] Comment: Interpretive Data Nucleic acid amplification for detection of high-risk Human Papilloma virus (HPV) is performed by the Sán[facility] Elizabeth 4800 HPV test, which specifically detects high-risk HPV-16, 18, 31, 33, 35, 39, 45, 51, 52, 56, 58, 59, 66, and 68 genotypes. This assay has been approved by the [place] Food and Drug Administration for detection of HPV in cervical specimens collected by a physician using an endocervical brush/spatula or cervical broom and placed in the ThinPrep Pap Test PreservCyt collection containers. The performance characteristics of this test have been verified by the [facility]. Correlate with separately reported cytology results, as applicable. Interpretive data last revised 22 Endocervical 10/10/2024 12:0 0 PM CDT 10/10/2024 3:56 PM CDT [facility]ative [facility] - 10/11/2024 6:27 PM CDT Clinical history and diagnosis->Z01.419 Number of vials->1 Testing type->Screening Last menstrual period (date if known)->Postmenopausal Menstrual status->Postmenopausal Contraceptive use->None Previous positive HPV history?->No Previous negative PAP?->Yes Su Hager MD LAB BODY FLUIDS AND STOOLS ORD ERABLES Final Result [facility] [address] Department [place] [address] * Pap and High Risk HPV and Genotyping (Cytology Component) (10/10/2024 9:48 AM CDT) Thin prep (Pap test) 10/10/2024 9:48 AM CDT 10/11/2024 10:27 AM CDT Narrative PATHOLOGY [facility] - 10/13/2024 11:19 AM CDT EPIC results best viewed via link to PDF [address] [address] Tele: Iris Lopez MD - Body Maker CYTOLOGY REPORT Note to Patients: This report may contain a detailed description of human tissue sent by a health care provider to the laboratory for pathologic evaluation. The content of this report is essential for diagnosis and may provide important critical findings. This information may be unfamiliar to patients to review without a medical professional present. It is advised that the patient review this report in the presence of a health care provider who can answer questions and explain the details. Patient Name: BALTAZAR OVALLE Address: [address] [place] [address] Gender: F : 1965 (Age: 59) Service: Location: N : [id number] Hospital #: [id number] Patient Type: [facility] [place] SPECIMEN Taken: 10/10/2024 Reported: 10/13/2024 Physician(s): Su Hager M.D. FINAL DIAGNOSIS: SOURCE OF SPECIMEN - ThinPrep Pap and HPV w/ reflex Genotyping: STATEMENT OF ADEQUACY Source: Cervical/Endocervical - Satisfactory for evaluation - Case screened using computer assisted imaging technology GENERAL CATEGORIZATION: - Negative for intraepithelial lesion or malignancy INTERPRETATION: - Atrophic pattern cad/10/13/2024 11:19Brook Law M.S., [place] (ASCP) Report Reviewed and Electronically Signed By Brook Law M.S., CT (ASCP)Clerical Data Follow A; G0145 DIAGNOSIS COMMENT: Ancillary Testing: HPV Genotype 16 - Not Detected Reference Range: Not Detected HPV Genotype 18 - Not Detected Reference Range: Not Detected HPV High Risk Group (31, 33, 35, 39, 45, 51, 52, 56, 58, 59, 66 and 68) - Not Detected Reference Range: Not Detected This test was performed using the ELIZABETH 4800 CLINICAL DIAGNOSIS AND HISTORY Menstrual History: Post-menopausal REPORT IMAGES AND/OR SCANNED DOCUMENTS ONLY VIEWABLE IN PDF FORMAT The Pap test is a screening test used to aid in the detection of cervical cancer and its precursors. It should not be the sole means by which malignant and premalignant lesions are diagnosed. Both false negative and false positive results may occur. It also has poor sensitivity for the detection of endometrial lesions and should not be used to evaluate suspected endometrial abnormalities. For these reasons it is most important to obtain Pap tests at regular intervals, as recommended by your physician or nurse practitioner. Frozen section, operating room consultation, gross examination and dissection, and case sign out may have been performed in part or completely in the following laboratories: [facility], [address], [place] [address] [facility], [address] [place] [address]. Su Hager MD LAB CYTOLOGY ORDERABLES Final Result PATHOLOGY [facility] Laboratory Receiving [address] [place] [address] * Thyroid Function [place] (10/09/2024 7:42 AM CDT) Pathologist [facility] TSH 2.20 0.40 - 4.50 mIU/L [facility] Blood 10/09/2024 7:42 AM CDT 10/09/2024 7:43 AM CDT Narrative [facility] - 10/10/2024 4:26 PM CDT FASTING:YES FASTING: YES Gabriela Pinon MD LAB BLOOD ORDERABLES Final Result Performing Organization Address City/[facility]/ZIP Co de Phone Number QUE[facility] [address] [place] [address] * (ABNORMAL) CBC with auto differential (10/09/2024 7:42 AM CDT) WBC 7.7 3.8 - 10.8 Thousand/u L [facility] RBC, POC 3.86 3.80 - 5.10 Million/uL [facility] Hgb 11.6(L) 11.7 - 15.5 g/dL [facility] Hct 35.3 35.0 - 45.0 % [facility] MCV 91.5 80.0 - 100.0 fL [facility] MCH 30.1 27.0 - 33.0 pg [facility] MCHC 32.9 32.0 - 36.0 g/dL [facility] Comment: For adults, a slight decrease in the calculated MCHC value (in the range of 30 to 32 g/dL) is most likely not clinically significant; however, it should be interpreted with caution in correlation with other red cell parameters and the patient's clinical condition. Rdw 12.2 11.0 - 15.0 % [facility] Platelets 310 140 - 400 Thousand/u L [facility] MPV 9.4 7.5 - 12.5 fL [facility] Neutrophils, abs 5,067 1,500 - 7,800 cells/uL [facility] Lymphocytes, abs 1,771 850 - 3,900 cells/uL [facility] Monocyte abs 554 200 - 950 cells/uL [facility] Eosinophils, abs 231 15 - 500 cells/uL [facility] Basophils, abs 77 0 - 200 cells/uL [facility] Neutrophils 65.8 % [facility] Lymphocyte pct 23.0 % [facility] Monocytes 7.2 % [facility] Eosinophils 3.0 % [facility] Basophils 1.0 % [facility] Blood 10/09/2024 7:42 AM CDT 10/09/2024 7:43 AM CDT Narrative [facility] - 10/10/2024 4:26 PM CDT FASTING:YES FASTING: YES Gabriela Pinon MD LAB BLOOD ORDERABLES Final Result [facility] [address] [place] [address] * Hepatitis B core antibody, total Blood (10/09/2024 7:42 AM CDT) Hep B core IgG/IgM NON-REACTI VE NON-REACTI VE [facility] Comment: For additional information, please refer to http://education.boosk.ZoomCar [place]/faq/SDE721 (This link is being provided for informational/ educational purposes only.) Blood 10/09/2024 7:42 AM CDT 10/09/2024 7:43 AM CDT Narrative [facility] - 10/10/2024 4:26 PM CDT FASTING:YES FASTING: YES us Gabriela Pinon MD LAB MICROBIOLOGY - GE NERAL ORDERABLES Final Result Performing Organization Address [facility] Co de Phone Number [facility] [address] * Hepatitis B surface antibody (immune status) Blood (10/09/2024 7:42 AM CDT) HBsAb (immune status) NON-REACTI VE NON-REACTI VE [facility] Blood 10/09/2024 7:42 AM CDT 10/09/2024 7:43 AM CDT Narrative [facility] - 10/10/2024 4:26 PM CDT FASTING:YES FASTING: YES us Gabriela Pinon MD LAB MICROBIOLOGY - GE NERAL ORDERABLES Final Result Performing Organization Address [facility] de Phone Number [facility] [address] * Hepatitis B Surface Antigen Blood (10/09/2024 7:42 AM CDT) HepBsAg NON-REACTI VE NON-REACTI VE [facility] Comment: For additional information, please refer to http://education.boosk.[employer] [place]/faq/FQE906 (This link is being provided for informational/ educational purposes only.) Blood 10/09/2024 7:42 AM CDT 10/09/2024 7:43 AM CDT Narrative [facility] - 10/10/2024 4:26 PM CDT FASTING:YES FASTING: YES us Gabriela Pinon MD LAB MICROBIOLOGY - GE NERAL ORDERABLES Final Result Performing Organization Address City/[facility]/ZIP Co de Phone Number QUE[facility] [address] [address] * Hemoglobin A1c (10/09/2024 7:42 AM CDT) Hgb A1C 5.1 <5.7 % of total [facility] Comment: For the purpose of screening for the presence of diabetes: <5.7% Consistent with the absence of diabetes 5.7-6.4% Consistent with increased risk for diabetes (prediabetes) > or =6.5% Consistent with diabetes This assay result is consistent with a decreased risk of diabetes. Currently, no consensus exists regarding use of hemoglobin A1c for diagnosis of diabetes in children. According to [place] Diabetes Association (ADA) guidelines, hemoglobin A1c <7.0% represents optimal control in non- diabetic patients. Different metrics may apply to specific patient populations. Standards of Medical Care in Diabetes(ADA). Blood 10/09/2024 7:42 AM CDT 10/09/2024 7:43 AM CDT Narrative [facility] - 10/10/2024 4:26 PM CDT FASTING:YES FASTING: YES Gabriela Pinon MD LAB BLOOD ORDERABLES Final Result Performing Organization Address [facility] Co de Phone Number [facility] [address] [place] [address] * (ABNORMAL) Lipid panel (10/09/2024 7:42 AM CDT) Cholesterol 242(H) <200 mg/dL [facility] HDL 59 > OR = 50 mg/dL [facility] Triglycerides 64 <150 mg/dL [facility] LDL 167(H) mg/dL (calc) [facility] Comment: Reference range: <100 Desirable range <100 mg/dL for primary prevention; <70 mg/dL for patients with CHD or diabetic patients with > or = 2 CHD risk factors. LDL-C is now calculated using the Darrell-Jin calculation, which is a validated novel method providing better accuracy than the Friedewald equation in the estimation of LDL-C. Darrell SS et al. TERESA. 2013;310(19): 0719-5577 (http://education.WEbook/faq/AKU084) Chol/HDL ratio 4.1 <5.0 (calc) [facility] Non-HDL, (LDL+VLDL) 183(H) <130 mg/dL (calc) [facility] Comment: For patients with diabetes plus 1 major ASCVD risk factor, treating to a non-HDL-C goal of <100 mg/dL (LDL-C of <70 mg/dL) is considered a therapeutic option. Blood 10/09/2024 7:42 AM CDT 10/09/2024 7:43 AM CDT Narrative [facility] - 10/10/2024 4:26 PM CDT FASTING:YES FASTING: YES Gabriela Pinon MD LAB BLOOD ORDERABLES Final Result [facility] [address] [place] [address] * (ABNORMAL) Comprehensive metabolic panel (10/09/2024 7:42 AM CDT) [facility] Glucose 90 65 - 99 mg/dL [facility] Comment: Fasting reference interval BUN 10 7 - 25 mg/dL [facility] Creatinine 1.09(H) 0.50 - 1.05 mg/dL [facility] eGFR 58(L) > OR = 60 mL/min/1.7 3m2 [facility] BUN/creat ratio 9 6 - 22 (calc) [facility] Sodium 139 135 - 146 mmol/L [facility] Potassium, pl 4.1 3.5 - 5.3 mmol/L [facility] Chloride 105 98 - 110 mmol/L [facility] CO2 27 20 - 32 mmol/L [facility] Calcium 10.0 8.6 - 10.4 mg/dL [facility] Protein, sr 7.2 6.1 - 8.1 g/dL [facility] Albumin 4.5 3.6 - 5.1 g/dL [facility] GLOBULIN 2.7 1.9 - 3.7 g/dL (calc) [facility] Alb/glob ratio 1.7 1.0 - 2.5 (calc) [facility] Bilirubin, total 0.4 0.2 - 1.2 mg/dL [facility] Alk phos 86 37 - 153 U/L [facility] AST 14 10 - 35 U/L [facility] ALT (SGPT) 10 6 - 29 U/L [facility] Blood 10/09/2024 7:42 AM CDT 10/09/2024 7:43 AM CDT Narrative [facility] - 10/10/2024 4:26 PM CDT FASTING:YES FASTING: YES us Gabriela Pinon MD LAB BLOOD ORDERABLES Final Result Performing Organization Address City/State/[facility] Co de Phone Number [facility] [address] [place] [address] * DIAGNOSTIC MAMMOGRAM BILATERAL W ERIN (09/06/2024 7:27 AM CDT) Anatomical Region Laterality Modality Breast Bilateral Mammography 09/06/2024 8:05 AM CDT Impressions 09/06/2024 8:05 AM CDT Overall final assessment: BI-RADS Category 2: Benign 1. Stable bilateral mammogram with diffuse bilateral calcifications 2. Tiny hypoechoic nodules left breast in the retroareolar region and along the 9:00 axis corresponding to areas of fat necrosis on mammography Electronically signed by: Evelyne Kothari M.D. Narrative 09/06/2024 8:05 AM CDT EXAM: Bilateral 3-D tomosynthesis diagnostic mammogram, limited left breast ultrasound HISTORY: Remote history of benign left breast biopsy in the retroareolar region. Physician felt lump in left breast along 9:00 axis. Annual mammogram COMPARISON: Prior mammograms FINDINGS: Bilateral 3-D tomosynthesis diagnostic mammogram and limited left breast ultrasound was performed. TISSUE DENSITY:There are scattered areas of fibroglandular density. Numerous dystrophic and calcifications of fat necrosis are scattered throughout both breasts. There is no new mass, distortion or suspicious calcification in either breast. Sonography along the 9:00 axis was performed. Tiny hypoechoic nodules are seen scattered throughout the retroareolar region and the 9:00 axis corresponding to areas of fat necrosis on mammography. There is no suspicious cystic or solid nodule. In area of tenderness along the left breast 9:00 at 7 cm from the nipple normal fibrofatty elements are identified. Clinical follow-up is recommended. Unless a new clinical problem arises, annual screening mammography is recommended. These results were conveyed to the patient at the time of the study. Roxy Dave PHYSICIAN ASSISTANT SURGERY IMG MAMMO PROCEDURES Final Result * Serum Hepatitis panel (07/19/2015 3:24 AM JOURNEYMAN LEVEL ACOUSTIC ANALYST) HCV ab NON-REACTI VE NON-REACTI VE HISTORICAL RESULTS HAV ab, IgM NON-REACTI VE NON-REACTI VE HISTORICAL RESULTS Hepatitis signal to cutoff ratio 0.02 <1.00 HISTORICAL RESULTS HBV surface ag NON-REACTI VE NON-REACTI VE HISTORICAL RESULTS HBV core ab, IgM NON-REACTI VE NON-REACTI VE HISTORICAL RESULTS Serum 07/19/2015 3:24 AM JOURNEYMAN LEVEL ACOUSTIC ANALYST Narrative HISTORICAL RESULTS - 07/20/2015 2:00 AM JOURNEYMAN LEVEL ACOUSTIC ANALYST Test performed at [facility] [place] [address] [place] [address] Director: KESLIE REEVES DO,MPH Historical Provider LAB BLOOD ORDERABLES Jeannine l Result HISTORICAL RESULTS * COLONOSCOPY (07/04/2014 12:00 AM JOURNEYMAN LEVEL ACOUSTIC ANALYST) Anatomical Region Laterality Modality Other Narrative 07/04/2014 12:00 AM JOURNEYMAN LEVEL ACOUSTIC ANALYST Ordered by an unspecified provider. Procedure Note Provider, MD Emelia - 07/04/2014 12:00 AM CST PROCEDURE REPORT Patient: BALTAZAR OVALLE Account: [id number] Room No: : 1965 Patient Type: SDS Attend.: Jeffrey Boland M.D. Admit Date: 07/04/2014 Dict.: Jeffrey Boland M.D. Disch. Date: 07/04/2014 NAME OF PROCEDURE: Colonoscopy. REFERRING PHYSICIAN Claudy Vickers M.D. DATE 07/04/2014 PREVIOUS PROCEDURE None. X-RAYS None. HISTORY AND PHYSICAL The patient is a 49-year-old white female referred now for screening colonoscopy. She denies any specific complaints and is otherwise doing clinically well. There is no family history. PHYSICAL EXAMINATION Physical exam is that of a well-developed, well nourished white female inno acute distress. She is nonicteric. Her lungs were clear. Her heart wasregular. Gastrointestinal was soft and supple. Extremities showed no calf pain,cords or edema. PREPROCEDURE DIAGNOSES Screening colonoscopy in a 49-year-old white female. PHYSICIAN Jeffrey Boland M.D. INSTRUMENT USED Olympus video endoscope. MEDICATIONS Per anesthesia. FINDINGS The colonoscope was introduced into the rectum in the left lateralposition and passed to the cecum. The patient tolerated the procedure well. There wereno complications. On withdrawal of the colonoscope, the mucosa appearednormal with normal vascular pattern. No polyps and no masses were noted in thececum, right transverse, left rectosigmoid or rectum. Retroflexion view of the internal anal areas showed small to moderate internal hemorrhoidal tissuewith several hemorrhoidal tags. The perianal exam showed no perianal disease.No rectal masses. COMPLICATIONS None. POSTPROCEDURE DIAGNOSIS Normal screening colonoscopy to the cecum with a withdrawal time of 10minutes and 6 seconds. Preparation was excellent. POSTPROCEDURE ORDERS 1. Postsedation instructions. 2. High fiber diet. 3. Repeat colonoscopy in ten years. 4. Follow-up with Dr. Claudy Vickers. Jeffrey Boland M.D. MA/slime TD: 07/05/2014 09:32 CC: Claudy Vickers M.D. Electronically Authenticated by: Jeffrey Boland MD On 07/06/2014 08:00 AM JOURNEYMAN LEVEL ACOUSTIC ANALYST us Historical Provider ENDOSCOPY PROCEDURES Jeannine l Result * HM DEXA SCAN (06/26/2014) Pathologist [facility] DEXA Scan Normal Anatomical Region Laterality Modality Other us Historical Provider HEALTH MAINTENANCE Final Result from Last 3 Months or Most Recently Relevant to Health Maintenance Insurance [facility] Address: [address] [address] [facility] Care Teams Explosives Worker Relationship Specialty Start Date End Date Gabriela Pinon MD [address] [place] [address] [address] [place] [address] PCP - General Family Medicine 07/15/23 Roxy Dave NP [address] [facility] [address] [place] [address] Nurse Practitioner Obstetrics and Gynecology 10/08/23 Dontae Huerta MD [address] [facility] [address] [place] [address] Referring Physician Neurology 10/08/23
--- OUTSIDE RECORDS SUMMARY | 2024-12-07 21:14 | XMS_ITS | Clinical Summary ---
Author Organization [facility] Address [address] [place] [address] Care Team Providers Care Immigration Judge Name Role Phone Gabriela Pinon MD Primary Care Provide r Roxy Dave ABSTRACTOR Unavailable Dontae Huerta MD Unavailable Allergies Active Allergy Reactions Criticality Noted Date [...] 07/27/2024 Assessment & Plan (07/27/2024 8:58 AM SHOE STAINER): New concern Echo was unremarkable Has holter monitor on Follow up with cardiology 08/10 Chronic cough 07/27/2024 Assessment & Plan (08/30/2024 1:28 PM CDT): Chronic improved Cont flonase and zyrtec prn Chest xray was unremarkable in the hospital F/u prn Assessment & Plan (07/27/2024 9:11 AM SHOE STAINER): New concern Not at goal Likely post [...] 07/15/2023 Assessment & Plan (07/15/2023 6:58 AM SHOE STAINER): Chronic Stable Continue with psychiatry for management Encounter for wellness examination 07/15/2023 Assessment & Plan (07/15/2023 8:34 AM SHOE STAINER): Ordered CBC, cmp, lipid, hgb a1c, TSH [...] understanding Assessment & Plan (07/15/2023 9:07 AM SHOE STAINER): Chronic Has been to pain management and [...] Hypothyroid Assessment & Plan (07/15/2023 6:57 AM SHOE STAINER): chronic Tsh ordered Continue levothyroxine 50 mcg daily Assessment & Plan (12/04/2016 10:49 AM CDT): euthyroid Nonalcoholic steatohepatitis (AJ) 07/30/2015 Overview (09/11/2016): AJ - Nonalcoholic steatohepatitis Vitamin D deficiency 09/26/2012 Overview (09/09/2016): VITAMIN D DEFICIENCY NOS Hypercholesterolemia 06/07/1992 Overview (09/11/2016): Hypercholesterolemia Assessment & Plan (07/15/2023 6:56 AM SHOE STAINER): Lipid panel ordered Continiue atorvastatin 20mg daily Assessment & Plan (12/04/2016 10:50 AM CDT): Dc statin and check labs in 1 month Resolved Problems Problem Noted Date Diagnosed Date Resolved Date BMI 29.0-29.9,adult 08/30/2024 10/11/19 25 Hospital discharge follow-up 07/24/2024 10/10/2024 Assessment & Plan (07/27/2024 9:13 AM SHOE STAINER): Discharge reviewed, will scan into chart Med [...] 06/07/1992 0 12/15/2022 Overview (09/11/2016): Bipolar disorder Encounters Date Type Department Care Team Description 12/07/2024 Nurse Triage [facility] Primary Care at [address] [place] [phone] Gabriela Pinon MD 12/04/2024 JAZZMINE IP Outreach [facility] Accountable Care [address] [address] Araceli White LPN 12/04/2024 Orders Only [facility] Cardiology [address] [place] [phone] Reba Santillan MD 12/01/2024 JAZZMINE IP Outreach [address] [address] Araceli White LPN 11/30/2024 JAZZMINE IP Outreach [facility] Care [address] [address] Araceli White LPN 11/27/2024 Orders Only [facility] Group Primary Care at [address] [phone] Gabriela Pinon MD Swollen lymph nodes (Primary Dx) 11/27/2024 Results Follow-Up [facility] Primary Care at [address] [phone] Neck Soft Tissue WO Contrast 11/08/2024 3:24 PM CDT - 11/08/2024 11:59 PM CDT Hospital Encounter [address] [address] Swollen lymph nodes Discharge Disposition: Discharge to home or self care 11/07/[address] [address] Lexis Soto 10/26/2024 4:30 PM CDT Office Visit [facility] Primary Care at [address] [phone] Gabriela Pinon MD Dysphagia, unspecified type (Primary Dx); Swollen lymph nodes; Iron deficiency anemia, unspecified iron deficiency anemia type 10/26/2024 Orders Only [facility] Group Primary Care at [address] [phone] Gabriela Pinon MD Dysphagia, unspecified type (Primary Dx); Iron deficiency anemia, unspecified iron deficiency anemia type 10/26/2024 Orders Only [facility] Group Primary Care at [address] [phone] Gabriela Pinon MD Swollen lymph nodes (Primary Dx) 10/26/2024 Nurse Triage [facility] Primary Care at [address] [phone] Gabriela Pinon MD 10/20/2024 Telephone [facility] Primary Care at [address] [phone] Gabriela Pinon MD 10/12/2024 Results Follow-Up [facility] Primary Care at [address] [place] [phone] Gabriela Pinon MD CBC with auto differential, Comprehensive metabolic panel, Lipid panel, Additional followed-up results: 13 10/10/2024 2:57 PM CDT - 10/10/2024 11:59 PM CDT Hospital Encounter [facility] [address] [place] [address] Well woman exam with routine gynecological exam Discharge Disposition: Discharge to home or self care 10/10/2024 9:30 AM CDT Office Visit [facility] [address] [place] [address] [address] [place] [address] Su Hager MD Well woman exam with routine gynecological exam (Primary Dx) 09/26/2024 Nurse Triage [facility] Group Primary Care at [address] [place] [phone] Gabriela Pinon MD 09/08/2024 Orders Only [facility] Primary Care at [address] [place] [phone] Gabriela Pinon MD Screening mammogram for breast cancer (Primary Dx) from Last 3 Months Immunizations Immunization Administration Dates Next Due Influenza, Quadrivalent, Spl it, Preservative Free, Intramuscular 07/15/2023,04/04/2020,03/21/2018,03/20 Influenza, Unspecified 07/27/2024(Deferr ed: Patient Refused),04/13/2024(Deferred: Patient decision),03/20/2024 Karlo (J&J) SARS-CoV-2 Vaccination 08/12/2020 Pfizer SARS-CoV-2 Monovalent Vaccination (12+ Yrs) PURPLE 09/16/2021,03/31/2021 Tdap 07/12/2009 Surgical History Surgery Date Site/Laterality Comments ENDOMETRIAL ABLATION 06/07/2001 - 06/06/2002 heavy menses: endometrial ablation DISCECTOMY 06/07/2005 - 06/06/2006 herniated disc: discectomy SECTION 06/07/1986 - 06/06/1987 : SECTION 06/07/1988 - 06/06/1989 : SECTION 06/07/1989 - 06/06/1990 : NECK SURGERY 06/07/2005 - 06/06/2006 Herniated Disc in Neck: surgery BREAST BIOPSY BREAST CYST EXCISION BREAST LUMPECTOMY CERVICAL SPINE SURGERY 06/07/2016 - 06/06/2017 Bone Spur Medical History Medical History Date Comments Acne acne Disorder of thyroid Thyroid dise ase Headache, migraine Headache, vishnu dora Suicide attempt ([facility] Bipolar 1 disorder ([facility] disease Tongue swelling 07/02/2010 tongue swelling Heavy menses 2001 heavy menses Herniated disc, cervical 2006 herniat ed disc 1986 ; Outco me: 8 lb(s) 8 oz Female 1988 ; Outco me: 8 lb(s) 8 oz Female 1989 ; Outco me: 8 lb(s) 3 oz Male Hypothyroid Vitamin D deficiency AJ (nonalcoholic steatohepatitis) Hypercholesterolemia Sleep apnea on CPAP Herniated disc, cervical 2017 Bone spur of other site 2017 Neck bon e Spurs Family History Medical History Relation Name Comments Alzheimer's disease Father Coronary artery disease Father Farida nary artery disease; smoker Lymphoma Father's Brother Lymphoma; Esophageal cancer Father's Sister 1 Cance r, esophageal; Breast cancer Father's Sister 2 Breast ca ncer; Cancer Father's Sister 2 Coronary artery disease Mother Farida nary artery disease; smoker Dementia Mother Dementia; decea sed Depression Mother Depression; dec eased Osteoporosis Mother Osteoporosis; Other Other Family history of Descent: [place]; Other cancer Sister 1 Tonsil Cancer Depression Sister 2 Depression; 7 S isters all together. All Alive and Well Thyroid disease Sister 3 Relation Name Status Comments Father Father's Brother Father's Sister 1 Father's Sister 2 Mother Other Sister 1 Alive Tonsil Cancer Sister 2 Sister 3 Alive Sister 4 Alive Sister 5 Alive Sister 6 Alive Sister 7 Alive Social History Tobacco Use Types Packs/Day Years [...] on file Legal Sex Female 2:45 PM SHOE STAINER Gender Identity Not on file Sexual Orientation Not on file Obstetrics History Para Term AB IAB SAB Ectopic Multiple Livin g Live Births 3 3 3 3 3 Date Outcome GA Total Labor Labor/2nd/3rd Weight Sex Type Anes PTL Nanette A1 A5 Name Clin 1986 Term 3.856 kg (8 lb 8 oz) CS-LT ranv N Living Complications:None 1988 Term 3.856 kg (8 lb 8 oz) F CS-LT ranv N Living Complications:None 1989 Term 3.714 kg (8 lb 3 oz) M CS-LT ranv N Living Last Filed Vital Signs Vital Sign Reading [...] 10/26/2024 4:29 PM CDT Plan of Treatment Health Maintenance Due Date Last Done Comments Osteoporosis Screening-Bone Density Scan 06/26/2016 06/26/2014 Colon Cancer Screening-Colonoscopy 07/04/2024 07/04/2014, 07/04/2014, 07/04/2014 Influenza Vaccine (#1) 2025 , 09/20/2023, 07/15/2023, Additional history exists Pneumococcal vaccine <65 (1 of 2 - PCV) 08/15/2025 Postponed from 1983 (Patient declined, but will receive in the future) Covid-19 Vaccine ( season) 2025 09/23/2023, 03/20/2022, 09/16/2021, Additional history exists Postponed from 02/06/2024 (Patient declined, but will receive in the future) DTaP/Tdap/Td Vaccine (2 - Td or Tdap) 08/30/2025 07/12/2009 Postponed from 07/12/2019 (Insurance / Financial) Zoster Vaccine (1 of 2) 08/30/2025 Post poned from 2014 (Insurance / Financial) Breast Cancer Screening-Mammogram 09/06/2025 09/06/2024, 08/11/2023, 04/13/2022, Additional history exists Regular Well Visit/Exam 18-64 10/10/2025 10/10/2024, 07/15/2023, 04/14/2023, Additional history exists Depression Screening 10/26/2025 10/26/2024, 08/30/2024, 07/27/2024, Additional history exists Cervical Cancer Screening 10/10/20292024, 10/10/2024, 04/09/2021 Colon Cancer Screening-CT Colonography Discontinued 07/04/2014, 07/04/2014, 07/04/2014 Colon Cancer Screening-DNA Stool Discontinued 07/04/2014, 07/04/2014, 07/04/2014 Colon Cancer Screening-FIT Discontinued 07/04, 07/04/2014, 07/04/2014 Colon Cancer Screening-Sigmoidoscopy Discontinued 07/04/2014, 07/04/2014, 07/04/2014 Hepatitis C Screening Completed 07/19/2015, 014 Hepatitis B Screening Completed 10/09/2024 Procedures Procedure Name Priority Date/Time Associated Diagnosis [...] SERUM HEPATITIS PANEL Routine 07/19/2015 3:24 AM SHOE STAINER COLONOSCOPY 07/04/2014 12:00 AM SHOE STAINER HM DEXA SCAN Routine 06/26/2014 Intractable migraine, unspecified migraine type from Last 3 Months or Most Recently Relevant to Health Maintenance Results * Cardiology Document Scan (11/28/2024 3:25 PM CDT) Anatomical Region Laterality Modality Other us [facility] Savanna Hager MD CV CARDIAC SERVICES PRO [...] ethmoid air cells and maxillary sinus floors, cwkv-gnzujeu-fouv-right. Chronic nasal bone deformity. Nasal septal deviation [...] Tio Hager D.O. AP: AP Report ID: [id number] Reading Location: [id number] Procedure Note Tio Hager, DO - 11/26/2024 [...] ethmoid air cells and maxillary sinus floors, rvxa-hsxbbie-hxpb-right. Chronic nasal bone deformity. Nasal septal deviation [...] Tio Hager D.O. AP: AP Report ID: [id number] Reading Location: [place] [address] Gabriela Pinon MD IMG CT PROCEDURES Fin [...] 10/24/2024 12:32 PM CDT SPLIT 10/23/2024 FROM [id number] FASTING:YES FASTING: YES Gabriela Pinon MD LAB URINE ORDERABLES Final Result [facility] [address] [place] [address] * Albumin, Random Urine without Creatinine (10/23/2024 [...] 10/24/2024 12:32 PM CDT SPLIT 10/23/2024 FROM [id number] FASTING:YES FASTING: YES Gabriela Pinon MD LAB URINE ORDERABLES Final Result Performing Organization Address [facility] de Phone Number [facility] [address] [place] [address] * Osmolality, urine (10/23/2024 9:32 AM CDT) Osmolality (u) 183 50 - 1,200 mOsm/kg [facility] Urine 10/23/2024 9:32 AM CDT 10/23/2024 9:32 AM CDT Narrative [facility] - 10/24/2024 12:32 PM CDT SPLIT 10/23/2024 FROM [id number] FASTING:YES FASTING: YES Gabriela Pinon MD LAB URINE ORDERABLES Final Result Performing Organization Address [facility]/ZIP Co de Phone Number [facility] [address] [place] [address] * (ABNORMAL) Iron profile w/ IBC (10/23/2024 9:11 AM CDT) Pathologist [facility] Iron 38(L) 45 - 160 mcg/dL [facility] [...] MD LAB BLOOD ORDERABLES Final Result [facility] [address] [place] [address] * (ABNORMAL) CBC with auto differential (10/23/2024 9:11 AM CDT) [facility] WBC 7.2 3.8 - 10.8 Thousand/u L [...] Pinon MD LAB BLOOD ORDERABLES Final Result [facility] [address] [place] [address] * Folate (10/23/2024 9:11 AM CDT) [facility] Folate, Serum 6.1 ng/mL [facility] Comment: Reference Range Low: <3.4 Borderline: 3.4-5.4 Normal: >5.4 Blood 10/23/2024 9:11 AM CDT 10/23/2024 9:11 AM CDT Narrative [facility] - 10/24/2024 2:22 AM CDT FASTING:YES PATIENT UNABLE TO VOID; ADVISED TO RETURN FOR COLLECTION. FASTING: YES Gabriela Pinon MD LAB BLOOD ORDERABLES Final Result [facility] [address] [place] [address] * Ferritin (10/23/2024 9:11 AM CDT) [facility] Ferritin 24 16 - 232 ng/mL [facility] Blood 10/23/2024 9:11 AM CDT 10/23/2024 9:11 AM CDT Narrative [facility] - 10/24/2024 2:22 AM CDT FASTING:YES PATIENT UNABLE TO VOID; ADVISED TO RETURN FOR COLLECTION. FASTING: YES Gabriela Pinon MD LAB BLOOD ORDERABLES Final Result Performing Organization Address [facility] de Phone Number [facility] [address] [place] [address] * Vitamin B12 (10/23/2024 9:11 AM CDT) [facility] Vitamin B12 359 200 - 1,100 pg/mL [facility] [facility] Comment: Please Note: Although the [...] Final Result Performing Organization Address [facility] de Phone Number [facility] [address] [place] [address] * ThinPrep processing (Molecular component) (10/10/2024 12:00 PM CDT) [facility] ThinPrep processing (Molecular component) Specimen received for processing. Endocervical 10/10/2024 12:0 0 PM CDT 10/10/2024 3:56 PM CDT Su Hager MD LAB BODY FLUIDS AND STOOLS ORD ERABLES Final Result Performing Organization Address City/[facility]/ZIP Co de Phone Number [facility] [address] Department [place] [address] * High Risk HPV DNA Detection with Genotyping (Molecular component) (10/10/2024 12:00 PM CDT) HPV HR 16 Not Detected Not Detected HPV HR 18 Not Detected Not Detected [facility] HPV HR Non 16/18 Not Detected Not Detected [facility] Comment: Interpretive Data Nucleic acid amplification for [...] this test have been verified by the [facility]. Correlate with separately reported cytology results, as applicable. Interpretive data last revised 22 Endocervical 10/10/2024 12:0 0 PM CDT 10/10/2024 3:56 PM CDT Narrative [facility] - 10/11/2024 6:27 PM CDT Clinical history and diagnosis->Z01.419 Number of vials->1 Testing type->Screening Last menstrual period (date if known)->Postmenopausal Menstrual status->Postmenopausal Contraceptive use->None Previous positive HPV history?->No Previous negative PAP?->Yes Su Hager MD LAB BODY FLUIDS AND STOOLS ORD ERABLES Final Result Performing Organization Address City/[facility]/ZIP Co de Phone Number [facility] [address] Department [email or web address] [address] * Pap and High Risk HPV and Genotyping (Cytology Component) (10/10/2024 9:48 AM CDT) Thin prep (Pap test) 10/10/2024 9:48 AM CDT 10/11/2024 10:27 AM CDT Narrative [facility]OLOGY [facility] - 10/13/2024 11:19 AM CDT EPIC results best viewed via link to PDF [address] [address] Tele: Iris Lopez MD - [facility] CYTOLOGY REPORT Note to Patients: This report [...] the details. Patient Name: BALTAZAR OVALLE Address: [address] [place] [address] Gender: F : 1965 (Age: 59) Service: Location: [facility] : [id number] [id number] Patient Type: [facility] SPECIMEN Taken: 10/10/2024 Reported: 10/13/2024 Physician(s): Su Hager M.D. FINAL DIAGNOSIS: SOURCE OF SPECIMEN - ThinPrep Pap and HPV w/ reflex Genotyping: STATEMENT OF ADEQUACY Source: Cervical/Endocervical - Satisfactory for evaluation - Case screened using computer assisted imaging technology GENERAL CATEGORIZATION: - Negative for intraepithelial lesion or malignancy INTERPRETATION: - Atrophic pattern cad/10/13/2024 11:19Brook Law M.S., DAI (ASCP) Report Reviewed and Electronically Signed By Brook Law M.S., DAI (ASCP)Clerical Data Follow A; [id number] DIAGNOSIS COMMENT: [...] part or completely in the following laboratories: [facility], [address] [place] [address], [address] [place] [address]. Su Hager MD LAB CYTOLOGY ORDERABLES Final Result Performing Organization Address City/[facility]/ZIP Co de Phone Number [facility]OLOGY [facility] Laboratory Receiving [address] [place] [address] * Thyroid Function Hope (10/09/2024 7:42 AM CDT) Pathologist [facility] TSH 2.20 0.40 - 4.50 mIU/L [facility] Blood 10/09/2024 7:42 AM CDT 10/09/2024 7:43 AM CDT [facility] - 10/10/2024 4:26 PM CDT FASTING:YES FASTING: YES Gabriela Pinon MD LAB BLOOD ORDERABLES Final Result [facility] [address] [place] [address] * (ABNORMAL) CBC with auto differential (10/09/2024 7:42 AM CDT) WBC 7.7 3.8 - 10.8 Thousand/u L [facility] RBC, POC 3.86 3.80 - 5.10 Million/uL [facility] Hgb 11.6(L) 11.7 - 15.5 g/dL [facility] Hct 35.3 35.0 - 45.0 % [facility] MCV 91.5 80.0 - 100.0 fL [facility] MCH 30.1 27.0 - 33.0 pg [facility] MCHC 32.9 32.0 - 36.0 g/dL [facility] Comment: For adults, a slight decrease in the calculated MCHC value (in the range of 30 to 32 g/dL) is most likely not clinically significant; however, it should be interpreted with caution in correlation with other red cell parameters and the patient's clinical condition. Rdw 12.2 11.0 - 15.0 % [facility] Platelets 310 140 - 400 Thousand/u L [facility] MPV 9.4 7.5 - 12.5 fL [facility] Neutrophils, abs 5,067 1,500 - 7,800 [...] MD LAB BLOOD ORDERABLES Final Result [facility] [address] [place] [address] * Hepatitis B core antibody, total Blood (10/09/2024 7:42 AM CDT) Hep B core IgG/IgM NON-REACTI VE NON-REACTI VE [facility] Comment: For additional information, please refer to http://Myco[employer]/faq/ATU619 (This link is being provided for informational/ educational purposes only.) Blood 10/09/2024 7:42 AM CDT 10/09/2024 7:43 AM CDT Narrative [facility] - 10/10/2024 4:26 PM CDT FASTING:YES FASTING: YES Gabriela Pinon MD LAB MICROBIOLOGY - [email or web address] NERAL ORDERABLES Final Result Performing Organization Address [facility] de Phone Number [facility] [address] [place] [address] * Hepatitis B surface antibody (immune status) Blood (10/09/2024 7:42 AM CDT) HBsAb (immune status) NON-REACTI VE NON-REACTI VE [facility] Blood 10/09/2024 7:42 AM CDT 10/09/2024 7:43 AM CDT Narrative [facility] - 10/10/2024 4:26 PM CDT FASTING:YES FASTING: YES Gabriela Pinon MD LAB MICROBIOLOGY - [email or web address] NERAL ORDERABLES Final Result Performing Organization Address [facility] Co de Phone Number [facility] [address] [place] [address] * Hepatitis B Surface Antigen Blood (10/09/2024 7:42 AM CDT) HepBsAg NON-REACTI VE NON-REACTI VE [facility] Comment: For additional information, please refer to http://[employer]faq/NWD447 (This link is being provided for informational/ educational purposes only.) Blood 10/09/2024 7:42 AM CDT 10/09/2024 7:43 AM CDT Narrative [facility] - 10/10/2024 4:26 PM CDT FASTING:YES FASTING: YES Gabriela Pinon MD LAB MICROBIOLOGY - NERAL ORDERABLES Final Result Performing Organization Address City/[facility]/ZIP Co de Phone Number [facility] [address] [facility] [place] [address] * Hemoglobin A1c (10/09/2024 7:42 AM CDT) Hgb A1C 5.1 <5.7 % of total Hgb [facility] Comment: For the purpose of screening for the presence of diabetes: <5.7% Consistent with the absence of diabetes 5.7-6.4% Consistent with increased risk for diabetes (prediabetes) > or =6.5% Consistent with diabetes This assay result is consistent with a decreased risk of diabetes. Currently, no consensus exists regarding use of hemoglobin A1c for diagnosis of diabetes in children. According to [place] Diabetes Association (ADA) guidelines, hemoglobin A1c <7.0% represents optimal control in non- diabetic patients. Different metrics may apply to specific patient populations. Standards of Medical Care in Diabetes(ADA). Blood 10/09/2024 7:42 AM CDT 10/09/2024 7:43 AM CDT Narrative [facility] - 10/10/2024 4:26 PM CDT FASTING:YES FASTING: YES Gabriela Pinon MD LAB BLOOD ORDERABLES Final Result [facility] [address] [place] [address] * (ABNORMAL) Lipid panel (10/09/2024 7:42 AM CDT) Cholesterol 242(H) <200 mg/dL [facility] HDL 59 > OR = 50 mg/dL [facility] Triglycerides 64 <150 mg/dL [facility] LDL 167(H) mg/dL (calc) [facility] Comment: Reference range: <100 Desirable range <100 mg/dL for primary prevention; <70 mg/dL for patients with CHD or diabetic patients with > or = 2 CHD risk factors. LDL-C is now calculated using the Kirsty calculation, which is a validated novel method providing better accuracy than the Friedewald equation in the estimation of LDL-C. Darrell SS et al. TERESA. 2013;310(19): 5808-7392 (http://education.Gemvara/faq/MOS011) Chol/HDL ratio 4.1 <5.0 (calc) [facility] Non-HDL, (LDL+VLDL) 183(H) <130 mg/dL (calc) [facility] Comment: For patients with diabetes plus 1 major ASCVD risk factor, treating to a non-HDL-C goal of <100 mg/dL (LDL-C of <70 mg/dL) is considered a therapeutic option. Blood 10/09/2024 7:42 AM CDT 10/09/2024 7:43 AM CDT Narrative [facility] - 10/10/2024 4:26 PM CDT FASTING:YES FASTING: YES Gabriela Pinon MD LAB BLOOD ORDERABLES Final Result [facility] [address] [place] [address] * (ABNORMAL) Comprehensive metabolic panel (10/09/2024 7:42 AM CDT) [facility] Glucose 90 65 - 99 mg/dL [facility] Comment: Fasting reference interval BUN 10 7 - 25 mg/dL [facility] Creatinine 1.09(H) 0.50 - 1.05 mg/dL [facility] eGFR 58(L) > OR = 60 mL/min/1.7 3m2 [facility] BUN/creat ratio 9 6 - 22 (calc) [facility] Sodium 139 135 - 146 mmol/L [facility] Potassium, pl 4.1 3.5 - 5.3 mmol/L [facility] Chloride 105 98 - 110 mmol/L [facility] CO2 27 20 - 32 mmol/L [facility] Calcium 10.0 8.6 - 10.4 mg/dL [facility] Protein, sr 7.2 6.1 - 8.1 g/dL [facility] Albumin 4.5 3.6 - 5.1 g/dL [facility] GLOBULIN 2.7 1.9 - 3.7 g/dL (calc) [facility] Alb/glob ratio 1.7 1.0 - 2.5 (calc) [employer]S angelica Talbot Bilirubin, total 0.4 0.2 - 1.2 mg/dL Robbie N-1-1-Carlos Talbot Alk phos 86 37 - 153 U/L [employer] angelica Talbot AST 14 10 - 35 U/L JoyentCarlos Talbot ALT (SGPT) 10 6 - 29 U/L JoyentCarlos Talbot Blood 10/09/2024 7:42 AM CDT 10/09/2024 7:43 AM CDT Narrative [facility] - 10/10/2024 4:26 PM CDT FASTING:YES FASTING: YES us Gabriela Pinon MD LAB BLOOD ORDERABLES Final Result [facility] [address] [place] [address] * DIAGNOSTIC MAMMOGRAM BILATERAL W ERIN (09/06/2024 [...] the time of the study. Roxy Dave NP IMG MAMMO PROCEDURES Final Result * Serum Hepatitis panel (07/19/2015 3:24 AM SHOE STAINER) HCV ab NON-REACTI VE NON-REACTI VE HISTORICAL RESULTS HAV ab, IgM NON-REACTI VE NON-REACTI VE HISTORICAL RESULTS Hepatitis signal to cutoff ratio 0.02 <1.00 HISTORICAL RESULTS HBV surface ag NON-REACTI VE NON-REACTI VE HISTORICAL RESULTS HBV core ab, IgM NON-REACTI VE NON-REACTI VE HISTORICAL RESULTS Serum 07/19/2015 3:24 AM SHOE STAINER Narrative HISTORICAL RESULTS - 07/20/2015 2:00 AM SHOE STAINER [facility] [address] Director: KELSIE REEVES DO,MPH Historical Provider LAB BLOOD ORDERABLES Jeannine gibson Result HISTORICAL RESULTS * COLONOSCOPY (07/04/2014 12:00 AM SHOE STAINER) Anatomical Region Laterality Modality Other Narrative 07/04/2014 12:00 AM SHOE STAINER Ordered by an unspecified provider. Procedure Note Provider, MD Emelia - 07/04/2014 12:00 AM CST PROCEDURE REPORT Patient: BALTAZAR OVALLE Account: [id number] Room No: : 1965 Patient Type: SDS [...] with Dr. Claudy Vickers. Jeffrey Boland M.D. Josh TD: 07/05/2014 09:32 CC: Claudy Vickers M.D. Electronically Authenticated by: Jeffrey Boland MD On 07/06/2014 08:00 AM SHOE STAINER Historical Provider ENDOSCOPY PROCEDURES Jeannine l Result * DEXA SCAN (06/26/2014) DEXA Scan Normal Anatomical Region Laterality Modality Other Historical Provider HEALTH MAINTENANCE Final Result from Last 3 Months or Most Recently Relevant to Health Maintenance Insurance [facility] MEDICARE [facility] MEDICARE AET[employer] MEDICARE Care Teams Immigration Judge Relationship Specialty Start Date End Date Gabriela Pinon MD [address] [place] [address] [address] PCP - General Family Medicine 07/15/23 Roxy Dave NP [address] [facility] [address] [place] [address] Nurse Practitioner Obstetrics and Gynecology 10/08/23 Dontae Huerta MD [address] [facility] [address] [place] [address] Referring Physician Neurology 10/08/23
--- OUTSIDE RECORDS SUMMARY | 2024-12-07 21:14 | XMS_ITS | Encounter Summary ---
Author Organization [facility] Address [address] [place] [address] Care Team Providers Care Special Investigator Name Role Phone Claudy Vickers MD Primary Care Provider [phone] [phone] Encounter Details Date Type Department Care Team (Latest Contact Info) Description 08/04/2006 Inpatient Historical HIS PATIENT IN A BED (Excluded Provider) Silvina Hebert MD [address] [place] [address] [address] [place] [address] Bipolar Affective, Depress, Unspec (CMS/HCC) (Primary Dx) Social History Tobacco Use Types Packs/Day Years Used Date Smoking Tobacco: Never Assessed Comments Unknown Sex and Gender Information Value Date Recorded Sex Assigned at Not on file Legal Sex Female 3:44 AM BROKER ASSOCIATE Gender Identity Not on file Sexual Orientation Not on file documented as of this encounter Plan of Treatment Not on file documented as of this encounter Procedures Procedure Name Priority Date/Time Associated Diagnosis Comments TSH WITH REFLEX FT4 AND FT3 Routine 08/07/2006 8:32 PM BROKER ASSOCIATE documented in this encounter Results * TSH WITH REFLEX FT4 AND FT3 (08/07/2006 8:32 PM BROKER ASSOCIATE) TSH 2.31 0.27 - 4.20 uU/mL INTERFACE SYSTEM 08/07/2006 8:32 PM BROKER ASSOCIATE Tawanda Lopez MD CHEMISTRY ORDERABLES Edited INTERFACE SYSTEM Refer to clinic/hospital department documented in this encounter Visit Diagnoses Diagnosis Bipolar I disorder, most recent episode (or current) depressed, unspecified ([facility])- Primary Bipolar I disorder, most recent episode (or current) depressed, unspecified documented in this encounter Care Teams Special Investigator Relationship Specialty Start Date End Date Claudy Vickers MD PCP - General Internal Medicine 02/22/17 documented as of this encounter
--- OUTSIDE RECORDS SUMMARY | 2024-12-07 21:14 | XMS_ITS | Encounter Summary ---
Author Organization [employer] [facility] Address [address] [place] [address] Care Team Providers Care Refrigeration Manager Name Role Phone Claudy Vickers MD Primary Care Provider [phone] Encounter Details Date Type Department Care Team (Late st Contact Info) Description 07/11/2004 Inpatient Historical [place] [address] [facility] [address] [address] CHEST PAIN NEC (Primary Dx) Social History Tobacco Use Types Packs/Day Years Used Date Smoking Tobacco: Never Assessed Comments Unknown Sex and Gender Information Value Date Recorded Sex Assigned at Not on file Legal Sex Female 3:44 AM SIMULATION DEVELOPER Gender Identity Not on file Sexual Orientation Not on file documented as of this encounter Plan of Treatment Not on file documented as of this encounter Procedures Procedure Name Priority Date/Time Associated Diagnosis Comments TROPONIN (W/REFLEX CKMB/CK) Routine 07/12/2004 3:00 AM SIMULATION DEVELOPER TROPONIN (W/REFLEX CKMB/CK) Routine 07/11/2004 7:34 PM SIMULATION DEVELOPER ED HOLD Routine 07/11/2004 7:34 PM SIMULATION DEVELOPER CBC WITH DIFFERENTIAL Routine 07/11/2004 7:34 PM SIMULATION DEVELOPER CBC WITH DIFFERENTIAL Routine 07/11/2004 7:34 PM SIMULATION DEVELOPER documented in this encounter Results * TROPONIN (W/REFLEX CKMB/CK) (07/12/2004 3:00 AM SIMULATION DEVELOPER) TROPONIN T <0.01 <=0.03 ng/mL INTERFACE SYSTEM TROPONIN T INTERP Negative INTERFACE SYSTEM 07/12/2004 3:00 AM SIMULATION DEVELOPER Andrew Khanna MD CHEMISTRY ORDERABLES Final Resu lt Performing Organization Address [facility] Phone Number INTERFACE SYSTEM Refer to clinic/hospital department * ED HOLD (07/11/2004 7:34 PM SIMULATION DEVELOPER) SPECIMEN HOLD, BLOOD 7 days INTERFACE SYSTEM 07/11/2004 7:34 PM SIMULATION DEVELOPER Tiffany Gaston CHEMISTRY ORDERABLES Final Resul t Performing Organization Address [facility] Phone Number INTERFACE SYSTEM Refer to clinic/hospital department * CBC WITH DIFFERENTIAL (07/11/2004 7:34 PM SIMULATION DEVELOPER) NEUTROPHILS 46 45 - 70 % INTERFAC E SYSTEM LYMPHOCYTES 41 16 - 45 % INTERFAC E SYSTEM MONOCYTES 8 3 - 13 % INTERFACE SYSTEM EOSINOPHILS 4 0 - 7 % INTERFAC E SYSTEM BASOPHILS 1 0 - 2 % INTERFACE SYSTEM NEUTROPHIL ABSOLUTE 3.69 1.90 - 7.00 K/uL INTERFACE SYSTEM LYMPHOCYTE ABSOLUTE 3.31 0.70 - 4.50 K/uL INTERFACE SYSTEM MONOCYTE ABSOLUTE 0.61 0.10 - 1.30 K/uL INTERFACE SYSTEM EOSINOPHIL ABSOLUTE 0.34 0.00 - 0.70 K/uL INTERFACE SYSTEM BASOPHILS ABSOLUTE 0.06 0.00 - 0.20 K/uL INTERFACE SYSTEM 07/11/2004 7:34 PM SIMULATION DEVELOPER Tiffany Gaston HEMATOLOGY ORDERABLES Final Resu lt Performing Organization Address [facility] Phone Number INTERFACE SYSTEM Refer to clinic/hospital department * CBC WITH DIFFERENTIAL (07/11/2004 7:34 PM SIMULATION DEVELOPER) WBC 8.0 4.0 - 9.8 K/uL INTERFACE SYSTEM RBC 4.03 3.90 - 4.90 M/uL INTERFACE SYSTEM HEMOGLOBIN 12.6 11.8 - 14.8 g/dL INTERFACE SYSTEM HEMATOCRIT 37.0 35.5 - 44.0 % INTERFACE SYSTEM MCV 91.8 82.0 - 99.0 fL INTERFACE SYSTEM MCH 31.3 27.2 - 32.6 pg INTERFACE SYSTEM MCHC 34.1 31.5 - 35.5 % INTERFACE SYSTEM RDW 12.4 11.5 - 14.5 % INTERFACE SYSTEM RDW-STDEV 42.2 37.1 - 48.7 fL INTERFACE SYSTEM PLATELETS 273 140 - 350 K/uL INTERFACE SYSTEM MPV 10.2 9.3 - 12.4 fL INTERFACE SYSTEM 07/11/2004 7:34 PM SIMULATION DEVELOPER Tiffany Gaston HEMATOLOGY ORDERABLES Final Resu lt INTERFACE SYSTEM Refer to clinic/hospital department * TROPONIN (W/REFLEX CKMB/CK) (07/11/2004 7:34 PM SIMULATION DEVELOPER) TROPONIN T <0.01 <=0.03 ng/mL INTERFACE SYSTEM TROPONIN T INTERP Negative INTERFACE SYSTEM 07/11/2004 7:34 PM SIMULATION DEVELOPER Tiffany Gaston CHEMISTRY ORDERABLES Final Resul t INTERFACE SYSTEM Refer to clinic/hospital department documented in this encounter Visit Diagnoses Diagnosis Other chest pain- Primary documented in this encounter Care Teams Refrigeration Manager Relationship Specialty Start Date End Date Claudy Vickers MD PCP - General Internal Medicine 02/22/17 documented as of this encounter
--- OUTSIDE RECORDS SUMMARY | 2024-12-07 21:14 | XMS_ITS | Encounter Summary ---
Author Organization [facility] Address [address] [place] [address] Care Team Providers Care Manager Mining Name Role Phone Claudy Vickers MD Primary Care Provider [phone] Encounter Details Date Type Department Care Team (Latest Contact Info) Description 09/17/2006 Outpatient Historical HIS EXTENED OP CARE (Excluded Provider) Silvina Hebert MD [address] [facility] [address] [place] [address] Depressive Disorder, not Elsewhere Classified (Primary Dx) Social History Tobacco Use Types Packs/Day Years Used Date Smoking Tobacco: Never Assessed Comments Unknown Sex and Gender Information Value Date Recorded Sex Assigned at Not on file Legal 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
--- OUTSIDE RECORDS SUMMARY | 2024-12-07 21:14 | XMS_ITS | Encounter Summary ---
Author Organization [facility] Address [address] [place] [address] Care Team Providers Care Print Operator Name Role Phone Claudy Vickers MD Primary Care Provider [phone] [phone] Encounter Details Date Type Department Care Team (Latest Contact Info) Description 10/19/2006 Outpatient Historical HIS EXTENED OP CARE (Excluded Provider) Silvina Hebert MD [address] [facility] [address] [place] [address] Depressive Disorder, not Elsewhere Classified (Primary Dx) Social History Tobacco Use Types Packs/Day Years Used Date Smoking Tobacco: Never Assessed Comments Unknown Sex and Gender Information Value Date Recorded Sex Assigned at Not on file Legal Sex Female 3:44 AM DEVELOPER ADVOCATE Gender Identity Not on file Sexual Orientation Not on file documented as of this encounter Plan of Treatment Not on file documented as of this encounter Visit Diagnoses Diagnosis Depressive disorder, not elsewhere classified- Primary documented in this encounter Care Teams Print Operator Relationship Specialty Start Date End Date Claudy Vickers MD PCP - General Internal Medicine 02/22/17 documented as of this encounter
--- OUTSIDE RECORDS SUMMARY | 2024-12-07 21:14 | XMS_ITS | Encounter Summary ---
Author Organization [facility] Address [address] [place] [address] Care Team Providers Care Fine Artist Name Role Phone Claudy Vickers MD Primary Care Provider [phone] Encounter Details Date Type Department Care Team (Latest Contact Info) Description 08/16/2006 Outpatient Historical HIS EXTENED OP CARE (Excluded Provider) Silvina Hebert MD [address] [facility] [address] [place] [address] Depressive Disorder, not Elsewhere Classified (Primary Dx) Social History Tobacco Use Types Packs/Day Years Used Date Smoking Tobacco: Never Assessed Comments Unknown Sex and Gender Information Value Date Recorded Sex Assigned at Not on file Legal Sex Female 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
--- OUTSIDE RECORDS SUMMARY | 2024-12-07 21:14 | XMS_ITS | Encounter Summary ---
Author Organization [employer] Address [address] [place] [address] Care Team Providers Care Fibreglass Gun Hand Name Role Phone Claudy Vickers MD Primary Care Provider [phone] Encounter Details Date Type Department Care Team (Late st Contact Info) Description 07/11/2004 Outpatient Historical [facility] [address] [place] [address] Curly Tomlin MD [address] [id number] Social History Tobacco Use Types Packs/Day Years Used Date Smoking Tobacco: Never Assessed Comments Unknown Sex and Gender Information Value Date Recorded Sex Assigned at Not on file Legal Sex Female 3:44 AM ENGINEERING OFFICER Gender Identity Not on file Sexual Orientation Not on file documented as of this encounter Plan of Treatment Not on file documented as of this encounter Visit Diagnoses Not on filedocumented in this encounter Care Teams Fibreglass Gun Hand Relationship Specialty Start Date End Date Claudy Vickers MD PCP - General Internal Medicine 02/22/17 documented as of this encounter
[2024-12-07 21:44] LABS: Lithium < 0.2 mmol/L (0.6-1.2)
--- NOTE | 2024-12-07 21:52 | ED.CHESTPAIN ---
HPI - Chest Pain General Chief Complaint: Chest Pain <Nicolasa Lundy PA-C - Last Filed: 12/07/24 23:36> Stated Complaint: cp <Nicolasa Lundy PA-C - Last Filed: 12/07/24 23:36> Time Seen by Provider: 12/07/24 20:35 <Nicolasa Lundy PA-C - Last Filed: 12/07/24 23:36> History of Present Illness HPI narrative: 59-year-old female with history of hypothyroidism, bipolar disorder, ROXANNE, hypercholesterolemia presents to the emergency department with concerns for panic attack. Patient states today she was in the middle of a counseling session talking about something stressful when she began to have a panic attack. She states she had a pain in the center of her chest with associated anxiety. She checked her blood pressure and found it to be elevated which caused her to have more anxiety. She took 25 mg of hydroxyzine with minimal improvement. States the panic attack lasted approximately 1 hour prompted her to come to the ED. the patient is requesting an increase in her hydroxyzine does in hopes to improve her anxiety over the holiday weekend until she can see her psychiatrist next week. On my evaluation the patient states she is asymptomatic but is having some anxiety. She denies any chest pain or shortness of breath, cough or congestion, fever, lower extremity edema, hemoptysis, history of VTE. Patient was admitted on 11/26/2024 and discharged home on 11/28/2024 after diagnosis of lithium toxicity, dehydration and COVID. Patient had her lithium discontinued on 11/26/2024 and had a repeat lithium level later in the day which showed a normal lithium level of 0.6. Patient has not been taking lithium since. She also has bradycardia which is reportedly chronic and states her her recent normally in the low 50s. She follows with cardiology at [facility] and is planning to have an outpatient Holter monitor. Reportedly she had possible episodes of VT on admission, however upon telemetry reviewed by the digital experience manager this was found to be artifact. She denies any lightheadedness or dizziness, again no current chest pain or shortness of breath. <Nicolasa Lundy PA-C - Last Filed: 12/07/24 23:36> Related Data Home Medications: Home Medications ?Medication ?Instructions ?Recorded ?Confirmed ?Last Taken ?Type atorvastatin 20 mg tablet 20 mg PO HS 08/04/20 11/26/24 07/20/20 21:00 History lamotrigine 150 mg tablet 300 mg PO DAILY 08/04/20 11/26/24 08/03/20 09:00 History levothyroxine 50 mcg tablet 50 mcg PO DAILY 08/04/20 11/26/24 08/03/20 09:00 History lumateperone 42 mg capsule 42 mg PO DAILY 06/05/23 11/26/24 Unknown History (Caplyta) melatonin 10 mg capsule 10 mg PO QHS 11/26/24 11/26/24 11/25/24 History <Nicolasa Lundy PA-C - Last Filed: 12/07/24 23:36> Allergies/Adverse Reactions: Allergies Allergy/AdvReac Type Severity Reaction Status Date / Time prochlorperazine Allergy Severe tongue and Verified 12/07/24 17:10 throat swelling <Nicolasa Lundy PA-C - Last Filed: 12/07/24 23:36> Review of Systems Review of Systems: All systems reviewed & are unremarkable except as noted in HPI and below <Nicolasa Lundy PA-C - Last Filed: 12/07/24 23:36> ON LICENSE OF [facility] Past Medical History Medical History: Medical History Bipolar 1 disorder Obstructive sleep apnea Hypercholesterolemia Bipolar disorder <Nicolasa Lundy PA-C - Last Filed: 12/07/24 23:36> Surgical History Surgical History: Surgical History History of <Nicolasa Lundy PA-C - Last Filed: 12/07/24 23:36> Family History Family History: Family History Mother Coronary artery disease Abdominal aortic aneurysm Depression Diverticulitis Osteoarthritis FHx: coronary artery bypass surgery Chronic obstructive pulmonary disease Father Coronary artery disease Abdominal aortic aneurysm Alzheimer disease FHx: coronary artery bypass surgery Sibling Epilepsy Depression Thyroid goiter Bipolar 1 disorder, depressed Tonsil cancer Alcoholism and drug addiction in family <Nicolasa Lundy PA-C - Last Filed: 12/07/24 23:36> Social History Social History: Social History Smoking status: Never smoker Second hand tobacco smoke exposure: No Alcohol intake: never Substance use: never Substance use type: does not use Do You Feel Safe in your Home?: Yes Lack of Transportation: No Lack of Food: Never True Current Housing: I Have Housing Concerned About Future Housing: No Difficulty Paying Gas/Electric Bills: No Difficulty Paying for Meds: No Currently Unemployed: No Education: Decline to Answer Difficulty w/ Childcare or Family Care: No Gender identity (if verbalized by the patient): Female Sexual Orientation (if Verbalized by the Patient): Straight or Heterosexual Spiritual care concerns: No <Nicolasa Lundy PA-C - Last Filed: 12/07/24 23:36> Exam Narrative: GENERAL: Well-appearing, well-nourished, and in no acute distress. Anxious HEAD: Normocephalic, atraumatic. EYES: PERRLA and EOMI. ENT: Nares clear, no rhinorrhea or epistaxis. Mucous membranes moist. NECK: Supple. CHEST: Clear to auscultation. No respiratory distress. HEART: Regular rhythm. Bradycardic at 50 bpm. No murmur heard. Normal peripheral pulses. ABDOMEN: Soft, nontender, nondistended, normal active bowel sounds. EXTREMITIES: Normal range of motion. No edema. Negative Homans bilaterally SKIN: Warm, dry, no rash. NEURO: No focal deficits. Alert and oriented x3 <Nicolasa Lundy PA-C - Last Filed: 12/07/24 23:36> Course LARD MIXER/PA Physician Supervision This visit was performed by both a physician and an APC. I performed all aspects of the MDM as documented. <Saul Monteiro MD - Last Filed: 12/08/24 05:51> Vital Signs Vital signs: Vital Signs Temperature 36.8 C 12/07/24 16:54 Pulse Rate 56 L 12/07/24 16:54 Respiratory Rate 15 12/07/24 16:54 Blood Pressure 146/74 H 12/07/24 16:54 Pulse Oximetry 100 12/07/24 16:54 Oxygen Delivery Room Air 12/07/24 16:54 Temperature 36.8 C 12/07/24 16:54 Pulse Rate 47 L 12/07/24 21:04 Respiratory Rate 19 12/07/24 21:04 Blood Pressure 141/90 H 12/07/24 21:04 Pulse Oximetry 100 12/07/24 21:04 Oxygen Delivery Room Air 12/07/24 17:33 <Nicolasa Lundy PA-C - Last Filed: 12/07/24 23:36> Vital Signs Temperature 36.8 C 12/07/24 16:54 Pulse Rate 56 L 12/07/24 16:54 Respiratory Rate 15 12/07/24 16:54 Blood Pressure 146/74 H 12/07/24 16:54 Pulse Oximetry 100 12/07/24 16:54 Oxygen Delivery Room Air 12/07/24 16:54 Temperature 36.8 C 12/07/24 16:54 Pulse Rate 47 L 12/07/24 21:04 Respiratory Rate 19 12/07/24 21:04 Blood Pressure 141/90 H 12/07/24 21:04 Pulse Oximetry 100 12/07/24 21:04 Oxygen Delivery Room Air 12/07/24 17:33 <Saul Monteiro MD - Last Filed: 12/08/24 05:51> MDM - Chest Pain MDM Narrative Medical decision making narrative: 59-year-old female with history of bipolar disorder, hypothyroidism, ROXANNE presents to the emergency department with concerns for panic attack. Patient was sitting in a counseling session reportedly talking with something stressful when she had acute onset panic attack which consisted of anxiety and chest pain. This resolved after an hour. She has not had any symptoms since but does feel mildly anxious. Patient's vital signs with bradycardia in the 40s to 50s which is reportedly chronic per patient. Vital signs are otherwise unremarkable. She denies any chest pain or shortness of breath my evaluation. EKG shows sinus bradycardia rate of 56 ppm, normal MA interval, normal QRS duration, normal QTC, no ischemic changes. Troponin is undetectable x2. Lab work shows no leukocytosis. Patient does appear to be dehydrated with mild hypokalemia of 3.1, hyperchloremia of 109, bicarb of 21 anion gap of 15, calcium of 10.8, creatinine of 1.02. She was given a L of fluids and potassium repletion. [place] level is undetectable. Chest x-ray shows no acute cardiopulmonary findings. D-dimer mildly elevated at 0.58, however VTE is unlikely when age adjusted and wells score is low risk. Patient updated on results. She was given IV fluids, hydroxyzine and potassium repletion. On re-evaluation she remains asymptomatic resting comfortably in exam bed. Her presentation is consistent with panic attack. She is requesting an increase in her hydroxyzine until she is able to see her psychiatrist after the holiday weekend. I also advised to follow closely with her digital experience manager and discussed strict ED return precautions. She is agreeable with the plan verbalized understanding. Discharged in stable condition. <Nicolasa Lundy PA-C - Last Filed: 12/07/24 23:36> Lab Data Result diagrams: 12/07/24 17:41 12/07/24 17:41 <Nicolasa Lundy PA-C - Last Filed: 12/07/24 23:36> Labs: Lab Results 12/07/24 12/07/24 Range/Units 17:41 20:14 WBC 9.6 (4.5-10.0) K/mm3 RBC 4.16 L (4.2-5.4) M/mm3 Hgb 11.9 L (12.0-15.0) g/dL Hct 36.2 L (37.0-47.0) % MCV 87.0 (80-100) fl MCH 28.6 (26-34) pg MCHC 32.9 (32-36) g/dl RDW 12.8 (11.5-14.5) % Plt Count 428 H D (150-375) k/mm3 MPV 9.0 (7.4-10.4) fl Immature Gran % (Auto) 0.3 (0-0.5) % Neut % (Auto) 68.1 (45.5-73.1) % Lymph % (Auto) 23.1 (18.3-44.2) % Garden % (Auto) 6.3 (2.6-8.5) % Eos % (Auto) 1.2 (0-4.4) % Baso % (Auto) 1.0 (0.2-1.2) % Lymph # (Auto) 2.22 (0.9-3.2) K/mm3 Garden # (Auto) 0.6 (0.1-0.6) K/mm3 Eos # (Auto) 0.1 (0-0.3) K/mm3 Baso # (Auto) 0.1 (0.0-0.1) K/mm3 Abs Immat Gran (auto) 0.03 (0.00-0.031) K/mm3 Absolute Neuts (auto) 6.6 (1.3-6.7) K/mm3 Absolute Nucleated RBC 0.000 (0.0-0.012) K/mm3 Nucleated RBC % 0.0 (0.0-0.2) % PT 13.6 (11.1-14.7) Seconds INR 1.0 APTT 28.2 (22.3-36.8) Seconds D-Dimer 0.58 H (<0.48) ug/mL Sodium 145 (137-145) mmol/L Potassium 3.1 L (3.4-5.0) mmol/L Chloride 109 H (98-107) mmol/L Carbon Dioxide 21 L (22-30) mmol/L Anion Gap 15 H (4-12) mmol/L BUN 12 (7-17) mg/dL Creatinine 1.02 H (0.7-1.0) mg/dL Estim Creat Clear Calc 46 ml/min Estimated GFR 55 L (59 - ) Glucose 101 (65-110) mg/dL Calcium 10.8 H (8.4-10.2) mg/dL Magnesium 2.2 (1.6-2.3) mg/dL Total Bilirubin 0.5 (0.2-1.3) mg/dL AST 27 (14-36) U/L ALT 21 (6-35) U/L Alkaline Phosphatase 128 H (38-126) U/L Troponin I < 0.012 < 0.012 (0.000-0.034) ng/mL Total Protein 8.6 H (6.3-8.2) g/dL Albumin 4.5 (3.5-5.1) g/dL Lipase 111 (23-300) U/L [place] < 0.2 L (0.6-1.2) mmol/L <Nicolasa Lundy PA-C - Last Filed: 12/07/24 23:36> Lab Results 12/07/24 12/07/24 Range/Units 17:41 20:14 WBC 9.6 (4.5-10.0) K/mm3 RBC 4.16 L (4.2-5.4) M/mm3 Hgb 11.9 L (12.0-15.0) g/dL Hct 36.2 L (37.0-47.0) % MCV 87.0 (80-100) fl MCH 28.6 (26-34) pg MCHC 32.9 (32-36) g/dl RDW 12.8 (11.5-14.5) % Plt Count 428 H D (150-375) k/mm3 MPV 9.0 (7.4-10.4) fl Immature Gran % (Auto) 0.3 (0-0.5) % Neut % (Auto) 68.1 (45.5-73.1) % Lymph % (Auto) 23.1 (18.3-44.2) % Garden % (Auto) 6.3 (2.6-8.5) % Eos % (Auto) 1.2 (0-4.4) % Baso % (Auto) 1.0 (0.2-1.2) % Lymph # (Auto) 2.22 (0.9-3.2) K/mm3 Garden # (Auto) 0.6 (0.1-0.6) K/mm3 Eos # (Auto) 0.1 (0-0.3) K/mm3 Baso # (Auto) 0.1 (0.0-0.1) K/mm3 Abs Immat Gran (auto) 0.03 (0.00-0.031) K/mm3 Absolute Neuts (auto) 6.6 (1.3-6.7) K/mm3 Absolute Nucleated RBC 0.000 (0.0-0.012) K/mm3 Nucleated RBC % 0.0 (0.0-0.2) % PT 13.6 (11.1-14.7) Seconds INR 1.0 APTT 28.2 (22.3-36.8) Seconds D-Dimer 0.58 H (<0.48) ug/mL Sodium 145 (137-145) mmol/L Potassium 3.1 L (3.4-5.0) mmol/L Chloride 109 H (98-107) mmol/L Carbon Dioxide 21 L (22-30) mmol/L Anion Gap 15 H (4-12) mmol/L BUN 12 (7-17) mg/dL Creatinine 1.02 H (0.7-1.0) mg/dL Estim Creat Clear Calc 46 ml/min Estimated GFR 55 L (59 - ) Glucose 101 (65-110) mg/dL Calcium 10.8 H (8.4-10.2) mg/dL Magnesium 2.2 (1.6-2.3) mg/dL Total Bilirubin 0.5 (0.2-1.3) mg/dL AST 27 (14-36) U/L ALT 21 (6-35) U/L Alkaline Phosphatase 128 H (38-126) U/L Troponin I < 0.012 < 0.012 (0.000-0.034) ng/mL Total Protein 8.6 H (6.3-8.2) g/dL Albumin 4.5 (3.5-5.1) g/dL Lipase 111 (23-300) U/L [place] < 0.2 L (0.6-1.2) mmol/L <Saul Monteiro MD - Last Filed: 12/08/24 05:51> Discharge Plan Discharge Clinical Impression: Anxiety, Dehydration, Acute hypokalemia <Nicolasa Lundy PA-C - Last Filed: 12/07/24 23:36> Patient Disposition: Home <Nicolasa Lundy PA-C - Last Filed: 12/07/24 23:36> Condition: Stable <ANANTH Howe Last Filed: 12/07/24 23:36> Instructions: Antibiotic Form, Dehydration (DC), Hypokalemia (ED), Anxiety (ED) <Nicolasa Lundy PA-C - Last Filed: 12/07/24 23:36> Additional Instructions: You were evaluated in the emergency department for chest pain and concerns for panic attack. Your workup here shows dehydration and low potassium which was repleted. Your given IV fluids. You were not actively having a heart attack and your presentation is consistent with a panic attack as discussed. We have increased her hydroxyzine from 25 mg to 50 mg to take as needed for anxiety or panic attacks. Please make sure to follow-up closely with your psychiatrist. Make sure to follow-up closely as well with her digital experience manager regarding her chronic low heart rate and chest pain. Please also follow-up with your primary care provider regarding your dehydration no electrolyte derangements as discussed she will need to have her labs rechecked within the next few days. Return to the emergency department if you develop new or worsening chest pain shortness of breath, lightheadedness or loss of consciousness, or other concerning symptoms. <Nicolasa Lundy PA-C - Last Filed: 12/07/24 23:36> Patient Language: Mohawk <Nicolasa Lundy PA-C - Last Filed: 12/07/24 23:36> Prescriptions: New hydroxyzine pamoate [Vistaril] 25 mg capsule 50 mg PO QID PRN (Reason: anxiety) Qty: 20 0RF No Action Caplyta 42 mg capsule 42 mg PO DAILY albuterol sulfate 90 mcg/actuation HFA aerosol inhaler 2 puff inhalation Q4-6H PRN (Reason: shortness of breath or wheezing) 30 Days Qty: 8.5 0RF atorvastatin 20 mg tablet 20 mg PO HS lamotrigine 150 mg tablet 300 mg PO DAILY levothyroxine 50 mcg tablet 50 mcg PO DAILY melatonin 10 mg capsule 10 mg PO QHS hydrocodone-acetaminophen 5-325 mg Tablet 1 tablet PO Q6H PRN (Reason: Pain Rated 4-6) 5 Days Qty: 10 0RF senna 8.6 mg capsule 8.6 mg PO DAILY Qty: 10 0RF quetiapine 300 mg tablet extended release 24 hr 150 mg PO HS 30 Days Qty: 30 0RF <Nicolasa Lundy PA-C - Last Filed: 12/07/24 23:36> Follow-up/Referrals: UNKNOWN,DOCTOR [Primary Care Provider] - <Nicolasa Lundy PA-C - Last Filed: 12/07/24 23:36> Quality HEART score for chest pain patients History: slightly suspicious <Nicolasa Lundy PA-C - Last Filed: 12/07/24 23:36> ECG: normal <Nicolasa Lundy PA-C - Last Filed: 12/07/24 23:36> Age: > 45 and < 65 years <Nicolasa Lundy PA-C - Last Filed: 12/07/24 23:36> Risk factors: 1 or 2 risk factors <Nicolasa Lundy PA-C - Last Filed: 12/07/24 23:36> Troponin: < or = to 1x normal limit <Nicolasa Lundy PA-C - Last Filed: 12/07/24 23:36> Heart score: 2 <Nicolasa Lundy PA-C - Last Filed: 12/07/24 23:36> 2 <Saul Monteiro MD - Last Filed: 12/08/24 05:51>
[2024-12-07] MEDS: POTASSIUM CHLORIDE 20 MEQ PACKET (FOR LIQUID) 40 MEQ PO (22:04)
[2024-12-07] MEDS: SODIUM CHLORIDE 0.9% IV 1,000 ML 999 ML IV CONT (22:05)
[2024-12-07 22:08] LABS: Magnesium 2.2 mg/dL (1.6-2.3)
== END 2024-12-08 00:10 | disposition home or self-care (01) ==
PROVIDERS: Emergency Medicine; Emergency Provider Physician Assistant
DX: F41.9 Anxiety disorder, unspecified (principal); E86.0 Dehydration; E87.6 Hypokalemia; E03.9 Hypothyroidism, unspecified; Z79.899 Other long term (current) drug therapy
CPT/HCPCS: 36415; 71046; 80053; 80178; 83690; 83735; 84484; 85025; 85380; 85610; 85730; 93005; 96360; 99284; A9270; J7030